=== PATIENT | male | born 1980 | race Caucasian/White ===

== ENCOUNTER 2023-01-24 20:43 | Emergency (ER) | payer MEDICAID, SELFPAY ==
--- NOTE | 2023-01-24 | ECG_ITS ---
Test Reason : etoh Blood Pressure : / mmHG Vent. Rate : 090 BPM Atrial Rate : 090 BPM P-R Int : 132 ms QRS Dur : 092 ms QT Int : 392 ms P-R-T Axes : 080 071 063 degrees QTc Int : 479 ms Normal sinus rhythm Normal ECG When compared with ECG of 07-AUG-2018 21:41, No significant change was found Referred By: Generic ED Physician Electronically Signed By:RENÉE CEDENO MD
[2023-01-24 20:54] VITALS: BP 120/87; PULSE 97; RESP 16; TEMP 36.5; O2SAT 92; BMI 22.7
--- NOTE | 2023-01-24 21:07 | MHC.RECOVSUP ---
Met with patient, Patient did not want any service but was given resources..
--- NOTE | 2023-01-24 21:16 | ED_ITS ---
HPI - General Adult General Chief complaint: ETOH/Substance Use Stated complaint: HEROIN OD + NARCAN Time Seen by Provider: 01/24/23 20:56 Source: patient and EMS Mode of arrival: EMS History of Present Illness HPI narrative: 42-year-old male who is a regular user of heroin is brought in by EMS after was found unresponsive in a car by bystanders who called 911, patient received 4 doses of nasal Narcan, CPR was initiated by bystanders and continued by [place] police department. Ross was achieved upon EMS arrival. Patient does not recall getting into the car exactly how much drugs he used. Patient denies any suicidal homicidal ideation and is declining detox at this time. Patient is adamant about leaving at this time. Related Data Allergies Allergy/AdvReac Type Severity Reaction Status Date / Time coffee (Coffea arabica) Allergy Severe ANAPHYLAXIS Verified 01/24/23 21:00 [COFFEE] Penicillins [PENICILLINS] Allergy Intermediate RASH Verified 01/24/23 21:00 penicillin V Allergy Unknown Rash Verified 01/24/23 21:00 COFFEE FLAVOR Allergy Unknown Anaphylaxis Uncoded 01/24/23 21:00 Review of Systems Review of Systems: Pertinent positives and negatives as stated in HPI PMFSH Past Medical History Source: nursing notes reviewed Physical Exam ED Vital Signs: Vital Signs - 24 hr 01/24/23 20:54 Temperature 97.7 F Pulse Rate 97 Respiratory Rate 16 Blood Pressure 120/87 Pulse Oximetry 92 Oxygen Delivery Method Room Air BMI result Body Mass Index 22.7 VITAL SIGNS: Reviewed. GENERAL: Well developed, well nourished, in no acute distress. HEAD: Normocephalic/atraumatic EYES: PERRLA, EOMI EARS: Ext canals without abnormality NOSE: Nares patent bilateral OROPHARYNX: no oral lesions noted, posterior pharynx clear NECK: Supple, no adenopathy LUNGS: Normal breath sounds. No adventitious sounds or accessory muscle use. SpO2<92> CARDIOVASCULAR: Regular rate and rhythm without noted murmurs ABDOMEN: Soft, non-tender, non-distended with bowel sounds. MUSCULOSKELETAL: No tenderness, deformities, or effusions noted on gross inspection. EXTREMITIES: No cyanosis, clubbing or edema. SKIN: Inspection of the skin reveals no rashes NEUROLOGIC: Alert and oriented x 4. Strength and sensation to light touch were grossly intact x 4. Medical Decision Making Medical Decision Making MDM Narrative: 42-year-old male with arrest associated with overdose now fully alert and oriented, articulating well, medical exam without acute findings, patient is very adamant about leaving. He understands the risks of being discharged prior to observation that include the possibility of an additional peak of heroin. He is discharged against medical advice with Narcan. Independent Interpretation I performed an independent interpretation of an: EKG Interpretation: Normal sinus rhythm, HR -90, no STEMI, CO/QRS/QTC is within normal limits. Discharge Plan Discharge Clinical Impression: Overdose Patient Disposition: Left Against Medical Advice Instructions: Adult Overdose (ED) Additional Instructions: Your discharged against medical advice, you have declined detox, you have been discharged with home Narcan, if you change of mind at any time please do not hesitate to return to the emergency room. Stand Alone Forms: Against Medical Advice
[2023-01-24] MEDS: Naloxone HCl Nasal TAKE HOME 4 MG SPRAY 8 MG NOSTRILALT (21:28)
== END 2023-01-24 21:47 | disposition left against medical advice (07) ==
LOC: HO.ED 21:32
PROVIDERS: Emergency Provider Student in an Organized Health Care Education/Training Program
DX: T40.1X1A Poisoning by heroin, accidental (unintentional), initial encounter (principal); R94.31 Abnormal electrocardiogram [ECG] [EKG]; Y92.9 Unspecified place or not applicable
CPT/HCPCS: 93005; 99283

== ENCOUNTER → 2023-01-24 21:11 | Outpatient (BNV) | payer MEDICAID, SELFPAY | PROVIDERS: Emergency Provider Student in an Organized Health Care Education/Training Program; Visit Provider Internal Medicine Cardiovascular Disease | DX: F11.20 Opioid dependence, uncomplicated (principal) | CPT/HCPCS: 93010 ==

== ENCOUNTER 2023-03-02 11:41 | Emergency (ER) | payer MEDICAID, SELFPAY ==
--- NOTE | ~2023-03-02 | US_ITS ---
EXAMINATION: US ABDOMEN COMPLETE CLINICAL INFORMATION: Epigastric pain. COMPARISON: CT abdomen pelvis 07/08/2017 TECHNIQUE: Real-time imaging of the abdominal viscera. FINDINGS: PANCREAS: Normal. ABDOMINAL AORTA: The proximal, mid, and distal segments are normal in caliber. INFERIOR VENA CAVA: Visualized portions are normal. LIVER: The liver is normal in size. The liver contour is normal. Parenchymal echogenicity is borderline increased suggesting steatosis. No focal hepatic lesion. There is no intrahepatic biliary duct dilatation seen. GALLBLADDER: The gallbladder is contracted with a slightly thickened wall and question of gallbladder wall polyps versus cholesterolosis. Otherwise unremarkable without evidence of stones, sludge or pericholecystic fluid. COMMON BILE DUCT: Normal in caliber measuring 0.5 cm in diameter. RIGHT KIDNEY: A 7 mm echogenic focus noted at the upper pole of the right kidney with twinkle artifact consistent with a nonobstructing stone. No hydronephrosis. No focal parenchymal lesions. The kidney measures 8.3 cm in maximum dimension. LEFT KIDNEY: There is a 6 mm echogenic focus present in the mid left kidney with twinkle artifact consistent with a nonobstructing stone. No hydronephrosis. No focal parenchymal lesions. The kidney measures 9.7 cm in maximum dimension. SPLEEN: Normal. The spleen measures 9.8 cm in maximum dimension. FREE FLUID: None. US/US abdomen complete IMPRESSION: 1. Bilateral nonobstructing renal calculi. No calculi seen on the 07/08/2017 CT scan. 2. Contracted gallbladder with question of polyps versus cholesterolosis. 3. Borderline increased echogenicity of the liver suggesting hepatic steatosis.
[2023-03-02 11:59] VITALS: BP 112/86; PULSE 81; RESP 18; TEMP 36.7; O2SAT 99; BMI 25.8
--- NOTE | 2023-03-02 12:01 | ED_ITS ---
HPI - Abdominal Pain General Chief Complaint: Back Pain/Injury Stated Complaint: R Side Flank Pain Time Seen by Provider: 03/02/23 13:30 Source: patient Mode of arrival: ambulatory Limitations: no limitations History of Present Illness HPI narrative: 42 yo male with no sig PMH here with c/o R sided lateral paraspinal pain on and off x 1 year started while working at a [employer]. He recently saw blood in urine x 1. He does not take thinners, no saddle anesthesia no b/b incontinence does use IVDA - last used this weekend had a brief fever but pain was before that. He has not had a fever since and he state it was just cotton wool fever. He denies dysuria or rash. MD elicited complaint: other (back pain) Pertinent past history: other (IVDA) Onset (ago): year(s) (1) Pain Consistency: intermittent Location: other (R paraspinal ) Severity: moderate Quality: aching Radiation: none Migration to: no migration Exacerbating factors: movement Relieving factors: nothing Context: history of similar episodes Associated symptoms: hematuria Related Data Previous Rx's Medication Instructions Recorded cyclobenzaprine 10 mg tablet 10 mg PO TID PRN muscle spasm #20 03/02/23 tabs lidocaine 5 % topical patch 1 patch topical DAILY #30 ea 03/02/23 Allergies Allergy/AdvReac Type Severity Reaction Status Date / Time coffee (Coffea arabica) Allergy Severe ANAPHYLAXIS Verified 01/24/23 21:00 [COFFEE] Penicillins [PENICILLINS] Allergy Intermediate RASH Verified 01/24/23 21:00 penicillin V Allergy Unknown Rash Verified 01/24/23 21:00 COFFEE FLAVOR Allergy Unknown Anaphylaxis Uncoded 01/24/23 21:00 Review of Systems Review of Systems Constitutional : No Weight loss, pos Fever, No Chills, ENT/Mouth : No Hearing loss, No Ear Pain, No Nasal Congestion, No Sinus Pain, No Hoarseness, No sore throat, No Rhinorrhea, No Swallowing Difficulty Cardiovascular : No Chest Pain, No SOB Respiratory : No Cough, No Dyspnea Gastrointestinal : No Nausea, No Vomiting, No Diarrhea, No abdominal Pain, No Hematochezia, No Melena Genitourinary : No Dysuria, No Urinary Frequency, No Hematuria, No Urinary Incontinence, Musculoskeletal : positive back pain Skin : No Skin Lesions, No rash Neuro : No Weakness, No Numbness, No Paresthesias, no loss of bowel or bladder incontinence, no saddle anesthesia All other systems reviewed and are negative [facility] Past Medical History Attestation statement: The following information was validated with the patient. Medical History Kidney stones Social History Social History (Updated 03/02/23 @ 14:23 by Aurea Jennings DO) Alcohol intake: current Alcohol intake frequency: 3 or more drinks per day Alcohol type: hard liquor Patient Tobacco Use Status: Current everyday Tobacco user Smoked in Last 30 Days: Yes Use of substances other than those prescribed or required for medical reasons: Yes Substance Use Type: Crack/Cocaine and IV Drugs Substance Use Frequency: Weekly Last Used Substance: Days (ago) Any prior treatment program specific to substance use: Yes Advance Directives: No Advance Directives Information Provided: No Physical Exam ED Vital Signs: Vital Signs - 24 hr 03/02/23 11:59 03/02/23 13:47 Temperature 98.1 F 98.1 F Pulse Rate 81 71 Respiratory Rate 18 18 Blood Pressure 112/86 95/70 Pulse Oximetry 99 97 Oxygen Delivery Method Room Air Room Air BMI result Body Mass Index 25.8 Appearance: Alert. Oriented X3. No acute distress. Eyes: Pupils equal, round and reactive to light. ENT: Pharynx normal. Neck: Normal inspection. Neck supple. CVS: Normal heart rate and rhythm. Pulses normal. Respiratory: No respiratory distress. Breath sounds normal. Abdomen: Soft and nontender. Back: no midline ttp there is pain and spasm to R thoracolumbar junction muscle and ttp no erythema or warmth Skin: Skin warm and dry. Normal skin color. Normal skin turgor. Extremities: No lower extremity edema. No calf ttp Neuro: Oriented X 3. No motor deficit. No sensory deficit. Course Course Course Narrative: RME: 42-year-old male with no significant past medical history, reports family history of renal issues, complaining of intermittent right flank pain x1 year worse with standing. Denies known injury, hematuria/dysuria, nausea/vomiting No rash appreciated, right CVA tenderness elicited, abdomen soft with epigastric/RUQ tenderness. Mild right flank swelling noted Labs, UA, abdomen ultrasound ordered Full HPI, ROS and PE to be performed by primary ED provider. Reevaluation(s) Reevaluation #1: ESR negative doubt epidural abscess Medical Decision Making Medical Decision Making [facility] Narrative: 42 yo male with hx of renal colic and also injects cocaine who comes in with 1 year of R back pain but no midline ttp and no cauda equina symptoms - he did have a fever this weekend after injecting but it was transient and he reports it as cotton wool fever - I suspect this is true given the pain x 1 year and epidural abscess less likely though I will send off ESR. Labs and urine ordered along with US given history of stones but his pain is very reproduceable. Differential Diagnosis Differential Diagnoses: The differential diagnosis associated with the presentation includes back strain, UTI, doubt pyelonephritis, doubt obstructing stone, epidural ascess less likely given 1 year of symptoms Admission/Observation Consideration of admission/observation: Escalation of care including admission/observation considered no fever here or + ESR doubt epidural abscess Lab Data [facility] Lab Attestation statement: I reviewed the patient's lab results. 03/02/23 12:09 03/02/23 12:09 Labs: Lab Results 03/02/23 03/02/23 03/02/23 Range/Units 12:09 12:09 12:09 WBC 6.9 (4.8-10.8) X10*3/uL RBC 4.83 (4.60-5.80) X10*6/uL Hgb 15.2 (14.0-18.0) g/dl Hct 45.7 (42.0-52.0) % MCV 94.6 (80.0-98.0) fL MCH 31.5 (27.0-33.0) pg MCHC 33.3 (31.0-36.0) g/dl RDW 13.6 (11.0-16.0) % Plt Count 284 (160-400) X10*3/uL MPV 10.0 (9.4-12.4) fL Immature Gran % (Auto) 0.3 (0.0-0.4) % Neut % (Auto) 52.2 (45-73) % Lymph % (Auto) 30.4 (20-40) % Bureau % (Auto) 13.8 H (2-11) % Eos % (Auto) 2.6 (0-4) % Baso % (Auto) 0.7 (0-2) % Lymph # (Auto) 2.1 (1.2-4.9) X10*3/uL Bureau # (Auto) 1.0 (0.1-1.2) X10*3/uL Eos # (Auto) 0.2 (0.0-0.4) X10*3/uL Baso # (Auto) 0.1 (0.0-0.2) X10*3/uL Abs Immat Gran (auto) 0.02 (0.00-0.03) X10*3/uL Absolute Neuts (auto) 3.6 (2.0-8.3) x10*3/uL Absolute Nucleated RBC 0.000 (0.0-0.012) X10*3/uL Nucleated RBC % (auto) 0.0 (0.0-0.2) /100WBC ESR 9 (0-15) MM/HR Sodium 138 (135-145) mmol/L Potassium 4.5 (3.3-5.1) mmol/L Chloride 99 (96-108) mmol/L Carbon Dioxide 33 H (22-29) mmol/L Anion Gap 11 L (12-20) BUN 14 (9-16) mg/dL Creatinine 1.09 (0.5-1.4) mg/dL Estim Creat Clear Calc 78.0 Estimated GFR > 60 Random Glucose 89 (60-115) mg/dL Calcium 9.7 (8.4-10.2) mg/dL Total Bilirubin 0.6 (0.0-1.0) mg/dL Direct Bilirubin 0.2 (0.0-0.5) mg/dL AST 28 (5-37) U/L ALT 31 (0-40) U/L Alkaline Phosphatase 75 (39-117) U/L Total Protein 8.4 H (6.5-8.0) g/dL Albumin 4.3 (3.5-5.0) g/dL Lipase 16 (8-78) U/L Urine Color Urine Appearance Urine pH (5.0-9.0) Ur Specific [place] (1.005-1.025) Urine Protein (Neg-Trace) mg/dL Urine Glucose (UA) (Negative) mg/dL Urine Ketones (Negative) mg/dL Urine Blood (Negative) Urine Nitrite (Negative) Ur Leukocyte Esterase (Negative) Urine RBC (0-2) /HPF Urine WBC (0-5) /HPF Ur Squamous Epith Cells (0-2) /HPF Urine Bacteria (None Seen) Hyaline Casts (0-2) /LPF 03/02/23 Range/Units 13:46 WBC (4.8-10.8) X10*3/uL RBC (4.60-5.80) X10*6/uL Hgb (14.0-18.0) g/dl Hct (42.0-52.0) % MCV (80.0-98.0) fL MCH (27.0-33.0) pg MCHC (31.0-36.0) g/dl RDW (11.0-16.0) % Plt Count (160-400) X10*3/uL MPV (9.4-12.4) fL Immature Gran % (Auto) (0.0-0.4) % Neut % (Auto) (45-73) % Lymph % (Auto) (20-40) % Bureau % (Auto) (2-11) % Eos % (Auto) (0-4) % Baso % (Auto) (0-2) % Lymph # (Auto) (1.2-4.9) X10*3/uL Bureau # (Auto) (0.1-1.2) X10*3/uL Eos # (Auto) (0.0-0.4) X10*3/uL Baso # (Auto) (0.0-0.2) X10*3/uL Abs Immat Gran (auto) (0.00-0.03) X10*3/uL Absolute Neuts (auto) (2.0-8.3) x10*3/uL Absolute Nucleated RBC (0.0-0.012) X10*3/uL Nucleated RBC % (auto) (0.0-0.2) /100WBC ESR (0-15) MM/HR Sodium (135-145) mmol/L Potassium (3.3-5.1) mmol/L Chloride (96-108) mmol/L Carbon Dioxide (22-29) mmol/L Anion Gap (12-20) BUN (9-16) mg/dL Creatinine (0.5-1.4) mg/dL Estim Creat Clear Calc Estimated GFR Random Glucose (60-115) mg/dL Calcium (8.4-10.2) mg/dL Total Bilirubin (0.0-1.0) mg/dL Direct Bilirubin (0.0-0.5) mg/dL AST (5-37) U/L ALT (0-40) U/L Alkaline Phosphatase (39-117) U/L Total Protein (6.5-8.0) g/dL Albumin (3.5-5.0) g/dL Lipase (8-78) U/L Urine Color Yellow Urine Appearance Cloudy Urine pH 8.0 (5.0-9.0) Ur Specific [place] 1.020 (1.005-1.025) Urine Protein Trace (Neg-Trace) mg/dL Urine Glucose (UA) Negative (Negative) mg/dL Urine Ketones Trace (Negative) mg/dL Urine Blood Negative (Negative) Urine Nitrite Negative (Negative) Ur Leukocyte Esterase Trace H (Negative) Urine RBC 0-2 (0-2) /HPF Urine WBC 0-5 (0-5) /HPF Ur Squamous Epith Cells 0-2 (0-2) /HPF Urine Bacteria None Seen (None Seen) Hyaline Casts 0-2 (0-2) /LPF Independent Interpretation I performed an independent interpretation of an: Ultrasound (no hydronephrosis) Radiology Impression Discussion of test interpretation with radiology: I have reviewed the radiol ogist's reading. External Record Review External record reviewed: Inpatient record Prescription Management I considered prescription management with: Other Discharge Plan Discharge Clinical Impression: Paraspinal muscle spasm Patient Disposition: Home, Self-Care Instructions: Back Pain (ED) Additional Instructions: return for worsening pain, numbness, loss of control of bowel or bladder. avoid heavy lifting or things that cause pain you have chronic kidney stones but unchanged, your kidney function was normal you have some sludge vs polyps in your gallbladder but not the cause of your pain can follow up with a surgeon to discuss Prescriptions: New cyclobenzaprine 10 mg tablet 10 mg PO TID PRN (Reason: muscle spasm) Qty: 20 0RF lidocaine 5 % adhesive patch,medicated 1 patch topical DAILY Qty: 30 0RF Rx Instructions: leave on most painful area for up to 12 hrs Referrals: Ty Villeda MD [Physician] - (surgeon to discuss gallbladder if you have issues)
[2023-03-02 12:20] LABS: MANUAL DIFF FLAG NO
[2023-03-02 12:23] LABS: Basophils Absolute Auto 0.1 X10*3/uL (0.0-0.2); Basophils Percent Auto 0.7 % (0-2); Eosinophils Absolute Auto 0.2 X10*3/uL (0.0-0.4); Eosinophils Percent Auto 2.6 % (0-4); Hematocrit 45.7 % (42.0-52.0); Hemoglobin 15.2 g/dl (14.0-18.0); Imm Gran Abs Auto 0.02 X10*3/uL (0.00-0.03); Imm Gran Pct Auto 0.3 % (0.0-0.4); Lymphocytes Absolute Auto 2.1 X10*3/uL (1.2-4.9); Lymphocytes Percent Auto 30.4 % (20-40); Mean Corpuscular HGB Conc 33.3 g/dl (31.0-36.0); Mean Corpuscular Hemoglobin 31.5 pg (27.0-33.0); Mean Corpuscular Volume 94.6 fL (80.0-98.0); Monocytes Percent Auto 13.8 % (2-11); Neutrophils Absolute Auto 3.6 x10*3/uL (2.0-8.3); Neutrophils Percent Auto 52.2 % (45-73); Platelet Count 284 X10*3/uL (160-400); Red Blood Count 4.83 X10*6/uL (4.60-5.80); Red Cell Distribution Width 13.6 % (11.0-16.0); White Blood Count 6.9 X10*3/uL (4.8-10.8)
[2023-03-02 12:36] LABS: Alanine Aminotransferase 31 U/L (0-40); Albumin Level 4.3 g/dL (3.5-5.0); Alkaline Phosphatase 75 U/L (39-117); Anion Gap 11 (12-20); Aspartate Amino Transferase 28 U/L (5-37); Bilirubin Direct 0.2 mg/dL (0.0-0.5); Bilirubin Total 0.6 mg/dL (0.0-1.0); Blood Urea Nitrogen 14 mg/dL (9-16); Calcium 9.7 mg/dL (8.4-10.2); Carbon Dioxide 33 mmol/L (22-29); Chloride 99 mmol/L (96-108); Estimated Glomerular Filt Rate > 60; Glucose Random 89 mg/dL (60-115); Lipase 16 U/L (8-78); Potassium 4.5 mmol/L (3.3-5.1); Sodium 138 mmol/L (135-145); Total Protein 8.4 g/dL (6.5-8.0)
[2023-03-02 13:47] VITALS: BP 95/70; PULSE 71; RESP 18; TEMP 36.7; O2SAT 97
--- NOTE | 2023-03-02 13:53 | PC.NURSE ---
pt a&ox3, vss, pt verbalizing 7/10 right flank pain that radiates towards RLQ on abdomen. pt has hx of kidney stones. denies n/v/d/fever/chills/hematuria/dysuria. pt verbalizes that pain is similar to psat episodes where he had a kidney stone. pt verbalizs that pain increases upon exertion. pt currently in side lying position on his right side - states that the pain decreases when he lays on the affected side. urine obtained and sent to lab. call maxwell placed within reach. will continue to monitor.
[2023-03-02 13:55] LABS: Appearance Urine Cloudy; Color Urine Yellow; Glucose Urine UA Negative (Negative); Leukocyte Esterase Urine Trace (Negative); Nitrite Urine Negative (Negative); UMIC TRIGGER UACC YES; Urine Blood Negative (Negative); Urine Ketones Trace mg/dL (Negative); Urine Protein Trace mg/dL (Neg-Trace)
[2023-03-02 13:57] LABS: Bacteria Urine None Seen (None Seen); Hyaline Casts Urine 0-2 /LPF (0-2); RBC Urine 0-2 /HPF (0-2); Squamous Epithelial Cell Urine 0-2 /HPF (0-2); WBC Urine 0-5 /HPF (0-5)
[2023-03-02 14:32] LABS: Erythrocyte Sedimentation Rate 9 MM/HR (0-15)
== END 2023-03-02 14:51 | disposition home or self-care (01) ==
PROVIDERS: Physician Assistant; Emergency Provider Emergency Medicine
DX: M62.838 Other muscle spasm (principal); M54.50 Low back pain, unspecified; R10.13 Epigastric pain; R31.9 Hematuria, unspecified; F14.10 Cocaine abuse, uncomplicated; F17.200 Nicotine dependence, unspecified, uncomplicated; Z71.6 Tobacco abuse counseling; Z79.899 Other long term (current) drug therapy
CPT/HCPCS: 36415; 76700; 80048; 80076; 81001; 83690; 85025; 85652; 99284

== ENCOUNTER 2023-05-07 14:15 | Emergency (ER) | payer MEDICAID, SELFPAY ==
[2023-05-07 14:46] VITALS: BP 115/90; PULSE 114; RESP 20; TEMP 37; O2SAT 98; BMI 24.2
--- NOTE | 2023-05-07 14:46 | ED_ITS ---
HPI - General Adult General Chief complaint: ETOH/Substance Use Stated complaint: alcohol/ drugs detox Time Seen by Provider: 05/07/23 16:57 Source: patient, RN notes reviewed and old records reviewed Mode of arrival: ambulatory Limitations: no limitations History of Present Illness HPI narrative: 42-year-old male presents for evaluation of substance abuse. Patient reports that he drinks a sleeve of nips daily he reports that he also uses heroin and cocaine but to a lesser extent he states that he is seeking detox. He used all 3 substances prior to coming in patient reports that he has been to detox once in the past about 3 or 4 years ago denies any fevers, chills, somatic complaints at this time he reports he is not currently on any medications Related Data Previous Rx's Medication Instructions Recorded cyclobenzaprine 10 mg tablet 10 mg PO TID PRN muscle spasm #20 03/02/23 tabs lidocaine 5 % topical patch 1 patch topical DAILY #30 ea 03/02/23 Allergies Allergy/AdvReac Type Severity Reaction Status Date / Time coffee (Coffea arabica) Allergy Severe ANAPHYLAXIS Verified 05/07/23 14:51 [COFFEE] Penicillins [PENICILLINS] Allergy Intermediate RASH Verified 05/07/23 14:51 penicillin V Allergy Unknown Rash Verified 05/07/23 14:51 COFFEE FLAVOR Allergy Unknown Anaphylaxis Uncoded 01/24/23 21:00 Review of Systems 2 Constitutional: Constitutional: Denies chills and Denies fever(s) Eyes: Eyes: Denies blurry vision ENT: Denies vertigo Cardiovascular: Cardiovascular: Denies chest pain and Denies dyspnea Respiratory: Respiratory: Denies cough and Denies dyspnea Gastrointestinal: Gastrointestinal: Denies abdominal pain, Denies nausea and Denies vomiting Musculoskeletal: Musculoskeletal: Denies back pain Integumentary/Breasts: Skin/Breast: Denies rash Neurologic: Denies vertigo PMFSH Past Medical History Medical History Kidney stones Social History Social History (Updated 03/02/23 @ 14:23 by Aurea Jennings DO) Alcohol intake: current Alcohol intake frequency: 3 or more drinks per day Alcohol type: hard liquor Patient Tobacco Use Status: Current everyday Tobacco user Substance Use Type: Crack/Cocaine and IV Drugs Advance Directives: No Advance Directives Information Provided: Yes Physical Exam ED Vital Signs: Vital Signs - 24 hr 05/07/23 14:46 05/07/23 16:26 Temperature 98.6 F 98.4 F Pulse Rate 114 H 107 H Respiratory Rate 20 18 Blood Pressure 115/90 H 129/93 H Pulse Oximetry 98 93 Oxygen Delivery Method Room Air BMI result Body Mass Index 24.2 Const General: healthy appearing, comfortable, no acute distress, alert and awake Nutritional Appearance: well nourished Orientation/consciousness: patient oriented x3 HENMT Head: Yes normocephalic and Yes atraumatic Eyes Eyelids: Yes eyelids normal Conjunctivae: conjunctivae normal Sclerae: sclerae normal Corneas: corneas normal Pupils: Equal, round and reactive pupils present EOM: EOMs intact bilaterally Neck Neck: Yes full ROM Resp Effort & Inspection: normal respiratory effort, able to speak in complete sentences and not labored Cardio Rate: regular rate Rhythm: regular rhythm Skin General skin exam: elasticity normal Neuro General: patient oriented x3 Cranial nerves: Yes Equal, round and reactive pupils present and Yes Bilaterally intact EOM present Cognition (Neuro): normal cognition Extrem Other: Moving all extremities well without any obvious deformities Course Course Course Narrative: This is a rapid medical exam: Additional HPI, ROS, PE not included below will be deferred to primary provider. Patient is a 42-year-old male presenting to the emergency department requesting detox from drugs and alcohol. States last used drugs today, has been using cocaine and heroin. Has been drinking a sleeve of 100 proof vodka daily. Denies history of alcohol withdrawal seizures. Unsure last alcohol intake. Has not attempted detox or years. Denies any thoughts of suicidal or homicidal ideation. Plan: labs, UA, urine drug screen Reevaluation(s) Reevaluation #1: Unfortunately, there are no detox beds available for the patient. Upon learning this the patient requested discharge which I feel is appropriate at this time. He was given outpatient resources and is on the waiting list for several detox facilities Time: 18:19 Medical Decision Making Medical Decision Making MDM Narrative: 42-year-old male presents for evaluation of polysubstance abuse. He has no somatic complaints, he is not suicidal. He does have a mild leukocytosis to 13.3 K but this is likely reactive to substance abuse. patient's sodium is just below normal at 134, his CO2 is slightly low at 16. BUN is 17 with a normal creatinine and 1.19. No other significant electrolyte abnormalities. Patient will be referred to the Addiction Medicine team Differential Diagnosis Differential Diagnoses: The differential diagnosis associated with the presentation includes alcohol abuse Polysubstance abuse Substance abuse Alcohol withdrawal Lab Data MDM Lab Attestation statement: I reviewed the patient's lab results. As above 05/07/23 15:23 05/07/23 15:23 Labs: Lab Results 05/07/23 05/07/23 05/07/23 Range/Units 15:22 15:23 15:41 WBC 13.3 H (4.8-10.8) X10*3/uL RBC 5.57 (4.60-5.80) X10*6/uL Hgb 17.0 (14.0-18.0) g/dl Hct 51.1 (42.0-52.0) % MCV 91.7 (80.0-98.0) fL MCH 30.5 (27.0-33.0) pg MCHC 33.3 (31.0-36.0) g/dl RDW 13.2 (11.0-16.0) % Plt Count 395 D (160-400) X10*3/uL MPV 9.5 (9.4-12.4) fL Immature Gran % (Auto) 0.5 H (0.0-0.4) % Neut % (Auto) 77.1 H (45-73) % Lymph % (Auto) 14.6 L (20-40) % [place] % (Auto) 7.3 (2-11) % Eos % (Auto) 0.2 (0-4) % Baso % (Auto) 0.3 (0-2) % Lymph # (Auto) 1.9 (1.2-4.9) X10*3/uL [place] # (Auto) 1.0 (0.1-1.2) X10*3/uL Eos # (Auto) 0.0 (0.0-0.4) X10*3/uL Baso # (Auto) 0.0 (0.0-0.2) X10*3/uL Abs Immat Gran (auto) 0.07 H (0.00-0.03) X10*3/uL Absolute Neuts (auto) 10.3 H (2.0-8.3) x10*3/uL Absolute Nucleated RBC 0.000 (0.0-0.012) X10*3/uL Nucleated RBC % (auto) 0.0 (0.0-0.2) /100WBC Sodium 134 L (135-145) mmol/L Potassium 4.4 (3.3-5.1) mmol/L Chloride 102 (96-108) mmol/L Carbon Dioxide 16 L (22-29) mmol/L Anion Gap 20 (12-20) BUN 17 H (9-16) mg/dL Creatinine 1.19 (0.5-1.4) mg/dL Estim Creat Clear Calc 71.4 Estimated GFR > 60 Random Glucose 132 H (60-115) mg/dL Calcium 10.9 H D (8.4-10.2) mg/dL Magnesium 2.4 (1.6-2.6) mg/dL Total Bilirubin 0.4 (0.0-1.0) mg/dL AST 21 (5-37) U/L ALT 25 (0-40) U/L Alkaline Phosphatase 71 (39-117) U/L Total Protein 9.3 H (6.5-8.0) g/dL Albumin 4.4 (3.5-5.0) g/dL Urine Color Dark Yellow Urine Appearance Cloudy Urine pH 5.5 (5.0-9.0) Ur Specific [place] >= 1.030 H (1.005-1.025) Urine Protein 100 (2+) H (Neg-Trace) mg/dL Urine Glucose (UA) Negative (Negative) mg/dL Urine Ketones 40 (Negative) mg/dL Urine Blood Negative (Negative) Urine Nitrite Negative (Negative) Ur Leukocyte Esterase Trace H (Negative) Urine RBC 3-5 H (0-2) /HPF Urine WBC 0-5 (0-5) /HPF Ur Squamous Epith Cells 0-2 (0-2) /HPF Calcium Oxalate Crystal Present Urine Bacteria None Seen (None Seen) Hyaline Casts >20 (0-2) /LPF Urine Yeast Present Urine Opiates Screen Not Detected (Not Detect) Urine Fentanyl Screen POSITIVE H (Not Detect) Ur Barbiturates Screen Not Detected (Not Detect) Ur Phencyclidine Scrn Not Detected (Not Detect) Ur Amphetamines Screen Not Detected (Not Detect) U Benzodiazepines Scrn Not Detected (Not Detect) Urine Cocaine Screen POSITIVE H (Not Detect) U Marijuana (THC) Screen POSITIVE H (Not Detect) Ethyl Alcohol < 10 mg/dL COVID-19 (JASKARAN) Negative (Negative) COVID-19 Clin Com See Note Discharge Plan Discharge Clinical Impression: Polysubstance abuse Patient Disposition: Home, Self-Care Instructions: Polysubstance Abuse (ED) Additional Instructions: unfortunately there were no detox beds available currently follow-up with the outpatient resources you were provided Prescriptions: No Action cyclobenzaprine 10 mg tablet 10 mg PO TID PRN (Reason: muscle spasm) Qty: 20 0RF lidocaine 5 % adhesive patch,medicated 1 patch topical DAILY Qty: 30 0RF Rx Instructions: leave on most painful area for up to 12 hrs
[2023-05-07 15:28] LABS: MANUAL DIFF FLAG NO
[2023-05-07 15:33] LABS: Basophils Percent Auto 0.3 % (0-2); Eosinophils Percent Auto 0.2 % (0-4); Hematocrit 51.1 % (42.0-52.0); Imm Gran Abs Auto 0.07 X10*3/uL (0.00-0.03); Imm Gran Pct Auto 0.5 % (0.0-0.4); Lymphocytes Absolute Auto 1.9 X10*3/uL (1.2-4.9); Lymphocytes Percent Auto 14.6 % (20-40); Mean Corpuscular HGB Conc 33.3 g/dl (31.0-36.0); Mean Corpuscular Hemoglobin 30.5 pg (27.0-33.0); Mean Corpuscular Volume 91.7 fL (80.0-98.0); Mean Platelet Volume 9.5 fL (9.4-12.4); Monocytes Percent Auto 7.3 % (2-11); Neutrophils Absolute Auto 10.3 x10*3/uL (2.0-8.3); Neutrophils Percent Auto 77.1 % (45-73); Platelet Count 395 X10*3/uL (160-400); Red Blood Count 5.57 X10*6/uL (4.60-5.80); Red Cell Distribution Width 13.2 % (11.0-16.0); White Blood Count 13.3 X10*3/uL (4.8-10.8)
[2023-05-07 15:44] LABS: Ethanol < 10 mg/dL
[2023-05-07 15:45] LABS: COVID-19 Test Negative (Negative); IDNOW Serial# BCCEAD1C
[2023-05-07 15:46] LABS: Alanine Aminotransferase 25 U/L (0-40); Albumin Level 4.4 g/dL (3.5-5.0); Alkaline Phosphatase 71 U/L (39-117); Anion Gap 20 (12-20); Aspartate Amino Transferase 21 U/L (5-37); Bilirubin Total 0.4 mg/dL (0.0-1.0); Blood Urea Nitrogen 17 mg/dL (9-16); Calcium 10.9 mg/dL (8.4-10.2); Carbon Dioxide 16 mmol/L (22-29); Chloride 102 mmol/L (96-108); Creatinine Clr Calc Pharmacy 71.4; Estimated Glomerular Filt Rate > 60; Glucose Random 132 mg/dL (60-115); Magnesium 2.4 mg/dL (1.6-2.6); Potassium 4.4 mmol/L (3.3-5.1); Sodium 134 mmol/L (135-145); Total Protein 9.3 g/dL (6.5-8.0)
[2023-05-07 15:51] LABS: Appearance Urine Cloudy; Color Urine Dark Yellow; Glucose Urine UA Negative (Negative); Leukocyte Esterase Urine Trace (Negative); Nitrite Urine Negative (Negative); PH 5.5 (5.0-9.0); Specific Gravity - Urine >= 1.030 (1.005-1.025); UMIC TRIGGER UACC YES; Urine Blood Negative (Negative); Urine Ketones 40 mg/dL (Negative); Urine Protein 100 (2+) mg/dL (Neg-Trace)
[2023-05-07 15:59] LABS: Bacteria Urine None Seen (None Seen); Calcium Oxalate Crystals Urine Present; Hyaline Casts Urine >20 /LPF (0-2); Squamous Epithelial Cell Urine 0-2 /HPF (0-2); WBC Urine 0-5 /HPF (0-5)
[2023-05-07 16:09] LABS: Amphetamine Screen Urine Not Detected (Not Detect); Barbiturates, Urine Not Detected (Not Detect); Benzodiazepines Screen Urine Not Detected (Not Detect); Cannabinoid Screen Urine POSITIVE (Not Detect); Cocaine Screen Urine POSITIVE (Not Detect); Fentanyl, urine POSITIVE (Not Detect); Opiate Screen Urine Not Detected (Not Detect); Phencyclidine Screen Urine Not Detected (Not Detect)
[2023-05-07 16:26] VITALS: BP 129/93; PULSE 107; RESP 18; TEMP 36.9; O2SAT 93
[2023-05-07 17:00] VITALS: RESP 18
--- NOTE | 2023-05-07 17:00 | PC.NURSE ---
pt speaking w pa/care team michael. aox4. [facility] 0/cows 0. pt asking for detox bed. pt declined to change. no distress noted- breathing well, talking w/o issues
--- NOTE | 2023-05-07 17:17 | MHC.RECOVSUP ---
Addendum entered by Tray Lawrence 05/07/23 18:25: Pt informs they would rather go home and follow up from there. Pt informed he is on a wait list for [facility] and Jamin has his medical information to follow up with them from home. Pt has no other questions and concerns at this time and has DC. Original Note: Met with pt in ED18H who is here for FERNIE. Pt reports drinking about 1 sleeve of vodka, 1 gram of cocaine nasally, and 1 bag of heroin intravenously a day. Pt has no history of MAT medications and was last in ATS a few years ago at [facility]. At this time pt is interested in ATS no farther than [facility] bed search in process. pt had no other questions or concerns at this time.
--- NOTE | 2023-05-07 18:10 | PC.NURSE ---
pt spoke w ann rodriguez and left w/o telling rn after this conversation. pt was stable on departure- pvalerie blanco. pt refused repeat vs prior to departure
== END 2023-05-07 18:00 | disposition home or self-care (01) ==
PROVIDERS: Registered Nurse Emergency; Emergency Provider Emergency Medicine
DX: F19.10 Other psychoactive substance abuse, uncomplicated (principal); F10.10 Alcohol abuse, uncomplicated; Y90.0 Blood alcohol level of less than 20 mg/100 ml; Z11.52 Encounter for screening for COVID-19; F17.200 Nicotine dependence, unspecified, uncomplicated; Z79.899 Other long term (current) drug therapy
CPT/HCPCS: 36415; 80053; 80307; 81001; 83735; 85025; 87635; 99283; 99284

== ENCOUNTER 2023-07-10 09:49 | Emergency (ER) | payer MEDICAID, SELFPAY ==
[2023-07-10 09:59] VITALS: BP 114/83; BP 138/74; PULSE 80; PULSE 86; RESP 16; TEMP 36.6; O2SAT 99; BMI 24.0
--- NOTE | 2023-07-10 10:14 | ED.OVERDOSE ---
HPI - Overdose General Chief Complaint: Overdose Stated Complaint: OD,NARCAN GIVEN W/GOOD RESULTS PER EMS Time Seen by Provider: 07/10/23 09:52 Source: patient and EMS Mode of arrival: EMS Limitations: no limitations History of Present Illness HPI Narrative: 42-year-old male with no known medical history presents the ER after being found after presumed overdose. Per EMS the patient was with his partner. The patient became unresponsive after using drugs and his partner gave him 4 mg of intranasal Narcan. The patient received an additional 4 mg of intranasal Narcan by PD on arrival. When EMS arrived patient was alert and oriented. Patient reports that he normally uses cocaine IV. He shared his needle and supplies with his partner and believes he may have been exposed to heroin. He would not share how many bags that he used. He also drinks some alcohol earlier today. He denies any SI or HI. No physical complaints. Related Data Previous Rx's Medication Instructions Recorded cyclobenzaprine 10 mg tablet 10 mg PO TID PRN muscle spasm #20 03/02/23 tabs lidocaine 5 % topical patch 1 patch topical DAILY #30 ea 03/02/23 Allergies Allergy/AdvReac Type Severity Reaction Status Date / Time coffee (Coffea arabica) Allergy Severe ANAPHYLAXIS Verified 07/10/23 09:59 [COFFEE] Penicillins [PENICILLINS] Allergy Intermediate RASH Verified 07/10/23 09:59 penicillin V Allergy Unknown Rash Verified 07/10/23 09:59 COFFEE FLAVOR Allergy Unknown Anaphylaxis Uncoded 07/10/23 09:59 Review of Systems Review of Systems: Yes all other systems are reviewed and are negative Constitutional: Constitutional: Reports no additional constitutional complaints, Denies body ache(s), Denies chills, Denies fever(s), Denies headache(s) and Denies weakness Eyes: Eyes: Reports no additional eye complaints and Denies change in vision ENT: Reports system reviewed and no additional complaints, except as documented, Denies dizziness, Denies headache(s), Denies nasal congestion, Denies nasal discharge and Denies neck pain Cardiovascular: Cardiovascular: Reports no additional cardiovascular complaints, Denies chest pain, Denies leg edema and Denies dyspnea Respiratory: Respiratory: Reports no additional respiratory complaints, Denies cough and Denies dyspnea Gastrointestinal: Gastrointestinal: Reports no additional gastrointestinal complaints, Denies abdominal pain, Denies diarrhea, Denies nausea and Denies vomiting Genitourinary: Genitourinary: Denies urinary incontinence Musculoskeletal: Musculoskeletal: Reports no additional musculoskeletal complaints, Denies back pain, Denies arthralgias, Denies joint swelling, Denies neck pain, Denies numbness and Denies tingling Integumentary/Breasts: Skin/Breast: Reports system reviewed and no additional complaints, except as docu and Denies rash Neurologic: Reports system reviewed and no additional complaints, except as documented, Denies Abnormal speech present, Denies dizziness, Denies headache(s), Denies numbness, Denies tingling and Denies weakness [facility] Past Medical History Attestation statement: The following information was validated with the patient. Source: old records reviewed and nursing notes reviewed Medical History Kidney stones Social History Social History Alcohol intake: current Alcohol intake frequency: a few times a week Alcohol type: hard liquor Patient Tobacco Use Status: Current everyday Tobacco user Smoked in Last 30 Days: Yes Use of substances other than those prescribed or required for medical reasons: Yes Substance Use Type: Heroin and IV Drugs Substance Use Frequency: Chronic Longstanding Last Used Substance: Just Prior to Admission Advance Directives: No Advance Directives Information Provided: No Physical Exam Vital Signs: Vital Signs: Last Vital Signs Temp 97.7 F 07/10/23 14:14 Pulse 79 07/10/23 14:14 Resp 18 07/10/23 14:14 BP 93/57 L 07/10/23 14:14 Pulse Ox 95 07/10/23 14:14 O2 Del Method Room Air 07/10/23 14:14 BMI result Body Mass Index 24.0 Const: General: cooperative, healthy appearing, comfortable and no acute distress Orientation/consciousness: patient oriented x3 Limitations: no limitations HEENT: Head: Yes normal to inspection Ears: hearing grossly normal bilaterally General nose exam: Normal external nose present Face and sinus: Yes normal facial exam Mouth: Normal oral and palatal mucosa present Throat: Yes posterior oropharynx normal Eyes: General: appearance normal, both eyes and all related structures Pupils: Equal, round and reactive pupils present Neck: Neck: Yes normal visual inspection Chest: Chest palpation & inspection: normal inspection of the chest Resp: Effort & Inspection: normal respiratory effort Auscultation: clear to auscultation bilaterally Cardio: Rate: regular rate Rhythm: regular rhythm Peripheral pulses: Peripheral pulses 2+ throughout GI: Inspection: Yes normal to inspection Palpation (GI): Soft to palpation and nontender Auscultation: normal bowel sounds Back/Spine/Pelvis: Thoracic/Lumbar Spine: thoracic and lumbar spine normal to inspection Skin: General skin exam: no rashes or lesions noted Neuro: General: patient oriented x3, no focal motor deficits and normal sensation to monofilament Cranial nerves: Yes Equal, round and reactive pupils present Cognition (Neuro): normal cognition Speech: No Abnormal speech present Gait exam (Neuro): Normal gait present Motor exam (neuro): 5/5 motor strength present throughout Extrem: General: Yes normal to inspection Course Course Course Narrative: Patient eating/drinking, up and ambulating with a steady gait. Plan for discharge home. Reviewed worrisome signs/symptoms with patient and when to seek additional care. Comfortable with discharge home. Medical Decision Making Medical Decision Making [facility] Narrative: 42-year-old male with no known medical history presents the ER after being found after presumed overdose.? Per EMS the patient was with his partner.? The patient became unresponsive after using drugs and his partner gave him 4 mg of intranasal Narcan.? The patient received an additional 4 mg of intranasal Narcan by PD on arrival.? When EMS arrived patient was alert and oriented.? Patient reports that he normally uses cocaine IV.? He shared his needle and supplies with his partner and believes he may have been exposed to heroin.? He would not share how many bags that he used.? He also drinks some alcohol earlier today.? He denies any SI or HI.? No physical complaints. On arrival patient is alert and oriented. Vitals are stable. He is not interested in any detox resources. He is not suicidal. He has no physical complaints. I will monitor him for a brief time and discharge him Differential Diagnosis Differential Diagnoses: The differential diagnosis associated with the presentation includes Polysubstance use Admission/Observation Consideration of admission/observation: Escalation of care including admission/observation considered no need for repeat narcan use Consult Healthcare Provider Management of the patient was discussed with: Insurance Case Manager Patient met with the field hockey and lacrosse coach. Not interested in any detox resources Independent Historian Clinical information obtained from an independent historian. History obtained from or confirmed by: EMS Prescription Management I considered prescription management with: Other (narcan) Social Determinants Patient?s care significantly limited by Social Determinants of Health including: Alcoholism and drug addiction in family Discharge Plan Discharge Clinical Impression: Drug overdose Patient Disposition: Home, Self-Care Instructions: Adult Overdose (ED) Additional Instructions: Do not use drugs as this can be dangerous Prescriptions: No Action cyclobenzaprine 10 mg tablet 10 mg PO TID PRN (Reason: muscle spasm) Qty: 20 0RF lidocaine 5 % adhesive patch,medicated 1 patch topical DAILY Qty: 30 0RF Rx Instructions: leave on most painful area for up to 12 hrs Referrals: [facility] [Primary Care Provider] - 1 week
--- NOTE | 2023-07-10 10:22 | PC.NURSE ---
a&ox4, vss and up to date. pt comes in today after ingesting heroin. unknown amount/unknown on how substance was absorbed into system. pt will not say. 4mg narcan administered by partner and 4mg administered by PD. no sob/wob noted. pt arousable to verbal stimuli. respirations even/unlabored. resting comfortably w/ the lights dimmed. call maxwell placed within reach.
[2023-07-10 10:58] VITALS: BP 93/54; PULSE 82; RESP 16; O2SAT 100
--- NOTE | 2023-07-10 11:08 | PC.NURSE ---
pt seen by recovery team. per recovery team - pt seemed slightly disinterested/did not want to engage within conversation. not interested in detox at this time.
--- NOTE | 2023-07-10 11:31 | HO.SUDE ---
Met with pt in ED11 who is here for OD. Pt is not interested in communicating and just wants to sleep. Pt had used an undisclosed amount of heroin intravenously and has a history of OD but is unable to provide how many and when the last was. Pt reports having been to ATS but is unable to provide when or where it was. Pt has no history or interest in MAT and is not looking for ATS at this time. T/W reviewed harm reduction and overdose prevention with pt. Pt has no other questions or concerns at this time, provider informed.
[2023-07-10 12:00] VITALS: BP 106/60; PULSE 76; RESP 18; TEMP 36.7; O2SAT 97
--- NOTE | 2023-07-10 12:05 | PC.NURSE ---
vss and up to date. pt continues to rest in no apparent distress. respirations remain even/unlabored. call maxwell placed within reach.
[2023-07-10 14:14] VITALS: BP 93/57; PULSE 79; RESP 18; TEMP 36.5; O2SAT 95
[2023-07-10] MEDS: Naloxone HCl Nasal TAKE HOME 4 MG SPRAY 8 MG NOSTRILALT (15:59)
--- NOTE | 2023-07-10 16:01 | PC.NURSE ---
take home narcan provided to pt.
== END 2023-07-10 16:02 | disposition home or self-care (01) ==
PROVIDERS: Emergency Provider Student in an Organized Health Care Education/Training Program
DX: T50.901A Poisoning by unspecified drugs, medicaments and biological substances, accidental (unintentional), initial encounter (principal); Y92.9 Unspecified place or not applicable; F14.90 Cocaine use, unspecified, uncomplicated
CPT/HCPCS: 99284; 99285

== ENCOUNTER 2023-10-06 10:44 | Outpatient (REF) | payer MEDICAID, SELFPAY ==
[2023-10-06 12:02] LABS: Basophils Percent Auto 0.5 % (0-2); Eosinophils Absolute Auto 0.3 X10*3/uL (0.0-0.4); Hematocrit 46.3 % (42.0-52.0); Hemoglobin 15.8 g/dl (14.0-18.0); Imm Gran Abs Auto 0.02 X10*3/uL (0.00-0.03); Imm Gran Pct Auto 0.3 % (0.0-0.4); Lymphocytes Absolute Auto 1.1 X10*3/uL (1.2-4.9); Lymphocytes Percent Auto 14.9 % (20-40); MANUAL DIFF FLAG SCAN; Mean Corpuscular HGB Conc 34.1 g/dl (31.0-36.0); Mean Corpuscular Hemoglobin 32.6 pg (27.0-33.0); Mean Corpuscular Volume 95.5 fL (80.0-98.0); Mean Platelet Volume 10.3 fL (9.4-12.4); Monocytes Absolute Auto 1.5 X10*3/uL (0.1-1.2); Monocytes Percent Auto 20.1 % (2-11); Neutrophils Absolute Auto 4.5 x10*3/uL (2.0-8.3); Neutrophils Percent Auto 60.2 % (45-73); Platelet Count 224 X10*3/uL (160-400); Red Blood Count 4.85 X10*6/uL (4.60-5.80); Red Cell Distribution Width 13.2 % (11.0-16.0); SCAN SMEAR FLAG 1; White Blood Count 7.5 X10*3/uL (4.8-10.8)
[2023-10-06 12:28] LABS: SLIDE REVIEW VERIFIED
[2023-10-06 12:40] LABS: Syphilis Screen Nonreactive (Nonreactive)
[2023-10-06 12:41] LABS: Alanine Aminotransferase 37 U/L (0-40); Albumin Level 4.1 g/dL (3.5-5.0); Alkaline Phosphatase 74 U/L (39-117); Anion Gap 14 (12-20); Aspartate Amino Transferase 37 U/L (5-37); Bilirubin Total 0.4 mg/dL (0.0-1.0); Blood Urea Nitrogen 12 mg/dL (9-16); Calcium 9.8 mg/dL (8.4-10.2); Carbon Dioxide 32 mmol/L (22-29); Chloride 98 mmol/L (96-108); Cholesterol 171 mg/dL (<200); Estimated Glomerular Filt Rate > 60; Glucose Random 94 mg/dL (60-115); HDL Cholesterol 46 mg/dL (>40); LDL Cholesterol Calculated 93 mg/dL (<100); Potassium 3.6 mmol/L (3.3-5.1); Sodium 140 mmol/L (135-145); Triglycerides 163 mg/dL (<150)
[2023-10-06 12:48] LABS: Reflex LDLD? No
[2023-10-06 13:03] LABS: TSH reflex Free T4 0.24 uIU/mL (0.32-4.0)
[2023-10-06 13:58] LABS: Free T4 (Free Thyroxine) 0.91 ng/dL (0.71-1.85)
[2023-10-07 09:03] LABS: HBS Num1 227.67 mIU/mL (0-7.99); HBsAGNum1 0.42 S/CO (0.00-0.99); HIV AB/AG Nonreactive (Nonreactive); HIV Num 1 0.04 S/CO (0.00-0.99); Hepatitis B Core Antibody Nonreactive (Nonreactive); Hepatitis B Surface Antigen Negative (Negative); ~HepC Num1 16.23 S/CO (0.00-0.79); ~Hepatitis B Surface Antibody REACTIVE (Nonreactive); ~Hepatitis C Antibody Reactive (Nonreactive)
[2023-10-08 14:02] LABS: HCV Log PCR 6.67 Log IU/mL (NOT DETECTED); HepC Viral Load 4720000 IU/mL (NOT DETECTED)
[2023-10-09 05:33] LABS: TS Negative Control Passed; TS Panel A 0; TS Panel B 0; TS Positive Control Passed; TSpotTB Negative (Negative)
== END 2023-10-06 10:45 | disposition home or self-care (01) ==
LOC: HO.HHCL 10:44
PROVIDERS: Visit Provider Family Medicine
DX: R04.2 Hemoptysis (principal); E04.2 Nontoxic multinodular goiter; Z11.3 Encounter for screening for infections with a predominantly sexual mode of transmission; Z82.49 Family history of ischemic heart disease and other diseases of the circulatory system
CPT/HCPCS: 36415; 80053; 80061; 84439; 84443; 85025; 86481; 86704; 86706; 86780; 86803; 87340; 87389; 87522

== ENCOUNTER 2023-10-18 12:47 | Outpatient (REF) | payer MEDICAID, SELFPAY ==
--- NOTE | ~2023-10-18 | US_ITS ---
EXAMINATION: US RETROPERITONEAL LIMITED (RENAL ONLY) CLINICAL INFORMATION: Bilateral kidney stone and back pain. COMPARISON: Ultrasound abdomen complete 03/02/2023. CT abdomen and pelvis 07/08/2017. TECHNIQUE: Real-time imaging of the kidneys. FINDINGS: RIGHT KIDNEY: 10.9 x 4.4 x 5.1 cm (SAG x AP x TRV). The kidney is normal in size, contour, and echogenicity. Renal cortical thickness is normal. No focal parenchymal lesions or hydronephrosis. At the upper pole, an 8 mm nonobstructing calculus is seen, with twinkle artifact. At the interpolar aspect, 5 mm and 2 mm nonobstructing calculi are seen, with twinkle artifact. LEFT KIDNEY: 11.2 x 4.6 x 5.5 cm (SAG x AP x TRV). The kidney is normal in size, contour, and echogenicity. Renal cortical thickness is normal. No focal parenchymal lesions or hydronephrosis. At the interpolar aspect, a 6 mm nonobstructing calculus is seen, with twinkle artifact. US/US renal BI IMPRESSION: There are nonobstructing bilateral renal calculi, as detailed. No hydronephrosis.
== END 2023-10-18 12:48 | disposition home or self-care (01) ==
LOC: HO.US 12:47
PROVIDERS: PCP Family Medicine; Visit Provider Family Medicine
DX: N20.0 Calculus of kidney (principal)
CPT/HCPCS: 76775

== ENCOUNTER 2024-01-12 08:21 | Outpatient (REF) | payer MEDICAID, SELFPAY ==
--- NOTE | ~2024-01-12 | US_ITS ---
EXAMINATION: US COMPLETE ABDOMEN WITH LIVER ELASTOGRAPHY CLINICAL INFORMATION: Hepatitis C and right upper quadrant pain. COMPARISON: None available. TECHNIQUE: Real-time imaging of the abdominal viscera. Noninvasive ultrasound liver fibrosis assessment is performed using Phyllis ElastPQ point quantification shear wave elastography (2D-SWE) with a C5-2 MHz transducer. Multiple elastography samples are obtained. FINDINGS: PANCREAS: Normal. The visualized pancreatic head and body are normal in appearance. The remainder of the pancreas is obscured from visualization by the overlying bowel gas. ABDOMINAL AORTA: The proximal, middle, and distal aortic segments are normal in caliber. INFERIOR VENA CAVA: Visualized portions are normal. LIVER: Normal. The liver demonstrates normal size, contour and echogenicity. No focal lesion or intrahepatic biliary duct dilatation. The right lobe measures 16 point cm in length. The left lobe measures 12.8 cm in length. Portal flow is towards the liver (hepatopetal). Shear wave liver elastography median stiffness is 1.88 m/s (reference: normal median stiffness is 1.3 m/s or less). IQR/median stiffness to assess sampling precision is 0.14 (reference: good quality data set is IQR/median stiffness of 0.15 or less). GALLBLADDER: Small punctate foci on the gallbladder wall, suggesting possible cholesterolosis. The gallbladder is physiologically distended without evidence of stones, sludge, polyps, wall thickening or pericholecystic fluid. COMMON BILE DUCT: Normal in caliber measuring 0.3 cm in diameter. RIGHT KIDNEY: At the interpolar aspect, a 4 mm nonobstructing calculus is seen. At the lower pole, a 5 mm nonobstructing calculus is seen. No hydronephrosis. No renal focal parenchymal lesions. The kidney measures 9.1 cm in maximum dimension. LEFT KIDNEY: At the interpolar aspect, a 6 mm nonobstructing calculus is seen. No hydronephrosis. No focal parenchymal lesions. The kidney measures 10.9 cm in maximum dimension. SPLEEN: Normal. The spleen measures 9.5 cm in maximum dimension. FREE FLUID: None. US/US abdomen comp w elastography IMPRESSION: 1. Liver elastography: Measurements are suggestive of compensated advanced chronic liver disease but need further test for confirmation. 2. There are nonobstructing bilateral renal calculi. REFERENCE: Society of Radiologists in Ultrasound Liver Stiffness Thresholds (2019): LIVER STIFFNESS THRESHOLDS: *Liver Stiffness equal or less than 1.3 m/s: High probability of being normal. *Liver Stiffness less than 1.7 m/s: In the absence of other known clinical signs, rules out compensated advanced chronic liver disease. *Liver Stiffness 1.7-2.1 m/s: Suggestive of compensated advanced chronic liver disease but need further test for confirmation. *Liver Stiffness over 2.1 m/s: Rules in compensated advanced chronic liver disease. *Liver Stiffness over 2.4 m/s: Suggestive of clinically significant portal hypertension. QUALITY OF DATA SET: *IQR/Median value equal or less than 0.15 implies a quality data set. *IQR/Median value over 0.15 implies a poor quality data set. SIGNIFICANT CHANGE FROM PRIOR EXAM: Significant change if liver stiffness measurement is 10% or greater from prior exam. OTHER CONSIDERATIONS: The stage of liver fibrosis may be overestimated in the setting of acute hepatitis, liver inflammation, elevated liver function tests, hepatic vascular congestion, obstructive cholestasis, non-fasting state, and infiltrative diseases such as amyloidosis and lymphoma. In some patients with NAFLD, the liver stiffness thresholds for compensated advanced chronic liver disease may be lower. In causes other than viral hepatitis and NAFLD, liver stiffness thresholds are not well established.
== END 2024-01-12 08:22 | disposition home or self-care (01) ==
LOC: HO.US 08:21
PROVIDERS: PCP Family Medicine; Visit Provider Family Medicine
DX: R10.11 Right upper quadrant pain (principal)
CPT/HCPCS: 76700; 76981

== ENCOUNTER 2024-07-30 06:56 | Emergency (ER) | payer MEDICAID, SELFPAY ==
[2024-07-30 07:03] VITALS: BP 99/53; PULSE 86; RESP 16; TEMP 36.7; O2SAT 98; BMI 25.8
[2024-07-30 07:50] LABS: Basophils Absolute Auto 0.1 X10*3/uL (0.0-0.2); Basophils Percent Auto 0.4 % (0-2); Eosinophils Absolute Auto 0.7 X10*3/uL (0.0-0.4); Eosinophils Percent Auto 4.2 % (0-4); Hematocrit 37.6 % (42.0-52.0); Hemoglobin 12.4 g/dl (14.0-18.0); Imm Gran Abs Auto 0.13 X10*3/uL (0.00-0.03); Imm Gran Pct Auto 0.8 % (0.0-0.4); Lymphocytes Absolute Auto 2.9 X10*3/uL (1.2-4.9); Lymphocytes Percent Auto 18.2 % (20-40); MANUAL DIFF FLAG SCAN; Mean Corpuscular Hemoglobin 31.6 pg (27.0-33.0); Mean Corpuscular Volume 95.7 fL (80.0-98.0); Mean Platelet Volume 9.3 fL (9.4-12.4); Monocytes Absolute Auto 1.6 X10*3/uL (0.1-1.2); Monocytes Percent Auto 10.1 % (2-11); Neutrophils Absolute Auto 10.4 x10*3/uL (2.0-8.3); Neutrophils Percent Auto 66.3 % (45-73); Platelet Count 312 X10*3/uL (160-400); Red Blood Count 3.93 X10*6/uL (4.60-5.80); SCAN SMEAR FLAG 1; White Blood Count 15.7 X10*3/uL (4.8-10.8)
[2024-07-30 08:02] LABS: Alanine Aminotransferase 40 U/L (0-40); Albumin Level 3.6 g/dL (3.5-5.0); Alkaline Phosphatase 83 U/L (39-117); Anion Gap 10 (12-20); Aspartate Amino Transferase 30 U/L (5-37); Bilirubin Total 0.2 mg/dL (0.0-1.0); Blood Urea Nitrogen 12 mg/dL (9-16); Calcium 8.8 mg/dL (8.4-10.2); Carbon Dioxide 31 mmol/L (22-29); Chloride 103 mmol/L (96-108); Creatinine Clr Calc Pharmacy 116.9; Estimated Glomerular Filt Rate > 60; Glucose Random 96 mg/dL (60-115); Potassium 4.5 mmol/L (3.3-5.1); Sodium 139 mmol/L (135-145); Total Protein 6.8 g/dL (6.5-8.0)
[2024-07-30 08:43] LABS: SLIDE REVIEW VERIFIED
--- NOTE | 2024-07-30 09:58 | ED.GENADULT ---
HPI - General Adult General Chief complaint: Skin/Abscess/Foreign Body Stated complaint: back pain Time Seen by Provider: 07/30/24 09:57 Source: patient, RN notes reviewed and old records reviewed Mode of arrival: ambulatory Limitations: no limitations History of Present Illness ED Provider: [facility] narrative: Patient is a 43-year-old male presenting to emergency department with complaint of abscess to right posterior shoulder for the past few days. He complains severe pain to the area, states it is draining purulent discharge. Denies fever, chills, body aches. States that he attempted to pop it himself and it seems to have worsened since. Reports history of MRSA. MD complaint: abscess Onset (ago): day(s) Related Data Previous Rx's ?Medication ?Instructions ?Recorded cyclobenzaprine 10 mg tablet 10 mg PO TID PRN muscle spasm #20 03/02/23 tabs lidocaine 5 % topical patch 1 patch topical DAILY #30 ea 03/02/23 cephalexin 500 mg capsule 500 mg PO QID #40 caps 07/30/24 doxycycline hyclate 100 mg tablet 100 mg PO BID #20 tabs 07/30/24 Allergies Allergy/AdvReac Type Severity Reaction Status Date / Time coffee (Coffea arabica) Allergy Severe ANAPHYLAXIS Verified 07/30/24 07:04 [COFFEE] Penicillins [PENICILLINS] Allergy Intermediate RASH Verified 07/30/24 07:04 penicillin V Allergy Unknown Rash Verified 07/30/24 07:04 COFFEE FLAVOR Allergy Unknown Anaphylaxis Uncoded 07/10/23 09:59 Review of Systems Review of Systems: As per HPI. Yes all other systems are reviewed and are negative Constitutional: Constitutional: Reports as per HPI [facility] Past Medical History Medical History Kidney stones Social History Social History Alcohol intake: current Alcohol intake frequency: a few times a week Alcohol type: hard liquor Patient Tobacco Use Status: Current everyday Tobacco user Substance Use Type: Heroin and IV Drugs Advance Directives: No Advance Directives Information Provided: Yes Do you have a plan to hurt others: No Plan Physical Exam ED Vital Signs: Vital Signs - 24 hr 07/30/24 07:03 Temperature 98.1 F Pulse Rate 86 Respiratory Rate 16 Blood Pressure 99/53 L Pulse Oximetry 98 Oxygen Delivery Method Room Air BMI result Body Mass Index 25.8 Vital signs have been reviewed and appear to be correct. Blood pressure normal. Heart rate normal. Respiratory rate normal. Temperature normal. Oxygen saturation normal. Const General: cooperative, healthy appearing and no acute distress Orientation/consciousness: oriented to person, oriented to place, oriented to time and patient oriented x3 Limitations: no limitations HENMT Head: Yes normocephalic and Yes atraumatic Ears: external ears normal General nose exam: Normal external nose present Face and sinus: Yes face symmetric Mouth: oropharynx normal and moist mucous membranes Throat: Yes uvula midline Eyes Pupils: Equal, round and reactive pupils present Neck Neck: Yes normal visual inspection and Yes supple Resp Effort & Inspection: normal respiratory effort and able to speak in complete sentences Auscultation: clear to auscultation bilaterally Cardio Rate: regular rate Rhythm: regular rhythm Heart sounds: S1 normal heart sound present and S2 normal heart sound present GI Palpation (GI): Soft to palpation and nontender Auscultation: normoactive bowel sounds General: Yes no CVA tenderness Back/Spine/Pelvis Back: no CVA tenderness Skin General skin exam: elasticity normal and turgor normal Full body images: 1. 2cm diameter abscess draining purulent fluid from 3 separate openings with surrounding erythema and warmth Neuro General: oriented to person, oriented to place, oriented to time, patient oriented x3, moves all extremities, no focal motor deficits and CN's II-XI intact bilaterally Cranial nerves: Yes Equal, round and reactive pupils present Cognition (Neuro): normal cognition Extrem General: Yes full ROM, Yes no pedal edema and Yes no calf tenderness Right upper extremity: shoulder/upper arm Details: normal ROM Psych Mental Status: mental status grossly normal Affect: normal affect Thought process: Normal thought process present Medical Decision Making Medical Decision Making MDM Narrative: Patient is a 43-year-old male presenting to emergency department with complaint of abscess to right posterior shoulder for the past few days. On exam patient is awake, A+Ox3, VS WNL, afebrile, normal neurological exam without focal deficits, physical exam findings as above. Given reported symptoms and physical exam findings, initial differential includes but is not limited to abscess, cellulitis. Do not suspect septic joint. Labs notable for leukocytosis. Wound culture sent. Given reported history of MRSA will treat with doxy and Keflex. Patient does have penicillin allergy, states he does not know the reaction and has previously tolerated amoxicillin without adverse effect. Discussed with patient that we will trial Keflex and if he develops signs of an allergic reaction to discontinue this medication and return to the ED. Advised patient to assess area daily for signs of worsening infection, return precautions discussed at bedside. Patient verbalized understanding of and agreement with plan. Differential Diagnosis Differential Diagnoses: The differential diagnosis associated with the presentation includes As per [facility] Lab Data [facility] Lab Attestation statement: I reviewed the patient's lab results. As per [facility] 07/30/24 07:41 07/30/24 07:41 Labs: Lab Results 07/30/24 Range/Units 07:41 WBC 15.7 H (4.8-10.8) X10*3/uL RBC 3.93 L (4.60-5.80) X10*6/uL Hgb 12.4 L D (14.0-18.0) g/dl Hct 37.6 L (42.0-52.0) % MCV 95.7 (80.0-98.0) fL MCH 31.6 (27.0-33.0) pg MCHC 33.0 (31.0-36.0) g/dl RDW 13.0 (11.0-16.0) % Plt Count 312 D (160-400) X10*3/uL MPV 9.3 L (9.4-12.4) fL Immature Gran % (Auto) 0.8 H (0.0-0.4) % Neut % (Auto) 66.3 (45-73) % Lymph % (Auto) 18.2 L (20-40) % [place] % (Auto) 10.1 (2-11) % Eos % (Auto) 4.2 H (0-4) % Baso % (Auto) 0.4 (0-2) % Lymph # (Auto) 2.9 (1.2-4.9) X10*3/uL [place] # (Auto) 1.6 H (0.1-1.2) X10*3/uL Eos # (Auto) 0.7 H (0.0-0.4) X10*3/uL Baso # (Auto) 0.1 (0.0-0.2) X10*3/uL Abs Immat Gran (auto) 0.13 H (0.00-0.03) X10*3/uL Absolute Neuts (auto) 10.4 H (2.0-8.3) x10*3/uL Absolute Nucleated RBC 0.000 (0.0-0.012) X10*3/uL Nucleated RBC % (auto) 0.0 (0.0-0.2) /100WBC Smear Tech's Comments VERIFIED Sodium 139 (135-145) mmol/L Potassium 4.5 D (3.3-5.1) mmol/L Chloride 103 (96-108) mmol/L Carbon Dioxide 31 H (22-29) mmol/L Anion Gap 10 L (12-20) BUN 12 (9-16) mg/dL Creatinine 0.72 (0.5-1.4) mg/dL Estim Creat Clear Calc 116.9 Estimated GFR > 60 Random Glucose 96 (60-115) mg/dL Calcium 8.8 D (8.4-10.2) mg/dL Total Bilirubin 0.2 (0.0-1.0) mg/dL AST 30 (5-37) U/L ALT 40 (0-40) U/L Alkaline Phosphatase 83 (39-117) U/L Total Protein 6.8 (6.5-8.0) g/dL Albumin 3.6 (3.5-5.0) g/dL External Record Review External record reviewed: Inpatient record, Office record and Outpatient record Prescription Management I considered prescription management with: Antibiotic Discharge Plan Discharge Clinical Impression: Abscess of skin or subcutaneous tissue Patient Disposition: Home, Self-Care Instructions: Abscess (ED), Abscess Follow-up (ED) Additional Instructions: You were evaluated in the ER for an abscess. Please keep the area surrounding the abscess clean and dry. You were given a prescription for antibiotics, please take the antibiotics as directed for the full course of the medication. You should perform a skin check of the area daily. If the abscess progresses you may have to have the abscess incised and drained. You can use Tylenol or ibuprofen per package directions as needed for pain. If necessary, you can alternate these medications so that you take one medication every 3 hours. For instance, at noon take ibuprofen, then at 3:00 p.m. take Tylenol, then at 6:00 p.m. take ibuprofen. Please schedule an appointment with your primary care physician as soon as possible for follow-up. Return to the emergency department if you experience fevers greater than 100.4? F, increased in area of redness or swelling, increasing amount of discharge from the area, increased tenderness around the area, or any other concerning symptoms. Follow up with wound care as needed. Prescriptions: New doxycycline hyclate 100 mg tablet 100 mg PO BID Qty: 20 0RF cephalexin 500 mg capsule 500 mg PO QID Qty: 40 0RF No Action cyclobenzaprine 10 mg tablet 10 mg PO TID PRN (Reason: muscle spasm) Qty: 20 0RF lidocaine 5 % adhesive patch,medicated 1 patch topical DAILY Qty: 30 0RF Rx Instructions: leave on most painful area for up to 12 hrs Ref[place] [facility] [place] [facility] [place]] Print Language: Montenegrin
[2024-07-30 10:21] VITALS: PULSE 72; RESP 20; O2SAT 97
--- NOTE | 2024-07-30 10:21 | PC.NURSE ---
patient refused other d/c VS
== END 2024-07-30 10:21 | disposition home or self-care (01) ==
PROVIDERS: Emergency Provider Emergency Medicine
DX: L02.413 Cutaneous abscess of right upper limb (principal); D72.829 Elevated white blood cell count, unspecified; Z86.14 Personal history of Methicillin resistant Staphylococcus aureus infection
CPT/HCPCS: 36415; 80053; 85025; 87070; 87077; 87186; 87205; 99282; 99283

== ENCOUNTER 2024-09-13 09:51 | Emergency (ER) | payer MEDICAID, SELFPAY ==
--- NOTE | ~2024-09-13 | CT_ITS ---
EXAMINATION: CT ABDOMEN AND PELVIS WITHOUT CONTRAST CLINICAL INFORMATION: Right flank pain. COMPARISON: July 08, 2017. TECHNIQUE: Multidetector volumetric imaging was performed from the superior aspect of the liver through the pubic symphysis. Sagittal and coronal reformatted images were obtained on the technologist's workstation. This CT examination was performed using dose optimization techniques as appropriate, variously including the following: *Automated exposure control *Adjustment of mA and/or kV according to patient size (this includes techniques or standardized protocols for targeted exams where dose is matched to indication/reason for exam; i.e. extremities or head) *Use of iterative reconstruction technique DLP: 338 mGy centimeter. FINDINGS: Limited examination of the intra-abdominal organs and vascular structures due to lack of IV contrast. LUNG BASES: Small patchy pulmonary groundglass with the questionable tree-in-bud pattern involving the left lower lung lobe. LIVER, GALLBLADDER, AND BILIARY TREE: Liver measures 15 cm. No pericholecystic fluid collection or gallbladder wall thickening. No intrahepatic or extrahepatic biliary ductal dilatation. PANCREAS: No peripancreatic fluid collections. No main pancreatic ductal dilatation. SPLEEN: 8 cm. ADRENAL GLANDS: No nodular lesions. KIDNEYS AND URETERS: Right kidney: There is a 3.3 mm calculus in the proximal right ureter. There is mild to moderate dilatation of the pelvicalyceal system. Punctate calcification in the lower pole right pelvicalyceal system. Left kidney: Multifocal punctate less than 2.5 mm calculi in the midportion and lower pole left pelvicalyceal system. No hydronephrosis. BLADDER: Fluid-filled. GASTROINTESTINAL TRACT: Appendix is normal. No intestinal obstruction pattern. No pneumatosis intestinalis. No pneumoperitoneum. No ascites. ABDOMINAL WALL: Small fat-containing umbilical hernia. LYMPH NODES: No gross lymphadenopathy in the retroperitoneum. Mild prominent lymph nodes in the inguinal region, nonspecific. VASCULAR: No aneurysm, abdominal aorta. PELVIC VISCERA: Prostate gland is not enlarged. OSSEOUS STRUCTURES: There is endplate sclerosis marginal osteophyte formation and vacuum phenomenon and decreased intervertebral disc height and subchondral cyst formation at L2-3 and L3-4 levels. There is a grade 1 retrolisthesis L3-4 and L2-3 levels and likely at L5-S1. There is spina bifida occulta S1. Facet joint hypertrophy at L4-5 and L5-S1. Dextroconvex curvature of the lumbar spine. There is osteoarthrosis of the left coxofemoral joint. CT/CT abdomen pelvis wo IV con IMPRESSION: 3.3 mm obstructing calculus mid right ureter resulting in [id number] right hydronephrosis. Bilateral nephrolithiasis. Concerning acute airspace disease, left lung. Spondylosis L2-3 L3-4 and to a lesser extent L5-S1 with scoliosis. Osteoarthrosis left hip. Small fat-containing umbilical hernia. Fleischner guidelines were followed. Electronically signed by: Lester Kulkarni MD 09/13/2024 12:51 PM EST
[2024-09-13 09:56] VITALS: BP 146/91; PULSE 50; O2SAT 100
[2024-09-13 10:01] VITALS: BP 125/80; PULSE 56; RESP 16; TEMP 36.5; O2SAT 98
[2024-09-13 10:19] VITALS: BMI 23.3
--- NOTE | 2024-09-13 10:46 | ECG_ITS ---
Test Reason : ABDOMINAL PAIN Blood Pressure : */* mmHG Vent. Rate : 67 BPM Atrial Rate : 67 BPM P-R Int : 124 ms QRS Dur : 84 ms QT Int : 424 ms P-R-T Axes : 82 79 66 degrees QTcB Int : 448 ms Normal sinus rhythm Normal ECG When compared with ECG of 24-Jan-2023 21:11, No significant change was found Referred By: Daylin Amin Electronically Signed By: Anselmo Ruiz
[2024-09-13 11:22] LABS: MANUAL DIFF FLAG NO
[2024-09-13 11:23] LABS: Basophils Absolute Auto 0.1 X10*3/uL (0.0-0.2); Basophils Percent Auto 0.5 % (0-2); Eosinophils Absolute Auto 0.1 X10*3/uL (0.0-0.4); Eosinophils Percent Auto 0.6 % (0-4); Hematocrit 37.6 % (42.0-52.0); Hemoglobin 12.9 g/dl (14.0-18.0); Imm Gran Abs Auto 0.05 X10*3/uL (0.00-0.03); Imm Gran Pct Auto 0.5 % (0.0-0.4); Lymphocytes Absolute Auto 1.6 X10*3/uL (1.2-4.9); Lymphocytes Percent Auto 15.4 % (20-40); Mean Corpuscular HGB Conc 34.3 g/dl (31.0-36.0); Mean Corpuscular Volume 90.4 fL (80.0-98.0); Mean Platelet Volume 9.5 fL (9.4-12.4); Monocytes Absolute Auto 0.6 X10*3/uL (0.1-1.2); Monocytes Percent Auto 6.1 % (2-11); Neutrophils Percent Auto 76.9 % (45-73); Platelet Count 315 X10*3/uL (160-400); Red Blood Count 4.16 X10*6/uL (4.60-5.80); Red Cell Distribution Width 13.6 % (11.0-16.0); White Blood Count 10.4 X10*3/uL (4.8-10.8)
[2024-09-13] MEDS: Morphine Sulfate 4 MG/ML CARTRIDGE IVPUSH (11:24)
[2024-09-13] MEDS: ondansetron HCL 4 MG/2 ML VIAL IVPUSH (11:24)
[2024-09-13] MEDS: 0.9 % Sodium Chloride 1,000 ML 999 ML IV (11:24)
--- NOTE | 2024-09-13 11:29 | ED.GENADULT ---
HPI - General Adult General Chief complaint: Abdominal Pain Stated complaint: FLANK PAIN Time Seen by Provider: 09/13/24 11:03 Source: patient, RN notes reviewed and old records reviewed Mode of arrival: EMS Limitations: no limitations History of Present Illness ED Provider: Bindu BROCK narrative: 44-year-old male with past medical history significant for substance abuse presents for evaluation of right flank pain Patient reports that he started with severe right flank pain last night His pain is at worst 10/10 His pain radiates around to his right lower abdomen. He has associated nausea and vomiting pain His pain does wax and wane in intensity and he occasionally gets very sweaty when the pain is strong He denies any history of abdominal surgeries Denies any black or bloody stool Related Data Previous Rx's ?Medication ?Instructions ?Recorded cyclobenzaprine 10 mg tablet 10 mg PO TID PRN muscle spasm #20 03/02/23 tabs lidocaine 5 % topical patch 1 patch topical DAILY #30 ea 03/02/23 cephalexin 500 mg capsule 500 mg PO QID #40 caps 07/30/24 doxycycline hyclate 100 mg tablet 100 mg PO BID #20 tabs 07/30/24 azithromycin 250 mg tablet 250 mg PO DAILY 4 days #4 tabs 09/13/24 cefuroxime axetil 500 mg tablet 500 mg PO Q12H #13 tabs 09/13/24 morphine 15 mg immediate release 15 mg PO Q6H PRN severe pain 09/13/24 tablet (scale score 7-10) #12 tabs ondansetron 4 mg disintegrating 4 mg PO Q8H PRN nausea and 09/13/24 tablet vomiting #20 tabs tamsulosin 0.4 mg capsule 0.4 mg PO DAILY #7 caps 09/13/24 Allergies Allergy/AdvReac Type Severity Reaction Status Date / Time coffee (Coffea arabica) Allergy Severe ANAPHYLAXIS Verified 09/13/24 10:21 [COFFEE] Penicillins [PENICILLINS] Allergy Intermediate RASH Verified 07/30/24 07:04 penicillin V Allergy Unknown Rash Verified 07/30/24 07:04 COFFEE FLAVOR Allergy Unknown Anaphylaxis Uncoded 07/10/23 09:59 Review of Systems Constitutional: Constitutional: Denies body ache(s), Reports chills, Denies fever(s) and Denies headache(s) Eyes: Eyes: Denies blurry vision ENT: Denies headache(s) and Denies sore throat Cardiovascular: Cardiovascular: Denies chest pain and Denies dyspnea Respiratory: Respiratory: Denies cough and Denies dyspnea Gastrointestinal: Gastrointestinal: Reports abdominal pain, Denies melena, Denies hematochezia, Denies diarrhea, Denies loose stools, Reports nausea and Reports vomiting Musculoskeletal: Musculoskeletal: Reports back pain Integumentary/Breasts: Skin/Breast: Denies rash Neurologic: Denies headache(s) Psychiatric: Psychiatric: Denies anxiety PMFSH Past Medical History Medical History Kidney stones Social History Social History Alcohol intake: current Alcohol intake frequency: a few times a week Alcohol type: hard liquor Patient Tobacco Use Status: Current everyday Tobacco user Substance Use Type: Heroin and IV Drugs Advance Directives: No Advance Directives Information Provided: Yes Physical Exam ED Vital Signs: Vital Signs - 24 hr 09/13/24 10:01 Temperature 97.7 F Pulse Rate 56 Respiratory Rate 16 Blood Pressure 125/80 Pulse Oximetry 98 Oxygen Delivery Method Room Air BMI result Body Mass Index 23.3 Const General: healthy appearing, comfortable, no acute distress, alert and awake Nutritional Appearance: well nourished Orientation/consciousness: patient oriented x3 HENMT Head: Yes normocephalic and Yes atraumatic Eyes Eyelids: Yes eyelids normal Conjunctivae: conjunctivae normal Sclerae: sclerae normal Corneas: corneas normal Pupils: Equal, round and reactive pupils present EOM: EOMs intact bilaterally Neck Neck: Yes full ROM Resp Effort & Inspection: normal respiratory effort, able to speak in complete sentences and not labored Cardio Rate: regular rate Rhythm: regular rhythm GI Other: Negative psoas sign Inspection: No distended Palpation (GI): Soft to palpation, not firm, Tenderness to palpation present (GI) in the RLQ and in the RUQ, Guarding due to palpation present (GI) in the RLQ and not rigid Skin General skin exam: elasticity normal Neuro General: patient oriented x3 Cranial nerves: Yes Equal, round and reactive pupils present and Yes Bilaterally intact EOM present Cognition (Neuro): normal cognition Extrem Other: Moving all extremities well without any obvious deformities Course Reevaluation(s) Reevaluation #1: Received a call from Radiology, the patient's CT scan does show a 3.3 mm obstructing stone in the right proximal ureter. However the radiologist was concerned about subtle changes in the left lower lobe of the lung and potential for pneumonia. I asked the patient if he had any respiratory symptoms he does report coughing and mucus production over last couple of days which he feels was excessive. Given these symptoms and CT findings we will treat the patient for community-acquired pneumonia with cefuroxime and azithromycin. He was not hypoxic or septic, he does not require admission for these findings. Time: 13:49 Medications Administered Discontinued Medications Generic Name Dose Route Start Last Admin Trade Name Freq PRN Reason Stop Dose Admin Azithromycin 500 mg 09/13/24 13:48 09/13/24 13:51 Azithromycin 500 Mg Tablet PO 09/13/24 13:49 500 mg ONCE ONE Administration Cefuroxime Axetil 500 mg 09/13/24 13:48 09/13/24 13:51 Cefuroxime Axetil 500 Mg Tablet PO 09/13/24 13:49 500 mg ONCE ONE Administration Sodium Chloride 1,000 mls @ 999 mls/hr 09/13/24 11:15 09/13/24 12:34 Ns IV 09/13/24 12:15 Infused .Q1H1M VASQUEZ Infusion Morphine Sulfate 4 mg 09/13/24 11:12 09/13/24 11:24 Morphine Sulfate 4 Mg/Ml Cartridge IVPUSH 09/13/24 11:13 4 mg ONCE ONE Administration Protocol Ondansetron HCl 4 mg 09/13/24 11:12 09/13/24 11:24 Ondansetron Hcl 4 Mg/2 Ml Vial IVPUSH 09/13/24 11:13 4 mg ONCE ONE Administration Medical Decision Making Medical Decision Making [facility] Narrative: 44-year-old male presents for evaluation of abdominal pain and flank pain. His pain started last night. He denies any injury. He reports nausea and vomiting no black or bloody stool or diarrhea. He has a history of kidney stones and the location of his pain is consistent with this. However he is guarding on palpation to the abdomen. There was some concern for appendicitis plan a feel obstructive uropathy is more likely. The patient's labs are reassuring his vital signs are stable. Plan for urinalysis and CT scan of the abdomen pelvis to evaluate for obstructive uropathy versus appendicitis. This was ordered without contrast as obstructive uropathy is favored to be more likely Differential Diagnosis Differential Diagnoses: The differential diagnosis associated with the presentation includes Obstructive uropathy UTI Pyelonephritis Constipation Acute appendicitis Diverticulitis Muscle strain Lab Data MDM Lab Attestation statement: I reviewed the patient's lab results. No leukocytosis. The patient has a mild anemia that is somewhat improved compared to his labs from a month ago. There was no left shift. Renal function within normal limits. There is a very slight elevation of AST and ALT which could potentially be related to substance abuse versus abdominal pathology related to his pain today. 09/13/24 11:18 09/13/24 11:18 Labs: Lab Results 09/13/24 09/13/24 09/13/24 Range/Units 11:18 12:21 13:04 WBC 10.4 (4.8-10.8) X10*3/uL RBC 4.16 L (4.60-5.80) X10*6/uL Hgb 12.9 L (14.0-18.0) g/dl Hct 37.6 L (42.0-52.0) % MCV 90.4 (80.0-98.0) fL MCH 31.0 (27.0-33.0) pg MCHC 34.3 (31.0-36.0) g/dl RDW 13.6 (11.0-16.0) % Plt Count 315 (160-400) X10*3/uL MPV 9.5 (9.4-12.4) fL Immature Gran % (Auto) 0.5 H (0.0-0.4) % Neut % (Auto) 76.9 H (45-73) % Lymph % (Auto) 15.4 L (20-40) % [place] % (Auto) 6.1 (2-11) % Eos % (Auto) 0.6 (0-4) % Baso % (Auto) 0.5 (0-2) % Lymph # (Auto) 1.6 (1.2-4.9) X10*3/uL [place] # (Auto) 0.6 (0.1-1.2) X10*3/uL Eos # (Auto) 0.1 (0.0-0.4) X10*3/uL Baso # (Auto) 0.1 (0.0-0.2) X10*3/uL Abs Immat Gran (auto) 0.05 H (0.00-0.03) X10*3/uL Absolute Neuts (auto) 8.0 (2.0-8.3) x10*3/uL Absolute Nucleated RBC 0.000 (0.0-0.012) X10*3/uL Nucleated RBC % (auto) 0.0 (0.0-0.2) /100WBC PT 12.9 H (10.9-12.4) SEC INR 1.1 (0.9-1.1) APTT 32.7 (26.0-36.8) SEC Sodium 138 (135-145) mmol/L Potassium 4.3 (3.3-5.1) mmol/L Chloride 106 (96-108) mmol/L Carbon Dioxide 23 (22-29) mmol/L Anion Gap 13 (12-20) BUN 12 (9-16) mg/dL Creatinine 0.75 (0.5-1.4) mg/dL Estim Creat Clear Calc 111.0 Estimated GFR > 60 Random Glucose 96 (60-115) mg/dL Calcium 9.2 (8.4-10.2) mg/dL Magnesium 2.2 (1.6-2.6) mg/dL Total Bilirubin 0.5 (0.0-1.0) mg/dL AST 40 H (5-37) U/L ALT 58 H (0-40) U/L Alkaline Phosphatase 88 (39-117) U/L Total Protein 7.8 (6.5-8.0) g/dL Albumin 3.9 (3.5-5.0) g/dL Lipase 13 (8-78) U/L Urine Color Yellow Urine Appearance Clear Urine pH 6.0 (5.0-9.0) Ur Specific [place] 1.015 (1.005-1.025) Urine Protein Trace (Neg-Trace) mg/dL Urine Glucose (UA) Negative (Negative) mg/dL Urine Ketones 15 (Negative) mg/dL Urine Blood Large (3+) H (Negative) Urine Nitrite Negative (Negative) Ur Leukocyte Esterase Negative (Negative) Urine RBC >20 H (0-2) /HPF Urine WBC 0-5 (0-5) /HPF Ur Squamous Epith Cells 0-2 (0-2) /HPF Urine Bacteria None Seen (None Seen) Hyaline Casts 0-2 (0-2) /LPF Independent Interpretation I performed an independent interpretation of an: CT Scan Interpretation: Agree with Radiology interpretation Radiology Impression Discussion of test interpretation with radiology: I have reviewed the radiologist's reading. Radiologist Impression: IMPRESSION: 3.3 mm obstructing calculus mid right ureter resulting in [id number] right hydronephrosis. Bilateral nephrolithiasis. Concerning acute airspace disease, left lung. Spondylosis L2-3 L3-4 and to a lesser extent L5-S1 with scoliosis. Osteoarthrosis left hip. Small fat-containing umbilical hernia. Fleischner guidelines were followed. Electronically signed by: Lester Kulkarni MD 09/13/2024 12:51 PM EST Discharge Plan Discharge Clinical Impression: Acute unilateral obstructive uropathy, Community acquired pneumonia Patient Disposition: Home, Self-Care Instructions: Community Acquired Pneumonia (ED), Ureteral Stones (ED) Additional Instructions: Your workup in the ER today did show a 3.3 mm kidney stone on the right side which is likely contributing to your pain today. Your kidney function was reassuring A 3.3 mm stone should pass on its own. However take tamsulosin daily for the next week or until your pain resolves. You may use Zofran for nausea and vomiting. You may use Tylenol or ibuprofen as needed for pain. Use morphine as needed for severe breakthrough pain. This may make you drowsy, do not drink alcohol or drive after taking it. The CT scan that we ordered also showed a possible pneumonia in the left lower lung. Given your cough and sputum production I recommend completing the course of antibiotics that was prescribed Follow-up with your primary doctor, return for new or worsening symptoms Prescriptions: New ondansetron 4 mg tablet,disintegrating 4 mg PO Q8H PRN (Reason: nausea and vomiting) Qty: 20 0RF tamsulosin 0.4 mg capsule 0.4 mg PO DAILY Qty: 7 0RF azithromycin 250 mg tablet 250 mg PO DAILY 4 Days Qty: 4 0RF Rx Instructions: start on day 2 of therapy cefuroxime axetil 500 mg tablet 500 mg PO Q12H Qty: 13 0RF morphine 15 mg tablet 15 mg PO Q6H PRN (Reason: severe pain (scale score 7-10)) Qty: 12 0RF Rx Instructions: Partial Fill upon patient request. No Action cyclobenzaprine 10 mg tablet 10 mg PO TID PRN (Reason: muscle spasm) Qty: 20 0RF lidocaine 5 % adhesive patch,medicated 1 patch topical DAILY Qty: 30 0RF Rx Instructions: leave on most painful area for up to 12 hrs doxycycline hyclate 100 mg tablet 100 mg PO BID Qty: 20 0RF cephalexin 500 mg capsule 500 mg PO QID Qty: 40 0RF Print Language: Ukrainian
[2024-09-13 11:32] LABS: INTERNATIONAL NORM RATIO 1.1 (0.9-1.1); Prothrombin Time 12.9 SEC (10.9-12.4)
[2024-09-13 11:34] LABS: Partial Thromboplastin Time 32.7 SEC (26.0-36.8)
[2024-09-13 11:38] LABS: Alanine Aminotransferase 58 U/L (0-40); Albumin Level 3.9 g/dL (3.5-5.0); Alkaline Phosphatase 88 U/L (39-117); Anion Gap 13 (12-20); Aspartate Amino Transferase 40 U/L (5-37); Bilirubin Total 0.5 mg/dL (0.0-1.0); Blood Urea Nitrogen 12 mg/dL (9-16); Calcium 9.2 mg/dL (8.4-10.2); Carbon Dioxide 23 mmol/L (22-29); Chloride 106 mmol/L (96-108); Estimated Glomerular Filt Rate > 60; Glucose Random 96 mg/dL (60-115); Magnesium 2.2 mg/dL (1.6-2.6); Potassium 4.3 mmol/L (3.3-5.1); Sodium 138 mmol/L (135-145); Total Protein 7.8 g/dL (6.5-8.0)
--- OUTSIDE RECORDS SUMMARY | 2024-09-13 12:11 | XMS_ITS | Encounter Summary ---
Author Organization [employer] Address [address] [place] [address] Care Team Providers Care Facilities Assistant Name Role Phone Rohini Brown MD Primary Care Provider [phone] Reason for Visit * Reason Onset Date Comments Call Back Request 11/02/2023 Encounter Details Date Type Department Care Team ([facility] st Contact Info) Description 11/02/2023 Telephone [facility] [address], [place] [phone] Rohini Brown MD [address] [place], [place] [phone] Call Back Request Social History Tobacco Use Types Packs/Day Years Used Date Smoking Tobacco: Every Day Cigarettes 0.8 31 Smokeless Tobacco: Never Depression Answer Date Recorded Patient Health Questionnaire-9 Score 0 10/06/2023 Patient Health Questionnaire-9 Score 0 10/06/2023 Last PHQ-9: Questionnaire Data Not on file 0 10/06/2023 Housing Stability Answer Date Recorded What is your housing situation today? I have rahel gunter 10/06/[address] you li ve. Do you have problems with any of the following? None of the above 10/06/2023 Food Insecurity Answer Date Recorded Within the past 12 months, y ou worried that your food would run out before you got money to buy more: Never True 10/06/2023 Within the past 12 months,th e food you bought just didn't last and you didn't have enough money to get more: Never True Transportation Answer Date Recorded In the past 12 months, has l ack of transportation kept you from medical appts, meetings, work or from getting things needed for daily living? No 10/06/2023 Utilities Answer Date Recorded In the past 12 months, has t he electric, gas, oil or water company threatened to shut off services in your home? No 10/06/2023 Depression Answer Date Recorded Patient Health Questionnaire-2 Score 0 10/06/2023 Sex and Gender Information Value Date Recorded Sex Assigned at Male 05/17/2022 10:16 AM EDT Legal Sex Male 10:16 AM EDT Gender Identity Choose not to disclose 10:16 AM EDT Sexual Orientation Straight 05/17/2022 10 :16 AM EDT documented as of this encounter Miscellaneous Notes * Telephone Encounter - Kelly Fowler - 11/02/2023 2:59 PM EDT Tc from pt requesting a call back, not further details provided. documented in this encounter Plan of Treatment Upcoming Encounters Date Type Department Care Team (Late st Contact Info) Description 10/09/2024 11:30 AM EDT Office Visit [facility] [address] [place] [address] Rohini Brown MD [address] [place] [phone] documented as of this encounter Visit Diagnoses Not on filedocumented in this encounter Additional Health Concerns Assessment Noted Time PHQ-9 Depression Total Score: 0 10/06/19 24 9:42 AM EDT documented as of this encounter Care Teams Facilities Assistant Relationship Specialty Start Date End Date Rohini Brown MD [address] [place] [phone] PCP - General Family Medicine 11/02/23 documented as of this encounter
--- OUTSIDE RECORDS SUMMARY | 2024-09-13 12:11 | XMS_ITS | Clinical Summary ---
Author Organization [employer] Address [address] [facility] [address] [place] [address] Care Team Providers Care [employer] Name Role Phone Rohini Brown MD Primary Care Provider [phone] Allergies Active Allergy Reactions Criticality Noted Date Comments Penicillins Unknown 06/29/2016 Medications * This document contains information received from the source organization and may not represent a complete record from that organization. ibuprofen 600 MG tablet Take 1 tablet (600 mg) by mouth every 8 (eight) hours if needed for mild pain. 30 tablet 1 10/06/2023 Active acetaminophen (Tylenol Extra Strength) 500 MG tablet Take 2 tablets (1,000 mg) by mouth every 8 (eight) hours if needed for mild pain or moderate pain. 90 tablet 1 10/06/2023 Active lidocaine (Lidoderm) 5 % patch Apply to affected area once daily for 12 hours 30 patch 11 10/06/2023 Active tamsulosin (Flomax) 0.4 MG 24 hr capsule Take 1 capsule (0.4 mg) by mouth in the morning. 15 capsule 10/06/2023 Active gabapentin (Neurontin) 300 MG capsule Take 1 capsule (300 mg) by mouth 3 times daily. 90 capsule 11 11/21/2023 11/21/19 25 Active Active Problems Problem Noted Date Diagnosed Date Dyspnea 11/21/2023 Assessment & Plan (11/26/2023 6:41 PM EDT): - Pt is smoking cigarettes for many years, cutting down recently. - Will evaluate with PFT - Lung cancer screening start at age 50 per current guideline Alcohol dependence 11/21/2023 Assessment & Plan (11/26/2023 6:52 PM EDT): - Discussed harm reduction. - Pt is not ready to be referred to AUD clinic. Tobacco dependence 10/07/2023 Assessment & Plan (11/21/2023 10:54 AM EDT): - started smoking since 12 years old - currently reduced to 1/2-1/3 pack day - start lung cancer screening per guideline - continue working on smoking cessation effort Assessment & Plan (10/07/2023 5:29 AM EDT): - started smoking since 12 years old - currently reduced to 1/2-1/3 pack day - start lung cancer screening per guideline - continue working on smoking cessation effort Chronic low back pain 10/06/2023 Assessment & Plan (11/21/2023 11:49 AM EDT): - MRI scheduled on 12/06/23. - Will refer to Neurosurgery for further management after MRI. - Continue Tylenol, Ibuprofen and Gabapentin prn for pain relief. - Pt was advised to use Gabapentin with caution due to his alcohol use. Assessment & Plan (10/06/2023 5:09 PM EDT): - MRI ordered for further evaluation. - Will refer to Neurosurgery for further management. - Start Tylenol, Ibuprofen and Gabapentin prn for pain relief. Family history of premature CAD 10/06/2023 Assessment & Plan (11/26/2023 6:51 PM EDT): - ASCVD risk factors: family hx premature ASCVD; tobacco use - 10-year ASCVD risk is 3.9% - work on lifestyle modifications Assessment & Plan (10/07/2023 5:33 AM EDT): - ASCVD risk factors: family hx premature ASCVD; tobacco use - check lipid profile and screen for other risk factors - work on lifestyle modifications Hemoptysis 10/06/2023 Assessment & Plan (10/07/2023 5:34 AM EDT): - Patient is a chronic smoker since 12 year of age. - check TB - reduce smoking Polysubstance use disorder 08/17/2018 Assessment & Plan (11/21/2023 11:52 AM EDT): - occasional cocaine use, intranasal - frequent marijuana use - history of several overdoses, revived by Narcan. According to patient, cocaine was mixed with Fentanyl - patient has Narcan - provided Fentanyl test strips - Discussed harm reduction. Assessment & Plan (10/07/2023 5:31 AM EDT): - occasional cocaine use, intranasal - frequent marijuana use - history of several overdoses, revived by Narcan. According to patient, cocaine was mixed with Fentanyl - patient has Narcan - will provide Fentanyl test strips Subclinical hyperthyroidism 08/17/2018 Assessment & Plan (11/26/2023 6:33 PM EDT): - 10/06/23 TSH 0.24, normal Free T4 - continue monitoring at this time - check TSI / thyroid antibody at next visit Chronic active hepatitis C 07/06/2018 Assessment & Plan (11/26/2023 6:47 PM EDT): - 10/06/23 Hepatitis C viral load [id number] units ml - Pt had history or IV drug use, not current. - 10/06/23 AST 37, ALT 37, Platelets 224. - FIB-4 index 1.17 - Will refer him to Hepatitis C treatment team. Will order ultrasound with elastography. Kidney stone 06/29/2016 Assessment & Plan (11/21/2023 11:48 AM EDT): - incidental finding on CT in July 2023 which was done in [place] - [place] on 10/21/23 bilateral kidney stone. Referred to urology. - Drink adequate amount of fluid. Assessment & Plan (10/07/2023 5:34 AM EDT): - incidental finding on CT in July 2023 which was done in [place] - recheck [place] Onychomycosis 06/29/2016 Shoulder pain 06/29/2016 Sprain of rotator cuff capsule 06/29/2016 Family History Medical History Relation Name Comments Kidney cancer Brother Stroke Brother Heart attack Maternal Grandfather Breast cancer Maternal Grandmother Relation Name Status Comments Brother Maternal Grandfather Maternal Grandmother Social History Tobacco Use Types Packs/Day Years Used Date Smoking Tobacco: Every Day Cigarettes 0.8 31 Smokeless Tobacco: Never Depression Answer Date Recorded Patient Health Questionnaire-9 Score 0 10/06/2023 Patient Health Questionnaire-9 Score 0 10/06/2023 Last PHQ-9: Questionnaire Data Not on file 0 10/06/2023 Housing Stability Answer Date Recorded What is your housing situation today? I do not have housing (Staying with others, in a hotel, in a senior care, living outside on the street, on a beach, in a car, or in a park 11/07/[address] you li ve. Do you have problems with any of the following? None of the above 11/07/2023 Food Insecurity Answer Date Recorded Within the [...] from getting things needed for daily living? Yes, it has kept me from medical appointments or getting medications. 11/07/2023 Utilities Answer Date Recorded In the past [...] Orientation Straight 05/17/2022 10 :16 AM EDT Last Filed Vital Signs Vital Sign Reading Time Taken Comments Blood Pressure 116/80 11/21/2023 10:27 AM EDT Pulse 73 11/21/2023 10:27 AM EDT Temperature 36.4 ??C (97.5 ??F) 11/21/2023 1 0:27 AM EDT Respiratory Rate 14 11/21/2023 10:2 7 AM EDT Oxygen Saturation 96% 11/21/2023 10: 27 AM EDT Inhaled Oxygen Concentration - - Weight 66.1 kg (145 lb 12.8 oz) 024 10:27 AM EDT Height 171.5 cm (5' 7.52 ) 10/06/2023 9:41 AM ED T Body Mass Index 22.49 10/06/2023 9:41 AM EDT Plan of Treatment Upcoming Encounters Date Type Department Care Team (Late st Contact Info) Description 10/09/2024 11:30 AM EDT Office Visit [facility] [address] [place] [address] Rohini Brown MD [address] [place], [place] [phone] Health Maintenance Due Date Last Done Comments CT Colonography 1978 Colonoscopy 1978 Colorectal Cancer Screening 1978 FIT DNA/Cologuard 1978 FIT 1978 FOBT 1978 Sigmoidoscopy 1978 Alcohol/Substance Use Screening 1990 Family Planning (PISQ) 1993 DTaP/Tdap/Td Vaccines (1 - Tdap) 1997 Hepatitis A Vaccines (1 of 2 - Risk 2-dose series) 1997 Pneumococcal Vaccine: Pediatrics (0 to 5 Years) and At-Risk Patients (6 to 49) Years) (1 of 2 - PCV) 1997 COVID-19 Vaccine ( - 2023-2 5 season) 2024 Influenza Vaccine (#1) 2024 Depression Screening 10/05/2024 10/06/2023, 10/06/2023 SDOH Screening 11/06/2024 11/07/2023 Tobacco Screening 11/20/2024 11/21/2023 Zoster Vaccines (1 of 2) 2028 Lipid Panel 10/05/2028 10/06/2023 RSV Patients and Patients Aged 60 years or older (1 - 1-dose 75+ series) 2053 HIV Screening Completed 10/06/2023 HIB Vaccines Aged Out No longer eligi ble based on patient's age to complete this topic HPV Vaccines Aged Out No longer eligi ble based on patient's age to complete this topic Hepatitis B Vaccines Discontinued IPV Vaccines Aged Out No longer eligi ble based on patient's age to complete this topic Meningococcal Vaccine Aged Out No nathalie robin eligible based on patient's age to complete this topic RSV under 20 months Aged Out No longe r eligible based on patient's age to complete this topic Rotavirus Vaccines Aged Out No longer eligible based on patient's age to complete this topic Procedures Procedure Name Priority Date/Time Associated Diagnosis Comments HIV 1/2 ANTIGEN/ANTIBODY, FOURTH GENERATION W/RFL Routine 10/06/2023 10:48 AM EDT Routine screening for STI (sexually transmitted infection) LIPID PANEL WITH REFLEX TO DIRECT LDL Routine 10/06/2023 10:48 AM EDT Family history of premature CAD from Last 3 Months or Most Recently Relevant to Health Maintenance Results * (ABNORMAL) Lipid Panel with Reflex to Direct LDL (10/06/2023 10:48 AM EDT) Triglycerides 163(H) <150 mg/dL [facility] Comment:Desirable Triglyceri de: less than 150 mg/dLBorderline High Triglyceride 150-199 mg/dLHigh Triglyceride: 200-499 mg/dLVery High Triglyceride: greater than or equal to 5OO mg/dL Cholesterol 171 <200 mg/dL [facility] Comment:Desirable Cholestero l: less than 200 mg/dLBorderline High Cholesterol: 200-239 mg/dLHigh Cholesterol: greater than 239 mg/dL LDL Cholesterol Calculated 93 <100 mg/dL [facility] Comment:Desirable LDL: less than 100 mg/dLNear Optimal/Above Optimal LDL: 110- 129 mg/dLBorderline High LDL: 130-159 mg/dLHigh LDL: 160-189 mg/dLVery High LDL: greater than or equal to 190 mg/dL HDL Cholesterol 46 >40 mg/dL [facility] Comment:Desirable HDL: great er than 40 mg/dL Note: This HDL assay may give artificially low results in patients with liver disease. Blood 10/06/2023 10:4 8 AM EDT 10/06/2023 11:46 AM EDT us Rohini Brown MD LAB BLOOD ORDERABLES Final Resul t Performing Organization Address [facility] Co de Phone Number [facility] [address] [place] [address] [phone] * HIV-1/2 Antigen and Antibodies, Fourth Generation, with Reflexes (10/06/2023 10:48 AM EDT) [facility] HIV AB/AG Nonreactive Nonreactive [facility] Comment:HIV-1 p24 Ag and/or HIV-1/HIV-2 Ab not detected.A test result that is nonreactive does not exclude thepossibility of exposure to or infection with HIV-1 and/orHIV-2. Nonreactive results in this assay for individualswith prior exposure to HIV-1 and/or HIV-2 may be due toantigen and antibody levels that are below the limit ofdetection of this assay.The jellyfish HIV Ag/Ab Combo assay result andsupplemental assay results should be interpreted inconjunction with the patient's clinical presentation,history and other laboratory results. If the results areinconsistent with clinical evidence, additional testing issuggested to confirm the result. Blood Venous blood specimen / Unknown 10/06/2023 10:48 AM EDT 10/06/2023 11:46 AM EDT us Rohini Brown MD LAB BLOOD ORDERABLES Final Resul t Performing Organization Address City/[facility]/ZIP Co de Phone Number [facility] [address] [place] [address] [phone] from Last 3 Months or Most Recently Relevant to Health Maintenance [place] [address] [address] C[employer] Care Teams [employer] Relationship Specialty Start Date End Date Rohini Brown MD [address] [place] [id number] PCP - General Family Medicine 11/02/23
[2024-09-13 12:37] LABS: Lipase 13 U/L (8-78)
[2024-09-13 13:10] LABS: Appearance Urine Clear; Color Urine Yellow; Glucose Urine UA Negative (Negative); Leukocyte Esterase Urine Negative (Negative); Nitrite Urine Negative (Negative); Specific Gravity - Urine 1.015 (1.005-1.025); UMIC TRIGGER UACC YES; Urine Blood Large (3+) (Negative); Urine Ketones 15 mg/dL (Negative); Urine Protein Trace mg/dL (Neg-Trace)
[2024-09-13 13:12] LABS: Bacteria Urine None Seen (None Seen); Hyaline Casts Urine 0-2 /LPF (0-2); RBC Urine >20 /HPF (0-2); Squamous Epithelial Cell Urine 0-2 /HPF (0-2); WBC Urine 0-5 /HPF (0-5)
[2024-09-13] MEDS: cefuroxime axetiL 500 MG TABLET PO (13:51)
[2024-09-13] MEDS: Azithromycin 500 MG TABLET PO (13:51)
[2024-09-13 14:16] VITALS: BP 125/80; PULSE 56; RESP 16; TEMP 36.5; O2SAT 98
== END 2024-09-13 14:16 | disposition home or self-care (01) ==
PROVIDERS: Physician Assistant; Physician Assistant Medical; Emergency Provider Emergency Medicine
DX: N20.2 Calculus of kidney with calculus of ureter (principal); J18.9 Pneumonia, unspecified organism; R11.2 Nausea with vomiting, unspecified; F17.200 Nicotine dependence, unspecified, uncomplicated; Z87.442 Personal history of urinary calculi; Z79.899 Other long term (current) drug therapy
CPT/HCPCS: 36415; 74176; 80053; 81001; 83690; 83735; 85025; 85610; 85730; 93005; 96361; 96374; 96375; 99284; J2270; J2405

== ENCOUNTER → 2024-09-13 10:46 | Outpatient (BNV) | payer MEDICAID, SELFPAY | PROVIDERS: Emergency Provider Emergency Medicine; Visit Provider Internal Medicine Cardiovascular Disease | DX: R10.9 Unspecified abdominal pain (principal) | CPT/HCPCS: 93010 ==

== ENCOUNTER → 2024-09-13 11:12 | Outpatient (BNV) | payer MEDICAID, SELFPAY | PROVIDERS: Emergency Provider Emergency Medicine; Visit Provider Radiology Diagnostic Radiology | DX: R10.31 Right lower quadrant pain (principal); N13.2 Hydronephrosis with renal and ureteral calculous obstruction; M47.896 Other spondylosis, lumbar region; M16.12 Unilateral primary osteoarthritis, left hip | CPT/HCPCS: 74176 ==

== ENCOUNTER 2024-10-04 10:56 | Inpatient (IN) | payer MEDICAID, SELFPAY ==
[2024-10-04] VITALS (12 sets, daily range): BP systolic 99–151; BP diastolic 63–88; PULSE 58–110; RESP 16–20; TEMP 36.6–38; O2SAT 94–100; BMI 24.8; BMI 21.8
--- NOTE | ~2024-10-04 | FL_ITS ---
EXAMINATION: FL GUIDANCE ONLY HISTORY: CYSTO STENT RIGHT COMPARISON: Correlation is made with a CT of the abdomen without contrast dated 10/04/2024. TECHNIQUE: Fluoroscopy time: 12.9 seconds. Cumulative Dose: 2.73 mGy. Images: 2. FINDINGS: Images demonstrate placement of a right nephroureteral stent. FL/FL guidance in OR IMPRESSION: Fluoroscopy during procedure. Please see procedure report for additional information. Electronically signed by: Jluis Driscoll MD 10/05/2024 07:57 AM EDT
--- NOTE | ~2024-10-04 | CT_ITS ---
EXAMINATION: CT ABDOMEN PELVIS WITHOUT IV CONTRAST HISTORY: worsening flank pain in the presence of a stone COMPARISON: Comparison is made with the prior examination dated 09/13/2024. TECHNIQUE: CT scan of the abdomen and pelvis was performed without contrast using standard departmental protocol. Coronal and sagittal reformatted images were generated and reviewed. Oral contrast material was not administered per department protocol. This CT exam was performed with one or more of the following dose reduction techniques: automated exposure control, adjustment of the mA and/or kV according to patient size, use of iterative reconstruction technique. DLP: 360 mGy-cm FINDINGS: LOWER CHEST: The visualized lung bases are clear. There is no pleural effusion. CARDIOVASCULATURE: The heart is normal in size. There is no pericardial effusion. LIVER: The liver is normal in size and contour. The liver has an unremarkable unenhanced appearance. GALLBLADDER / BILE DUCTS: The gallbladder is unremarkable. There is no intra or extrahepatic biliary ductal dilatation. SPLEEN: The spleen is normal in size and has an unremarkable unenhanced appearance. PANCREAS: The pancreas has an unremarkable unenhanced appearance. ADRENAL GLANDS: Unremarkable. KIDNEYS/RETROPERITONEUM: There is persistent moderate right hydronephrosis secondary to a 4 mm proximal ureteral calculus. The calculus has migrated approximately 1.5 cm distally within the ureter since the prior study. There are multiple 1-2 mm nonobstructing calculi in the mid to lower pole regions of the left kidney. There is no left hydroureter. LYMPH NODES: No retroperitoneal lymphadenopathy is identified in the abdomen or pelvis. VASCULATURE: The abdominal aorta is normal in caliber. MESENTERY/PERITONEUM: No free fluid. No masses. There is no free intraperitoneal gas. STOMACH: The stomach is collapsed, limiting evaluation. SMALL BOWEL: The small bowel is normal in caliber. COLON: The hepatic flexure of the colon appears thickened but this is likely due to collapse, as this region did not demonstrate wall thickening on the examination performed 09/13/2024. APPENDIX: Normal. URINARY BLADDER/PELVIC ORGANS: The urinary bladder is unremarkable. The prostate is normal in size. BONES / SOFT TISSUES: There is degenerative disc disease of the spine. CT/CT abdomen pelvis wo IV con IMPRESSION: Persistent moderate right hydronephrosis secondary to a 4 mm proximal ureteral calculus. The calculus is migrated approximately 1.5 cm distally within the ureter since the prior study. Left nephrolithiasis as described. Electronically signed by: Jluis Driscoll MD 10/04/2024 01:12 PM EDT RP
[2024-10-04 11:16] LABS: MANUAL DIFF FLAG NO
[2024-10-04 11:20] LABS: Basophils Absolute Auto 0.1 X10*3/uL (0.0-0.2); Basophils Percent Auto 0.6 % (0-2); Eosinophils Absolute Auto 0.2 X10*3/uL (0.0-0.4); Eosinophils Percent Auto 1.8 % (0-4); Hematocrit 41.4 % (42.0-52.0); Hemoglobin 13.9 g/dl (14.0-18.0); Imm Gran Abs Auto 0.06 X10*3/uL (0.00-0.03); Imm Gran Pct Auto 0.5 % (0.0-0.4); Lymphocytes Absolute Auto 2.9 X10*3/uL (1.2-4.9); Lymphocytes Percent Auto 23.1 % (20-40); Mean Corpuscular HGB Conc 33.6 g/dl (31.0-36.0); Mean Corpuscular Hemoglobin 30.3 pg (27.0-33.0); Mean Corpuscular Volume 90.2 fL (80.0-98.0); Mean Platelet Volume 9.5 fL (9.4-12.4); Monocytes Absolute Auto 1.1 X10*3/uL (0.1-1.2); Monocytes Percent Auto 8.7 % (2-11); Neutrophils Absolute Auto 8.1 x10*3/uL (2.0-8.3); Neutrophils Percent Auto 65.3 % (45-73); Platelet Count 339 X10*3/uL (160-400); Red Blood Count 4.59 X10*6/uL (4.60-5.80); Red Cell Distribution Width 13.9 % (11.0-16.0); White Blood Count 12.4 X10*3/uL (4.8-10.8)
--- NOTE | 2024-10-04 11:23 | ED.GENADULT ---
HPI - General Adult General Chief complaint: Abdominal Pain Stated complaint: ABD PAIN,N/V Time Seen by Provider: 10/04/24 11:22 Source: patient Mode of arrival: ambulatory Limitations: no limitations History of Present Illness ED Provider: Daylin Amin PA-C HPI narrative: Patient is a 44 year old assigned male at with a history of substance abuse and kidney stones presenting to the emergency department today with worsening right flank pain, nausea, vomiting, and diarrhea. Patient states that he does not believe he passed the stone that he was diagnosed with on 09/13 and his pain is significantly worse today. Patient states that it feels harder for him to urinate today. Patient denies any dizziness, lightheadedness, fever, chills, blurry vision, double vision, loss of vision, chest pain, difficulty breathing, shortness of breath, back pain, night sweats, pain with urination, blood in his urine or stool, syncope or a near syncopal episode, recent trauma or falls, bowel incontinence, bladder incontinence, or any other complaints at this time. Relieving factors: none Exacerbating factors: none Associated symptoms: nausea/vomiting Treatments prior to arrival: none Related Data Previous Rx's ?Medication ?Instructions ?Recorded cyclobenzaprine 10 mg tablet 10 mg PO TID PRN muscle spasm #20 03/02/23 tabs lidocaine 5 % topical patch 1 patch topical DAILY #30 ea 03/02/23 cephalexin 500 mg capsule 500 mg PO QID #40 caps 07/30/24 doxycycline hyclate 100 mg tablet 100 mg PO BID #20 tabs 07/30/24 azithromycin 250 mg tablet 250 mg PO DAILY 4 days #4 tabs 09/13/24 cefuroxime axetil 500 mg tablet 500 mg PO Q12H #13 tabs 09/13/24 morphine 15 mg immediate release 15 mg PO Q6H PRN severe pain 09/13/24 tablet (scale score 7-10) #12 tabs ondansetron 4 mg disintegrating 4 mg PO Q8H PRN nausea and 09/13/24 tablet vomiting #20 tabs tamsulosin 0.4 mg capsule 0.4 mg PO DAILY #7 caps 09/13/24 Allergies Allergy/AdvReac Type Severity Reaction Status Date / Time coffee (Coffea arabica) Allergy Severe ANAPHYLAXIS Verified 10/04/24 11:05 [COFFEE] Penicillins [PENICILLINS] Allergy Intermediate RASH Verified 10/04/24 11:05 penicillin V Allergy Unknown Rash Verified 10/04/24 11:05 COFFEE FLAVOR Allergy Unknown Anaphylaxis Uncoded 07/10/23 09:59 Review of Systems Constitutional: Constitutional: Reports no additional constitutional complaints, Denies chills, Denies fever(s) and Denies night sweats Eyes: Eyes: Reports no additional eye complaints, Denies blurry vision, Denies change in vision, Denies diplopia, Denies eye discharge, Denies loss of vision and Denies eye pain ENT: Denies dizziness Cardiovascular: Cardiovascular: Reports no additional cardiovascular complaints, Denies chest pain, Denies lightheadedness, Denies Loss of Consciousness and Denies dyspnea Respiratory: Respiratory: Reports no additional respiratory complaints and Denies dyspnea Gastrointestinal: Gastrointestinal: Reports no additional gastrointestinal complaints, Reports abdominal pain, Denies melena, Denies hematochezia, Denies change in bowel habits, Reports change in stool character, Reports diarrhea, Reports nausea and Reports vomiting Genitourinary: Genitourinary: Reports no additional male genitourinary complaints, Denies hematuria, Denies oliguria, Reports difficulty urinating, Denies dysuria, Reports flank pain and Denies urinary incontinence Musculoskeletal: Musculoskeletal: Reports no additional musculoskeletal complaints, Denies numbness and Denies tingling Neurologic: Denies dizziness, Denies loss of vision, Denies numbness and Denies tingling Psychiatric: Psychiatric: Reports no additional psychiatric complaints Endocrine: Endocrine: Reports no additional endocrine complaints Hematologic/Lymphatic: Hematologic/Lymphatic: Reports no additional hematologic/lymphatic complaints Allergic/Immunologic: Allergic/Immunologic: Reports no additional allergic/immunologic complaints [facility] Past Medical History Attestation statement: The following information was validated with the patient. Source: old records reviewed and nursing notes reviewed Medical History Kidney stones Social History Social History Alcohol intake: current Alcohol intake frequency: a few times a week Alcohol type: hard liquor Patient Tobacco Use Status: Current everyday Tobacco user Smoked in Last 30 Days: Yes Substance Use Type: Heroin and IV Drugs Advance Directives: No Advance Directives Information Provided: Yes Physical Exam ED Vital Signs: Vital Signs - 24 hr 10/04/24 11:03 10/04/24 13:15 10/04/24 13:51 Temperature 98 F 98.5 F Pulse Rate 58 105 H 90 Respiratory Rate 20 18 18 Blood Pressure 151/85 H 112/63 Pulse Oximetry 100 98 Oxygen Delivery Method Room Air Room Air BMI result Body Mass Index 24.8 Const General: cooperative, no acute distress, alert and awake Nutritional Appearance: well nourished Orientation/consciousness: patient oriented x3 Limitations: no limitations HENMT Head: Yes normal to inspection and Yes atraumatic Ears: hearing grossly normal bilaterally and external ears normal General nose exam: Normal external nose present, no nasal discharge noted and no epistaxis Face and sinus: Yes normal facial exam, No abrasion and No laceration Mouth: Normal oral and palatal mucosa present, no drooling and no muffled voice Eyes General: appearance normal, both eyes and all related structures Periorbital: periorbital findings normal Eyelids: Yes eyelids normal Conjunctivae: conjunctivae normal Pupils: Equal, round and reactive pupils present EOM: EOMs intact bilaterally Neck Neck: Yes normal visual inspection, Yes full ROM and Yes no lymphadenopathy Chest Chest palpation & inspection: normal inspection of the chest Resp Effort & Inspection: normal respiratory effort and able to speak in complete sentences GI Inspection: Yes normal to inspection Neuro General: patient oriented x3, moves all extremities and CN's II-XI intact bilaterally Cranial nerves: Yes Equal, round and reactive pupils present Cognition (Neuro): normal cognition Extrem General: Yes normal to inspection, Yes full ROM and Yes capillary refill normal Psych Appearance: grossly normal Mental Status: mental status grossly normal Affect: normal affect Attitude: cooperative Thought process: Normal thought process present Thought content: Normal thought content present Insight: Good insight present (Psych) Medications Administered Generic Name Dose Route Start Last Admin Trade Name Freq PRN Reason Stop Dose Admin Dextrose/Sodium Chloride 1,000 mls @ 50 mls/hr 10/04/24 14:00 10/04/24 14:03 D51/2ns IVCONT 50 mls/hr .Q20H VASQUEZ Administration Discontinued Medications Generic Name Dose Route Start Last Admin Trade Name Freq PRN Reason Stop Dose Admin Sodium Chloride 1,000 mls @ 999 mls/hr 10/04/24 11:30 10/04/24 13:28 Ns IV 10/04/24 12:30 Infused .Q1H1M VASQUEZ Infusion Ketorolac Tromethamine 15 mg 10/04/24 11:29 10/04/24 11:40 Ketorolac Tromethamine 15 Mg/Ml Vial IVPUSH 10/04/24 11:30 15 mg ONCE ONE Administration Methylprednisolone Sodium Succinate 60 mg 10/04/24 11:29 10/04/24 11:40 Methylprednisolone Sod Succ 125 Mg/2 Ml Vial IVPUSH 10/04/24 11:30 60 mg ONCE ONE Administration Tamsulosin HCl 0.4 mg 10/04/24 11:30 10/04/24 11:38 Tamsulosin Hcl 0.4 Mg Capsule PO 10/04/24 11:31 0.4 mg ONCE ONE Administration Medical Decision Making Medical Decision Making [facility] Narrative: Patient is a 44 year old assigned male at with a history of substance abuse and kidney stones presenting to the emergency department today with worsening right flank pain, nausea, vomiting, and diarrhea. Patient's physical exam was as noted in the physical exam portion of this note. Patient's blood work showed a WBC count of 12.4, CR today 1.06 (was 0.75), BUN 15 (was 12). Patient's urine showed large blood, trace leuks, 11-[address]. [address] abd/pelvis showed persistent moderate right hydro secondary to a 4mm proximal stone that has only migrated 1.5cm distally since last visit. I spoke to Dr. Vu, the Urologist manager corporate communications, who recommended keep the patient NPO and he would place a stent at 1700. I explained my physical exam findings as well as all test results to the patient. I answered all questions asked by the patient. Patient received IV fluids, solu-medrol, toradol, and PO flomax which, upon re-evaluation, he stated it helped his symptoms somewhat. The patient expressed significant concern about his blood sugar dropping too low by being held NPO pending the procedure. I discussed this with my attending physician, Dr. Jennings, and together - we decided on D5 / 0.45% NS at a rate of 50ml/hr to ensure and reassure the patient that his sugar will not drop. I explained this to the patient who verbalized understanding and agreement. Patient verbalized agreement and understanding with this treatment plan and stent placement by Dr. Vu. Differential Diagnosis Differential Diagnoses: The differential diagnosis associated with the presentation includes Right kidney stone Right sided hydronephrosis Admission/Observation Consideration of admission/observation: Escalation of care including admission/observation considered Patient will have procedure done by Dr. Vu this evening. Consult Healthcare Provider Management of the patient was discussed with: Process Manufacturing Engineer (spoke to Dr. Vu as noted in the MDM Rationale portion of this note.) Lab Data [facility] Lab Attestation statement: I reviewed the patient's lab results. My interpretation of these results are in the MDM Rationale portion of this note. 10/04/24 11:10 10/04/24 11:10 Labs: Lab Results 10/04/24 10/04/24 Range/Units 11:10 13:29 WBC 12.4 H (4.8-10.8) X10*3/uL RBC 4.59 L (4.60-5.80) X10*6/uL Hgb 13.9 L (14.0-18.0) g/dl Hct 41.4 L (42.0-52.0) % MCV 90.2 (80.0-98.0) fL MCH 30.3 (27.0-33.0) pg MCHC 33.6 (31.0-36.0) g/dl RDW 13.9 (11.0-16.0) % Plt Count 339 (160-400) X10*3/uL MPV 9.5 (9.4-12.4) fL Immature Gran % (Auto) 0.5 H (0.0-0.4) % Neut % (Auto) 65.3 (45-73) % Lymph % (Auto) 23.1 (20-40) % [place] % (Auto) 8.7 (2-11) % Eos % (Auto) 1.8 (0-4) % Baso % (Auto) 0.6 (0-2) % Lymph # (Auto) 2.9 (1.2-4.9) X10*3/uL [place] # (Auto) 1.1 (0.1-1.2) X10*3/uL Eos # (Auto) 0.2 (0.0-0.4) X10*3/uL Baso # (Auto) 0.1 (0.0-0.2) X10*3/uL Abs Immat Gran (auto) 0.06 H (0.00-0.03) X10*3/uL Absolute Neuts (auto) 8.1 (2.0-8.3) x10*3/uL Absolute Nucleated RBC 0.000 (0.0-0.012) X10*3/uL Nucleated RBC % (auto) 0.0 (0.0-0.2) /100WBC Sodium 141 (135-145) mmol/L Potassium 4.5 (3.3-5.1) mmol/L Chloride 104 (96-108) mmol/L Carbon Dioxide 26 (22-29) mmol/L Anion Gap 16 (12-20) BUN 15 (9-16) mg/dL Creatinine 1.06 (0.5-1.4) mg/dL Estim Creat Clear Calc 78.5 Estimated GFR > 60 Random Glucose 83 (60-115) mg/dL Calcium 10.2 D (8.4-10.2) mg/dL Total Bilirubin 0.7 (0.0-1.0) mg/dL AST 53 H (5-37) U/L ALT 113 H (0-40) U/L Alkaline Phosphatase 98 (39-117) U/L Total Protein 8.8 H (6.5-8.0) g/dL Albumin 4.5 (3.5-5.0) g/dL Lipase 31 (8-78) U/L Urine Color Dark Yellow Urine Appearance Cloudy Urine pH 6.5 (5.0-9.0) Ur Specific [place] 1.020 (1.005-1.025) Urine Protein 30 (1+) H (Neg-Trace) mg/dL Urine Glucose (UA) Negative (Negative) mg/dL Urine Ketones 15 (Negative) mg/dL Urine Blood Large (3+) H (Negative) Urine Nitrite Negative (Negative) Ur Leukocyte Esterase Trace H (Negative) Urine RBC 11-20 H (0-2) /HPF Urine WBC 6-10 H (0-5) /HPF Ur Squamous Epith Cells 3-5 (0-2) /HPF Urine Bacteria None Seen (None Seen) Hyaline Casts 11-20 (0-2) /LPF Independent Interpretation I performed an independent interpretation of an: CT Scan Interpretation: My interpretation is in agreement with the radiologist's impression of this imaging study. Report Number: [id number]: Total DLP = 360.00 mGy-cm EXAMINATION: CT ABDOMEN PELVIS WITHOUT IV CONTRAST HISTORY: worsening flank pain in the presence of a stone COMPARISON: Comparison is made with the prior examination dated 09/13/2024. TECHNIQUE: CT scan of the abdomen and pelvis was performed without contrast using standard departmental protocol. Coronal and sagittal reformatted images were generated and reviewed. Oral contrast material was not administered per department protocol. This CT exam was performed with one or more of the following dose reduction techniques: automated exposure control, adjustment of the mA and/or kV according to patient size, use of iterative reconstruction technique. DLP: 360 mGy-cm FINDINGS: LOWER CHEST: The visualized lung bases are clear. There is no pleural effusion. CARDIOVASCULATURE: The heart is normal in size. There is no pericardial effusion. LIVER: The liver is normal in size and contour. The liver has an unremarkable unenhanced appearance. GALLBLADDER / BILE DUCTS: The gallbladder is unremarkable. There is no intra or extrahepatic biliary ductal dilatation. SPLEEN: The spleen is normal in size and has an unremarkable unenhanced appearance. PANCREAS: The pancreas has an unremarkable unenhanced appearance. ADRENAL GLANDS: Unremarkable. KIDNEYS/RETROPERITONEUM: There is persistent moderate right hydronephrosis secondary to a 4 mm proximal ureteral calculus. The calculus has migrated approximately 1.5 cm distally within the ureter since the prior study. There are multiple 1-2 mm nonobstructing calculi in the mid to lower pole regions of the left kidney. There is no left hydroureter. LYMPH NODES: No retroperitoneal lymphadenopathy is identified in the abdomen or pelvis. VASCULATURE: The abdominal aorta is normal in caliber. MESENTERY/PERITONEUM: No free fluid. No masses. There is no free intraperitoneal gas. STOMACH: The stomach is collapsed, limiting evaluation. SMALL BOWEL: The small bowel is normal in caliber. COLON: The hepatic flexure of the colon appears thickened but this is likely due to collapse, as this region did not demonstrate wall thickening on the examination performed 09/13/2024. APPENDIX: Normal. URINARY BLADDER/PELVIC ORGANS: The urinary bladder is unremarkable. The prostate is normal in size. BONES / SOFT TISSUES: There is degenerative disc disease of the spine. CT/CT abdomen pelvis wo IV con IMPRESSION: Persistent moderate right hydronephrosis secondary to a 4 mm proximal ureteral calculus. The calculus is migrated approximately 1.5 cm distally within the ureter since the prior study. Left nephrolithiasis as described. Electronically signed by: Jluis Driscoll MD 10/04/2024 01:12 PM EDT RP Dictated By: Jluis Driscoll MD Signed By: Electronically signed by Jluis Driscoll MD 10/04/24 1312 Radiology Impression Discussion of test interpretation with radiology: I have reviewed the radiologist's reading. Critical Care Time Critical Care Time Critical Care Time: Yes Total Critical Care Time: 51 Attestation: I spent 51 minutes of Critical Care Time with this patient. This does not include time spent on separately reported billable procedures. Discharge Plan Discharge Clinical Impression: Hydronephrosis of right kidney, Kidney stone Patient Disposition: Xfer Other Transfer Details: Surgery with Dr. Vu
[2024-10-04 11:34] LABS: Alanine Aminotransferase 113 U/L (0-40); Albumin Level 4.5 g/dL (3.5-5.0); Alkaline Phosphatase 98 U/L (39-117); Anion Gap 16 (12-20); Aspartate Amino Transferase 53 U/L (5-37); Bilirubin Total 0.7 mg/dL (0.0-1.0); Blood Urea Nitrogen 15 mg/dL (9-16); Calcium 10.2 mg/dL (8.4-10.2); Carbon Dioxide 26 mmol/L (22-29); Chloride 104 mmol/L (96-108); Creatinine Clr Calc Pharmacy 78.5; Estimated Glomerular Filt Rate > 60; Glucose Random 83 mg/dL (60-115); Lipase 31 U/L (8-78); Potassium 4.5 mmol/L (3.3-5.1); Sodium 141 mmol/L (135-145); Total Protein 8.8 g/dL (6.5-8.0)
[2024-10-04] MEDS: Tamsulosin HCL 0.4 MG CAPSULE PO ×2 (11:38→20:34)
[2024-10-04] MEDS: 0.9 % Sodium Chloride 1,000 ML 999 ML IV (11:39)
[2024-10-04] MEDS: methylPREDNISolone Sod Succ 125 MG/2 ML VIAL 60 MG IVPUSH (11:40)
[2024-10-04] MEDS: Ketorolac Tromethamine 15 MG/ML VIAL IVPUSH ×4 (11:40→23:35)
[2024-10-04 13:51] LABS: Appearance Urine Cloudy; Color Urine Dark Yellow; Glucose Urine UA Negative (Negative); Leukocyte Esterase Urine Trace (Negative); Nitrite Urine Negative (Negative); PH 6.5 (5.0-9.0); UMIC TRIGGER UACC YES; Urine Blood Large (3+) (Negative); Urine Ketones 15 mg/dL (Negative); Urine Protein 30 (1+) mg/dL (Neg-Trace)
[2024-10-04] MEDS: Dextrose 5 % and 0.45 % NaCl 1,000 ML 50 ML IVCONT (14:03)
--- NOTE | 2024-10-04 14:04 | PC.NURSE ---
D5 half normal saline not scanning. 2 RNs verified it is correct med and correct order
[2024-10-04 14:05] LABS: Bacteria Urine None Seen (None Seen); UACC Culture Trigger YES
--- NOTE | 2024-10-04 14:05 | PC.NURSE ---
Pt reporting severe right flank/ RLQ ABD pain, was diagnosed with kidney stone last week here. Reporting pain got very bad this morning along with N/V. Pain 10/10, sharp and stabbing. Alert and oriented, breathing even and unlabored. Last oral intake around 10AM this morning, food and drink, that pt reported he threw up.
--- NOTE | 2024-10-04 14:16 | PC.NURSE ---
Pt was able to urinate on his own, approx 250 mL.
--- NOTE | 2024-10-04 14:31 | PC.NURSE ---
REPORT CALLED TO STUART MONTES
--- NOTE | 2024-10-04 16:30 | P.CNUR_ITS ---
History of Present Illness Consult details Consult date: 10/04/24 Narrative: CC: Right-sided flank pain 44-year-old male Presents with worsening right flank pain, nausea, associated vomiting Prior visit late August Diagnosed with renal stone CT There is persistent moderate right hydronephrosis secondary to a 4 mm proximal ureteral calculus. The calculus has migrated approximately 1.5 cm distally within the ureter since the prior study. Creatinine 1.1 Plan for cystoscopy, right retrograde, right stent placement Review of Systems 2 Constitutional: Constitutional: Reports as per HPI and Reports no additional constitutional complaints Cardiovascular: Cardiovascular: Reports as per HPI and Reports no additional cardiovascular complaints Respiratory: Respiratory: Reports as per HPI and Reports no additional respiratory complaints Gastrointestinal: Gastrointestinal: Reports as per HPI and Reports no additional gastrointestinal complaints Genitourinary: Genitourinary: Reports as per HPI Musculoskeletal: Musculoskeletal: Reports no additional musculoskeletal complaints and Reports as per HPI Neurologic: Reports system reviewed and no additional complaints, except as documented and Reports as per HPI PMFSH Past Medical History Medical History Kidney stones Social History Social History Alcohol intake: current Alcohol intake frequency: a few times a week Alcohol type: hard liquor Patient Tobacco Use Status: Current everyday Tobacco user Smoked in Last 30 Days: Yes Substance Use Type: Heroin and IV Drugs Advance Directives: No Advance Directives Information Provided: Yes Meds Allergies Allergy/AdvReac Type Severity Reaction Status Date / Time coffee (Coffea arabica) Allergy Severe ANAPHYLAXIS Verified 10/04/24 11:05 [COFFEE] Penicillins [PENICILLINS] Allergy Intermediate RASH Verified 10/04/24 11:05 penicillin V Allergy Unknown Rash Verified 10/04/24 11:05 COFFEE FLAVOR Allergy Unknown Anaphylaxis Uncoded 07/10/23 09:59 Active Medications: Current Medications Dextrose/Sodium Chloride (D51/2ns) 1,000 mls @ 50 mls/hr IVCONT .Q20H VASQUEZ Last Admin: 10/04/24 14:03 Dose: 50 mls/hr Physical Exam 2 Vital Signs: Vital Signs: Last Vital Signs Temp 98.1 F 10/04/24 16:26 Pulse 75 10/04/24 16:26 Resp 18 10/04/24 16:26 BP 110/70 10/04/24 16:26 Pulse Ox 95 10/04/24 16:26 O2 Del Method Room Air 10/04/24 16:26 BMI result Body Mass Index 24.8 Const: General: cooperative, healthy appearing, comfortable and no acute distress Orientation/consciousness: patient oriented x3 HEENT: Face and sinus: Yes normal facial exam Mouth: moist mucous membranes Neck: Neck: Yes normal visual inspection, Yes full ROM and Yes trachea midline Chest: Chest palpation & inspection: normal inspection of the chest Resp: Effort & Inspection: normal respiratory effort, able to speak in complete sentences and no respiratory distress GI: Inspection: Yes normal to inspection Back/Spine/Pelvis: Cervical Spine: normal cervical lordosis Thoracic/Lumbar Spine: thoracic and lumbar spine normal to inspection Skin: General skin exam: no rashes or lesions noted Neuro: General: patient oriented x3, tone normal and moves all extremities Extrem: General: Yes normal to inspection and Yes capillary refill normal Results Labs 10/04/24 11:10 10/04/24 11:10 Labs: Abnormal lab results 10/04/24 10/04/24 Range/Units 11:10 13:29 WBC 12.4 H (4.8-10.8) X10*3/uL RBC 4.59 L (4.60-5.80) X10*6/uL Hgb 13.9 L (14.0-18.0) g/dl Hct 41.4 L (42.0-52.0) % Immature Gran % (Auto) 0.5 H (0.0-0.4) % Abs Immat Gran (auto) 0.06 H (0.00-0.03) X10*3/uL AST 53 H (5-37) U/L ALT 113 H (0-40) U/L Total Protein 8.8 H (6.5-8.0) g/dL Urine Protein 30 (1+) H (Neg-Trace) mg/dL Urine Blood Large (3+) H (Negative) Ur Leukocyte Esterase Trace H (Negative) Urine RBC 11-20 H (0-2) /HPF Urine WBC 6-10 H (0-5) /HPF Short CBC 10/04/24 Range/Units 11:10 WBC 12.4 H (4.8-10.8) X10*3/uL Hgb 13.9 L (14.0-18.0) g/dl Hct 41.4 L (42.0-52.0) % Plt Count 339 (160-400) X10*3/uL BMP 10/04/24 11:10 Sodium 141 Potassium 4.5 Chloride 104 Carbon Dioxide 26 BUN 15 Creatinine 1.06 Calcium 10.2 D Liver Function 10/04/24 Range/Units 11:10 Total Bilirubin 0.7 (0.0-1.0) mg/dL AST 53 H (5-37) U/L ALT 113 H (0-40) U/L Alkaline Phosphatase 98 (39-117) U/L Albumin 4.5 (3.5-5.0) g/dL Urine 10/04/24 Range/Units 13:29 Urine Color Dark Yellow Urine Appearance Cloudy Urine pH 6.5 (5.0-9.0) Ur Specific [place] 1.020 (1.005-1.025) Urine Protein 30 (1+) H (Neg-Trace) mg/dL Urine Glucose (UA) Negative (Negative) mg/dL All other labs normal. Assessment and Plan (1) Kidney stone: Status: Acute Plan Risks, benefits and alternatives to therapy were discussed. These include but are not limited to infection, bleeding, damage to local organs and tissues, need for further interventions. Anesthetic risks regarding cardiac arrhythmia, blood clots, and potential mortality were discussed. The patient understands the typical recovery time and the outpatient nature of the procedure. After consideration of these risks the patient gives full informed consent and they wish to move ahead with the procedure. Cystoscopy, right retrograde, right stent placement Procedures Date of Service Date of Service: 10/04/24
--- NOTE | 2024-10-04 17:23 | HO.ANESPROP2 ---
HPI - Anesthesia Eval Consult details Narrative: 44 yo male patient for Cysto, Right ureteroscopy, retro, stent Right ureter Patient with cocaine use yesteday, marijuana today. Dr Vu informed. Surgery deemed emergent. Dr Vu also aware that patient has no one to pick him up after surgery. Patient will be admitted overnight after surgery PMFSH Active Problems Active Problems: All Active Problems Kidney stone (Acute) Hydronephrosis of right kidney (Acute) Cocaine-yesterday Marijuana today Smoker- Last cigarette today Past Medical History Medical History (Updated 10/04/24 @ 14:08 by MARBIN Son) Kidney stones Family History Family history of problems with anesthesia: No Surgical History Surgical History (Updated 10/04/24 @ 17:21 by Suzanne Lopez RN) H/O hand surgery History of Problems with Anesthesia: No Social History Social History Alcohol intake: current Alcohol intake frequency: a few times a week Alcohol type: hard liquor Patient Tobacco Use Status: Current everyday Tobacco user Smoked in Last 30 Days: Yes Substance Use Type: Heroin and IV Drugs Advance Directives: No Advance Directives Information Provided: Yes Meds Allergies Allergy/AdvReac Type Severity Reaction Status Date / Time coffee (Coffea arabica) Allergy Severe ANAPHYLAXIS Verified 10/04/24 17:22 [COFFEE] Penicillins [PENICILLINS] Allergy Intermediate RASH Verified 10/04/24 17:22 penicillin V Allergy Unknown Rash Verified 10/04/24 17:22 COFFEE FLAVOR Allergy Unknown Anaphylaxis Uncoded 10/04/24 17:22 Active Medications: Current Medications Dextrose/Sodium Chloride (D51/2ns) 1,000 mls @ 50 mls/hr IVCONT .Q20H VASQUEZ Last Admin: 10/04/24 14:03 Dose: 50 mls/hr Exam Height,Weight and Vital Signs: Height 5 ft 6 in Weight 69.8 kg Last Vital Signs Temp 98.1 F 10/04/24 16:26 Pulse 75 10/04/24 16:26 Resp 18 10/04/24 16:26 BP 110/70 10/04/24 16:26 Pulse Ox 95 10/04/24 16:26 O2 Del Method Room Air 10/04/24 16:26 Pertinent Lab Results Pertinent Lab Results: Laboratory Tests 10/04/24 10/04/24 11:10 13:29 WBC 12.4 H RBC 4.59 L Hgb 13.9 L Hct 41.4 L MCV 90.2 MCH 30.3 MCHC 33.6 RDW 13.9 Plt Count 339 MPV 9.5 Immature Gran % (Auto) 0.5 H Neut % (Auto) 65.3 Lymph % (Auto) 23.1 [place] % (Auto) 8.7 Eos % (Auto) 1.8 Baso % (Auto) 0.6 Lymph # (Auto) 2.9 [place] # (Auto) 1.1 Eos # (Auto) 0.2 Baso # (Auto) 0.1 Abs Immat Gran (auto) 0.06 H Absolute Neuts (auto) 8.1 Absolute Nucleated RBC 0.000 Nucleated RBC % (auto) 0.0 Sodium 141 Potassium 4.5 Chloride 104 Carbon Dioxide 26 Anion Gap 16 BUN 15 Creatinine 1.06 Estim Creat Clear Calc 78.5 Estimated GFR > 60 Random Glucose 83 Calcium 10.2 D Total Bilirubin 0.7 AST 53 H ALT 113 H Alkaline Phosphatase 98 Total Protein 8.8 H Albumin 4.5 Lipase 31 Urine Color Dark Yellow Urine Appearance Cloudy Urine pH 6.5 Ur Specific [place] 1.020 Urine Protein 30 (1+) H Urine Glucose (UA) Negative Urine Ketones 15 Urine Blood Large (3+) H Urine Nitrite Negative Ur Leukocyte Esterase Trace H Urine RBC 11-20 H Urine WBC 6-10 H Ur Squamous Epith Cells 3-5 Urine Bacteria None Seen Hyaline Casts 11-20 Airway Mallampati Class: II TM Dist: >3cm Neck ROM: Full Loose/Missing/Broken Teeth: Yes (Poor. Missing some teeth. Loose tooth bottom right back. Look ground down but denies broken teeth) Heart: RRR Lungs: Bilateral wheezes Other: For respiratory treatment Assessment and Plan Assessment Anesthesia Assessment: Anesthesia Plan Discussed and Chart Reviewed Final Anesthetic Review Family History of Problems with Anesthesia: No History of Problems with Anesthesia: No NPO: Yes (Full breakfast about 8 hours ago0 but vomited) ASA Class: III and Emergency Final Preanesthetic Review: No Changes in Pt Med Stat, Meds/Allgs Chart Reviewed, Consent Obtained/Reviewed and Anes Risks/Benef Reviewed Patient Risk: Intermediate Procedure Risk: Low Assessment/Block/Sedation in SS: Assess/Block/Sedation- Anesthetic Plan Anesthetic Plan: GA and TIVA Disposition: Standard PACU and Inp. Admit - Standard Bed
--- NOTE | 2024-10-04 17:23 | PC.NURSE ---
PT TAKEN TO [facility] BY TRANSPORT
--- NOTE | 2024-10-04 17:31 | MHC.SHP ---
Pre-Procedural Eval Section A - 24 Hr Update-Section A only Date of Service: 10/04/24 The patient is an INPATIENT: Yes Changes since office visit: No Cold of Flu in the past 2 weeks, No New Medical Problems, No Changes in Medication and No Patient answered all questions The patient has been examined within 24 hours of the surgical procedure. The History & Physical has been completed within 30 days and I have reviewed it.: Yes Section B - Complete if H&P > 30 days Chief Complaint: ABD PAIN,N/V Details of Present Illness: Cystoscopy, right retrograde, right stent placement Allergies: Allergies Allergy/AdvReac Type Severity Reaction Status Date / Time coffee (Coffea arabica) Allergy Severe ANAPHYLAXIS Verified 10/04/24 17:22 [COFFEE] Penicillins [PENICILLINS] Allergy Intermediate RASH Verified 10/04/24 17:22 penicillin V Allergy Unknown Rash Verified 10/04/24 17:22 COFFEE FLAVOR Allergy Unknown Anaphylaxis Uncoded 10/04/24 17:22 Review of Systems Sugical H&P ROS: Negative: Constitution, Cardiovascular, Respiratory, Neurological, Psychiatric, Hem-Onc, Allergic/Immunologic, Gastrointestinal, Genitourinary, Musculoskeletal, Integumentary, Endocrine and Eyes/Ears/Nose/Throat Exam Surgical H&P Exam: Normal: HEENT, Normal: Heart, Normal: Lungs, Normal: Extremities, Normal: Abdomen, Normal: Skin and Normal: Neurological Plan Diagnosis/Plan: Unchanged (See above) I have reviewed the history and physical and performed a pertinent physical examination on my patient. No changes have occurred unless specified. Time Spent With Patient Time: Total time managing care of this patient today ____ minutes.
[2024-10-04] MEDS: Albuterol Sulfate (0.083%) 2.5 MG/3 ML VIAL.NEB INHALE (17:35)
--- NOTE | 2024-10-04 17:55 | PC.NURSE ---
Addendum entered by Suzanne Lopez RN 10/04/24 18:03: Per anesthesia Dr. Cazares, no UTOX needed at this time as patient is not denying drug use. Original Note: Patient in preop. States he used a small amount of cocaine yesterday. Per him, he uses cocaine and marijuana occasionally . Per anesthesia, no utox needed at this time. Dr. Vu aware and discussed case with Dr. Brewer. Case deemed an emergency and to proceed. No new orders at this time.
[2024-10-04] MEDS: Lactated Ringers 1,000 ML 100 ML IVCONT ×2 (18:02→20:37)
--- NOTE | 2024-10-04 18:54 | P.OP_ITS ---
Operative Note Operative Note Date of Service: 10/04/24 Narrative: PreOperative Diagnosis: Right proximal obstructing stone Post Operative Diagnosis: Right proximal obstructing Procedure: Cystoscopy, right retrograde, right stent placement Surgeon: Dr Norris Vu Anesthesia: Sedation Indications for procedure: Proximal obstructing stone Procedure: After informed consent was verified the patient was brought to the operating room and placed in a supine position. Anesthesia was administered per protocol. The patient was placed in modified dorsal lithotomy position and prepped and draped in a sterile fashion. A safety pause time-out was performed. Laterality of procedure and antibiotics were confirmed, appropriate imaging was available A 22 Sammarinese cystoscope was introduced per urethra. No abnormality was noted of urethra or bladder. Both ureteric orifices were seen in a normal position. The right ureter was cannulated with an open ended catheter and a retrograde examination was performed. Obstructing stone seen at right proximal ureter . A Sensor guidewire was placed under fluoroscopy and a good coil was seen within the renal pelvis. A 6 [place] by 26 cm double J stent was advanced over the wire and up to the level of the renal pelvis under fluoroscopic and direct visualization. The stent was seen with appropriate coil within the renal pelvis and in the bladder after deployment. The patient tolerated the procedure well and was transferred in a stable condition to the recovery area. Pathology: Drains: As above
[2024-10-04] MEDS: Phenazopyridine HCL 100 MG TABLET PO (18:55)
[2024-10-04] MEDS: HYDROmorphone HCl 0.5 MG/0.5 ML SYRINGE IVPUSH (19:00)
[2024-10-04] MEDS: oxyBUTYnin chloride ER 5 MG TAB.ER.24 PO (20:34)
[2024-10-04] MEDS: Acetaminophen 325 MG TABLET 975 MG PO (20:35)
[2024-10-04] MEDS: oxyCODONE HCl Immed Release 5 MG TABLET PO (20:35)
[2024-10-05] MEDS: oxyCODONE HCl Immed Release 5 MG TABLET PO ×3 (00:34→10:59)
[2024-10-05 03:47] VITALS: BP 116/68; PULSE 76; RESP 18; TEMP 37.1; O2SAT 95
--- NOTE | 2024-10-05 03:58 | PC.NURSE ---
Pt arrived to 347 from PACU at 1940, alert and oriented, c/o lower abd pain and penile pain, voiding in the BR with bright red urine, due pain meds given including PRN Oxycodone, pt claimed minimal effect, instructed to increased po fluid intake, recommended some ice packs but refused, supper was served and tolerated. At 2229, pt still endorsed unrelieved from abd discomfort and penile pain, now hesitant to void bec of the pain, bladder scan =52, vitals WNL, pt noted outburst of emotions and increasing anxiety, Dr. Vu was made aware, Dr. Vu ordered [place] and Opiate supp, unable to put the order, Pharmacy was called, Pharmacy claimed hospital doesn't carry the med, Dr. Vu was informed, Toradol 15 mg IV every 6h prn ordered, pt was educated and instructed on the pain management, claimed both meds doesn't work, when asked if refusing to take them, pt said he will then take them. pt was able to rest few hours later.
[2024-10-05] MEDS: Acetaminophen 325 MG TABLET 975 MG PO (07:00)
[2024-10-05 07:42] VITALS: BP 111/65; PULSE 75; RESP 14; TEMP 36.6; O2SAT 98
--- NOTE | 2024-10-05 08:33 | PHA.MEDREC ---
Addendum entered by Hazel Quiñones RPh 10/05/24 08:45: Reviewed by [facility] Original Note: Pharmacy Consult ? Medication Reconciliation Pharmacy has completed the medication reconciliation. Spoke with patient and he confirmed he is only taking the Gabapentin 300mg tab and he takes it as needed when he gets onset pain and states he will take more as prescribed for the pain. He stated he is no longer taking the Suboxone films. He is not taking anything else for pain or anything OTC. He states he has not taken the Gabapentin in about 1 week.
--- NOTE | 2024-10-05 12:22 | P.PNUR_ITS ---
Subjective Subjective Date of Service: 10/05/24 Interval history: Improved flank pain Discharge today follow-up for ESWL Physical Exam 2 Vital Signs: Vital Signs: Last Vital Signs Temp 98 F 10/05/24 07:42 Pulse 75 10/05/24 07:42 Resp 14 10/05/24 07:42 BP 111/65 10/05/24 07:42 Pulse Ox 98 10/05/24 07:42 O2 Del Method Room Air 10/05/24 07:42 BMI result Body Mass Index 21.8 Const: General: cooperative, healthy appearing, comfortable and no acute distress Orientation/consciousness: patient oriented x3 HEENT: Face and sinus: Yes normal facial exam Mouth: moist mucous membranes Neck: Neck: Yes normal visual inspection, Yes full ROM and Yes trachea midline Chest: Chest palpation & inspection: normal inspection of the chest Resp: Effort & Inspection: normal respiratory effort, able to speak in complete sentences and no respiratory distress GI: Inspection: Yes normal to inspection Back/Spine/Pelvis: Cervical Spine: normal cervical lordosis Thoracic/Lumbar Spine: thoracic and lumbar spine normal to inspection Skin: General skin exam: no rashes or lesions noted Neuro: General: patient oriented x3, tone normal and moves all extremities Extrem: General: Yes normal to inspection and Yes capillary refill normal Urology Results Labs 10/04/24 11:10 10/04/24 11:10 Labs: Laboratory Results - last 24 hr 10/04/24 13:29 Urine Color Dark Yellow Urine Appearance Cloudy Urine pH 6.5 Ur Specific [place] 1.020 Urine Protein 30 (1+) H Urine Glucose (UA) Negative Urine Ketones 15 Urine Blood Large (3+) H Urine Nitrite Negative Ur Leukocyte Esterase Trace H Urine RBC 11-20 H Urine WBC 6-10 H Ur Squamous Epith Cells 3-5 Urine Bacteria None Seen Hyaline Casts 11-20 Progress Note: A&P Assessment and plan (1) Hydronephrosis of right kidney: Status: Acute (2) Kidney stone: Status: Acute Plan Plan for ESWL Time Spent With Patient Time: Total time managing care of this patient today ____ minutes.
--- NOTE | 2024-10-05 12:26 | PM.DS ---
DS: Providers Provider Date of Service: 10/05/24 Date of admission: 10/04/24 18:56 Date of discharge: 10/05/24 Primary care physician: [facility] DS: Diagnosis Discharge Diagnosis (1) Hydronephrosis of right kidney: Status: Acute (2) Kidney stone: Status: Acute DS: Summary Hospital Course Hospital Course: Admitted through emergency department with right ureteric stone Underwent cystoscopy, retrograde, stent placement Time spent discussing smoking cessation with patient: 3 to 10 minutes Status at Discharge Functional status at discharge: independent ambulation Overall status at discharge: patient is back to baseline Time Attestation Total time managing care of this patient today: 10 mintues. Discharge Coordination Time (in mins): 5 Quality: Safe Use of Opioids Does Pt have an Active Cancer Diagnosis on the Problem List?: No Quality: Stroke Does the patient have a stroke diagnosis?: No Physical Exam Vital Signs: Vital Signs: Last Vital Signs Temp 98 F 10/05/24 07:42 Pulse 75 10/05/24 07:42 Resp 14 10/05/24 07:42 BP 111/65 10/05/24 07:42 Pulse Ox 98 10/05/24 07:42 O2 Del Method Room Air 10/05/24 07:42 BMI result Body Mass Index 21.8 DS: Data Data Completed and Pending Labs on day of discharge: Laboratory Results - last 24 hr 10/04/24 13:29 Urine Color Dark Yellow Urine Appearance Cloudy Urine pH 6.5 Ur Specific [place] 1.020 Urine Protein 30 (1+) H Urine Glucose (UA) Negative Urine Ketones 15 Urine Blood Large (3+) H Urine Nitrite Negative Ur Leukocyte Esterase Trace H Urine RBC 11-20 H Urine WBC 6-10 H Ur Squamous Epith Cells 3-5 Urine Bacteria None Seen Hyaline Casts 11-[address] scan - abdomen: Radiologist's impression: ITS Impressions Abdomen/Pelvis CT 10/04/24 11:53 IMPRESSION: Persistent moderate right hydronephrosis secondary to a 4 mm proximal ureteral calculus. The calculus is migrated approximately 1.5 cm distally within the ureter since the prior study. Left nephrolithiasis as described. Electronically signed by: Jluis Driscoll MD 10/04/2024 01:12 PM EDT Guidance Fluoroscopy 10/04/24 18:10 IMPRESSION: Fluoroscopy during procedure. Please see procedure report for additional information. Electronically signed by: Jluis Driscoll MD 10/05/2024 07:57 AM EDT RP Discharge Plan Discharge Anticipated Discharge Date/Time: 10/05/24 11:01 Patient Disposition: Home, Self-Care Discharge Diagnosis: ureteric stone Referrals: [place] [Primary Care Provider] - 1 Week Discharge Medications: New tamsulosin 0.4 mg capsule 0.4 mg PO BEDTIME 30 Days Qty: 30 1RF phenazopyridine [Pyridium] 100 mg tablet 100 mg PO TID PRN (Reason: Spasm) 4 Days Qty: 12 0RF Continued gabapentin 300 mg capsule 300 mg PO TID Discharge Orders: Discharge Order (Routine); Ordered 10/05/24 Ordered By: Norris Vu Diet: Advance to usual diet Activity on Discharge: As tolerated Stand Alone Forms: Patient Portal Discharge page Print Language: Divehi Care Plan Goals: Stones Health Concerns: Stones Plan of Treatment: Stones Assessment: Stones
[2024-10-05 12:48] VITALS: BP 130/90; PULSE 85; RESP 14; TEMP 36.8; O2SAT 98
== END 2024-10-05 12:48 | disposition home or self-care (01) | DRG 465 ==
LOC: HO.ED 14:08 → HO.SSS 14:09 → HO.EDOVER 20:02 → HO.S3 20:24
PROVIDERS: Admitting Provider Urology; Emergency Provider Emergency Medicine; PCP Family Medicine; Visit Provider Urology
PROC: 0T768DZ Dilation of Right Ureter with Intraluminal Device, Via Natural or Artificial Opening Endoscopic (ICD-10-PCS; principal; 2024-10-04 17:30)
DX: N13.2 Hydronephrosis with renal and ureteral calculous obstruction (principal); F17.210 Nicotine dependence, cigarettes, uncomplicated; Z71.6 Tobacco abuse counseling; Z87.442 Personal history of urinary calculi; Z79.899 Other long term (current) drug therapy
CPT/HCPCS: 36415; 74176; 80053; 81001; 83690; 85025; 87086; 99285; C1758; C1769; C2617; J0131; J0690; J1171; J1790; J1885; J2003; J2704; J2919; J3010; J7120; Q9967

== ENCOUNTER → 2024-10-04 11:29 | Outpatient (BNV) | payer MEDICAID, SELFPAY | PROVIDERS: Emergency Provider Emergency Medicine; Visit Provider Radiology Diagnostic Radiology | DX: N13.2 Hydronephrosis with renal and ureteral calculous obstruction (principal) | CPT/HCPCS: 74176 ==

== ENCOUNTER → 2024-10-04 14:09 | Outpatient (BNV) | payer MEDICAID, SELFPAY | PROVIDERS: Emergency Provider Emergency Medicine; Visit Provider Urology | DX: N13.30 Unspecified hydronephrosis (principal); N20.0 Calculus of kidney | CPT/HCPCS: 52332; 74420; 99222; 99238; 99499 ==

== ENCOUNTER 2024-10-23 18:28 | Outpatient (REF) | payer MEDICAID, SELFPAY ==
--- NOTE | ~2024-10-23 | MR_ITS ---
CLINICAL HISTORY: Severe LBP radiating to B L legs, Lt side worse, gait instability MR lumbar spine without intravenous contrast Comparison: None available Findings: Normal heights of 5 lumbar vertebrae. Mild anterolisthesis at L2-L3 and L3-L4. Abnormal marrow signal of the L2, L3, and L4 are nonspecific. Modic type 1 endplate changes are favored by imaging. Trending ESR and CRP will be informative for any potential infectious and/or inflammatory process. No bony destructive changes of the osteomyelitis at this time. No intramuscular abscess or drainable paraspinal fluid collection to help confirm infection and/or discitis-osteomyelitis. Conus terminates at L1. Mild splenomegaly and bibasilar atelectasis in the [id number]. L1-L2: Disc bulge, endplate hypertrophy, and bilateral facet arthropathy. Mild right lateral recess narrowing. L2-L3: Disc bulge, small extrusion, endplate hypertrophy, and bilateral facet arthropathy. Bilateral facet effusions are present. Mild spinal canal stenosis. Moderate right and severe left lateral recess narrowing. Mild right and moderate left foraminal narrowing. L3-L4: Disc bulge, endplate hypertrophy, and bilateral facet arthropathy. Moderate spinal canal stenosis with bilateral lateral recess narrowing. Mild right and moderate left foraminal narrowing. L4-L5: Disc bulge, annular fissure, endplate hypertrophy, and bilateral facet arthropathy. No central spinal canal stenosis. Moderate right and mild left lateral recess narrowing. Moderate right-sided foraminal narrowing. L5-S1: Disc bulge, annular fissure, small extrusion, endplate hypertrophy, and bilateral facet arthropathy. No spinal canal stenosis. Mild to Moderate right foraminal narrowing. IMPRESSION: 1. Multifocal degenerative disc changes with findings of spinal stenosis, including lateral recess narrowing. 2. Multifocal foraminal narrowing, including moderate left at L2-L3 and moderate left at L3-L4. 3. Multifocal facet arthropathy. 4. Abnormal marrow signal is nonspecific. Modic type 1 endplate changes are favored by imaging. ESR and CRP will be informative This document has been electronically signed by: Keanu Cadena MD on 10/23/2024 19:36:28
--- OUTSIDE RECORDS SUMMARY | 2024-10-23 19:24 | XMS_ITS | Encounter Summary ---
Author Organization [employer] Address [address] [facility] 7t [place] [address] Care Team Providers Care Tube Rebuilder Name Role Phone Rohini Brown MD Primary Care Provider [phone] Encounter Details Date Type Department Care Team (Late st Contact Info) Description 10/09/2024 Orders Only [facility] [address] [place], [place] [phone] Rohini Brown MD 230 [place], [place] [phone] Social History Tobacco Use Types Packs/Day Years [...] with others, in a hotel, in a long term, living outside on the street, on a [...] documented as of this encounter Care Teams Tube Rebuilder Relationship Specialty Start Date End Date Rohini Brown MD [address] [place] [phone] PCP - General Family Medicine 11/02/23 documented as of this encounter
--- OUTSIDE RECORDS SUMMARY | 2024-10-23 19:24 | XMS_ITS ---
Author Organization [employer] Address 75 [facility] 7t [place] [address] Care Team Providers Care Town Justice Name Role Phone Rohini Brown MD Primary Care Provider [phone] CM Complex Status:Outreach In Progress (Enrolling) Start date:10/10/2024 Enrollment reason:Referred by provider Overview PCP Referral- Please assist him keeping appt for MRI, invoicing specialist, Hep C treatment, and resources for housing. Thank you Case Team Name Relationship Phone Laith Mcintyre RN Registered Nurse(Responsible St aff) Continued Care and Services Coordination
--- OUTSIDE RECORDS SUMMARY | 2024-10-23 19:24 | XMS_ITS | Encounter Summary ---
Author Organization [employer] Address 75 [facility] 7t [place] [address] Care Team Providers Care Oncologist Name Role Phone Rohini Brown MD Primary Care Provider Encounter Details Date Type Department Care Team (Late st Contact Info) Description 10/23/2024 Patient Outreach [facility] 230 [place], [place] [phone] Rohini Brown MD 230 [place], [place] [phone] Social History Tobacco Use Types Packs/Day Years [...] documented as of this encounter Care Teams Oncologist Relationship Specialty Start Date End Date Rohini Brown MD [address] [place] [address] PCP - General Family Medicine 11/02/23 documented as of this encounter
--- OUTSIDE RECORDS SUMMARY | 2024-10-23 19:24 | XMS_ITS | Encounter Summary ---
Author Organization [employer] Address 75 [facility] 7t [place] [address] Care Team Providers Care Systems Admin Name Role Phone Rohini Brown MD Primary Care Provider [phone] Reason for Visit * Reason Onset Date Comments Medication Question 10/09/2024 Encounter Details Date Type Department Care Team (Late st Contact Info) Description 10/09/2024 Telephone [facility] 230 [place], [place] [phone] Rohini Brown MD 230 [place], [place] [phone] Medication Question Social History Tobacco Use Types [...] with others, in a hotel, in [place] [facility], living outside on the street, on a [...] 2:26 PM EDT Tc from Mariana at [facility] requesting a call back regarding script for oxyCODONE (Roxicodone) 5 MG immediate release tablet Contact Mariana at [phone] documented in this encounter Plan of Treatment Not on file documented as of this encounter Visit Diagnoses Not on filedocumented in this encounter Additional Health Concerns Assessment Noted Time PHQ-9 Depression Total Score: 8 10/10/19 25 11:48 AM EDT documented as of this encounter Care Teams Systems Admin Relationship Specialty Start Date End Date Rohini Brown MD [address] [place] [address] PCP - General Family Medicine 11/02/23 documented as of this encounter
--- OUTSIDE RECORDS SUMMARY | 2024-10-23 19:24 | XMS_ITS ---
Author Organization [employer] Address [address] [place] [address] 7 [place] [address] Care Team Providers Care Inspector And Clipper Name Role Phone Rohini Brown MD Primary Care Provider [phone] CHW Complex Status:Enrolled (Active) Start date:10/11/2024 Enrollment date:10/11/2024 Enrollment reason:Referred by provider Overview PCP referral Case Team Name Relationship Phone Lorraine Pinon (Responsible Staff) Continued Care and Services Coordination
--- OUTSIDE RECORDS SUMMARY | 2024-10-23 19:24 | XMS_ITS | Encounter Summary ---
Author Organization [employer] Address 75 [facility] 7t [place] [address] Care Team Providers Care Ticket Machine Operator Name Role Phone Rohini Brown MD Primary Care Provider [phone] Encounter Details Date Type Department Care Team (Late st Contact Info) Description 10/22/2024 Patient Outreach [facility] 230 [place], [place] [phone] Rohini Brown MD 230 [place], [place] [phone] Social History Tobacco Use Types Packs/Day Years [...] outbound call to patient introducing herself from [facility] CM Department, in regards to offering CM-CHW program services. Patient's name and was confirmed. Patient agrees to participate in CHW- program for SDOH needs. SDOH screening completed 10/11/24 CHW reinforced direct contact information for any additional questions or concerns and extended clinic hours on Mondays and Wednesdays, and Walk-In Urgent Care Located in [facility] of [facility].Patient provided with after-hours line for [facility], , which offer night time triage serviceand option to transfer to innovation manager provider if needed. Patient verbalizes understanding, and able torepeat back to filing writer. documented in this encounter Plan of Treatment Not on file documented as of this encounter Visit Diagnoses Not on filedocumented in this encounter Additional Health Concerns Assessment Noted Time PHQ-9 Depression Total Score: 8 10/10/19 25 11:48 AM EDT documented as of this encounter Care Teams Ticket Machine Operator Relationship Specialty Start Date End Date Rohini Brown MD [address] [place] [address] PCP - General Family Medicine 11/02/23 documented as of this encounter
--- OUTSIDE RECORDS SUMMARY | 2024-10-23 19:24 | XMS_ITS | Encounter Summary ---
Author Organization [employer] Address 75 [facility] 7t [place] [address] Care Team Providers Care Customer Manager Name Role Phone Rohini Brown MD Primary Care Provider Encounter Details Date Type Department Care Team (Late st Contact Info) Description 10/22/2024 Patient Outreach [facility] 230 [place], [place] [phone] Rohini Brown MD 230 [place], [place] [phone] Social History Tobacco Use Types Packs/Day Years [...] with others, in a hotel, in a prison, living outside on the street, on a [...] documented as of this encounter Care Teams Customer Manager Relationship Specialty Start Date End Date Rohini Brown MD [address] [place] [address] PCP - General Family Medicine 11/02/23 documented as of this encounter
--- OUTSIDE RECORDS SUMMARY | 2024-10-23 19:24 | XMS_ITS | Clinical Summary ---
Author Organization [employer] Address [address] [facility] 7t [place] [address] Care Team Providers Care Claim Specialist Name Role Phone Rohini Brown MD Primary Care Provider [phone] Allergies Active Allergy Reactions Criticality Noted Date [...] appropriate care is provided. - Refer to BUSINESS ANALYST INTERN Assessment & Plan (11/21/2023 11:49 AM EDT): [...] EDT): - 10/06/23 Hepatitis C viral load 7644238 units ml - Pt had history or [...] EDT): - 10/06/23 Hepatitis C viral load 3725363 units ml - Pt had history or IV drug use, not current. - 10/06/23 AST 37, ALT 37, Platelets 224. - FIB-4 index 1.17 - Will refer him to Hepatitis C treatment team. Will order ultrasound with elastography. Kidney stone 06/29/2016 Assessment & Plan (10/09/2024 10:31 PM EDT): - incidental finding on CT in July 2023 which was done in [place] - [place] on 10/21/23 bilateral kidney stone. Referred to urology - Seen in [facility] in Aug and September 2024 for kidney stone. Rx tamuslosin in Aug 2023. S/p nephroureteral stent placement on 10/04/24. Called [facility] office for an outpatient follow up. - Drink adequate amount of fluid. Assessment & Plan (11/21/2023 11:48 AM EDT): - incidental finding on CT in July 2023 which was done in [place] - [place] on 10/21/23 bilateral kidney stone. Referred to urology. - Drink adequate amount of fluid. Assessment & Plan (10/07/2023 5:34 AM EDT): - incidental finding on CT in July 2023 which was done in [place] - recheck [place] Onychomycosis 06/29/2016 Shoulder pain 06/29/2016 Sprain of rotator cuff capsule 06/29/2016 Encounters Date Type Department Care Team Description 10/23/2024 Patient Outreach [facility] [address] [place] [address] Rohini Brown MD 10/23/2024 Patient Outreach [address] [address] Rohini Brown MD 10/23/2024 Patient Outreach [address] [address] Rohini Brown MD 10/22/2024 Patient Outreach [address] [address] Rohini Brown MD 10/22/2024 Patient Outreach [address] [address] Rohini Brown MD 10/11/2024 Patient Outreach [address] [address] Rohini Brown MD Care Coordination (C3 outreach and enrollment-agrees to participate) 10/11/2024 Patient Outreach [facility] [address] [place] [phone] Rohini Brown MD Care Coordination (C3 Vero Pinon reviewed chart review completed by ADAMA Mcintyre RN) 10/11/2024 Patient Outreach [address] [address] Rohini Brown MD Care Coordination (C3- chart review) 10/11/2024 Patient Outreach [address] [address] Rohini Brown MD Transition Of Care (Tcm) (HDF unscheduled) 10/11/2024 Patient Outreach [address] [address] Rohini Brown MD 10/10/2024 Patient Outreach [address] [address] Rohini Brown MD 10/09/2024 11:30 AM EDT Office Visit [address] [address] Rohini Brown MD Kidney stone (Primary Dx); Chronic active hepatitis C (CMS/HCC); Tobacco dependence; Uncomplicated alcohol dependence (CMS/HCC); Left hip pain; Low back pain with radiation; Screening for diabetes mellitus; Screening for lipid disorders; Elevated blood pressure reading; Routine screening for STI (sexually transmitted infection); Chronic midline low back pain, unspecified whether sciatica present 10/09/2024 Orders Only [address] [address] Rohini Brown MD 10/09/2024 Telephone [facility] [address] [place] [address] Carolina Alvarado RN 10/09/[address] [address] Rohini Brown MD Medication Question 10/09/2024 Travel 10/09/2024 Patient Outreach [address] [address] Rohini Brown MD Transition Of Care (Tcm) (HDF unscheduled) 10/04/[address] [address] Rohini Brown MD chart prep 10/04/2024 Orders Only GENERIC EXTERNAL DATA DEPARTMENT Provider, Generic External Data 10/01/2024 Patient Outreach [address] [address] Rohini Brown MD Pre-visit Planning (Pre-visit planning - LVM ) 09/28/2024 Population Health Risk Score [facility] (C[facility]) Department [address] [place] [address], [place] [phone] Provider, Population Health Generic from Last [...] with others, in a hotel, in a care home, living outside on the street, on [...] EDT Narrative 10/05/2024 8:02 AM EDT ? [place] [facility] ?[address] ?[place] [address] ? Fluoroscopy Report ? Signed ? Patient: Shewchuk,Jarett ?MR#: [id number] ?? [id number] ? : 1980 ?Acct:[id number] ? Age/Sex: 44 / M ?ADM Date: 10/04/24 ? Loc: HO.S3 ?347-1 ? Attending Dr: Norris Vu MD ? Ordering Physician: Norris Vu MD ?? Date of Service: 10/04/24 ?? Procedure(s): FL guidance in OR ?? Accession Number(s): [id number] ? cc: Norris Vu MD; [facility] ? EXAMINATION: ??FL GUIDANCE ONLY ? [...] ??Jluis Driscoll MD ??10/05/2024 07:57 AM EDT ? Dictated By: ?Jluis Driscoll MD ? Signed By: ?<Electronically signed by Jluis Driscoll MD in OV> ?10/05/24 0757 ? DD/ 1810 ? TD/TT: 10/04/24 1824 ? Jacquard Loom Carpet Weaver: ? Procedure Note Roderick, Image - 10/05/2024 [place] [address] Fluoroscopy Report Signed Patient: Luis Garcia JMR#: [id number] : 1980Acct:[id number] Age/Sex: 44 / MADM Date: 10/04/24 Loc: HO.S3 347-[address]: Norris Vu MD Ordering Physician: Norris Vu MD Date of Service: 10/04/24 Procedure(s): FL guidance in OR Accession Number(s): [id number] cc: Norris Vu MD; [facility] EXAMINATION: FL GUIDANCE ONLY HISTORY: CYSTO [...] Jluis Driscoll MD 10/05/2024 07:57 AM EDT RP Dictated By: Jluis Driscoll MD Signed By: <Electronically signed by Jluis Driscoll MD in OV> 10/05/24 0757 DD/ 1810 TD/TT: 10/04/24 1824 Jacquard Loom Carpet Weaver: [facility] External Provider IMG IR PROCEDURES Final Result * (ABNORMAL) Urinalysis, Complete, with Reflex to Culture (10/04/2024 1:29 PM EDT) Color Urine Dark Yellow [facility] Appearance Urine Cloudy [facility] PH 6.5 5.0 - 9.0 [facility] Glucose Urine UA Negative Negative mg/dL [facility] Urine Blood Large (3+)(A) Negative [facility] Specific [place] - Urine 1.020 1.005 - 1.025 [facility] Urine Protein 30 (1+)(A) Neg-Trace mg/dL [facility] Urine Ketones 15 Negative mg/dL [facility] Nitrite Urine Negative Negative [facility] Leukocyte Esterase Urine Trace(A) Negative [facility] RBC Urine 11-20(A) 0 - 2 /HPF [facility] Urine WBC 6-10(A) 0 - 5 /HPF [facility] Urine Squamous Epithelial Cell 3-5 0 - 2 /HPF [facility] Urine Bacteria None Seen None Seen [facility] Hyaline Casts, Urine 11-20 0 - 2 /LPF [facility] 10/04/2024 1:29 PM EDT 10/04/2024 1:47 PM EDT Narrative [facility] - 10/04/2024 2:05 PM EDT [id number], Clean Catch us Generic External Data Provider LAB URINE ORDERAB LES Final Result [facility] [address] [facility] [place] [address] [phone] * CT Abdomen Pelvis w/o Contrast (10/04/2024 11:53 AM EDT) Anatomical Region Laterality Modality Body, Pelvis, Abdomen Computed T omography 10/04/2024 11:5 3 AM EDT Narrative 10/04/2024 1:15 PM EDT ? [facility] ?[address] ?[place] [address] ? CT Scan Report ? Signed ? Patient: Luis Garcia ?MR#: [id number] ?? [id number] ? : 1980 ?Acct:[id number] ? Age/Sex: 44 / M ?ADM Date: 10/04/24 ? Loc: HO.ED ? Attending Dr: ? Ordering Physician: Daylin Amin ?? Date of Service: 10/04/24 ?? Procedure(s): CT abdomen pelvis wo IV con ?? Accession Number(s): [id number] ? cc: Daylin Amin; [facility] ? Report Number: ?? [id number]: Total DLP = ??360.00 mGy-cm ?? EXAMINATION: [...] signed by Jluis Driscoll MD in OV> ?10/04/242 ? DD/ 1153 ? TD/TT: 10/04/24 1205 ? Jacquard Loom Carpet Weaver: ? Procedure Note Donotuseinterpreter, Image - 10/04/[address] [place] [address] [address] Scan Report Signed Patient: Luis Garcia JMR#: [id number] : 1980Acct:[id number] Age/Sex: 44 / MADM Date: 10/04/24 Loc: HO.ED Attending Dr: Ordering Physician: Daylin Amin Date of Service: 10/04/24 Procedure(s): CT abdomen pelvis wo IV con Accession Number(s): [id number] cc: Daylin Amin; [facility] Report Number: [id number]: Total DLP = 360.00 mGy-cm EXAMINATION: CT [...] 10/04/24 1312 DD/ 1153 TD/TT: 10/04/24 1205 Jacquard Loom Carpet Weaver: [facility] External Provider IMG CT PROCEDURES Final Result * Lipase (10/04/2024 11:10 AM EDT) Lipase 31 8 - 78 U/L [facility] 10/04/2024 11:1 0 AM EDT 10/04/2024 11:15 AM EDT us Generic External Data Provider LAB BLOOD ORDERAB LES Final Result [facility] [address] [place] [address] [phone] * (ABNORMAL) Comprehensive Metabolic Panel (10/04/2024 11:10 AM EDT) Sodium 141 135 - 145 mmol/L [facility] Potassium 4.5 3.3 - 5.1 mmol/L [facility] Chloride 104 96 - 108 mmol/L [facility] Carbon Dioxide 26 22 - 29 mmol/L [facility] Anion Gap 16 12 - 20 [facility] Urea Nitrogen (BUN) 15 9 - 16 mg/dL [facility] Creatinine, Serum 1.06 0.5 - 1.4 mg/dL [facility] Creatinine Clr Calc Pharmacy 78.5 [facility] Comment:eGFR (calculated fro m the MDRD study equation) and eCrCl(calculated from the Cockcroft-Gault equation) are based ondifferent parameters and may not yield comparable results.If eCrCl result is absurd, please check patient'sheight/weight. Estimated Glomerular Filt Rate >60 [facility] Comment:Chronic Kidney Disea se: Estimated GFR < 60 mL/min/1.98i5Gwhaxa Kidney Disease: Estimated GFR < 15 mL/min/1.73m2 Glucose 83 60 - 115 mg/dL [facility] Calcium 10.2 8.4 - 10.2 mg/dL [facility] Bilirubin, Total 0.7 0.0 - 1.0 mg/dL [facility] Aspartate Amino Transferase 53(H) 5 - 37 U/L [facility] Alanine Aminotransferase 113(H) 0 - 40 U/L [facility] Total Protein 8.8(H) 6.5 - 8.0 g/dL [facility] Albumin Level 4.5 3.5 - 5.0 g/dL [facility] Alkaline Phosphatase 98 39 - 117 U/L [facility] 10/04/2024 11:1 0 AM EDT 10/04/2024 11:15 AM EDT us Generic External Data Provider LAB BLOOD ORDERAB LES Final Result Performing Organization Address [facility] Co de Phone Number [facility] [address] [place] [phone] * (ABNORMAL) Lipid Panel with Reflex to Direct LDL (10/06/2023 10:48 AM EDT) Triglycerides 163(H) <150 mg/dL [facility] Comment:Desirable Triglyceri de: less than 150 mg/dLBorderline High Triglyceride 150-199 mg/dLHigh Triglyceride: 200-499 mg/dLVery High Triglyceride: greater than or equal to 5OO mg/dL Cholesterol 171 <200 mg/dL [facility] Comment:Desirable Cholestero l: less than 200 mg/dLBorderline High Cholesterol: 200-239 mg/dLHigh Cholesterol: greater than 239 mg/dL LDL Cholesterol Calculated 93 <100 mg/dL [facility] Comment:Desirable LDL: less than 100 mg/dLNear Optimal/Above Optimal LDL: 110- 129 mg/dLBorderline High LDL: 130-159 mg/dLHigh LDL: 160-189 mg/dLVery High LDL: greater than or equal to 190 mg/dL HDL Cholesterol 46 >40 mg/dL [facility] Comment:Desirable HDL: great er than 40 mg/dL Note: This HDL assay may give artificially low results in patients with liver disease. Blood 10/06/2023 10:4 8 AM EDT 10/06/2023 11:46 AM EDT us Rohini Brown MD LAB BLOOD ORDERABLES Final Resul t Performing Organization Address City/[facility]/ZIP Co de Phone Number [facility] [address] [place] [phone] * HIV-1/2 Antigen and Antibodies, Fourth Generation, with Reflexes (10/06/2023 10:48 AM EDT) HIV AB/AG Nonreactive Nonreactive [facility] Comment:HIV-1 p24 Ag and/or HIV-1/HIV-2 Ab not detected.A test result that is nonreactive does not exclude thepossibility of exposure to or infection with HIV-1 and/orHIV-2. Nonreactive results in this assay for individualswith prior exposure to HIV-1 and/or HIV-2 may be due toantigen and antibody levels that are below the limit ofdetection of this assay.The Laser View HIV Ag/Ab Combo assay result andsupplemental assay results should be interpreted inconjunction with the patient's clinical presentation,history and other laboratory results. If the results areinconsistent with clinical evidence, additional testing issuggested to confirm the result. Blood Venous blood specimen / Unknown 10/06/2023 10:48 AM EDT 10/06/2023 11:46 AM EDT us Rohini Brown MD LAB BLOOD ORDERABLES Final Resul t [facility] [address] [place] [address] [phone] from Last 3 Months or Most Recently Relevant to Health Maintenance Insurance [facility] C3 HSN FULL Care Teams Claim Specialist Relationship Specialty Start Date End Date Rohini Brown MD [address] [place] [phone] PCP - General Family Medicine 11/02/23
--- OUTSIDE RECORDS SUMMARY | 2024-10-23 19:24 | XMS_ITS | Encounter Summary ---
Author Organization [employer] Address [address] [facility] 7t [place] [address] Care Team Providers Care Contract Writer Name Role Phone Rohini Brown MD Primary Care Provider Reason for Visit * Reason Onset Date Comments Call Back Request 11/02/2023 Encounter Details Date Type Department Care Team (Late st Contact Info) Description 11/02/2023 Telephone [facility] [address] [place], [place] [phone] Rohini Brown MD [address] [place], [place] [phone] Call Back Request Social History Tobacco Use [...] documented as of this encounter Care Teams Contract Writer Relationship Specialty Start Date End Date Rohini Brown MD [address] [place] [phone] PCP - General Family Medicine 11/02/23 documented as of this encounter
--- OUTSIDE RECORDS SUMMARY | 2024-10-23 19:24 | XMS_ITS | Encounter Summary ---
Author Organization [employer] Address [address] [facility] 7t [place] [address] Care Team Providers Care Locker Room Attendant Name Role Phone Rohini Brown MD Primary Care Provider [phone] Encounter Details Date Type Department Care Team (Late st Contact Info) Description 10/23/2024 Patient Outreach [facility] [address] [place], [place] [phone] Rohini Brown MD [address] [place], [place] [phone] Social History Tobacco Use Types Packs/Day Years [...] with others, in a hotel, in a snf, living outside on the street, on a [...] documented as of this encounter Care Teams Locker Room Attendant Relationship Specialty Start Date End Date Rohini Brown MD [address] [place] [id number] PCP - General Family Medicine 11/02/23 documented as of this encounter
--- OUTSIDE RECORDS SUMMARY | 2024-10-23 19:24 | XMS_ITS | Encounter Summary ---
Author Organization [employer] Address [address] [facility] 7[address] [place] [address] Care Team Providers Care Record Librarian Name Role Phone Rohini Brown MD Primary Care Provider [phone] Encounter Details Date Type Department Care Team (Late st Contact Info) Description 10/23/2024 Patient Outreach [facility] [address] [place], [place] [phone] Rohini Brown MD [address] [place], [place] [phone] Social History Tobacco Use Types Packs/Day Years [...] with others, in a hotel, in a assisted, living outside on the street, on a [...] documented as of this encounter Care Teams Record Librarian Relationship Specialty Start Date End Date Rohini Brown MD [address] [place] [id number] PCP - General Family Medicine 11/02/23 documented as of this encounter
== END 2024-10-23 18:29 | disposition home or self-care (01) ==
LOC: HO.MRI 18:28
PROVIDERS: PCP Family Medicine; Visit Provider Family Medicine
DX: M54.50 Low back pain, unspecified (principal)
CPT/HCPCS: 72148

== ENCOUNTER → 2024-10-23 18:28 | Outpatient (BNV) | payer MEDICAID, SELFPAY | PROVIDERS: PCP Family Medicine; Visit Provider Radiology Neuroradiology | DX: M51.369 Other intervertebral disc degeneration, lumbar region without mention of lumbar back pain or lower extremity pain (principal); M99.63 Osseous and subluxation stenosis of intervertebral foramina of lumbar region; M46.96 Unspecified inflammatory spondylopathy, lumbar region | CPT/HCPCS: 72148 ==

== ENCOUNTER 2024-10-31 08:00 | Day surgery (SDC) | payer MEDICAID, SELFPAY ==
--- OUTSIDE RECORDS SUMMARY | 2024-10-22 17:03 | XMS_ITS | Encounter Summary ---
Author Organization [employer] Address [address] [facility] [address] [place] [address] Care Team Providers Care Police Judge Name Role Phone Rohini Brown MD Primary Care Provider [phone] Reason for Visit * Reason Onset Date Comments Medication Question 10/09/2024 Encounter Details Date Type Department Care Team (Late st Contact Info) Description 10/09/2024 Telephone [facility] [address] [place], [place] [id number] Rohini Brown MD [address] [place], [place] [phone] Medication Question Social History Tobacco Use Types Packs/Day Years Used Date Smoking Tobacco: Every Day Cigarettes 0.8 31 Smokeless Tobacco: Never Depression Answer Date Recorded Patient Health Questionnaire-9 Score 8 10/09/2024 Patient Health Questionnaire-9 Score 8 10/09/2024 Last PHQ-9: Questionnaire Data Not on file 0 10/09/2024 Housing Stability Answer Date Recorded What is your housing situation today? I do not have housing (Staying with others, in a hotel, in a penitentiary, living outside on the street, on a beach, in a car, or in a park 11/07/[address] you li ve. Do you have problems with any of the following? None of the above 11/07/2023 Food Insecurity Answer Date Recorded Within the past 12 months, y ou worried that your food would run out before you got money to buy more: Sometimes True 2024 Within the past 12 months,th e food you bought just didn't last and you didn't have enough money to get more: Sometimes True 10/11/2024 Transportation Answer Date Recorded In the past 12 months, has l ack of transportation kept you from medical appts, meetings, work or from getting things needed for daily living? No 10/11/2024 Utilities Answer Date Recorded In the past 12 months, has t he electric, gas, oil or water company threatened to shut off services in your home? No 10/06/2023 Depression Answer Date Recorded Patient Health Questionnaire-2 Score 4 10/09/2024 Internet Access Answer Date Recorded Internet Access Q1 No 10/11/2024 Internet Access Q2 I cannot afford it 10/11/2024 Sex and Gender Information Value Date Recorded Sex Assigned at Male 05/17/2022 10:16 AM EDT Legal Sex Male 10:16 AM EDT Gender Identity Male 10/09/2024 11:48 AM EDT Sexual Orientation Straight 05/17/2022 10 :16 AM EDT documented as of this encounter Miscellaneous Notes * Telephone Encounter - Susie Salinas - 10/09/2024 2:26 PM EDT Tc from Mariana at [facility] requesting a call back regarding script for oxyCODONE (Roxicodone) 5 MG immediate release tablet Contact Mariana at [phone] documented in this encounter Plan of Treatment Not on file documented as of this encounter Visit Diagnoses Not on filedocumented in this encounter Additional Health Concerns Assessment Noted Time PHQ-9 Depression Total Score: 8 10/10/19 25 11:48 AM EDT documented as of this encounter Care Teams Police Judge Relationship Specialty Start Date End Date Rohini Brown MD [address] [place] [id number] PCP - General Family Medicine 11/02/23 documented as of this encounter
--- OUTSIDE RECORDS SUMMARY | 2024-10-22 17:03 | XMS_ITS ---
Author Organization [employer] Address [address] [facility] [address] [place] [address] Care Team Providers Care It Desktop Support Technician Name Role Phone Rohini Brown MD Primary Care Provider [phone] CM Complex Status:Enrolled (Active) Start date:10/10/2024 Enrollment date:10/11/2024 Enrollment reason:Referred by provider Overview PCP Referral- Please assist him keeping appt for MRI, retention specialist, Hep C treatment, and resources for housing. Thank you Case Team Name Relationship Phone Laith Mcintyre RN Registered Nurse(Responsible St aff) Continued Care and Services Coordination
--- OUTSIDE RECORDS SUMMARY | 2024-10-22 17:03 | XMS_ITS | Encounter Summary ---
Author Organization [employer] Address [address] [facility] [address] [place] [address] Care Team Providers Care Director Clinical Applications Name Role Phone Rohini Brown MD Primary Care Provider [phone] Encounter Details Date Type Department Care Team (Late st Contact Info) Description 10/22/2024 Patient Outreach [facility] MEDICINE [address] [place], [place] [phone] Rohini Brown MD [address] [place], [place] [phone] Social History Tobacco Use Types Packs/Day Years [...] with others, in a hotel, in a skilled nursing, living outside on the street, on a [...] AM EDT documented as of this encounter Progress Notes * Lorraine Pinon - 10/22/2024 1:40 PM EDT CHW Lorraine Pinon placed outbound call to patient introducing herself from [facility] CM Department, in regards to offering CM-CHW program services. Patient's name and was confirmed. Patient agrees to participate in CHW- program for SDOH needs. SDOH screening completed 10/11/24 CHW reinforced direct contact information for any additional questions or concerns and extended clinic hours on Mondays and Wednesdays, and Walk-In Urgent Care Located in [facility] of [facility].Patient provided with after-hours line for [facility], , which offer night time triage serviceand option to transfer to human resources compensation analyst provider if needed. Patient verbalizes understanding, and able torepeat back to technical writer. documented in this encounter Plan of Treatment Not on file documented as of this encounter Visit Diagnoses Not on filedocumented in this encounter Additional Health Concerns Assessment Noted Time PHQ-9 Depression Total Score: 8 10/10/19 25 11:48 AM EDT documented as of this encounter Care Teams Director Clinical Applications Relationship Specialty Start Date End Date Rohini Brown MD [address] [place] [id number] PCP - General Family Medicine 11/02/23 documented as of this encounter
--- OUTSIDE RECORDS SUMMARY | 2024-10-22 17:03 | XMS_ITS | Encounter Summary ---
Author Organization [employer] Address [address] [facility] [address] [place] [address] Care Team Providers Care Palm And Back Forger Name Role Phone Rohini Brown MD Primary Care Provider [phone] Encounter Details Date Type Department Care Team (Late st Contact Info) Description 10/09/2024 Orders Only [facility] MED[facility]INE [address] [place], [place] [phone] Rohini Brown MD [address] [place], [place] [phone] Social History Tobacco Use Types Packs/Day Years [...] with others, in a hotel, in a chcf, living outside on the street, on a [...] AM EDT documented as of this encounter Plan of Treatment Not on file documented as of this encounter Visit Diagnoses Not on filedocumented in this encounter Additional Health Concerns Assessment Noted Time PHQ-9 Depression Total Score: 8 10/10/19 25 11:48 AM EDT documented as of this encounter Care Teams Palm And Back Forger Relationship Specialty Start Date End Date Rohini Brown MD [address] [place] [phone] PCP - General Family Medicine 11/02/23 documented as of this encounter
--- OUTSIDE RECORDS SUMMARY | 2024-10-22 17:03 | XMS_ITS ---
Author Organization [employer] Address [address] [place] [address] [address] [place] [address] Care Team Providers Care Film Processor Name Role Phone Rohini Brown MD Primary Care Provider [phone] [facility] Status:Enrolled (Active) Start date:10/11/2024 Enrollment date:10/11/2024 Enrollment reason:Referred by provider Overview PCP referral Case Team Name Relationship Phone Lorraine Pinon (Responsible Staff) Continued Care and Services Coordination
--- OUTSIDE RECORDS SUMMARY | 2024-10-22 17:03 | XMS_ITS | Encounter Summary ---
Author Organization [employer] Address [address] [facility] [address] [place] [address] Care Team Providers Care Arcade Attendant Name Role Phone Rohini Brown MD Primary Care Provider [phone] Reason for Visit * Reason Onset Date Comments Call Back Request 11/02/2023 Encounter Details Date Type Department Care Team (Late st Contact Info) Description 11/02/2023 Telephone [facility] [address] [place], [place] [phone] Rohini Bronw MD [address] [place], [place] [phone] Call Back Request Social History Tobacco Use [...] Time PHQ-9 Depression Total Score: 0 10/06/19 9:42 AM EDT documented as of this encounter Care Teams Arcade Attendant Relationship Specialty Start Date End Date Rohini Brown MD [address] [place] [phone] PCP - General Family Medicine 11/02/23 documented as of this encounter
--- OUTSIDE RECORDS SUMMARY | 2024-10-22 17:03 | XMS_ITS | Clinical Summary ---
Author Organization [employer] Address [address] [facility] [address] [place] [address] Care Team Providers Care Film Tests Checker Name Role Phone Rohini Brown MD Primary Care Provider [phone] Allergies Active Allergy Reactions Criticality Noted Date Comments Penicillins Unknown 06/29/2016 Medications * This document contains information received from the source organization and may not represent a complete record from that organization. ibuprofen 600 MG tablet Take 1 tablet (600 mg) by mouth every 8 (eight) hours if needed for mild pain. 30 tablet 1 10/06/19 24 Active acetaminophen (Tylenol Extra Strength) 500 MG tablet Take 2 tablets (1,000 mg) by mouth every 8 (eight) hours if needed for mild pain or moderate pain. 90 tablet 10/06/19 24 Active lidocaine (Lidoderm) 5 % patch Apply to affected area once daily for 12 hours 30 patch 10/06/19 24 Active tamsulosin (Flomax) 0.4 MG 24 hr capsule Take 1 capsule (0.4 mg) by mouth in the morning. 15 capsule 10/06/19 24 Active gabapentin (Neurontin) 600 MG tabletIndicati ons:Low back pain with radiation Take 1 tablet (600 mg) by mouth 3 times daily. 90 tablet 11 10/10/19 25 026 Active oxyCODONE (Roxicodone) 5 MG immediate release tabletIndicati ons:Low back pain with radiation Take 1 tablet (5 mg) by mouth at bedtime for 14 days. 14 tablet 10/10/19 25 025 Active gabapentin (Neurontin) 300 MG capsule Take 1 capsule (300 mg) by mouth 3 times daily. 90 capsule 11 11/21/19 24 025 Discontinued oxyCODONE (Roxicodone) 5 MG immediate release tabletIndicati ons:Low back pain with radiation Take 1 tablet (5 mg) by mouth at bedtime for 28 days. 28 tablet 10/10/19 025 Discontinued(Re order (will not trigger notification to Pharmacy)) Active Problems Problem Noted Date Diagnosed Date Dyspnea 11/21/2023 Assessment & Plan (11/26/2023 6:41 PM EDT): - Pt is smoking cigarettes for many years, cutting down recently. - Will evaluate with PFT - Lung cancer screening start at age 50 per current guideline Alcohol dependence 11/21/2023 Assessment & Plan (10/09/2024 9:06 AM EDT): - Discussed harm reduction. - Pt is not ready to be referred to AUD clinic. Assessment & Plan (11/26/2023 6:52 PM EDT): - Discussed harm reduction. - Pt is not ready to be referred to AUD clinic. Tobacco dependence 10/07/2023 Assessment & Plan (10/09/2024 9:05 AM EDT): - started smoking since 12 years old - currently reduced to 1/2-1/3 pack day - start lung cancer screening per guideline - continue working on smoking cessation effort Assessment & Plan (11/21/2023 10:54 AM EDT): [...] low back pain 10/06/2023 Assessment & Plan (10/09/2024 10:35 PM EDT): - MRI scheduled on 12/06/23, but patient did not attend. Will re-order. - Will refer to Neurosurgery for further management after MRI. - Increased gabapentin to 600 mg tid - Prescribed oxycodone 5 mg once at bedtime so that she can at least rest and sleep. Patient has naloxone nasal. - Reviewed judicious and responsible use of gabapentin and oxycodone. Patient agrees to taper down and off when patient sees a specialist and appropriate care is provided. 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 - 10/06/23 AST 37, ALT 37, Platelets 224. - FIB-4 index 1.17 - US/elastography in December 2023 suggestive of compensated advanced chronic liver disease. - Will refer him to Hepatitis C treatment team again. - Referred to Care Management 10/09/24 - Ordered labs on 10/09/24 Assessment & Plan (11/26/2023 6:47 PM EDT): - 10/06/23 Hepatitis C viral load 6055253 units ml - Pt had history or IV drug use, not current. - 10/06/23 AST 37, ALT 37, Platelets 224. - FIB-4 index 1.17 - Will refer him to Hepatitis C treatment team. Will order ultrasound with elastography. Kidney stone 06/29/2016 Assessment & Plan (10/09/2024 10:31 PM EDT): - incidental finding on CT in July 2023 which was done in [place] - [place] on 10/21/23 bilateral kidney stone. Referred to urology - Seen in [facility] in Aug and September 2024 for kidney stone. Rx tamuslosin in Aug 2023. S/p nephroureteral stent placement on 10/04/24. Called [facility] office for an outpatient follow up. - Drink adequate amount of fluid. Assessment & Plan (11/21/2023 11:48 AM EDT): - incidental finding on CT in July 2023 which was done in [place] - [place] on 10/21/23 bilateral kidney stone. Referred to urology. - Drink adequate amount of fluid. Assessment & Plan (10/07/2023 5:34 AM EDT): - incidental finding on CT in July 2023 which was done in [place] - recheck [place] Onychomycosis 06/29/2016 Shoulder pain 06/29/2016 Sprain of rotator cuff capsule 06/29/2016 Encounters Date Type Department Care Team Description 10/22/2024 Patient Outreach [address] [address] Rohini Brown MD 10/22/2024 Patient Outreach [address] [address] Rohini Brown MD 10/11/2024 Patient Outreach [address] [address] Rohini Brown MD Care Coordination (C3 outreach and enrollment-agrees to participate) 10/11/2024 Patient Outreach [address] [address] Rohini Brown MD Care Coordination (C3 [facility] Lorraine Pinon reviewed chart review completed by Laith Mcintyre RN) 10/11/2024 Patient Outreach [address] [address] Rohini Brown MD Care Coordination (C3- chart review) 10/11/2024 Patient Outreach [address] [address] Rohini Brown MD Transition Of Care (Tcm) (HDF unscheduled) 10/11/2024 Patient Outreach [address] [address] Rohini Brown MD 10/10/2024 Patient Outreach [address] [address] Rohini Brown MD 10/09/2024 11:30 AM EDT Office Visit [address] [address] Rohini Brown MD Kidney stone (Primary Dx); Chronic active hepatitis C (CMS/HCC); Tobacco dependence; Uncomplicated alcohol dependence (CMS/HCC); Left hip pain; Low back pain with radiation; Screening for diabetes mellitus; Screening for lipid disorders; Elevated blood pressure reading; Routine screening for STI (sexually transmitted infection); Chronic midline low back pain, unspecified whether sciatica present 10/09/2024 Orders Only [address] [address] Rohini Brown MD 10/09/2024 Telephone [facility] [address] [place] [address] Carolina Alvarado RN 10/09/[address] [address] Rohini Brown MD Medication Question 10/09/2024 Travel 10/09/2024 Patient Outreach [address] [address] Rohini Brown MD Transition Of Care (Tcm) (HDF unscheduled) 10/04/[address] [address] Rohini Brown MD chart prep 10/04/2024 Orders Only GENERIC EXTERNAL DATA DEPARTMENT Provider, Generic External Data 10/01/2024 Patient Outreach [address] [address] Rohini Brown MD Pre-visit Planning (Pre-visit planning - LVM ) 09/28/2024 Population Health Risk Score [facility] () Department [address] [place] [phone] Provider, Population Health Generic from Last 3 Months Family History Medical History Relation Name Comments Kidney cancer Brother Stroke Brother Heart attack Maternal Grandfather Breast cancer Maternal Grandmother Relation Name Status Comments Brother Maternal Grandfather Maternal Grandmother Social History Tobacco Use Types Packs/Day Years Used Date Smoking Tobacco: Every Day Cigarettes 0.8 31 Smokeless Tobacco: Never Tobacco Cessation:Ready to Q uit: Not Asked; Counseling Given: Not Answered Depression Answer Date Recorded Patient Health Questionnaire-9 Score 8 10/09/2024 Patient Health Questionnaire-9 Score 8 10/09/2024 Last PHQ-9: Questionnaire Data Not on file 0 10/09/2024 Housing Stability Answer Date Recorded What is your housing situation today? I do not have housing (Staying with others, in a hotel, in a halfway, living outside on the street, on a [...] Sign Reading Time Taken Comments Blood Pressure 135/89 10/09/2024 11:47 AM EDT Pulse 68 10/09/2024 11:47 AM EDT Temperature 36.1 ??C (96.9 ??F) 10/09/2024 11:47 AM E DT Respiratory Rate 20 10/09/2024 11:47 AM EDT Oxygen Saturation 98% 10/09/2024 11:47 AM EDT Inhaled Oxygen Concentration - - Weight 65.9 kg (145 lb 3.2 oz) 10/09/2024 11:47 AM EDT Height 171.5 cm (5' 7.52 ) 10/09/2024 11:47 AM E DT Body Mass Index 22.39 10/09/2024 11:47 AM EDT Plan of Treatment Health Maintenance Due Date Last Done Comments CT Colonography 1978 Colonoscopy 1978 Colorectal Cancer Screening 1978 FIT DNA/Cologuard 1978 FIT 1978 FOBT 1978 Sigmoidoscopy 1978 Family Planning (PISQ) 1993 DTaP/Tdap/Td Vaccines (1 - Tdap) 1997 Hepatitis A Vaccines (1 of 2 - Risk 2-dose series) 1997 Pneumococcal Vaccine: Pediatrics (0 to 5 Years) and At-Risk Patients (6 to 49) Years) (1 of 2 - PCV) 1997 COVID-19 Vaccine ( - 2023-2 5 season) 2024 Influenza Vaccine (#1) 2024 Alcohol/Substance Use Screening 10/09/2025 10/09/2024 Depression Screening 10/09/2025 10/09/2024, 10/09/2024 Tobacco Screening 10/09/2025 10/09/2024 SDOH Screening 10/11/2025 10/11/2024 Zoster Vaccines (1 of 2) 2028 Lipid [...] Procedure Name Priority Date/Time Associated Diagnosis Comments FL GUIDANCE IN OR Routine 10/04/2024 6:1 0 PM EDT URINALYSIS, COMPLETE, WITH REFLEX TO CULTURE Routine 10/04/2024 1:[address] ABDOMEN PELVIS WO CONTRAST Routine 10/04/2024 11:53 AM EDT LIPASE Routine 10/04/2024 11:10 AM EDT COMPREHENSIVE METABOLIC PANEL Routine 10/04/2024 11:10 AM EDT HIV 1/2 ANTIGEN/ANTIBODY, FOURTH GENERATION W/RFL Routine 10/06/2023 10:48 AM EDT Routine screening for STI (sexually transmitted infection) LIPID PANEL WITH REFLEX TO DIRECT LDL Routine 10/06/2023 10:48 AM EDT Family history of premature CAD from Last 3 Months or Most Recently Relevant to Health Maintenance Results * FL Guidance in OR (10/04/2024 6:10 PM EDT) Anatomical Region Laterality Modality X-Ray Angiograph y 10/04/2024 6:10 PM EDT Narrative 10/05/2024 8:02 AM EDT ? [facility] ?[address] ?[place] [address] ? Fluoroscopy Report ? Signed ? Patient: Radha,Luis Negrete ?MR#: [id number] ?? [id number] ? : 1980 ?Acct:[id number] ? Age/Sex: 44 / M ?ADM Date: 03/20/25 ? Loc: HO.S3 ?347-1 ? Attending : Norris Vu MD ? Ordering Physician: Norris Vu MD ?? Date of Service: 10/04/24 ?? Procedure(s): FL guidance in OR ?? Accession Number(s): [id number] ? cc: Norris Vu MD; [facility] ? EXAMINATION: ??FL GUIDANCE ONLY ? HISTORY: CYSTO STENT RIGHT ? COMPARISON: ?? Correlation is made with a CT of the abdomen without contrast dated ?? 10/04/2024. ? TECHNIQUE: ?? Fluoroscopy time: 12.9 seconds. ?? Cumulative Dose: 2.73 mGy. ?? Images: 2. ? FINDINGS: ?? Images demonstrate placement of a right nephroureteral stent. ? FL/FL guidance in OR ?? IMPRESSION: ?? Fluoroscopy during procedure. Please see procedure report for ?? additional information. ? Electronically signed by: ??Jluis Driscoll MD ??10/05/2024 07:57 AM EDT ?? RP ? Dictated By: ?Jluis Driscoll MD ? Signed By: ?<Electronically signed by Jluis Driscoll MD in OV> ?10/05/24 0757 ? DD/ 1810 ? TD/TT: 10/04/24 1824 ? Cotton Converter: ? Procedure Note Donmonater, Image - 10/05/2024 [place] [address] Fluoroscopy Report Signed Patient: Luis Garcia JMR#: [id number] : 1980Acct:[id number] Age/Sex: 44 / MADM Date: 10/04/24 Loc: HO.S3 347-[address]: Norris Vu MD Ordering Physician: Norris Vu MD Date of Service: 10/04/24 Procedure(s): FL guidance in OR Accession Number(s): [id number] cc: Norris Vu MD; [facility] EXAMINATION: FL GUIDANCE ONLY HISTORY: CYSTO STENT RIGHT COMPARISON: Correlation is made with a CT of the abdomen without contrast dated 10/04/2024. TECHNIQUE: Fluoroscopy time: 12.9 seconds. Cumulative Dose: 2.73 mGy. Images: 2. FINDINGS: Images demonstrate placement of a right nephroureteral stent. FL/FL guidance in OR IMPRESSION: Fluoroscopy during procedure. Please see procedure report for additional information. Electronically signed by: Jluis Driscoll MD 10/05/2024 07:57 AM EDT Dictated By: Jluis Driscoll MD Signed By: <Electronically signed by Jluis Driscoll MD in OV> 10/05/24 0757 DD/ 09 TD/TT: 10/04/24 1824 Cotton Converter: us [facility] External Provider IMG IR PROCEDURES Final Result * (ABNORMAL) Urinalysis, Complete, with Reflex to Culture (10/04/2024 1:29 PM EDT) Color Urine Dark Yellow [facility] Appearance Urine Cloudy [facility] PH 6.5 5.0 - 9.0 [facility] Glucose Urine UA Negative Negative mg/dL [facility] Urine Blood Large (3+)(A) Negative [facility] Specific Rico - Urine 1.020 1.005 - 1.025 [facility] Urine Protein 30 (1+)(A) Neg-Trace mg/dL [facility] Urine Ketones 15 Negative mg/dL [facility] Nitrite Urine Negative Negative [facility] Leukocyte Esterase Urine Trace(A) Negative [facility] RBC Urine 11-20(A) 0 - 2 /HPF [facility] Urine WBC 6-10(A) 0 - 5 /HPF [facility] Urine Squamous Epithelial Cell 3-5 0 - 2 /HPF [facility] Urine Bacteria None Seen None Seen [facility] Hyaline Casts, Urine 11-20 0 - 2 /LPF [facility] 10/04/2024 1:29 PM EDT 10/04/2024 1:47 PM EDT Narrative [facility] - 10/04/2024 2:05 PM EDT [id number], [employer] Generic External Data Provider LAB URINE ORDERAB LES Final Result [facility] [address] [place] [address] [phone] * CT Abdomen Pelvis w/o Contrast (10/04/2024 11:53 AM EDT) Anatomical Region Laterality Modality Body, Pelvis, Abdomen Computed T omography 10/04/2024 11:5 3 AM EDT Narrative 10/04/2024 1:15 PM EDT ? [facility] ?[address] ?[place], [place] [address] ? CT Scan Report ? Signed ? Patient: Radha,Luis Negrete ?MR#: [id number] ?? [id number] ? : 1980 ?Acct:[id number] ? Age/Sex: 44 / M ?ADM Date: 10/04/24 ? Loc: HO.ED ? Attending Dr: ? Ordering Physician: Daylin Amin ?? Date of Service: 10/04/24 ?? Procedure(s): CT abdomen pelvis wo IV con ?? Accession Number(s): [id number] ? cc: Daylin Amin; [facility] ? Report Number: ?? [id number]: Total DLP = ??360.00 mGy-cm ?? EXAMINATION: ??CT ABDOMEN PELVIS WITHOUT IV CONTRAST ? HISTORY: worsening flank pain in the presence of a stone ? COMPARISON: Comparison is made with the prior examination dated ?? 09/13/2024. ? TECHNIQUE: CT scan of the abdomen and pelvis was performed without ?? contrast using standard departmental protocol. ?? Coronal and sagittal ?? reformatted images were generated and reviewed. ??Oral contrast material ?? was not administered per department protocol. ? This CT exam was performed with one or more of the following dose ?? reduction techniques: automated exposure control, adjustment of the mA ?? and/or kV according to patient size, use of iterative reconstruction ?? technique. ? DLP: 360 mGy-cm ? FINDINGS: ? LOWER CHEST: The visualized lung bases are clear. There is no pleural ?? effusion. ? CARDIOVASCULATURE: The heart is normal in size. ??There is no ?? pericardial effusion. ? LIVER: ??The liver is normal in size and contour. ??The liver has an ?? unremarkable unenhanced appearance. ? GALLBLADDER / BILE DUCTS: ??The gallbladder is unremarkable. There is no ?? intra or extrahepatic biliary ductal dilatation. ? SPLEEN: The spleen is normal in size and has an unremarkable unenhanced ?? appearance. ? PANCREAS: The pancreas has an unremarkable unenhanced appearance. ? ADRENAL GLANDS: Unremarkable. ? KIDNEYS/RETROPERITONEUM: There is persistent moderate right ?? hydronephrosis secondary to a 4 mm proximal ureteral calculus. The ?? calculus has migrated approximately 1.5 cm distally within the ureter ?? since the prior study. There are multiple 1-2 mm nonobstructing calculi ?? in the mid to lower pole regions of the left kidney. There is no left ?? hydroureter. ? LYMPH NODES: ??No retroperitoneal lymphadenopathy is identified in the ?? abdomen or pelvis. ? VASCULATURE: ??The abdominal aorta is normal in caliber. ? MESENTERY/PERITONEUM: No free fluid. No masses. ??There is no free ?? intraperitoneal gas. ? STOMACH: ??The stomach is collapsed, limiting evaluation. ? SMALL BOWEL: ?? The small bowel is normal in caliber. ? COLON: ??The hepatic flexure of the colon appears thickened but this is ?? likely due to collapse, as this region did not demonstrate wall ?? thickening on the examination performed 09/13/2024. ? APPENDIX: ??Normal. ? URINARY BLADDER/PELVIC ORGANS: The urinary bladder is unremarkable. ? The prostate is normal in size. ? BONES / SOFT TISSUES: ??There is degenerative disc disease of the spine. ? CT/CT abdomen pelvis wo IV con ?? IMPRESSION: ?? Persistent moderate right hydronephrosis secondary to a 4 mm proximal ?? ureteral calculus. The calculus is migrated approximately 1.5 cm ?? distally within the ureter since the prior study. Left nephrolithiasis ?? as described. ? Electronically signed by: ??Jluis Driscoll MD ??10/04/2024 01:12 PM EDT ?? RP ? Dictated By: ?Jluis Driscoll MD ? Signed By: ?<Electronically signed by Jluis Driscoll MD in OV> ?10/04/24 1312 ? DD/ 1153 ? TD/TT: 10/04/24 1205 ? Cotton Converter: ? Procedure Note Donotuseinterpreter, Image - 10/04/[address] [address] CT Scan Report Signed Patient: Luis Garcia JMR#: [id number] : 1980Acct:[id number] Age/Sex: 44 / MADM Date: 10/04/24 Loc: HO.ED Attending Dr: Ordering Physician: Daylin Amin Date of Service: 10/04/24 Procedure(s): CT abdomen pelvis wo IV con Accession Number(s): [id number] cc: Daylin Amin; [facility] Report Number: [id number]: Total DLP = 360.00 mGy-cm EXAMINATION: CT ABDOMEN PELVIS WITHOUT IV CONTRAST HISTORY: worsening flank pain in the presence of a stone COMPARISON: Comparison is made with the prior examination dated 09/13/2024. TECHNIQUE: CT scan of the abdomen and pelvis was performed without contrast using standard departmental protocol. Coronal and sagittal reformatted images were generated and reviewed. Oral contrast material was not administered per department protocol. This CT exam was performed with one or more of the following dose reduction techniques: automated exposure control, adjustment of the mA and/or kV according to patient size, use of iterative reconstruction technique. DLP: 360 mGy-cm FINDINGS: LOWER CHEST: The visualized lung bases are clear. There is no pleural effusion. CARDIOVASCULATURE: The heart is normal in size. There is no pericardial effusion. LIVER: The liver is normal in size and contour. The liver has an unremarkable unenhanced appearance. GALLBLADDER / BILE DUCTS: The gallbladder is unremarkable. There is no intra or extrahepatic biliary ductal dilatation. SPLEEN: The spleen is normal in size and has an unremarkable unenhanced appearance. PANCREAS: The pancreas has an unremarkable unenhanced appearance. ADRENAL GLANDS: Unremarkable. KIDNEYS/RETROPERITONEUM: There is persistent moderate right hydronephrosis secondary to a 4 mm proximal ureteral calculus. The calculus has migrated approximately 1.5 cm distally within the ureter since the prior study. There are multiple 1-2 mm nonobstructing calculi in the mid to lower pole regions of the left kidney. There is no left hydroureter. LYMPH NODES: No retroperitoneal lymphadenopathy is identified in the abdomen or pelvis. VASCULATURE: The abdominal aorta is normal in caliber. MESENTERY/PERITONEUM: No free fluid. No masses. There is no free intraperitoneal gas. STOMACH: The stomach is collapsed, limiting evaluation. SMALL BOWEL: The small bowel is normal in caliber. COLON: The hepatic flexure of the colon appears thickened but this is likely due to collapse, as this region did not demonstrate wall thickening on the examination performed 09/13/2024. APPENDIX: Normal. URINARY BLADDER/PELVIC ORGANS: The urinary bladder is unremarkable. The prostate is normal in size. BONES / SOFT TISSUES: There is degenerative disc disease of the spine. CT/CT abdomen pelvis wo IV con IMPRESSION: Persistent moderate right hydronephrosis secondary to a 4 mm proximal ureteral calculus. The calculus is migrated approximately 1.5 cm distally within the ureter since the prior study. Left nephrolithiasis as described. Electronically signed by: Jluis Driscoll MD 10/04/2024 01:12 PM EDT Dictated By: Jluis Driscoll MD Signed By: <Electronically signed by Jluis Driscoll MD in OV> 10/04/24 1312 DD/ 1153 TD/TT: 10/04/24 1205 Cotton Converter: [facility] External Provider IMG CT PROCEDURES Final Result * Lipase (10/04/2024 11:10 AM EDT) Lipase 31 8 - 78 U/L [facility] 10/04/2024 11:1 0 AM EDT 10/04/2024 11:15 AM EDT Generic External Data Provider LAB BLOOD ORDERAB LES Final Result [facility] [address] [place] [phone] * (ABNORMAL) Comprehensive Metabolic Panel (10/04/2024 11:10 AM EDT) Sodium 141 135 - 145 mmol/L [facility] Potassium 4.5 3.3 - 5.1 mmol/L [facility] Chloride 104 96 - 108 mmol/L [facility] Carbon Dioxide 26 22 - 29 mmol/L [facility] Anion Gap 16 12 - 20 [facility] Urea Nitrogen (BUN) 15 9 - 16 mg/dL [facility] Creatinine, Serum 1.06 0.5 - 1.4 mg/dL [facility] Creatinine Clr Calc Pharmacy 78.5 [facility] Comment:eGFR (calculated fro m the MDRD study equation) and eCrCl(calculated from the Cockcroft-Gault equation) are based ondifferent parameters and may not yield comparable results.If eCrCl result is absurd, please check patient'sheight/weight. Estimated Glomerular Filt Rate >60 [facility] Comment:Chronic Kidney Disea se: Estimated GFR < 60 mL/min/1.54z9Dayvtq Kidney Disease: Estimated GFR < 15 mL/min/1.73m2 Glucose 83 60 - 115 mg/dL [facility] Calcium 10.2 8.4 - 10.2 mg/dL [facility] Bilirubin, Total 0.7 0.0 - 1.0 mg/dL [facility] Aspartate Amino Transferase 53(H) 5 - 37 U/L [facility] Alanine Aminotransferase 113(H) 0 - 40 U/L [facility] Total Protein 8.8(H) 6.5 - 8.0 g/dL [facility] Albumin Level 4.5 3.5 - 5.0 g/dL [facility] Alkaline Phosphatase 98 39 - 117 U/L [facility] 10/04/2024 11:1 0 AM EDT 10/04/2024 11:15 AM EDT us Generic External Data Provider LAB BLOOD ORDERAB LES Final Result Performing Organization Address City/State/[facility] Co de Phone Number [facility] [address] [place] [phone] * (ABNORMAL) Lipid Panel with Reflex to Direct LDL (10/06/2023 10:48 AM EDT) Triglycerides 163(H) <150 mg/dL [facility] Comment:Desirable Triglyceri de: less than 150 mg/dLBorderline High Triglyceride 150-199 mg/dLHigh Triglyceride: 200-499 mg/dLVery High Triglyceride: greater than or equal to 5OO mg/dL Cholesterol 171 <200 mg/dL [facility] Comment:Desirable Cholestero l: less than 200 mg/dLBorderline High Cholesterol: 200-239 mg/dLHigh Cholesterol: greater than 239 mg/dL LDL Cholesterol Calculated 93 <100 mg/dL [facility] Comment:Desirable LDL: less than 100 mg/dLNear Optimal/Above Optimal LDL: 110- 129 mg/dLBorderline High LDL: 130-159 mg/dLHigh LDL: 160-189 mg/dLVery High LDL: greater than or equal to 190 mg/dL HDL Cholesterol 46 >40 mg/dL [facility] Comment:Desirable HDL: great er than 40 mg/dL Note: This HDL assay may give artificially low results in patients with liver disease. Blood 10/06/2023 10:4 8 AM EDT 10/06/2023 11:46 AM EDT Rohini Brown MD LAB BLOOD ORDERABLES Final Resul t Performing Organization Address [facility] Co de Phone Number [facility] [address] [place] [address] [phone] * HIV-1/2 Antigen and Antibodies, Fourth Generation, with Reflexes (10/06/2023 10:48 AM EDT) HIV AB/AG Nonreactive Nonreactive [facility] Comment:HIV-1 p24 Ag and/or HIV-1/HIV-2 Ab not detected.A test result that is nonreactive does not exclude thepossibility of exposure to or infection with HIV-1 and/orHIV-2. Nonreactive results in this assay for individualswith prior exposure to HIV-1 and/or HIV-2 may be due toantigen and antibody levels that are below the limit ofdetection of this assay.The Augment Alinity HIV Ag/Ab Combo assay result andsupplemental assay results should be interpreted inconjunction with the patient's clinical presentation,history and other laboratory results. If the results areinconsistent with clinical evidence, additional testing issuggested to confirm the result. Blood Venous blood specimen / Unknown 10/06/2023 10:48 AM EDT 10/06/2023 11:46 AM EDT us Rohini Brown MD LAB BLOOD ORDERABLES Final Resul t [facility] [address] [place] [address] [phone] from Last 3 Months or Most Recently Relevant to Health Maintenance [place] [address] [place] [address] C3 HSN FULL Care Teams Film Tests Checker Relationship Specialty Start Date End Date Rohini Brown MD [address] [place] [address] PCP - General Family Medicine 11/02/23
--- OUTSIDE RECORDS SUMMARY | 2024-10-22 17:03 | XMS_ITS | Encounter Summary ---
Author Organization [employer] Address [address] [facility] 7t [place] [address] Care Team Providers Care Brim Edge Trimmer Name Role Phone Rohini Brown MD Primary Care Provider [phone] Encounter Details Date Type Department Care Team (Late st Contact Info) Description 10/22/2024 Patient Outreach [facility] [address] [place], [place] [phone] Rohini Brown MD [address] [place], [place] [phone] Social History Tobacco Use Types Packs/Day Years [...] with others, in a hotel, in a group home, living outside on the street, on a [...] documented as of this encounter Care Teams Brim Edge Trimmer Relationship Specialty Start Date End Date Rohini Brown MD [address] [place] [address] PCP - General Family Medicine 11/02/23 documented as of this encounter
[2024-10-29 12:02] VITALS: BMI 25.0
--- NOTE | ~2024-10-31 | XR_ITS ---
CLINICAL HISTORY: nephrolithiass 1 view abdomen Comparison: None Findings: Lumbar spine dextroscoliosis and degenerative changes. Severe left hip osteoarthritis. No acute fracture. Right sided double-J stent. No evidence of calcified urinary tract stone. Nonobstructive bowel gas pattern. IMPRESSION: Right sided double-J stent. No evidence of calcified urinary tract stone. This document has been electronically signed by: Sunshine Garnica MD on 11/01/2024 12:08:58
[2024-10-31 09:11] VITALS: BP 100/64; PULSE 74; RESP 14; TEMP 36.8; O2SAT 96; BMI 22.0
[2024-10-31] MEDS: Lactated Ringers 1,000 ML 999 ML IV (09:16)
[2024-10-31] MEDS: levoFLOXacin 500 MG TABLET PO (09:18)
[2024-10-31 09:57] LABS: Amphetamine Screen Urine Not Detected (Not Detect); Barbiturates, Urine Not Detected (Not Detect); Benzodiazepines Screen Urine Not Detected (Not Detect); Buprenorphine Scr Not Detected (Not Detect); Cannabinoid Screen Urine POSITIVE (Not Detect); Cocaine Screen Urine POSITIVE (Not Detect); Fentanyl, urine POSITIVE (Not Detect); Methadone Screen, Urine Not Detected (Not Detect); Opiate Screen Urine POSITIVE (Not Detect); Oxycodone Screen Urine Not Detected (Not Detect); Phencyclidine Screen Urine Not Detected (Not Detect)
--- NOTE | 2024-10-31 10:56 | MHC.SHP ---
Pre-Procedural Eval Section A - 24 Hr Update-Section A only Date of Service: 10/31/24 The patient is an INPATIENT: No Changes since office visit: No Cold of Flu in the past 2 weeks, No New Medical Problems, No Changes in Medication and No Patient answered all questions Section B - Complete if H&P > 30 days Chief Complaint: Calculus of ureter Details of Present Illness: cysto stent removal right side Allergies: Allergies Allergy/AdvReac Type Severity Reaction Status Date / Time coffee (Coffea arabica) Allergy Severe ANAPHYLAXIS Verified 10/31/24 09:10 [COFFEE] Penicillins [PENICILLINS] Allergy Intermediate RASH Verified 10/31/24 09:10 penicillin V Allergy Unknown Rash Verified 10/31/24 09:10 COFFEE FLAVOR Allergy Unknown Anaphylaxis Uncoded 10/31/24 09:10 Plan I have reviewed the history and physical and performed a pertinent physical examination on my patient. No changes have occurred unless specified. Time Spent With Patient Time: Total time managing care of this patient today ____ minutes.
--- NOTE | 2024-10-31 11:10 | W.PM.OPN ---
Operative Note Operative Note Date of Service: 10/31/24 Narrative: Preop - stent with stone post op - above procedure - cysto stent removal right Indications - right stone with stent patient presented to hospital with positive tox screen ESWL not performed Plan to remove stent A well lubricated 16 Albanian cystoscope was placed No abnormality noted of urethra during placement Indwelling stent seen within bladder emerging from right ureteric orifices The stent was grasped with a 3 prong grasper and removed without difficulty The patient tolerated the procedure well
[2024-10-31 11:15] VITALS: BP 108/86; PULSE 81; RESP 18; TEMP 37.3; O2SAT 98
== END 2024-10-31 11:36 | disposition home or self-care (01) ==
PROVIDERS: Anesthesiology; PCP Family Medicine; Visit Provider Urology
PROC: (CPT 50590; principal; 2024-10-31 08:20)
DX: N20.1 Calculus of ureter (principal); Z46.6 Encounter for fitting and adjustment of urinary device; R82.5 Elevated urine levels of drugs, medicaments and biological substances; Z87.442 Personal history of urinary calculi; Z88.0 Allergy status to penicillin; Z98.890 Other specified postprocedural states
CPT/HCPCS: 52310; 74018; 80307; J0131

== ENCOUNTER → 2024-10-31 08:00 | Outpatient (BNV) | payer MEDICAID, SELFPAY | PROVIDERS: PCP Family Medicine; Visit Provider Urology | DX: N20.0 Calculus of kidney (principal); Z96.0 Presence of urogenital implants | CPT/HCPCS: 52310 ==

== ENCOUNTER → 2024-10-31 08:05 | Outpatient (BNV) | payer MEDICAID, SELFPAY | PROVIDERS: PCP Family Medicine; Visit Provider Radiology Diagnostic Radiology | DX: N20.0 Calculus of kidney (principal) | CPT/HCPCS: 74018 ==

== ENCOUNTER 2024-11-03 22:37 | Emergency (ER) | payer MEDICAID, SELFPAY ==
--- NOTE | ~2024-11-03 | XR_ITS ---
CLINICAL HISTORY: pain --- Additional Notes or Special Instructions: pt [id number] 1 view chest x-ray Comparison: None available Findings: No consolidation, pneumothorax, or pleural effusion. Mild emphysematous changes suggested. Cardiac silhouette and mediastinal contours within normal limits for AP technique. Degenerative changes include imaged right AC joint in the [id number]. Superficial leads present. IMPRESSION: No consolidation. This document has been electronically signed by: Keanu Cadena MD on 11/04/2024 00:33:04
[2024-11-03 22:47] VITALS: BP 112/00; PULSE 98
--- NOTE | 2024-11-03 22:52 | ECG_ITS ---
Test Reason : OD Blood Pressure : */* mmHG Vent. Rate : 105 BPM Atrial Rate : 105 BPM P-R Int : 126 ms QRS Dur : 86 ms QT Int : 338 ms P-R-T Axes : 83 82 69 degrees QTcB Int : 446 ms Sinus tachycardia Otherwise normal ECG When compared with ECG of 13-Sep-2024 10:57, Vent. rate has increased by 38 bpm Referred By: Femi Ruano Electronically Signed By: RENÉE CEDENO MD
[2024-11-03 22:54] VITALS: BP 112/72; PULSE 114; RESP 20; TEMP 37.3; O2SAT 99
[2024-11-03 22:57] VITALS: BP 112/72; PULSE 114; RESP 18; TEMP 36.8; O2SAT 99; BMI 21.7
--- NOTE | 2024-11-03 23:04 | PC.NURSE ---
PT BIBA was found unresponsive by bystanders and PD, EMS reports that pt had to be manually ventilated for 3-4 minutes w/o compressions. 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 PT arrived vomiting repeatedly, sales and service change leader completed in ED18 with security, Janusz and sterile tech Shankar. PT denies SI/HI. VSS, on alarm security or surveillance monitor sinus tachy, ekg completed, awaiting lab draw PT chest reddened and painful to the touch notified provider of finding. awaiting imaging Plan of care on going
--- NOTE | 2024-11-03 23:12 | ED_ITS ---
HPI - General Adult General Chief complaint: Overdose Stated complaint: over dose heroine narcanned Time Seen by Provider: 11/03/24 22:47 Source: patient, RN notes reviewed and old records reviewed Mode of arrival: EMS Limitations: no limitations History of Present Illness ED Provider: Bindu BROCK narrative: 44-year-old male presents for evaluation of a reported overdose. Apparently the patient admitted to EMS that he was using substances including heroin He was found unresponsive by bystanders then received Narcan 24 mg intranasally prior to arrival. He was hypoventilating and was manually ventilated for approximately 3-4 minutes per EMS. It was reported that no CPR compressions were administered The patient reports that he feels unwell, he was unsure why he was here and does not remember if he use drugs are not Related Data Home Medications ?Medication ?Instructions ?Recorded ?Confirmed gabapentin 300 mg capsule 300 mg PO TID 10/04/24 10/31/24 Previous Rx's ?Medication ?Instructions ?Recorded phenazopyridine 100 mg tablet 100 mg PO TID PRN Spasm 4 days #12 10/05/24 (Pyridium) tabs tamsulosin 0.4 mg capsule 0.4 mg PO BEDTIME 30 days #30 caps 10/05/24 Allergies Allergy/AdvReac Type Severity Reaction Status Date / Time coffee (Coffea arabica) Allergy Severe ANAPHYLAXIS Verified 11/03/24 22:58 [COFFEE] Penicillins [PENICILLINS] Allergy Intermediate RASH Verified 11/03/24 22:58 penicillin V Allergy Unknown Rash Verified 11/03/24 22:58 COFFEE FLAVOR Allergy Unknown Anaphylaxis Uncoded 11/03/24 22:58 Review of Systems 2 Constitutional: Constitutional: Denies body ache(s), Denies chills, Denies fever(s) and Denies headache(s) ENT: Denies vertigo, Denies dizziness and Denies headache(s) Cardiovascular: Cardiovascular: Reports chest pain and Denies dyspnea Respiratory: Respiratory: Denies cough and Denies dyspnea Gastrointestinal: Gastrointestinal: Denies abdominal pain, Denies nausea and Denies vomiting Musculoskeletal: Musculoskeletal: Denies back pain Integumentary/Breasts: Skin/Breast: Denies rash Neurologic: Denies vertigo, Denies dizziness and Denies headache(s) [facility] Past Medical History Medical History (Updated 11/04/24 @ 00:00 by Background Daemon) Kidney stones Surgical History H/O hand surgery Social History Social History Household Members: Family Housing: House Are you a primary pharmacy customer care specialist to a significant other at home: No Do you presently have visiting nurse or other home services: No Alcohol intake: current Alcohol intake frequency: a few times a week Alcohol type: hard liquor Patient Tobacco Use Status: Current everyday Tobacco user Tobacco use type: Cigarette Cigarettes Per Day: 10 Years Smoked: 30 Use of substances other than those prescribed or required for medical reasons: Yes Substance Use Type: Crack/Cocaine and Heroin Advance Directives: No Advance Directives Information Provided: Yes Do you have a plan to hurt others: No Plan Physical Exam ED Vital Signs: Vital Signs - 24 hr 11/03/24 22:54 11/03/24 22:57 11/04/24 00:00 Temperature 99.1 F 98.2 F 98.6 F Pulse Rate 114 H 114 H 77 Respiratory Rate 20 18 18 Blood Pressure 112/72 112/72 100/66 Pulse Oximetry 99 99 97 Oxygen Delivery Method Room Air Room Air Room Air 11/04/24 04:30 Temperature 99.7 F Pulse Rate 86 Respiratory Rate 14 Blood Pressure 101/56 L Pulse Oximetry 95 Oxygen Delivery Method Room Air BMI result Body Mass Index 21.7 Const General: healthy appearing, comfortable, no acute distress, alert and awake Nutritional Appearance: well nourished Orientation/consciousness: patient oriented x3 HENMT Head: Yes normocephalic and Yes atraumatic Throat: Yes posterior oropharynx normal Eyes Eyelids: Yes eyelids normal Conjunctivae: conjunctivae normal Sclerae: sclerae normal Corneas: corneas normal Pupils: Equal, round and reactive pupils present EOM: EOMs intact bilaterally Neck Neck: Yes full ROM Resp Effort & Inspection: normal respiratory effort, able to speak in complete sentences, no audible wheezes and not labored Auscultation: clear to auscultation bilaterally Cardio Rate: tachycardic Rhythm: regular rhythm GI Inspection: No distended Palpation (GI): Soft to palpation, not firm, nontender, no guarding and not rigid Skin General skin exam: no rashes or lesions noted and elasticity normal Neuro General: patient oriented x3 Cranial nerves: Yes CN's II-XII intact bilaterally, Yes Equal, round and reactive pupils present and Yes Bilaterally intact EOM present Cognition (Neuro): normal cognition Extrem Other: Moving all extremities well without any obvious deformities Course Reevaluation(s) Reevaluation #1: The patient is at high a leukocytosis of 24.8 1000. This is less likely to be infectious a more likely related to substance abuse and overdose. Finding of shortness of breath. The patient initially declined his chest x-ray, we will try get in to consented to having the chest x-ray ordered Time: 00:16 Reevaluation #2: Patient re-evaluated, he reports feeling better after being in the ER for about 4 hours. Chest x-ray does not show any acute findings. Patient's vital signs remained stable. His heart rate has improved without any intervention. The patient's BUN and creatinine were slightly elevated, this is likely due to the setting of substance abuse, recent ureteral stent. He can hydrate orally, he has no difficulty urinating, his urinalysis did not show any signs of UTI. The patient is interested in speaking to the care team/addiction medicine team. He will be placed on physician ops for a care team consult in the morning Time: 02:49 Medical Decision Making Medical Decision Making MDM Narrative: 44-year-old male presents for evaluation of a reported overdose. Apparently he reported to EMS that he was using drugs but he denies this to me and reports that he does not remember if he was or not. He does have a history of substance abuse. He was currently awake, alert and oriented. However it was reported that he received 24 mg of Narcan and therefore will require close observation. Plan for basic labs, EKG, tox screen and observation. Patient is awake, alert and oriented. Patient's white blood cell count 24, no clear source of infection. Lactic 0.7. Urine toxicology positive for methadone, fentanyl, cocaine and marijuana At this time, 06:33, patient is completely awake, alert and oriented x3. Patient denies SI or HI. Patient states that he does not want rehab. Patient will be discharged with a dose of home Narcan Differential Diagnosis Differential Diagnoses: The differential diagnosis associated with the presentation includes Opiate abuse Polysubstance abuse Syncope Overdose Admission/Observation Consideration of admission/observation: Escalation of care including admission/observation considered (Anxiety, depression, alcohol abuse, polysubstance abuse) Lab Data MDM Lab Attestation statement: I reviewed the patient's lab results. 11/03/24 23:33 11/03/24 23:33 Labs: Lab Results 11/03/24 11/04/24 11/04/24 Range/Units 23:33 01:12 01:43 WBC 24.8 H (4.8-10.8) X10*3/uL RBC 4.17 L (4.60-5.80) X10*6/uL Hgb 12.9 L (14.0-18.0) g/dl Hct 38.8 L (42.0-52.0) % MCV 93.0 (80.0-98.0) fL MCH 30.9 (27.0-33.0) pg MCHC 33.2 (31.0-36.0) g/dl RDW 14.3 (11.0-16.0) % Plt Count 367 (160-400) X10*3/uL MPV 8.7 L (9.4-12.4) fL Immature Gran % (Auto) 0.7 H (0.0-0.4) % Neut % (Auto) 85.3 H (45-73) % Lymph % (Auto) 6.0 L (20-40) % Dillon % (Auto) 7.6 (2-11) % Eos % (Auto) 0.1 (0-4) % Baso % (Auto) 0.3 (0-2) % Lymph # (Auto) 1.5 (1.2-4.9) X10*3/uL Dillon # (Auto) 1.9 H (0.1-1.2) X10*3/uL Eos # (Auto) 0.0 (0.0-0.4) X10*3/uL Baso # (Auto) 0.1 (0.0-0.2) X10*3/uL Abs Immat Gran (auto) 0.18 H (0.00-0.03) X10*3/uL Absolute Neuts (auto) 21.1 H (2.0-8.3) x10*3/uL Absolute Nucleated RBC 0.000 (0.0-0.012) X10*3/uL Nucleated RBC % (auto) 0.0 (0.0-0.2) /100WBC Smear Tech's Comments VERIFIED Sodium 141 (135-145) mmol/L Potassium 4.1 (3.3-5.1) mmol/L Chloride 103 (96-108) mmol/L Carbon Dioxide 24 (22-29) mmol/L Anion Gap 18 (12-20) BUN 21 H (9-16) mg/dL Creatinine 1.69 H (0.5-1.4) mg/dL Estim Creat Clear Calc 47.1 Estimated GFR 44 Random Glucose 65 (60-115) mg/dL Lactic Acid 0.7 (0.5-2.0) mmol/L Calcium 9.3 D (8.4-10.2) mg/dL Total Bilirubin 0.5 (0.0-1.0) mg/dL AST 43 H (5-37) U/L ALT 64 H (0-40) U/L Alkaline Phosphatase 111 (39-117) U/L Total Protein 7.8 (6.5-8.0) g/dL Albumin 4.3 (3.5-5.0) g/dL Lipase 85 H (8-78) U/L Urine Color Yellow Urine Appearance Clear Urine pH 5.5 (5.0-9.0) Ur Specific [place] 1.015 (1.005-1.025) Urine Protein 30 (1+) H (Neg-Trace) mg/dL Urine Glucose (UA) Negative (Negative) mg/dL Urine Ketones Trace (Negative) mg/dL Urine Blood Negative (Negative) Urine Nitrite Negative (Negative) Ur Leukocyte Esterase Negative (Negative) Urine RBC 3-5 H (0-2) /HPF Urine WBC 0-5 (0-5) /HPF Ur Squamous Epith Cells 3-5 (0-2) /HPF Urine Bacteria None Seen (None Seen) Hyaline Casts >20 (0-2) /LPF Urine Opiates Screen Not Detected (Not Detect) Ur Buprenorphine Scrn Not Detected (Not Detect) ng/mL Ur Oxycodone Screen Not Detected (Not Detect) ng/mL Urine Methadone Screen Positive H (Not Detect) ng/mL Urine Fentanyl Screen POSITIVE H (Not Detect) Ur Barbiturates Screen Not Detected (Not Detect) Ur Phencyclidine Scrn Not Detected (Not Detect) Ur Amphetamines Screen Not Detected (Not Detect) U Benzodiazepines Scrn Not Detected (Not Detect) Urine Cocaine Screen POSITIVE H (Not Detect) U Marijuana (THC) Screen POSITIVE H (Not Detect) Ethyl Alcohol < 10 mg/dL Influenza Type A (PCR) NEGATIVE (Negative) Influenza Type B (PCR) NEGATIVE (Negative) RSV RNA Qual (PCR) NEGATIVE (Negative) SARS-CoV-2 RNA (RT-PCR) NEGATIVE (Negative) Independent Interpretation I performed an independent interpretation of an: EKG Interpretation: Sinus tachycardia rate of 105 beats minute. QTC within normal limits. No ST segment elevation SC Critical Care Time Critical Care Time Critical Care Time: Yes Total Critical Care Time: 45 Attestation: I have personally provided critical care time. Time includes review of lab data, radiology results, discussion with consultants, and monitoring for potential decompensation. Intervention performed as documented. Discharge Plan Discharge Clinical Impression: Drug overdose Patient Disposition: Home, Self-Care Instructions: Adult Overdose (ED) Additional Instructions: Overdose You were seen in our Emergency Department for an overdose today. You received narcan in order to reverse the effects of overdose. Narcan only lasts about 45 min to 1 hour in the system. You may have been given narcan to take home with you today, please keep it near you if you are going to use again, so others can use it if needed.? The number one risk for fatal overdose is using alone? [employer] is a 07/02 hotline where you can be on the phone with someone while you use, and they can call for help if they suspect an overdose: [phone] Things to look out for when you leave include severe vomiting or diarrhea, headaches, muscle cramps, fever, coughing, chest pain, or if you feel so short of breath you cannot walk to the bathroom. Please seek care and return any time for worsening symptoms.? You may have been provided with safer injection?items, please take time to take care of YOU and your health. Use new supplies whenever possible to lessen the chances of infections and other illnesses.? If you need more supplies, please go [facility],? [address] [place] [place], [place] you can call or text to coordinate delivery of safer supplies. If you decide you want to stop or cut down on how much you?re using, please call the numbers on the list provided to you or you can come to our outpatient Addiction Treatment office [facility] (M-F 9am-5p) [address] [place] [address], [address] [place], [place]. [phone] Prescriptions: No Action gabapentin 300 mg capsule 300 mg PO TID tamsulosin 0.4 mg capsule 0.4 mg PO BEDTIME 30 Days Qty: 30 1RF phenazopyridine [Pyridium] 100 mg tablet 100 mg PO TID PRN (Reason: Spasm) 4 Days Qty: 12 0RF Print Language: Thai
[2024-11-03 23:40] LABS: Basophils Absolute Auto 0.1 X10*3/uL (0.0-0.2); Basophils Percent Auto 0.3 % (0-2); Eosinophils Percent Auto 0.1 % (0-4); Hematocrit 38.8 % (42.0-52.0); Hemoglobin 12.9 g/dl (14.0-18.0); Imm Gran Abs Auto 0.18 X10*3/uL (0.00-0.03); Imm Gran Pct Auto 0.7 % (0.0-0.4); Lymphocytes Absolute Auto 1.5 X10*3/uL (1.2-4.9); MANUAL DIFF FLAG SCAN; Mean Corpuscular HGB Conc 33.2 g/dl (31.0-36.0); Mean Corpuscular Hemoglobin 30.9 pg (27.0-33.0); Mean Platelet Volume 8.7 fL (9.4-12.4); Monocytes Absolute Auto 1.9 X10*3/uL (0.1-1.2); Monocytes Percent Auto 7.6 % (2-11); Neutrophils Absolute Auto 21.1 x10*3/uL (2.0-8.3); Neutrophils Percent Auto 85.3 % (45-73); Platelet Count 367 X10*3/uL (160-400); Red Blood Count 4.17 X10*6/uL (4.60-5.80); Red Cell Distribution Width 14.3 % (11.0-16.0); SCAN SMEAR FLAG 1; White Blood Count 24.8 X10*3/uL (4.8-10.8)
[2024-11-03 23:55] LABS: Alanine Aminotransferase 64 U/L (0-40); Albumin Level 4.3 g/dL (3.5-5.0); Alkaline Phosphatase 111 U/L (39-117); Anion Gap 18 (12-20); Aspartate Amino Transferase 43 U/L (5-37); Bilirubin Total 0.5 mg/dL (0.0-1.0); Blood Urea Nitrogen 21 mg/dL (9-16); Calcium 9.3 mg/dL (8.4-10.2); Carbon Dioxide 24 mmol/L (22-29); Chloride 103 mmol/L (96-108); Creatinine Clr Calc Pharmacy 47.1; Estimated Glomerular Filt Rate 44; Ethanol < 10 mg/dL; Glucose Random 65 mg/dL (60-115); Lipase 85 U/L (8-78); Potassium 4.1 mmol/L (3.3-5.1); Sodium 141 mmol/L (135-145); Total Protein 7.8 g/dL (6.5-8.0)
[2024-11-04] VITALS: BP 100/66; PULSE 77; RESP 18; TEMP 37; O2SAT 97
[2024-11-04] LABS: SLIDE REVIEW VERIFIED
--- NOTE | 2024-11-04 00:50 | PC.NURSE ---
PT wbc noted to be elevated at 24.5, temp 99.5 orally. Pt denies abdominal pain, pain with urination. Skin in tact, pt states IV drug use is very seldom- he did not use IV drugs today states he smoked crack. pt refused rectal temp notified provider, blood cultures and lactic acid ordered. awaiting draw and results
--- OUTSIDE RECORDS SUMMARY | 2024-11-04 01:17 | XMS_ITS ---
Author Organization [employer] Address [address] [place] [address] [address] [place] [address] Care Team Providers Care Tractor Trailer Technician Name Role Phone Rohini Brown MD Primary Care Provider [phone] [facility] Status:Enrolled (Active) Start date:10/11/2024 Enrollment date:10/11/2024 Enrollment reason:Referred by provider Overview PCP referral Case Team Name Relationship Phone Lorraine Pinon (Responsible Staff) Continued Care and Services Coordination
--- OUTSIDE RECORDS SUMMARY | 2024-11-04 01:17 | XMS_ITS | Encounter Summary ---
Author Organization [employer] Address [address] [facility] 7[address] [place] [address] Care Team Providers Care Lung Splitter Name Role Phone Rohini Brown MD Primary Care Provider Encounter Details Date Type Department Care Team (Late st Contact Info) Description 10/31/2024 Orders Only GENERIC EXTERNAL DATA DEPARTMENT Provider, Generic External Data Social History Tobacco Use Types Packs/Day Years Used Date Smoking Tobacco: Every Day Cigarettes 0.8 31 Smokeless Tobacco: Never Depression Answer Date Recorded Patient Health Questionnaire-9 Score 7 10/24/2024 Patient Health Questionnaire-9 Score 7 10/24/2024 Last PHQ-9: Questionnaire Data Not on file 0 10/24/2024 Housing Stability Answer Date Recorded What is your housing situation today? I do not have housing (Staying with others, in a hotel, in a usp, living outside on the street, on a [...] Answer Date Recorded Patient Health Questionnaire-2 Score 3 10/24/2024 Internet Access Answer Date Recorded Internet Access Q1 No 10/11/2024 Internet Access Q2 I cannot afford it 10/11/2024 Sex and Gender Information Value Date Recorded Sex Assigned at Male 05/17/2022 10:16 AM EDT Legal Sex Male 10:16 AM EDT Gender Identity Male 10/09/2024 11:48 AM EDT Sexual Orientation Straight 05/17/2022 10 :16 AM EDT documented as of this encounter Plan of Treatment Upcoming Encounters Date Type Department Care Team (Late st Contact Info) Description 12/12/2024 11:00 AM EDT Office Visit [facility] [address] [place] [address] Rohini Brown MD [address] [place] [address] documented as of this encounter Procedures Procedure Name Priority Date/Time Associated Diagnosis Comments XR KUB AND UPRIGHT 2 VIEWS Routine 11/01/2024 12:08 PM EDT DRUG MONITOR, PANEL 1, SCREEN, URINE Routine 10/31/2024 8:45 AM EDT documented in this encounter Results * XR KUB and Upright 2 Views (11/01/2024 12:08 PM EDT) Anatomical Region Laterality Modality Radiographic Layne ging 11/01/2024 12:0 8 PM EDT Narrative 11/01/2024 12:10 PM EDT ? [facility] ?[address] ?[place] [address] ?XRay Report ? Signed ? Patient: Radha,Luis Negrete ?MR#: [id number] ?? [id number] ? : 1980 ?Acct:[id number] ? Age/Sex: 44 / M ?ADM Date: 04/16/25 ? Loc: HO.SSS ? Attending Dr: Norris Vu MD ? Ordering Physician: Norris Vu MD ?? Date of Service: 10/31/24 ?? Procedure(s): XR KUB ?? Accession Number(s): [id number] ? cc: Norris Vu MD; Rohini Brown MD ? CLINICAL HISTORY: nephrolithiass ? 1 view abdomen ? Comparison: None ? Findings: ?? Lumbar spine dextroscoliosis and degenerative changes. Severe left hip ?? osteoarthritis. No acute fracture. ? Right sided double-J stent. No evidence of calcified urinary tract stone. ? Nonobstructive bowel gas pattern. ? IMPRESSION: ? Right sided double-J stent. No evidence of calcified urinary tract stone. ? This document has been electronically signed by: Sunshine Garnica MD on ?? 11/01/2024 12:08:58 ? Dictated By: ?Sunshine Garnica MD ? Signed By: ?<Electronically signed by Sunshine Garnica MD in OV> ? 11/01/24 1210 ? DD/ 1208 ? TD/TT: 11/01/24 1208 ? Cloth Shrinking Supervisor: ? Procedure Note [place], Image - 11/01/2024 [place] [address] XRay Report Signed Patient: Luis Garcia JMR#: [id number] : 1980Acct:[id number] Age/Sex: 44 / MADM Date: 10/31/24 Loc: [facility] Attending Dr: Norris Vu MD Ordering Physician: Norris Vu MD Date of Service: 10/31/24 Procedure(s): XR KUB Accession Number(s): [id number] cc: Norris Vu MD; Rohini Brown MD CLINICAL HISTORY: nephrolithiass 1 view abdomen Comparison: None Findings: Lumbar spine dextroscoliosis and degenerative changes. Severe left hip osteoarthritis. No acute fracture. Right sided double-J stent. No evidence of calcified urinary tract stone. Nonobstructive bowel gas pattern. IMPRESSION: Right sided double-J stent. No evidence of calcified urinary tract stone. This document has been electronically signed by: Sunshine Garnica MD on 11/01/2024 12:08:58 Dictated By: Sunshine Garnica MD Signed By: <Electronically signed by Sunshine Garnica MD in OV> 11/01/24 1210 DD/ 1208 TD/TT: 11/01/24 1208 Cloth Shrinking Supervisor: [facility] External Provider IMG XR PROCEDURES Final Result * (ABNORMAL) Drug Monitoring, Panel 1, Screen, Urine (10/31/2024 8:45 AM EDT) Opiate Screen Urine POSITIVE(A) Not Detect [facility] Comment:Opiate cut-off is 30 0 ng/mL.Positive results are unconfirmed and should not be used fornon-medical purposes. Barbiturates, Urine Not Detected Not Detect [facility] Comment:Barbiturate cut-off is 200 ng/mL.Positive results are unconfirmed and should not be used fornon-medical purposes. Phencyclidine Screen Urine Not Detected Not Detect [facility] Comment:Phencyclidine cut-of f is 25 ng/mL.Positive results are unconfirmed and should not be used fornon-medical purposes. Amphetamine Screen Urine Not Detected Not Detect [facility] Comment:Amphetamine cut-off is 1000 ng/mL.Positive results are unconfirmed and should not be used fornon-medical purposes. Benzodiazepines Screen Urine Not Detected Not Detect [facility] Comment:Benzodiazepine cut-o ff is 200 ng/mL.Positive results are unconfirmed and should not be used fornon-medical purposes. Cocaine Screen Urine POSITIVE(A) Not Detect [facility] Comment:Cocaine cut-off is 3 00 ng/mL.Positive results are unconfirmed and should not be used fornon-medical purposes. Cannabinoid Screen Urine POSITIVE(A) Not Detect [facility] Comment:Cannabinoid cut-off is 50 ng/mL.Positive results are unconfirmed and should not be used fornon-medical purposes. Methadone Screen, Urine Not Detected Not Detect ng/mL [facility] Comment:Methadone cut-off is 300 ng/mL.Positive results are unconfirmed and should not be used fornon-medical purposes. FENTANYL URINE POSITIVE(A) Not Detect [facility] Comment:Fentanyl cut-off is 1 ng/mL.Positive results are unconfirmed and should not be used fornon-medical purposes. Oxycodone Urine Screen Not Detected Not Detect ng/mL [facility] Comment:Oxycodone cut-off is 100 ng/mL.Positive results are unconfirmed and should not be used fornon-medical purposes. Buprenorphine Screen Not Detected Not Detect ng/mL [facility] Comment:Buprenorphine cut-of f is 5 ng/mL.Positive results are unconfirmed and should not be used fornon-medical purposes. 10/31/2024 8:45 AM EDT 10/31/2024 9:09 AM EDT us Generic External Data Provider LAB URINE ORDERAB LES Final Result [facility] [address] [place] [address] [phone] documented in this encounter Visit Diagnoses Not on filedocumented in this encounter Additional Health Concerns Assessment Noted Time PHQ-9 Depression Total Score: 7 10/25/19 25 11:36 AM EDT documented as of this encounter Care Teams Lung Splitter Relationship Specialty Start Date End Date Rohini Brown MD [address] [place] [phone] PCP - General Family Medicine 11/02/23 documented as of this encounter
--- OUTSIDE RECORDS SUMMARY | 2024-11-04 01:17 | XMS_ITS ---
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 Thank you Case Team Name Relationship Phone Laith Mcintyre RN Registered Nurse(Responsible St aff) Continued Care and Services Coordination
--- OUTSIDE RECORDS SUMMARY | 2024-11-04 01:17 | XMS_ITS | Encounter Summary ---
Author Organization [employer] Address [address] [facility] [address] [place] [address] Care Team Providers Care Animal Maintenance Supervisor Name Role Phone Rohini Brown MD Primary Care Provider Reason for Visit * Reason Onset Date Comments Medication Question 10/09/2024 Encounter Details Date Type Department Care Team (Late st Contact Info) Description 10/09/2024 Telephone [facility] [address] [place], [place] [phone] Rohini Brown MD [address] [place], [place] [phone] Medication Question Social History Tobacco Use Types [...] others, in a hotel, in a senior living, living outside on the street, on a [...] 2:26 PM EDT Tc from Mariana at [facility] pharmacy requesting a call back regarding script for oxyCODONE (Roxicodone) 5 MG immediate release tablet Contact Mariana at [phone] documented in this encounter Plan of Treatment Upcoming Encounters Date Type Department Care Team (Late st Contact Info) Description 12/12/2024 11:00 AM EDT Office Visit [facility] [address] [place] [phone] Rohini Brown MD [address] [place] [address] documented as of this encounter Visit Diagnoses Not on filedocumented in this encounter Additional Health Concerns Assessment Noted Time PHQ-9 Depression Total Score: 8 10/10/19 25 11:48 AM EDT documented as of this encounter Care Teams Animal Maintenance Supervisor Relationship Specialty Start Date End Date Rohini Brown MD [address] [place] [phone] PCP - General Family Medicine 11/02/23 documented as of this encounter
--- OUTSIDE RECORDS SUMMARY | 2024-11-04 01:17 | XMS_ITS | Encounter Summary ---
Author Organization [employer] Address [address] [facility] 7[address] [place] [address] Care Team Providers Care Back Gray Cloth Washer Name Role Phone Rohini Brown MD Primary Care Provider [phone] Encounter Details Date Type Department Care Team (Late st Contact Info) Description 11/02/2024 Patient Outreach [facility] [address] [place], [place] [phone] Rohini Brown MD [address] [place], [place] [phone] Social History Tobacco Use Types Packs/Day Years [...] with others, in a hotel, in a longterm, living outside on the street, on a [...] Description 12/12/2024 11:00 AM EDT Office Visit [facility] MED[facility]INE [address] [place] [phone] Rohini Brown MD [address] [place] [phone] documented as of this encounter Visit Diagnoses Not on filedocumented in this encounter Additional Health Concerns Assessment Noted Time PHQ-9 Depression Total Score: 7 10/25/19 25 11:36 AM EDT documented as of this encounter Care Teams Back Gray Cloth Washer Relationship Specialty Start Date End Date Rohini Brown MD [address] [place] [phone] PCP - General Family Medicine 11/02/23 documented as of this encounter
--- OUTSIDE RECORDS SUMMARY | 2024-11-04 01:17 | XMS_ITS | Clinical Summary ---
Author Organization [employer] Address [address] [facility] [address] [place] [address] Care Team Providers Care Database Security Expert Name Role Phone Rohini Brown MD Primary Care Provider Allergies Active Allergy Reactions Criticality Noted Date Comments Penicillins Unknown 06/29/2016 Medications * This document contains information received from the source organization and may not represent a complete record from that organization. ibuprofen 600 MG tablet Take 1 tablet (600 mg) by mouth every 8 (eight) hours if needed for mild pain. 30 tablet 1 10/06/19 24 Active Additional Information Patient not taking.Reported on 10/24/2024 acetaminophen (Tylenol Extra Strength) 500 MG tablet Take 2 tablets (1,000 mg) by mouth every 8 (eight) hours if needed for mild pain or moderate pain. 90 tablet 1 10/06/19 24 Active Additional Information Patient not taking.Reported on 10/24/2024 lidocaine (Lidoderm) 5 % patch Apply to affected area once daily for 12 hours 30 patch 11 10/06/19 24 Active Additional Information Patient not taking.Reported on 10/24/2024 tamsulosin (Flomax) 0.4 MG 24 hr capsule Take 1 capsule (0.4 mg) by mouth in the morning. 15 capsule 10/06/19 24 Active Additional Information Patient not taking.Reported on 10/24/2024 gabapentin (Neurontin) 600 MG tabletIndicat ions:Low back pain with radiation Take 1 tablet (600 mg) by mouth 3 times daily. 90 tablet 11 10/10/19 25 026 Active gabapentin (Neurontin) 300 MG capsule Take 1 capsule (300 mg) by mouth 3 times daily. 90 capsule 11 11/21/19 24 025 Discontinued oxyCODONE (Roxicodone) 5 MG immediate release tabletIndicat ions:Low back pain with radiation Take 1 tablet (5 mg) by mouth at bedtime for 28 days. 28 tablet 10/10/19 25 025 Discontinued(Re order (will not trigger notification to Pharmacy)) oxyCODONE (Roxicodone) 5 MG immediate release tabletIndicat ions:Low back pain with radiation Take 1 tablet (5 mg) by mouth at bedtime for 14 days. 14 tablet 10/10/19 25 025 Active Problems Problem Noted Date Diagnosed Date [...] appropriate care is provided. - Refer to [facility] Assessment & Plan (11/21/2023 11:49 AM EDT): [...] EDT): - 10/06/23 Hepatitis C viral load 4484103 units ml - Pt had history or [...] EDT): - 10/06/23 Hepatitis C viral load 1217951 units ml - Pt had history or IV drug use, not current. - 10/06/23 AST 37, ALT 37, Platelets 224. - FIB-4 index 1.17 - Will refer him to Hepatitis C treatment team. Will order ultrasound with elastography. Kidney stone 06/29/2016 Assessment & Plan (10/09/2024 10:31 PM EDT): - incidental finding on CT in July 2023 which was done in [place] - [place] 10[place]21/23 bilateral kidney stone. Referred to urology - Seen in [facility] in Aug and September 2024 for kidney stone. Rx tamuslosin in Aug 2023. S/p nephroureteral stent placement on 10/04/24. Called [facility] office for an outpatient follow up. - Drink adequate amount of fluid. Assessment & Plan (11/21/2023 11:48 AM EDT): - incidental finding on CT in July 2023 which was done in [place] - [place] on 10/21/23 bilateral kidney stone. Referred to urology. - Drink adequate amount of fluid. Assessment & Plan (10/07/2023 5:34 AM EDT): - incidental finding on CT in July 2023 which was done in [place] - recheck [place] Onychomycosis 06/29/2016 Shoulder pain 06/29/2016 Sprain of rotator cuff capsule 06/29/2016 Encounters Date Type Department Care Team Description 11/02/2024 Patient Outreach [address] [address] Rhoini Brown MD 10/31/2024 Orders Only GENERIC EXTERNAL DATA DEPARTMENT Provider, Generic External Data 10/24/2024 Plan of Care Documentation [address] [address] 10/24/2024 Patient Outreach [address] [address] Rohini Brown MD Care Management (C3CM- Initial assessment) 10/23/2024 Patient Outreach [address] [address] Rohini Brown MD 10/23/2024 Patient Outreach [address] [address] Rohini Brown MD 10/23/2024 Patient Outreach [address] [address] Rohini Brown MD 10/22/2024 Patient Outreach [address] [address] Rohini Brown MD 10/22/2024 Patient Outreach [address] [address] Rohini Brown MD 10/11/2024 Patient Outreach [address] [address] Rohini Brown MD Care Coordination (C3 CM outreach and enrollment-agrees to participate) 10/11/2024 Patient Outreach [address] [address] Rohini Bronw MD Care Coordination (C3 CHW Lorraine Pinon reviewed chart review completed by Laith Mcintyre RN) 10/11/2024 Patient Outreach [address] [address] Rohini Brown MD Care Coordination (C3- chart review) 10/11/2024 Patient Outreach [address] [phone] Rohini Brown MD Transition Of Care (Tcm) (HDF unscheduled) 10/11/2024 Patient Outreach [address] [address] Rohini Brown MD 10/10/2024 Patient Outreach [address] [address] Rohini Brown MD 10/09/2024 11:30 AM EDT Office Visit [address] [address] Rohini Brown MD Kidney stone (Primary Dx); Chronic active hepatitis C (CMS/HCC); Tobacco dependence; Uncomplicated alcohol dependence (CMS/HCC); Left hip pain; Low back pain with radiation; Screening for diabetes mellitus; Screening for lipid disorders; Elevated blood pressure reading; Routine screening for STI (sexually transmitted infection); Chronic midline low back pain, unspecified whether sciatica present 10/09/2024 Orders Only [address] [address] Rohini Brown MD 10/09/2024 Telephone [facility] [address] [place], [place] [phone] Carolina Alvarado RN 10/09/[address] [address] Rohini Brown MD Medication Question 10/09/2024 Travel 10/09/2024 Patient Outreach [facility] [place] [address] Rohini Brown MD Transition Of Care (Tcm) (HDF unscheduled) 10/04/2024 Telephone [facility] [place] [address] Rohini Brown MD chart prep 10/04/2024 Orders Only GENERIC EXTERNAL DATA DEPARTMENT Provider, Generic External Data 10/01/2024 Patient Outreach [facility] [place] [address] Rohini Brown MD Pre-visit Planning (Pre-visit planning - LVM ) 09/28/2024 Population Health Risk Score [facility] () Department [address] [place] [phone] Provider, Population Health Generic from Last 3 [...] with others, in a hotel, in a residential, living outside on the street, on a [...] 10/09/2024 11:47 AM EDT Plan of Treatment Upcoming Encounters Date Type Department Care Team (Late st Contact Info) Description 12/12/2024 11:00 AM EDT Office Visit [facility] [address] [place] [address] Rohini Brown MD [address] [place] [address] Health Maintenance Due Date Last Done Comments [...] (#1) 2024 Alcohol/Substance Use Screening 10/09/2025 10/09/2024 Tobacco Screening 10/09/2025 10/09/2024 SDOH Screening 10/11/2025 10/11/2024 Depression Screening 10/24/2025 10/24/2024, 10/24/2024 Zoster Vaccines (1 of 2) 2028 Lipid [...] SCREEN, URINE Routine 10/31/2024 8:45 AM EDT MR LUMBAR SPINE WO CONTRAST Urgent 10/23/2024 7:36 PM EDT Low back pain with radiation FL GUIDANCE IN OR Routine 10/04/2024 6:1 [...] Recently Relevant to Health Maintenance Results * XR KUB and Upright 2 Views (11/01/2024 12:08 PM EDT) Anatomical Region Laterality Modality Radiographic Layne ging 11/01/2024 12:0 8 PM EDT Narrative 11/01/2024 12:10 PM EDT ? [facility] ?[address] ?[place] [address] ?XRay Report ? Signed ? Patient: Radha,Jarett ?MR#: [id number] ?? [id number] ? : 1980 ?Acct:[id number] ? Age/Sex: 44 / M ?ADM Date: 04/16/25 ? Loc: HO.SSS ? Attending : Norris Vu MD ? Ordering Physician: Norris Vu MD ?? Date of Service: 10/31/24 ?? Procedure(s): XR KUB ?? Accession Number(s): [id number] ? cc: Norris Vu MD; Rohini Brown [...] DD/ 1208 ? TD/TT: 11/01/24 1208 ? Satellite Installer: ? Procedure Note Kushshikhater, Image - 11/01/2024 [place] [address] XRay Report Signed Patient: Luis Garcia JMR#: [id number] : 1980Acct:[id number] Age/Sex: 44 / MADM Date: 10/31/24 Loc: .[facility] Attending Dr: Norris Vu MD Ordering Physician: Norris Vu MD Date of Service: 10/31/24 Procedure(s): XR KUB Accession Number(s): [id number] cc: Norris Vu MD; Rohini rBown MD CLINICAL HISTORY: nephrolithiass 1 view abdomen [...] 11/01/24 1210 DD/ 1208 TD/TT: 11/01/24 1208 Satellite Installer: [facility] External Provider IMG XR PROCEDURES Final Result * (ABNORMAL) Drug Monitoring, Panel 1, Screen, Urine (10/31/2024 8:45 AM EDT) Opiate Screen Urine POSITIVE(A) Not Detect [facility] Comment:Opiate cut-off is 30 0 ng/mL.Positive results are unconfirmed and should not be used fornon-medical purposes. Barbiturates, Urine Not Detected Not Detect [facility] Comment:Barbiturate cut-off is 200 ng/mL.Positive results are unconfirmed and should not be used fornon-medical purposes. Phencyclidine Screen Urine Not Detected Not Detect [facility] Comment:Phencyclidine cut-of f is 25 ng/mL.Positive results are unconfirmed and should not be used fornon-medical purposes. Amphetamine Screen Urine Not Detected Not Detect [facility] Comment:Amphetamine cut-off is 1000 ng/mL.Positive results are unconfirmed and should not be used fornon-medical purposes. Benzodiazepines Screen Urine Not Detected Not Detect [facility] Comment:Benzodiazepine cut-o ff is 200 ng/mL.Positive results are unconfirmed and should not be used fornon-medical purposes. Cocaine Screen Urine POSITIVE(A) Not Detect [facility] Comment:Cocaine cut-off is 3 00 ng/mL.Positive results are unconfirmed and should not be used fornon-medical purposes. Cannabinoid Screen Urine POSITIVE(A) Not Detect [facility] Comment:Cannabinoid cut-off is 50 ng/mL.Positive results are unconfirmed and should not be used fornon-medical purposes. Methadone Screen, Urine Not Detected Not Detect ng/mL [facility] Comment:Methadone cut-off is 300 ng/mL.Positive results are unconfirmed and should not be used fornon-medical purposes. FENTANYL URINE POSITIVE(A) Not Detect [facility] Comment:Fentanyl cut-off is 1 ng/mL.Positive results are unconfirmed and should not be used fornon-medical purposes. Oxycodone Urine Screen Not Detected Not Detect ng/mL [facility] Comment:Oxycodone cut-off is 100 ng/mL.Positive results are unconfirmed and should not be used fornon-medical purposes. Buprenorphine Screen Not Detected Not Detect ng/mL [facility] Comment:Buprenorphine cut-of f is 5 ng/mL.Positive results are unconfirmed and should not be used fornon-medical purposes. 10/31/2024 8:45 AM EDT 10/31/2024 9:09 AM EDT us Generic External Data Provider LAB URINE ORDERAB LES Final Result [facility] [address] [place] [address] [phone] * MR Lumbar Spine w/o Contrast (10/23/2024 7:36 PM EDT) Anatomical Region Laterality Modality Spine, L-spine Magnetic Resonan ce 10/23/2024 7:36 PM EDT Narrative 10/23/2024 7:38 PM EDT ? [facility] ?[address] ?[place] [address] ? Magnetic Resonance Report ? Signed with Addenda ? Patient: Shewchuk,Jarett ?MR#: [id number] ?? [id number] ? : 1980 ?Acct:[id number] ? Age/Sex: 44 / M ?ADM Date: 10/23/24 ? Loc: HO.MRI ? Attending Dr: Rohini Brown MD ? Ordering Physician: Rohini Brown MD ?? Date of Service: 10/23/24 ?? Procedure(s): MR lumbar spine wo con ?? Accession Number(s): [id number] ? cc: Rohini Brown MD ?ADDENDUM ?? This document has been electronically signed by: Keanu Cadena MD on ?? 10/23/2024 19:36:28 ? ADDENDUM: ?? Receipt of this report by the clinical staff was confirmed with Elsie Borrego, ?? tech on Oct 23, 2024 19:56:00 EDT. ? This document has been electronically signed by: Roselia Suarez on ?? 10/23/2024 19:56:19 ? Addendum Dictated By: ?Keanu Cadena MD ? Addendum Signed By: ? <Electronically signed by Keanu Cadena MD in OV> ? 10/23/241956 ?? Addendum Cosigned By: ? DD/ /11/1936 ? TD/TT: 10/23/2403/11/1956 ? CLINICAL HISTORY: Severe LBP radiating to B L legs, Lt side worse, gait instability ? MR lumbar spine without intravenous contrast ? Comparison: None available ? Findings: ?? Normal heights of 5 lumbar vertebrae. Mild anterolisthesis at L2-L3 and ?? L3-L4. Abnormal marrow signal of the L2, L3, and L4 are nonspecific. Modic ?? type 1 endplate changes are favored by imaging. Trending ESR and CRP will ?? be informative for any potential infectious and/or inflammatory process. ?? No bony destructive changes of the osteomyelitis at this time. No ?? intramuscular abscess or drainable paraspinal fluid collection to help ?? confirm infection and/or discitis-osteomyelitis. ?? Conus terminates at L1. Mild splenomegaly and bibasilar atelectasis in the ?? [id number]-kluy. ?? L1-L2: Disc bulge, endplate hypertrophy, and bilateral facet arthropathy. ?? Mild right lateral recess narrowing. ?? L2-L3: Disc bulge, small extrusion, endplate hypertrophy, and bilateral ?? facet arthropathy. Bilateral facet effusions are present. Mild spinal ?? canal stenosis. Moderate right and severe left lateral recess narrowing. ?? Mild right and moderate left foraminal narrowing. ?? L3-L4: Disc bulge, endplate hypertrophy, and bilateral facet arthropathy. ?? Moderate spinal canal stenosis with bilateral lateral recess narrowing. ?? Mild right and moderate left foraminal narrowing. ?? L4-L5: Disc bulge, annular fissure, endplate hypertrophy, and bilateral ?? facet arthropathy. No central spinal canal stenosis. Moderate right and ?? mild left lateral recess narrowing. Moderate right-sided foraminal ?? narrowing. ?? L5-S1: Disc bulge, annular fissure, small extrusion, endplate hypertrophy, ?? and bilateral facet arthropathy. No spinal canal stenosis. Mild to ?? Moderate right foraminal narrowing. ? IMPRESSION: ?? 1. Multifocal degenerative disc changes with findings of spinal stenosis, ?? including lateral recess narrowing. ?? 2. Multifocal foraminal narrowing, including moderate left at L2-L3 and ?? moderate left at L3-L4. ?? 3. Multifocal facet arthropathy. ?? 4. Abnormal marrow signal is nonspecific. Modic type 1 endplate changes ?? are favored by imaging. ESR and CRP will be informative ? This document has been electronically signed by: Keanu Cadena MD on ?? 10/23/2024 19:36:28 ? Dictated By: ?Keanu Cadena MD ? Signed By: ?<Electronically signed by Keanu Cadena MD in OV> ? 10/23/241936 ? DD/ 35 ? TD/TT: 10/23/241935 ? Satellite Installer: ? Procedure Note Donotuseinterpreter, Image - 10/23/[address] [address] Magnetic Resonance Report Signed with Meme Patient: Luis Garcia JMR#: [id number] : 1980Acct:[id number] Age/Sex: 44 / MADM Date: 10/23/24 Loc: HO.MRI Attending Dr: Rohini Brown MD Ordering Physician: Rohini Brown MD Date of Service: 10/23/24 Procedure(s): MR lumbar spine wo con Accession Number(s): [id number] cc: Rohini Brown MD ADDENDUM This document has been electronically signed by: Keanu Cadena MD on 10/23/2024 19:36:28 ADDENDUM: Receipt of this report by the clinical staff was confirmed with pina Luu on Oct 23, 2024 19:56:00 EDT. This document has been electronically signed by: Roselia Suarez on 10/23/2024 19:56:19 Addendum Dictated By: Keanu Cadena MD Addendum Signed By: <Electronically signed by Keanu Cadena MDin OV> 10/23/241956 Addendum Cosigned By: DD/ /11/1936 TD/TT: 10/23/2403/11/1956 CLINICAL HISTORY: Severe LBP radiating to B L legs, Lt side worse, gaitinstability MR lumbar spine without intravenous contrast Comparison: None available Findings: Normal heights of 5 lumbar vertebrae. Mild anterolisthesis at L2-L3 and L3-L4. Abnormal marrow signal of the L2, L3, and L4 are nonspecific. Modic type 1 endplate changes are favored by imaging. Trending ESR and CRP will be informative for any potential infectious and/or inflammatory process. No bony destructive changes of the osteomyelitis at this time. No intramuscular abscess or drainable paraspinal fluid collection to help confirm infection and/or discitis-osteomyelitis. Conus terminates at L1. Mild splenomegaly and bibasilar atelectasis in the nenjy-kq-cipm. L1-L2: Disc bulge, endplate hypertrophy, and bilateral facet arthropathy. Mild right lateral recess narrowing. L2-L3: Disc bulge, small extrusion, endplate hypertrophy, and bilateral facet arthropathy. Bilateral facet effusions are present. Mild spinal canal stenosis. Moderate right and severe left lateral recess narrowing. Mild right and moderate left foraminal narrowing. L3-L4: Disc bulge, endplate hypertrophy, and bilateral facet arthropathy. Moderate spinal canal stenosis with bilateral lateral recess narrowing. Mild right and moderate left foraminal narrowing. L4-L5: Disc bulge, annular fissure, endplate hypertrophy, and bilateral facet arthropathy. No central spinal canal stenosis. Moderate right and mild left lateral recess narrowing. Moderate right-sided foraminal narrowing. L5-S1: Disc bulge, annular fissure, small extrusion, endplate hypertrophy, and bilateral facet arthropathy. No spinal canal stenosis. Mild to Moderate right foraminal narrowing. IMPRESSION: 1. Multifocal degenerative disc changes with findings of spinal stenosis, including lateral recess narrowing. 2. Multifocal foraminal narrowing, including moderate left at L2-L3 and moderate left at L3-L4. 3. Multifocal facet arthropathy. 4. Abnormal marrow signal is nonspecific. Modic type 1 endplate changes are favored by imaging. ESR and CRP will be informative This document has been electronically signed by: Keanu Cadena MD on 10/23/2024 19:36:28 Dictated By: Keanu Cadena MD Signed By: <Electronically signed by Keanu Cadena MD in OV> 10/23/241936 DD/ 35 TD/TT: 10/23/241935 Satellite Installer: us Rohini Brown MD IMG MRI PROCEDURES Edited Result - Final * FL Guidance in OR (10/04/2024 6:10 PM EDT) Anatomical Region Laterality Modality X-Ray Angiograph y 10/04/2024 6:10 PM EDT Narrative 10/05/2024 8:02 AM EDT ? [facility] ?[address] ?[place] [address] ? Fluoroscopy Report ? Signed ? Patient: Shewchuk,Jarett ?MR#: [id number] ?? [id number] ? : 1980 ?Acct:[id number] ? Age/Sex: 44 / M ?ADM Date: 10/04/24 ? Loc: HO.S3 ?347-1 ? Attending Dr: Norris Vu MD ? Ordering Physician: Norris Vu MD ?? Date of Service: 10/04/24 ?? Procedure(s): FL guidance in OR ?? Accession Number(s): [id number] ? cc: Norris Vu MD; [facility] ? EXAMINATION: ??FL GUIDANCE ONLY ? [...] DD/ 1810 ? TD/TT: 10/04/24 1824 ? Satellite Installer: ? Procedure Note Roderick, Image - 10/05/2024 [place] [address] Fluoroscopy Report Signed Patient: Luis Garcia JMR#: [id number] : 1980Acct:[id number] Age/Sex: 44 / MADM Date: 10/04/24 Loc: HO.S3 347-[address]: Norris Vu MD Ordering Physician: Norris Vu MD Date of Service: 10/04/24 Procedure(s): FL guidance in OR Accession Number(s): [id number] cc: Norris Vu MD; [facility] EXAMINATION: FL GUIDANCE ONLY HISTORY: CYSTO [...] in OV> 10/05/24 0757 DD/ 09 TD/TT: 10/04/241823 Satellite Installer: [facility] External Provider IMG IR PROCEDURES Final Result * (ABNORMAL) Urinalysis, Complete, with Reflex to Culture (10/04/2024 1:29 PM EDT) Color Urine Dark Yellow [facility] Appearance Urine Cloudy [facility] PH 6.5 5.0 - 9.0 [facility] Glucose Urine UA Negative Negative mg/dL [facility] Urine Blood Large (3+)(A) Negative [facility] Specific [place] - Urine 1.020 1.005 - 1.025 [facility] Urine Protein 30 (1+)(A) Neg-Trace mg/dL [facility] Urine Ketones 15 Negative mg/dL [facility] Nitrite Urine Negative Negative [facility] Leukocyte Esterase Urine Trace(A) Negative [facility] RBC Urine 11-20(A) 0 - 2 /HPF [facility] Urine WBC 6-10(A) 0 - 5 /HPF [facility] Urine Squamous Epithelial Cell 3-5 0 - 2 /HPF [facility] Urine Bacteria None Seen None Seen [facility] Hyaline Casts, Urine 11-20 0 - 2 /LPF [facility] 10/04/2024 1:29 PM EDT 10/04/2024 1:47 PM EDT Narrative [facility] - 10/04/2024 2:05 PM EDT [id number], Clean [employer] us Generic External Data Provider LAB URINE ORDERAB LES Final Result Performing Organization Address [facility]/State/ZIP Co de Phone Number [facility] [address] [place] [address] [phone] * CT Abdomen Pelvis w/o Contrast (10/04/2024 11:53 AM EDT) Anatomical Region Laterality Modality Body, Pelvis, Abdomen Computed T omography 10/04/2024 11:5 3 AM EDT Narrative 10/04/2024 1:15 PM EDT ? [facility] ?[address] ?[place] [address] ? CT Scan Report ? Signed ? Patient: Luis Garcia ?MR#: [id number] ?? [id number] ? : 1980 ?Acct:[id number] ? Age/Sex: 44 / M ?ADM Date: 10/04/24 ? Loc: HO.ED ? Attending Dr: ? Ordering Physician: Daylin Amin ?? Date of Service: 10/04/24 ?? Procedure(s): CT abdomen pelvis wo IV con ?? Accession Number(s): [id number] ? cc: Daylin Amin; [facility] ? Report Number: ?? [id number]: Total DLP = ??360.00 mGy-cm ?? EXAMINATION: [...] DD/ 1153 ? TD/TT: 10/04/24 1205 ? Satellite Installer: ? Procedure Note Donjennifer, Image - 10/04/[address] [place] [address] [address] Scan Report Signed Patient: Luis Garcia JMR#: [id number] : 1980Acct:[id number] Age/Sex: 44 / MADM Date: 10/04/24 Loc: HO.ED Attending Dr: Ordering Physician: Daylin Amin Date of Service: 10/04/24 Procedure(s): CT abdomen pelvis wo IV con Accession Number(s): [id number] cc: Daylin Amin; [facility] Report Number: [id number]: Total DLP = 360.00 mGy-cm EXAMINATION: CT [...] 10/04/24 1312 DD/ 1153 TD/TT: 10/04/24 1205 Satellite Installer: [facility] External Provider IM CT PROCEDURES Final Result * Lipase (10/04/2024 11:10 AM EDT) Lipase 31 8 - 78 U/L [facility] 10/04/2024 11:1 0 AM EDT 10/04/2024 11:15 AM EDT us Generic External Data Provider LAB BLOOD ORDERAB LES Final Result [facility] [address] [place] [address] [phone] * (ABNORMAL) Comprehensive Metabolic Panel (10/04/2024 11:10 AM EDT) Sodium 141 135 - 145 mmol/L [facility] Potassium 4.5 3.3 - 5.1 mmol/L [facility] Chloride 104 96 - 108 mmol/L [facility] Carbon Dioxide 26 22 - 29 mmol/L [facility] Anion Gap 16 12 - 20 [facility] Urea Nitrogen (BUN) 15 9 - 16 mg/dL [facility] Creatinine, Serum 1.06 0.5 - 1.4 mg/dL [facility] Creatinine Clr Calc Pharmacy 78.5 [facility] Comment:eGFR (calculated fro m the MDRD study equation) and eCrCl(calculated from the Cockcroft-Gault equation) are based ondifferent parameters and may not yield comparable results.If eCrCl result is absurd, please check patient'sheight/weight. Estimated Glomerular Filt Rate >60 [facility] Comment:Chronic Kidney Disea se: Estimated GFR < 60 mL/min/1.45s2Jtrbnq Kidney Disease: Estimated GFR < 15 mL/min/1.73m2 Glucose 83 60 - 115 mg/dL [facility] Calcium 10.2 8.4 - 10.2 mg/dL [facility] Bilirubin, Total 0.7 0.0 - 1.0 mg/dL [facility] Aspartate Amino Transferase 53(H) 5 - 37 U/L [facility] Alanine Aminotransferase 113(H) 0 - 40 U/L [facility] Total Protein 8.8(H) 6.5 - 8.0 g/dL [facility] Albumin Level 4.5 3.5 - 5.0 g/dL [facility] Alkaline Phosphatase 98 39 - 117 U/L [facility] 10/04/2024 11:1 0 AM EDT 10/04/2024 11:15 AM EDT us Generic External Data Provider LAB BLOOD ORDERAB LES Final Result Performing Organization Address [facility] Co de Phone Number [facility] [address] [place] [phone] * (ABNORMAL) Lipid Panel with Reflex to Direct LDL (10/06/2023 10:48 AM EDT) Triglycerides 163(H) <150 mg/dL [facility] Comment:Desirable Triglyceri de: less than 150 mg/dLBorderline High Triglyceride 150-199 mg/dLHigh Triglyceride: 200-499 mg/dLVery High Triglyceride: greater than or equal to 5OO mg/dL Cholesterol 171 <200 mg/dL [facility] Comment:Desirable Cholestero l: less than 200 mg/dLBorderline High Cholesterol: 200-239 mg/dLHigh Cholesterol: greater than 239 mg/dL LDL Cholesterol Calculated 93 <100 mg/dL [facility] Comment:Desirable LDL: less than 100 mg/dLNear Optimal/Above Optimal LDL: 110- 129 mg/dLBorderline High LDL: 130-159 mg/dLHigh LDL: 160-189 mg/dLVery High LDL: greater than or equal to 190 mg/dL HDL Cholesterol 46 >40 mg/dL [facility] Comment:Desirable HDL: great er than 40 mg/dL Note: This HDL assay may give artificially low results in patients with liver disease. Blood 10/06/2023 10:4 8 AM EDT 10/06/2023 11:46 AM EDT us Rohini Brown MD LAB BLOOD ORDERABLES Final Resul t Performing Organization Address City/[facility]/ZIP Co de Phone Number [facility] [address] [place] [phone] [phone] * HIV-1/2 Antigen and Antibodies, Fourth Generation, with Reflexes (10/06/2023 10:48 AM EDT) HIV AB/AG Nonreactive Nonreactive [facility] Comment:HIV-1 p24 Ag and/or HIV-1/HIV-2 Ab not detected.A test result that is nonreactive does not exclude thepossibility of exposure to or infection with HIV-1 and/orHIV-2. Nonreactive results in this assay for individualswith prior exposure to HIV-1 and/or HIV-2 may be due toantigen and antibody levels that are below the limit ofdetection of this assay.[employer] [facility] HIV Ag/Ab Combo assay result andsupplemental assay results should be interpreted inconjunction with the patient's clinical presentation,history and other laboratory results. If the results areinconsistent with clinical evidence, additional testing issuggested to confirm the result. Blood Venous blood specimen / Unknown 10/06/2023 10:48 AM EDT 10/06/2023 11:46 AM EDT us Rohini Brown MD LAB BLOOD ORDERABLES Final Resul t [facility] [address] [place] [phone] from Last 3 Months or Most Recently Relevant to Health Maintenance Insurance [facility] C3 [facility] FULL Care Teams Database Security Expert Relationship Specialty Start Date End Date Rohini Brown MD [address] [place] [phone] PCP - General Family Medicine 11/02/23
--- OUTSIDE RECORDS SUMMARY | 2024-11-04 01:17 | XMS_ITS | Encounter Summary ---
Author Organization [employer] Address [address] [facility] [address] [place] [address] Care Team Providers Care Butcher Meat Name Role Phone Rohini Brown MD Primary Care Provider [phone] Reason for Visit * Reason Onset Date Comments Call Back Request 11/02/2023 Encounter Details Date Type Department Care Team (Late st Contact Info) Description 11/02/2023 Telephone [facility] [address] [place], [place] [phone] Rohini Brown MD [address] [place], [place] [phone] Call Back Request Social History Tobacco Use [...] Description 12/12/2024 11:00 AM EDT Office Visit [facility] [address] [place] [address] Rohini Brown MD [address] [place] [phone] documented as of this encounter Visit Diagnoses Not on filedocumented in this encounter Additional Health Concerns Assessment Noted Time PHQ-9 Depression Total Score: 0 10/06/19 24 9:42 AM EDT documented as of this encounter Care Teams Butcher Meat Relationship Specialty Start Date End Date Rohini Brown MD [address] [place] [phone] PCP - General Family Medicine 11/02/23 documented as of this encounter
[2024-11-04 01:25] LABS: Appearance Urine Clear; Color Urine Yellow; Glucose Urine UA Negative (Negative); Leukocyte Esterase Urine Negative (Negative); Nitrite Urine Negative (Negative); PH 5.5 (5.0-9.0); Specific Gravity - Urine 1.015 (1.005-1.025); UMIC TRIGGER UACC YES; Urine Blood Negative (Negative); Urine Ketones Trace mg/dL (Negative); Urine Protein 30 (1+) mg/dL (Neg-Trace)
[2024-11-04 01:36] LABS: Bacteria Urine None Seen (None Seen); Hyaline Casts Urine >20 /LPF (0-2); WBC Urine 0-5 /HPF (0-5)
[2024-11-04 01:41] LABS: Amphetamine Screen Urine Not Detected (Not Detect); Barbiturates, Urine Not Detected (Not Detect); Benzodiazepines Screen Urine Not Detected (Not Detect); Buprenorphine Scr Not Detected (Not Detect); Cannabinoid Screen Urine POSITIVE (Not Detect); Cocaine Screen Urine POSITIVE (Not Detect); Fentanyl, urine POSITIVE (Not Detect); Methadone Screen, Urine Positive (Not Detect); Opiate Screen Urine Not Detected (Not Detect); Oxycodone Screen Urine Not Detected (Not Detect); Phencyclidine Screen Urine Not Detected (Not Detect)
[2024-11-04 02:00] LABS: Influenza A PCR NEGATIVE (Negative); Influenza B PCR NEGATIVE (Negative); Resp Syncy Virus RNA Qual PCR NEGATIVE (Negative); SARS COV2 PCR INHOUSE NEGATIVE (Negative)
[2024-11-04 02:01] LABS: Lactic Acid 0.7 mmol/L (0.5-2.0)
[2024-11-04 04:30] VITALS: BP 101/56; PULSE 86; RESP 14; TEMP 37.6; O2SAT 95
[2024-11-04] MEDS: Naloxone HCl Nasal TAKE HOME 4 MG SPRAY 8 MG NOSTRILALT (06:40)
[2024-11-04 06:52] VITALS: BP 100/66; PULSE 88; RESP 16; TEMP 36.6; O2SAT 95
[2024-11-04 06:53] VITALS: BP 100/66; PULSE 77; RESP 18; TEMP 36.6; O2SAT 95
--- NOTE | 2024-11-04 06:58 | PC.NURSE ---
PT no longer wanting to speak with addiction medicine. VSS, gait steady.
== END 2024-11-04 06:58 | disposition home or self-care (01) ==
PROVIDERS: Physician Assistant; Emergency Provider Internal Medicine
DX: T65.91XA Toxic effect of unspecified substance, accidental (unintentional), initial encounter (principal); R06.89 Other abnormalities of breathing; Y92.9 Unspecified place or not applicable; R07.9 Chest pain, unspecified; Z03.818 Encounter for observation for suspected exposure to other biological agents ruled out
CPT/HCPCS: 0241U; 36415; 71045; 80053; 80307; 81001; 83605; 83690; 85025; 87040; 93005; 99284; 99285

== ENCOUNTER → 2024-11-03 22:52 | Outpatient (BNV) | payer MEDICAID, SELFPAY | PROVIDERS: Emergency Provider Internal Medicine; Visit Provider Internal Medicine Cardiovascular Disease | DX: R00.0 Tachycardia, unspecified (principal) | CPT/HCPCS: 93010 ==

== ENCOUNTER → 2024-11-03 23:11 | Outpatient (BNV) | payer MEDICAID, SELFPAY | PROVIDERS: Emergency Provider Internal Medicine; Visit Provider Radiology Neuroradiology | DX: R07.9 Chest pain, unspecified (principal) | CPT/HCPCS: 71045 ==

== ENCOUNTER 2024-12-15 05:21 | Inpatient (IN) | payer MEDICAID, SELFPAY ==
[2024-12-15] VITALS (12 sets, daily range): BP systolic 100–124; BP diastolic 53–76; PULSE 54–92; RESP 17–24; TEMP 36.4–38.7; O2SAT 90–100; BMI 22.1; BMI 22.5
--- NOTE | 2024-12-15 | ECG_ITS ---
Test Reason : CHEST PAIN Blood Pressure : */* mmHG Vent. Rate : 92 BPM Atrial Rate : 92 BPM P-R Int : 122 ms QRS Dur : 86 ms QT Int : 360 ms P-R-T Axes : 90 85 79 degrees QTcB Int : 445 ms Sinus rhythm with Premature supraventricular complexes Otherwise normal ECG When compared with ECG of 03-Nov-2024 23:09, Premature supraventricular complexes are now Present Referred By: Micha Hernandez Electronically Signed By: RENÉE CEDENO MD
--- NOTE | ~2024-12-15 | CT_ITS ---
CLINICAL HISTORY: hemoptysis CTA chest with 3-D postprocessing Comparison: CR - XR CHEST 1V - 12/15/24 06:17 EDT CR - XR CHEST 1V - 11/04/24 00:07 EDT Findings: Study quality is adequate for the diagnosis of pulmonary embolism. No pulmonary embolism. Heart size within normal limits. RV/LV ratio is normal. No calcified coronary artery disease. No aortic dissection or aneurysm. No calcified atherosclerotic disease. Left hilar lymphadenopathy measuring 1.0 cm in short axis. Thick-walled cavity in the left upper lobe measuring 3.8 x 3.5 x 3.8 cm. Consolidation and ground-glass opacity in the left upper lobe with mild bulging of the fissure. Paraseptal emphysema measures up to 2.0 cm. Mild centrilobular emphysema. Mild bronchial wall thickening. There are secretions in the airways, most prominent in the left upper lobe. There is focal ground-glass/patchy consolidation in the right middle lobe. Nodule in the right upper lobe measuring 4 mm. No pneumothorax or pleural effusion. No acute osseous or soft tissue abnormality. No acute pathology in the imaged portion of the upper abdomen. Impression: No pulmonary embolism. Thick-walled cavity in the left upper lobe measuring 3.8 cm could be a cavitating pneumonia. A cavitating malignancy may also be considered. Short interval follow up is recommended. Left upper lobe ground-glass opacity and consolidation likely indicates pneumonia. Developing pneumonia in the right middle lobe. This document has been electronically signed by: Irene Arteaga MD on 12/16/2024 17:00:42
--- NOTE | ~2024-12-15 | XR_ITS ---
CLINICAL HISTORY: vomting 1 view chest x-ray Comparison: 11/04/2024 Findings: Portions of the exam are obscured by overlying material. There is consolidation within the left lung, possible pneumonia, atelectasis, or pulmonary edema Heart size is normal. No acute fracture. IMPRESSION: 1. Left pulmonary consolidation, differential considerations noted. This document has been electronically signed by: Wolfgang Malik MD on 12/15/2024 08:13:50
--- NOTE | 2024-12-15 05:34 | ED.GENADULT ---
HPI - General Adult General Chief complaint: General Medical Stated complaint: vomiting blood, SOB on 4 lpm Time Seen by Provider: 12/15/24 05:34 History of Present Illness ED Provider: Mary BROCK narrative: the patient is a 44-year-old male with a history of substance use disorder. Apparently an ambulance was called when a bystander saw him vomiting in an alley. It was unclear but he might has been vomiting blood. Apparently the patient reported feeling short of breath and coughing for the last 3 days. Paramedics found the patient awake but very tired and brought him to the hospital. Here the patient admits to using crack and heroin recently. He says that he used to be an alcoholic but does not drink alcohol anymore. He reports no history of respiratory disease. He has some pain in the region of his right hip. He denies abdominal pain. He does not know if he fell. Related Data Home Medications ?Medication ?Instructions ?Recorded ?Confirmed gabapentin 300 mg capsule 300 mg PO TID 10/04/24 10/31/24 gabapentin 600 mg tablet 600 mg PO TID 12/15/24 Previous Rx's ?Medication ?Instructions ?Recorded phenazopyridine 100 mg tablet 100 mg PO TID PRN Spasm 4 days #12 10/05/24 (Pyridium) tabs tamsulosin 0.4 mg capsule 0.4 mg PO BEDTIME 30 days #30 caps 10/05/24 Allergies Allergy/AdvReac Type Severity Reaction Status Date / Time coffee (Coffea arabica) Allergy Severe ANAPHYLAXIS Verified 12/15/24 05:39 [COFFEE] Penicillins [PENICILLINS] Allergy Intermediate RASH Verified 12/15/24 05:39 penicillin V Allergy Unknown Rash Verified 12/15/24 05:39 COFFEE FLAVOR Allergy Unknown Anaphylaxis Uncoded 11/03/24 22:58 Review of Systems Review of Systems: Yes all other systems are reviewed and are negative [facility] Past Medical History Medical History (Updated 12/15/24 @ 07:55 by Micha Hernandez MD) Kidney stones Surgical History H/O hand surgery Social History Social History Household Members: Family Housing: House Are you a primary animal care specialist to a significant other at home: No Do you presently have visiting nurse or other home services: No Alcohol intake: current Alcohol intake frequency: does not drink Alcohol type: hard liquor Patient Tobacco Use Status: Current everyday Tobacco user Tobacco use type: Cigarette Cigarettes Per Day: 10 Years Smoked: 30 Smoked in Last 30 Days: Yes Use of substances other than those prescribed or required for medical reasons: Yes Substance Use Type: Crack/Cocaine, Heroin and Marijuana Advance Directives: No Advance Directives Information Provided: Yes Do you have a plan to hurt others: No Plan Physical Exam ED Vital Signs: Vital Signs - 24 hr 12/15/24 05:30 12/15/24 05:50 12/15/24 07:14 Temperature 98.2 F 101.7 F H Pulse Rate 92 88 Respiratory Rate 24 H 17 Blood Pressure 109/68 107/64 Pulse Oximetry 94 Oxygen Delivery Method Nasal Cannula Oxygen Flow Rate 12/15/24 07:29 12/15/24 07:56 Temperature Pulse Rate 84 80 Respiratory Rate 18 18 Blood Pressure 101/59 L 105/59 L Pulse Oximetry 96 Oxygen Delivery Method Nasal Cannula Oxygen Flow Rate 3 BMI result Body Mass Index 22.1 Const Other: The patient is a thin 44-year-old who looks somewhat older than his age. He seemed very tired and looked mildly short of breath. HENMT Other: Face is symmetrical. Mucous membranes moist. Neck Other: Neck is supple. I thought there might be some question of possible JVD. Chest Other: Chest wall is nontender Resp Other: mild increased work of breathing. Coarse air entry on the left side. Cardio Rate: regular rate Rhythm: regular rhythm Heart sounds: S1 normal heart sound present, S2 normal heart sound present and Murmur heart sound present ( No definite murmur) GI Other: abdomen is soft and nontender on digital rectal exam the patient had normal rectal tone. No melena. Skin Other: skin is dry and unremarkable Neuro Other: the patient was drowsy but arousable. He seemed able to follow up commands. He did not seem confused. He spoke very little but what speech he spoke seemed clear and appropriate. No obvious cranial nerve deficits. He moves his extremities symmetrically. No obvious focal neurological deficit. Extrem Other: No peripheral edema Medications Administered Discontinued Medications Generic Name Dose Route Start Last Admin Trade Name Freq PRN Reason Stop Dose Admin Ceftriaxone Sodium 1 gm 12/15/24 05:52 12/15/24 06:08 Ceftriaxone Sodium 1 Gm Vial IVPUSH 12/15/24 05:53 1 gm ONCE ONE Administration Metronidazole 500 mg in 100 mls @ 100 mls/hr 12/15/24 05:52 12/15/24 07:23 Flagyl IV 12/15/24 06:51 Infused ONCE ONE Infusion Vancomycin HCl 1,500 mg/ 500 mls @ 333.333 mls/hr 12/15/24 05:52 12/15/24 07:28 Sodium Chloride IV 12/15/24 07:21 333.33 mls/hr ONCE ONE Administration Sodium Chloride 1,000 mls @ 999 mls/hr 12/15/24 06:00 12/15/24 07:50 Ns IV 12/15/24 07:00 Infused .Q1H1M VASQUEZ Infusion Sodium Chloride 1,000 mls @ 999 mls/hr 12/15/24 07:30 12/15/24 07:56 Ns IV 12/15/24 08:30 999 mls/hr .Q1H1M VASQUEZ Administration Pantoprazole Sodium 80 mg 12/15/24 05:43 12/15/24 06:23 Pantoprazole Sodium 40 Mg/10 Ml Vial IVPUSH 12/15/24 05:44 80 mg ONCE ONE Administration Medical Decision Making Medical Decision Making MDM Narrative: the patient is a 44-year-old male with a history of substance use disorder who was brought to the hospital by ambulance after a bystander saw him vomiting in an alley and thought he looks quite ill. There was a question of possible hematemesis. Here in the emergency room the patient had a rectal temperature of 101.7 degrees. he had an oxygen requirement. A chest x-ray shows an extensive left upper lobe pneumonia. Blood cultures were obtained. He has a normal lactate[place] [address]. He was given ceftriaxone, metronidazole, and vancomycin for coverage of what may be an aspiration pneumonia. He was given IV fluids. His lactate was normal and his blood pressures were stable. He continued to require oxygen. He will be admitted to the hospitalist service. Lab Data 12/15/24 05:56 12/15/24 05:56 Labs: Lab Results 12/15/24 12/15/24 12/15/24 Range/Units 05:56 06:03 06:42 WBC 18.6 H (4.8-10.8) X10*3/uL RBC 3.52 L (4.60-5.80) X10*6/uL Hgb 10.6 L (14.0-18.0) g/dl Hct 31.5 L (42.0-52.0) % MCV 89.5 (80.0-98.0) fL MCH 30.1 (27.0-33.0) pg MCHC 33.7 (31.0-36.0) g/dl RDW 13.2 (11.0-16.0) % Plt Count 363 (160-400) X10*3/uL MPV 9.0 L (9.4-12.4) fL Immature Gran % (Auto) 0.9 H (0.0-0.4) % Neut % (Auto) 83.9 H (45-73) % Lymph % (Auto) 5.5 L (20-40) % [place] % (Auto) 9.1 (2-11) % Eos % (Auto) 0.3 (0-4) % Baso % (Auto) 0.3 (0-2) % Lymph # (Auto) 1.0 L (1.2-4.9) X10*3/uL [place] # (Auto) 1.7 H (0.1-1.2) X10*3/uL Eos # (Auto) 0.1 (0.0-0.4) X10*3/uL Baso # (Auto) 0.1 (0.0-0.2) X10*3/uL Abs Immat Gran (auto) 0.17 H (0.00-0.03) X10*3/uL Absolute Neuts (auto) 15.6 H (2.0-8.3) x10*3/uL Absolute Nucleated RBC 0.000 (0.0-0.012) X10*3/uL Nucleated RBC % (auto) 0.0 (0.0-0.2) /100WBC Smear Tech's Comments VERIFIED PT 12.1 (10.9-12.4) SEC INR 1.1 (0.9-1.1) VBG pH 7.46 H (7.32-7.43) VBG pCO2 45 mmHg VBG pO2 78 mmHg VBG HCO3 32 H (22-26) mmol/L VBG O2 Saturation 95.0 % VBG Base Excess 7.4 mmol/L Sodium 137 (135-145) mmol/L Potassium 3.3 (3.3-5.1) mmol/L Chloride 101 (96-108) mmol/L Carbon Dioxide 27 (22-29) mmol/L Anion Gap 12 (12-20) BUN 11 (9-16) mg/dL Creatinine 0.68 (0.5-1.4) mg/dL Estim Creat Clear Calc 119.2 Estimated GFR > 60 Random Glucose 140 H (60-115) mg/dL Lactic Acid 0.8 (0.5-2.0) mmol/L Calcium 8.5 D (8.4-10.2) mg/dL Magnesium 1.8 (1.6-2.6) mg/dL Total Bilirubin 0.3 (0.0-1.0) mg/dL Direct Bilirubin 0.2 (0.0-0.5) mg/dL AST 34 (5-37) U/L ALT 24 (0-40) U/L Alkaline Phosphatase 74 (39-117) U/L Total Creatine Kinase 341 H (38-174) U/L Troponin I High Sens 6.2 (<3.5-35.0) ng/L C-Reactive Protein 10.27 H (< or = 0.50) mg/dL B-Natriuretic Peptide 97 (<100) pg/mL Total Protein 6.7 (6.5-8.0) g/dL Albumin 3.4 L (3.5-5.0) g/dL Lipase 29 (8-78) U/L Stool Occult Blood NEGATIVE (NEGATIVE) Ethyl Alcohol < 10 mg/dL Critical Care Time Critical Care Time Critical Care Time: Yes Total Critical Care Time: 35 Attestation: The patient was critically ill with a high probability of imminent or life-threatening deterioration. I spent greater than 30 minutes of discontinuous time evaluating the patient, delivering critical care at the bedside, discussing evaluating data with consultants. Critical care time does not include time spent performing separately billable procedures or teaching. Time spent performing critical care with 35 minutes. Discharge Plan Discharge Clinical Impression: Left upper lobe pneumonia Patient Disposition: Admitted As Inpatient
[2024-12-15 06:05] LABS: Venous Blood Gas Refer to POC result
[2024-12-15] MEDS: cefTRIAXone sodium 1 GM VIAL IVPUSH (06:08)
[2024-12-15 06:09] LABS: Basophils Absolute Auto 0.1 X10*3/uL (0.0-0.2); Basophils Percent Auto 0.3 % (0-2); Eosinophils Absolute Auto 0.1 X10*3/uL (0.0-0.4); Eosinophils Percent Auto 0.3 % (0-4); Hematocrit 31.5 % (42.0-52.0); Hemoglobin 10.6 g/dl (14.0-18.0); Imm Gran Abs Auto 0.17 X10*3/uL (0.00-0.03); Imm Gran Pct Auto 0.9 % (0.0-0.4); Lymphocytes Percent Auto 5.5 % (20-40); MANUAL DIFF FLAG SCAN; Mean Corpuscular HGB Conc 33.7 g/dl (31.0-36.0); Mean Corpuscular Hemoglobin 30.1 pg (27.0-33.0); Mean Corpuscular Volume 89.5 fL (80.0-98.0); Monocytes Absolute Auto 1.7 X10*3/uL (0.1-1.2); Monocytes Percent Auto 9.1 % (2-11); Neutrophils Absolute Auto 15.6 x10*3/uL (2.0-8.3); Neutrophils Percent Auto 83.9 % (45-73); Platelet Count 363 X10*3/uL (160-400); Red Blood Count 3.52 X10*6/uL (4.60-5.80); Red Cell Distribution Width 13.2 % (11.0-16.0); SCAN SMEAR FLAG 1; White Blood Count 18.6 X10*3/uL (4.8-10.8)
[2024-12-15 06:09] LABS: VBG Base Excess 7.4 mmol/L; VBG HCO3 32 mmol/L (22-26); VBG pCO2 45 mmHg; VBG pH 7.46 (7.32-7.43); VBG pO2 78 mmHg
[2024-12-15] MEDS: 0.9 % Sodium Chloride 1,000 ML 999 ML IV ×2 (06:10→07:56)
[2024-12-15 06:23] LABS: Lactic Acid 0.8 mmol/L (0.5-2.0)
[2024-12-15] MEDS: Pantoprazole Sodium 40 MG/10 ML VIAL 80 MG IVPUSH (06:23)
[2024-12-15] MEDS: metroNIDAZOLE/NS 500 MG/100 ML PIGGYBACK 100 MG IV ×3 (06:23→21:31)
[2024-12-15 06:27] LABS: SLIDE REVIEW VERIFIED
[2024-12-15 06:28] LABS: Alanine Aminotransferase 24 U/L (0-40); Albumin Level 3.4 g/dL (3.5-5.0); Alkaline Phosphatase 74 U/L (39-117); Anion Gap 12 (12-20); Aspartate Amino Transferase 34 U/L (5-37); Bilirubin Direct 0.2 mg/dL (0.0-0.5); Bilirubin Total 0.3 mg/dL (0.0-1.0); Blood Urea Nitrogen 11 mg/dL (9-16); C Reactive Protein 10.27 mg/dL (< or = 0.50); Calcium 8.5 mg/dL (8.4-10.2); Carbon Dioxide 27 mmol/L (22-29); Chloride 101 mmol/L (96-108); Creatinine Clr Calc Pharmacy 119.2; Estimated Glomerular Filt Rate > 60; Ethanol < 10 mg/dL; Glucose Random 140 mg/dL (60-115); Lipase 29 U/L (8-78); Magnesium 1.8 mg/dL (1.6-2.6); Potassium 3.3 mmol/L (3.3-5.1); Sodium 137 mmol/L (135-145); Total Protein 6.7 g/dL (6.5-8.0)
[2024-12-15 06:29] LABS: INTERNATIONAL NORM RATIO 1.1 (0.9-1.1); Prothrombin Time 12.1 SEC (10.9-12.4); Troponin-I High Sensitivity 6.2 ng/L (<3.5-35.0)
[2024-12-15 06:45] LABS: OBS Int Ctl Valid YES; OBS1 NEGATIVE (NEGATIVE)
--- NOTE | 2024-12-15 06:49 | PC.NURSE ---
this rn assumed care of pt from ems. 20g iv placed in R ac. blood work obtained pt medicated according to [facility] security performed bedside safety check as pt admitted drug use prior to arrival
[2024-12-15] MEDS: vancomycin HCL 1,500 MG in 0.9 % Sodium Chloride 500 ML 333.33 MG IV (07:28)
--- OUTSIDE RECORDS SUMMARY | 2024-12-15 07:40 | XMS_ITS | Encounter Summary ---
Author Organization [employer] Address [address] [facility] [address] [place] [address] Care Team Providers Care Health Plan Advisor Name Role Phone Rohini Brown MD Primary Care Provider [phone] Reason for Visit * Reason Onset Date Comments chart prep 12/11/2024 Encounter Details Date Type Department Care Team ([facility] st Contact Info) Description 12/11/2024 Telephone [facility] [address] [place], [place] [phone] Rohini Brown MD [address] [place], [place] [phone] chart prep Social History Tobacco Use Types Packs/Day Years [...] encounter Miscellaneous Notes * Telephone Encounter - Karla Fulton [place] - 12/11/2024 3:41 PM EDT Chart Prep Labs: not done Images: done Referrals: complete Vaccines due: Covid, Flu, PCV20, Tdap, and Hep A Screenings: colonoscopy Overdue care gaps: Disability screen documented in this encounter Plan of Treatment Not on file documented as of this encounter Visit Diagnoses Not on filedocumented in this encounter Additional Health Concerns Assessment Noted Time PHQ-9 Depression Total Score: 7 10/25/19 25 11:36 AM EDT documented as of this encounter Care Teams Health Plan Advisor Relationship Specialty Start Date End Date Rohini Brown MD [address] [place] [address] PCP - General Family Medicine 11/02/23 documented as of this encounter
[2024-12-15 07:47] LABS: B Type Natriuretic Peptide 97 pg/mL (<100)
--- NOTE | 2024-12-15 08:26 | PM.IMHP ---
History of Present Illness Date of Service: 12/15/24 Attending physician on admission: Za Marcelo Chief Complaint: SOB Pt is a 44-year-old male with a PMH significant for nephrolithiasis,?polysubstance use disorder, currently homeless who presents to the ED after bystanders found pt in an alleyway vomiting. EMS was called and report there was a question of whether there was blood in either vomit or sputum. Was as noted to be desatting into the 80s on RA and placed on 2L NC. During interview and exam pt is somnolent but arousable, though minimally interactive. Overall is a poor historian and not particularly cooperative. Pt apparently had complained of SOB and difficulty breathing to EMS, but curently only complains of needing to urinate. Pt has been using cocaine and heroin recently, though is unsure when last use was. Injects ?any where, everywhere . Pt was noted to have hemoptysis without clots while in the room. Pt does not remember vomiting or coughing up blood before. ED physician report pt stated that he no longer drinks alcohol. In the ED pt was febrile up to 101.7 and tachypneic up to 24, stable BP. Pt requiring 3 L NC to sat at 94%. Labs were significant for leukocytosis 18.6, H&H 10.6/31.5, CPK 341, and CRP 10.27. No significant electrolyte abnormalities. Renal function baseline. Hepatic function WNL. Troponin and BNP WNL. Lactic acid WNL at 0.8. Stool negative for occult blood. VBG with pH 7.46, pCO2 45, and bicarb 32. CXR showed left pulmonary consolidation suspicious for pneumonia. EKG demonstrated sinus rhythm with premature supraventricular complexes without ischemia. Pt was treated in the ED with pantoprazole, IVF, ceftriaxone, vancomycin, and metronidazole. Pt is admitted to the hospital for treatment and further evaluation of acute hypoxic respiratory failure in the setting of pneumonia with sepsis. Review of Systems Review of Systems: Negative except for that which is stated in the HPI, though HPI limited due to patient's mentation and current likely intoxication. [facility] Medical History (Updated 12/15/24 @ 09:26 by MARBIN Harp) IVDU (intravenous drug user) Polysubstance use disorder Kidney stones Surgical History H/O hand surgery Social History Household Members: Family Housing: House Are you a primary medical care administrator to a significant other at home: No Do you presently have visiting nurse or other home services: No Alcohol intake: current Alcohol intake frequency: does not drink Alcohol type: hard liquor Patient Tobacco Use Status: Current everyday Tobacco user Tobacco use type: Cigarette Cigarettes Per Day: 10 Years Smoked: 30 Smoked in Last 30 Days: Yes Use of substances other than those prescribed or required for medical reasons: Yes Substance Use Type: Crack/Cocaine, Heroin and Marijuana Advance Directives: No Advance Directives Information Provided: Yes Do you have a plan to hurt others: No Plan Meds Allergies Allergy/AdvReac Type Severity Reaction Status Date / Time coffee (Coffea arabica) Allergy Severe ANAPHYLAXIS Verified 12/15/24 05:39 [COFFEE] Penicillins [PENICILLINS] Allergy Intermediate RASH Verified 12/15/24 05:39 penicillin V Allergy Unknown Rash Verified 12/15/24 05:39 COFFEE FLAVOR Allergy Unknown Anaphylaxis Uncoded 11/03/24 22:58 Active Medications: Current Medications Sodium Chloride (Ns) 1,000 mls @ 999 mls/hr IV .Q1H1M VASQUEZ Stop: 12/15/24 08:30 Last Admin: 12/15/24 07:56 Dose: 999 mls/hr Home Medications ?Medication ?Instructions ?Recorded ?Confirmed ?Last Taken ?Type gabapentin 600 mg tablet 600 mg PO TID 12/15/24 12/15/24 Unknown History Physical Exam Vital Signs and Narrative: Vital Signs: Last Vital Signs Temp 101.7 F H 12/15/24 05:50 Pulse 80 12/15/24 07:56 Resp 18 12/15/24 07:56 BP 105/59 L 12/15/24 07:56 Pulse Ox 96 12/15/24 07:56 O2 Del Method Nasal Cannula 12/15/24 07:56 O2 Flow Rate 3 12/15/24 07:56 Oxygen Flow Rate 3 12/15/24 05:30 BMI result Body Mass Index 22.1 General: Somnolent but arousable, minimally interactive. Appears acutely intoxicated. Unkempt. In no acute distress Resp: Coarse breath sounds. Cough with hemoptysis. CVS: S1, S2, RRR GI: +BS, NT, no distention Skin: Warm, dry. No obvious signs of cellulitis. Neuro: Cranial nerves II-XII grossly intact bilaterally. Motor grossly intact bilaterally Extremities: No edema Psych: Restless, somnolent, minimally cooperative. Results Labs 12/15/24 05:56 12/15/24 05:56 Labs: Laboratory Results - last 24 hr 12/15/24 12/15/24 12/15/24 05:56 06:03 06:42 MCV 89.5 MCH 30.1 MCHC 33.7 RDW 13.2 Plt Count 363 MPV 9.0 L Immature Gran % (Auto) 0.9 H Neut % (Auto) 83.9 H Lymph % (Auto) 5.5 L [place] % (Auto) 9.1 Eos % (Auto) 0.3 Baso % (Auto) 0.3 Lymph # (Auto) 1.0 L [place] # (Auto) 1.7 H Eos # (Auto) 0.1 Baso # (Auto) 0.1 Abs Immat Gran (auto) 0.17 H Absolute Neuts (auto) 15.6 H Absolute Nucleated RBC 0.000 Nucleated RBC % (auto) 0.0 Smear Tech's Comments VERIFIED PT 12.1 INR 1.1 VBG pH 7.46 H VBG pCO2 45 VBG pO2 78 VBG HCO3 32 H VBG O2 Saturation 95.0 VBG Base Excess 7.4 Anion Gap 12 Estim Creat Clear Calc 119.2 Estimated GFR > 60 Random Glucose 140 H Lactic Acid 0.8 Calcium 8.5 D Magnesium 1.8 Total Bilirubin 0.3 Direct Bilirubin 0.2 AST 34 ALT 24 Alkaline Phosphatase 74 Total Creatine Kinase 341 H Troponin I High Sens 6.2 C-Reactive Protein 10.27 H B-Natriuretic Peptide 97 Total Protein 6.7 Albumin 3.4 L Lipase 29 Stool Occult Blood NEGATIVE Ethyl Alcohol < 10 Assessment and Plan (1) Left upper lobe pneumonia: Status: Acute (2) Acute hypoxic respiratory failure: Status: Acute Plan Pt is a 44-year-old male with a PMH significant for nephrolithiasis,?polysubstance use disorder, currently homeless who presents to the ED after bystanders found pt in an alleyway vomiting. Pt is admitted to the hospital for treatment and further evaluation of acute hypoxic respiratory failure in the setting of pneumonia with sepsis. Acute hypoxic respiratory failure in the setting of community-acquired pneumonia with sepsis Pt desatting into the 80s on RA, CXR showing left lobe pneumonia Pt noted to have multiple episodes of vomiting in an alleyway by a bystander, ?aspiration Meets sepsis criteria without severe features with fever, tachycardia, tachypnea, and leukocytosis; BP stable, lactic acid WNL Pt given IVF and started on broad-spectrum antibiotics in the ED Will treat with vanc, ceftriaxone, and metronidazole due to concern for aspiration and hx of IVDU, started 12/15/2024 Titrate supplemental O2 >92, wean as tolerated Follow blood cultures Hemoptysis Pt noted to have hemoptysis during interview and exam Unclear for how long, unclear if any hematemesis Will treat with Protonix IV b.i.d. H&H currently 10.6/31.5, decreased from 12.9/38.8 on 11/03 Trend H&H Polysubstance use disorder Pt with recent crack and IV heroin use Currently not on methadone or Suboxone Addiction medicine consult Full Code Attending:?Dr. Marcelo DVT Prophylaxis: Pneumatic compression due to hemoptysis Pt will require a hospitalization of at least two nights for treatment of?acute hypoxic respiratory failure in the setting of community-acquired pneumonia with sepsis. Pt require hospital level care for administration of IV antibiotics, supplemental oxygen, and close monitoring respiratory status. Quality Stroke Does the patient have a stroke diagnosis?: No VTE Prior VTE?: No VTE Risk Level:: Medical - moderate - high VTE Device Contraindication: N/A - Device Ordered VTE Drug Contraindication: Treatment Not Indicated
[2024-12-15 09:19] LABS: Appearance Urine Clear; Color Urine Yellow; Glucose Urine UA Negative (Negative); Leukocyte Esterase Urine Negative (Negative); Nitrite Urine Negative (Negative); Urine Blood Negative (Negative); Urine Ketones Negative (Negative); Urine Protein Negative (Neg-Trace)
[2024-12-15 09:45] LABS: Amphetamine Screen Urine Not Detected (Not Detect); Barbiturates, Urine Not Detected (Not Detect); Benzodiazepines Screen Urine Not Detected (Not Detect); Buprenorphine Scr Not Detected (Not Detect); Cannabinoid Screen Urine POSITIVE (Not Detect); Cocaine Screen Urine POSITIVE (Not Detect); Fentanyl, urine POSITIVE (Not Detect); Methadone Screen, Urine Not Detected (Not Detect); Opiate Screen Urine Not Detected (Not Detect); Oxycodone Screen Urine Not Detected (Not Detect); Phencyclidine Screen Urine Not Detected (Not Detect)
--- NOTE | 2024-12-15 11:53 | PHA.PROG ---
Admission Date/Time: December 15, 2024 08:37 Indication: Respiratory Weight in k.1 kg Adjusted body weight in Kg: [place] body weight in Kg: Obesity Dosing Indication % IBW: Serum Creatinine - Last 168 Hours 12/15/24 05:56 Creatinine 0.68 Estimated CrCl and GFR - Last 168 Hours 12/15/24 05:56 Estim Creat Clear Calc 119.2 Estimated GFR > 60 Vancomycin Loading Dose: 1500mg x 1 Current Vancomycin Dosing Regimen: 1000 Q12H Vancomycin Monitoring using AUC goal of 400 - 600 range with trough as surrogate marker: 446 mg/L Date and Time for next Vancomycin Level to be drawn: 12/16 @1800 Pharmacist Comments on Vancomycin Plan: predicted trough of 12.6 mg/L Vancomycin dosing will take advantage of [employer] as a clinical decision support tool that uses Bayesian modeling to calculate individual patient's pharmacokinetic parameters and forecast the patient's drug concentration time course with the target goal AUC 24 range of 400 - 600 mg/L/hr.
[2024-12-15 13:00] LABS: MRSA Nasal PCR POSITIVE (Negative); SA Nasal PCR POSITIVE (Negative)
--- NOTE | 2024-12-15 13:01 | PC.NURSE ---
Pt girlfriend, Emma, on phone asking for an update on the pt. I woke up the pt to see if it was okay to speak with her and got verbal confirmation to speak with her on his condition.
--- NOTE | 2024-12-15 13:23 | PHA.MEDREC ---
Addendum entered by Cresencio Albert RPh 12/15/24 14:11: MED REC WAS REVIEWED BY [facility] Original Note: Pharmacy Consult ? Medication Reconciliation Pharmacy has completed the medication reconciliation. made multiple attempts to speak with patient, however he only arouses to his name then falls back to sleep. Called patients contact Ezio (brother) and states he doesn't know anything about his brothers medications. Utilized claims to confirm med list.
[2024-12-15] MEDS: Pantoprazole Sodium 40 MG/10 ML VIAL IVPUSH (16:49)
[2024-12-15] MEDS: 0.9 % Sodium Chloride Flush 3 ML SYRINGE IVFLUSH ×2 (16:49→21:32)
[2024-12-15] MEDS: Nicotine 21 MG PATCH.TD24 TRANSDERMA (17:19)
[2024-12-15 18:02] LABS: Hematocrit 34.9 % (42.0-52.0)
[2024-12-15] MEDS: vancomycin HCL 1,000 MG in 0.9 % Sodium Chloride 250 ML 270 MG IV (20:06)
--- NOTE | 2024-12-15 22:12 | PC.NURSE ---
hx of MRSA in shoulder abscess July 30 2024. Contact precautions instituted.
[2024-12-16 02:35] VITALS: BP 138/77; PULSE 77; RESP 20; TEMP 36.4; O2SAT 99
[2024-12-16 04:00] VITALS: RESP 20
[2024-12-16] MEDS: cefTRIAXone sodium 1 GM VIAL IVPUSH (05:45)
[2024-12-16] MEDS: Pantoprazole Sodium 40 MG/10 ML VIAL IVPUSH ×2 (05:45→15:30)
[2024-12-16] MEDS: metroNIDAZOLE/NS 500 MG/100 ML PIGGYBACK 100 MG IV ×2 (05:45→14:47)
[2024-12-16 06:38] LABS: Anion Gap 10 (12-20); Blood Urea Nitrogen 10 mg/dL (9-16); Calcium 8.5 mg/dL (8.4-10.2); Carbon Dioxide 30 mmol/L (22-29); Chloride 103 mmol/L (96-108); Creatinine Clr Calc Pharmacy 130.7; Estimated Glomerular Filt Rate > 60; Glucose Random 139 mg/dL (60-115); Potassium 3.8 mmol/L (3.3-5.1); Sodium 139 mmol/L (135-145)
[2024-12-16 06:44] LABS: Hematocrit 34.9 % (42.0-52.0); Hemoglobin 11.4 g/dl (14.0-18.0); Mean Corpuscular HGB Conc 32.7 g/dl (31.0-36.0); Mean Corpuscular Hemoglobin 29.9 pg (27.0-33.0); Mean Corpuscular Volume 91.6 fL (80.0-98.0); Mean Platelet Volume 9.5 fL (9.4-12.4); Platelet Count 393 X10*3/uL (160-400); Red Blood Count 3.81 X10*6/uL (4.60-5.80); Red Cell Distribution Width 13.2 % (11.0-16.0); White Blood Count 17.3 X10*3/uL (4.8-10.8)
--- NOTE | 2024-12-16 07:40 | HO.PM.IMPN ---
Subjective Subjective Date of Service: 12/16/24 Interval History: Pneumonia, hemoptysis Review of Systems Patient says cough somewhat improving, still has some blood-tinged sputum No fever Also feels anxious Review of Systems: Yes all other systems are reviewed and are negative Physical Exam Vital Signs: Vital Signs: Last Vital Signs Temp 97.5 F 12/16/24 02:35 Pulse 77 12/16/24 02:35 Resp 20 12/16/24 04:00 BP 138/77 12/16/24 02:35 Pulse Ox 99 12/16/24 02:35 O2 Del Method Room Air 12/16/24 02:35 O2 Flow Rate 2 12/15/24 20:40 Oxygen Flow Rate 3 12/15/24 05:30 BMI result Body Mass Index 22.5 Appearance: Alert.? Oriented X3.? cvs: rrr, [id number] , no murmur res: air netry some improving ,dec entry Left>right. abd: no rebound or guarding ,nt, bs present. ext pulses present , no cyanosis. neuro: axo3 , nonfocal. Objective Data Active Medications Acetaminophen (Acetaminophen 325 Mg Tablet) 650 mg PO Q6H PRN PRN Reason: Pain, Mild 1-3,fever,headache Calcium Carbonate (Calcium Carbonate 750 Mg Tab.Chew) 750 mg PO Q4H PRN PRN Reason: Heartburn Ceftriaxone Sodium (Ceftriaxone Sodium 1 Gm Vial) 1 gm IVPUSH Q24H [facility] Last Admin: 12/16/24 05:45 Dose: 1 gm Documented By: LISA Clonidine HCl (Clonidine Hcl 0.1 Mg Tablet) 0.1 mg PO BID PRN; Protocol PRN Reason: anxiety/restlessness Vancomycin HCl 1,000 mg/ (Sodium Chloride) 270 mls @ 270 mls/hr IV Q12H [facility] Last Infusion: 12/15/24 21:10 Dose: Infused Documented By: LISA Metronidazole (Flagyl) 500 mg in 100 mls @ 100 mls/hr IV Q8H [facility] Last Infusion: 12/16/24 06:48 Dose: Infused Documented By: LISA Loperamide HCl (Loperamide Hcl 2 Mg Capsule) 2 mg PO Q6H PRN PRN Reason: Diarrhea Lorazepam (Lorazepam 0.5 Mg Tablet) 0.5 mg PO Q4H PRN PRN Reason: anxiety/restlessness Magnesium Hydroxide (Milk Of Magnesia 30 Ml Oral.Susp) 30 ml PO DAILY PRN PRN Reason: Constipation Melatonin (Melatonin 3 Mg Tablet) 6 mg PO BEDTIME PRN PRN Reason: Insomnia Nicotine (Nicotine 21 Mg Patch.Td24) 21 mg TRANSDERMA DAILY [facility] Last Admin: 12/15/24 17:19 Dose: 21 mg Documented By: MANNIE Ondansetron HCl (Ondansetron Hcl 4 Mg/2 Ml Vial) 4 mg IVPUSH Q8H PRN PRN Reason: Nausea and Vomiting Pantoprazole Sodium (Pantoprazole Sodium 40 Mg/10 Ml Vial) 40 mg IVPUSH BID@0630,1630 [facility] Last Admin: 12/16/24 05:45 Dose: 40 mg Documented By: LISA Pharmacy Consult (Consult Rx Vancomycin Dosing) 1 each MISCELLANE DAILY PRN PRN Reason: Consult order Sodium Chloride (0.9 % Sodium Chloride Flush 3 Ml Syringe) 3 ml IVFLUSH QSHIFT [facility] Last Admin: 12/16/24 07:04 Dose: Not Given Documented By: LUCHO Non-Admin Reason: Previously Administered Trazodone HCl (Trazodone Hcl 25 Mg Halftab) 12.5 mg PO BEDTIME PRN PRN Reason: Insomnia Labs 12/16/24 06:05 12/16/24 06:05 Labs: Laboratory Results - last 24 hr 12/15/24 12/15/24 12/15/24 05:56 09:10 10:43 MCV MCH MCHC RDW Plt Count MPV Absolute Nucleated RBC Nucleated RBC % (auto) Anion Gap Estim Creat Clear Calc Estimated GFR Random Glucose Calcium B-Natriuretic Peptide 97 Hold Yellow Top Urine Color Yellow Urine Appearance Clear Urine pH 6.0 Ur Specific [place] 1.010 Urine Protein Negative Urine Glucose (UA) Negative Urine Ketones Negative Urine Blood Negative Urine Nitrite Negative Ur Leukocyte Esterase Negative Nasal Screen MRSA (PCR) POSITIVE A Nasal S. aureus Screen POSITIVE A Nasal MRSA/S.aureus Interp SEE NOTE Urine Opiates Screen Not Detected Ur Buprenorphine Scrn Not Detected Ur Oxycodone Screen Not Detected Urine Methadone Screen Not Detected Urine Fentanyl Screen POSITIVE H Ur Barbiturates Screen Not Detected Ur Phencyclidine Scrn Not Detected Ur Amphetamines Screen Not Detected U Benzodiazepines Scrn Not Detected Urine Cocaine Screen POSITIVE H U Marijuana (THC) Screen POSITIVE H 12/15/24 12/16/24 17:56 06:05 MCV 91.6 MCH 29.9 MCHC 32.7 RDW 13.2 Plt Count 393 MPV 9.5 Absolute Nucleated RBC 0.000 Nucleated RBC % (auto) 0.0 Anion Gap 10 L Estim Creat Clear Calc 130.7 Estimated GFR > 60 Random Glucose 139 H Calcium 8.5 B-Natriuretic Peptide Hold Yellow Top See Note Urine Color Urine Appearance Urine pH Ur Specific [place] Urine Protein Urine Glucose (UA) Urine Ketones Urine Blood Urine Nitrite Ur Leukocyte Esterase Nasal Screen MRSA (PCR) Nasal S. aureus Screen Nasal MRSA/S.aureus Interp Urine Opiates Screen Ur Buprenorphine Scrn Ur Oxycodone Screen Urine Methadone Screen Urine Fentanyl Screen Ur Barbiturates Screen Ur Phencyclidine Scrn Ur Amphetamines Screen U Benzodiazepines Scrn Urine Cocaine Screen U Marijuana (THC) Screen Assessment and Plan (1) Acute hypoxic respiratory failure: Status: Acute (2) Left upper lobe pneumonia: Status: Acute Plan 44-year-old male with a PMH significant for nephrolithiasis,?polysubstance use disorder, currently homeless who presents to the ED after bystanders found pt in an alleyway vomiting. Pt is admitted to the hospital for treatment and further evaluation of acute hypoxic respiratory failure in the setting of pneumonia with sepsis. Acute hypoxic respiratory failure in the setting of community-acquired pneumonia with sepsis CXR showing left lobe pneumonia,? ?aspiration also has on/off some hemoptysis sepsis improving,nasal mrsa-postive , blood cultures pending continue vanc, ceftriaxone, and metronidazole due to concern for aspiration and hx of IVDU, started 12/15/2024 Titrate supplemental O2 >92, wean as tolerated Follow blood cultures Hemoptysis Pt noted to have hemoptysis during interview and exam Unclear for how long, unclear if any hematemesis Will treat with Protonix IV b.i.d. H&H currently 10.6/31.5, decreased from 12.9/38.8 on 11/03 Trend H&H Polysubstance use disorder Pt with recent crack and IV heroin use on benzo ,added extra lorazepam Currently not on methadone or Suboxone Addiction medicine consult Ongoing need of stay:Acute hypoxic respiratory failure in the setting of community-acquired pneumonia with sepsis,, hemoptysis: H&H monitoring, IV antibiotic, oxygen, pulmonary evaluation. Also need Addiction consult for polysubstance use Quality Stroke Does the patient have a stroke diagnosis?: No VTE Prior VTE?: No VTE Risk Level:: Medical - moderate - high VTE Device Contraindication: N/A - Device Ordered VTE Drug Contraindication: Treatment Not Indicated
[2024-12-16 08:00] VITALS: BP 130/81; PULSE 79; RESP 18; TEMP 37.3; O2SAT 99
[2024-12-16] MEDS: vancomycin HCL 1,000 MG in 0.9 % Sodium Chloride 250 ML 270 MG IV (08:07)
[2024-12-16] MEDS: LORazepam 1 MG TABLET PO (08:16)
[2024-12-16] MEDS: methADONE HCl 20 MG/2 ML ORAL.CONC 10 MG PO (12:12)
--- NOTE | 2024-12-16 12:48 | MHC.CM.PN ---
PT IS HOMELESS WILL BE SEEN BY CARE TEAM
--- NOTE | 2024-12-16 13:49 | HO.ADDICT_ITS ---
History of Present Illness Date of Service: 12/16/2024 Chief Complaint: Hypoxipneumonia Reason for Consult: FERNIE Sources of Information: patient interviewed and chart reviewed HPI Narrative: Patient is a 44 year old male medically admitted with acute hypoxic resp failure secondary to community acquired pnemonia Consult requested to evaluate and treat substance use Patient seen in room 379. He is laying in bed, eyes closed, wakes to voice. He appears comfortable, no restlessness or diaphoresis noted during evaluation. Patient minimally engaged in interview. Reporting cocaine and heroin/fentanyl use IV Approx 10 bags fentanyl daily Denies any other substance use, including alcohol --does have a history of AUD States that he is currently not engaged in treatment Has been prescribed methadone and suboxone in the past methadone over a year ago--unclear what highest dose was suboxone, per [place] [facility] most recent rx filled September 2024 In terms of withdrawal he is reporting sx are starting but unable to elaborate beyond that as he fell back to sleep Did agree to methadone initiation Medical Evaluation Reviewed: Yes Review of Systems Constitutional: Reports as per HPI and Reports no additional constitutional complaints Diagnostics Vital Signs (24Hr): Vital Signs - 24 hr 12/15/24 14:00 12/15/24 17:49 12/15/24 19:10 Temperature 98.5 F 100.3 F 97.6 F Pulse Rate 88 91 54 Respiratory Rate 17 20 18 Blood Pressure 107/63 102/76 114/53 L Pulse Oximetry 96 96 93 Oxygen Delivery Method Nasal Cannula Room Air Room Air Oxygen Flow Rate 3 12/15/24 19:58 12/15/24 20:40 12/16/24 02:35 Temperature 99.0 F 98.9 F 97.5 F Pulse Rate 78 85 77 Respiratory Rate 24 H 18 20 Blood Pressure 114/63 124/76 138/77 Pulse Oximetry 100 98 99 Oxygen Delivery Method Nasal Cannula Nasal Cannula Room Air Oxygen Flow Rate 2 2 12/16/24 04:00 12/16/24 08:00 Temperature 99.2 F Pulse Rate 79 Respiratory Rate 20 18 Blood Pressure 130/81 Pulse Oximetry 99 Oxygen Delivery Method Room Air Oxygen Flow Rate BMI result Body Mass Index 22.5 Labs 12/16/24 06:05 12/16/24 06:05 Labs: Laboratory Results - last 48 hr 12/15/24 12/15/24 12/15/24 05:56 06:03 06:42 WBC 18.6 H RBC 3.52 L Hgb 10.6 L Hct 31.5 L MCV 89.5 MCH 30.1 MCHC 33.7 RDW 13.2 Plt Count 363 MPV 9.0 L Immature Gran % (Auto) 0.9 H Neut % (Auto) 83.9 H Lymph % (Auto) 5.5 L [place] % (Auto) 9.1 Eos % (Auto) 0.3 Baso % (Auto) 0.3 Lymph # (Auto) 1.0 L [place] # (Auto) 1.7 H Eos # (Auto) 0.1 Baso # (Auto) 0.1 Abs Immat Gran (auto) 0.17 H Absolute Neuts (auto) 15.6 H Absolute Nucleated RBC 0.000 Nucleated RBC % (auto) 0.0 Smear Tech's Comments VERIFIED PT 12.1 INR 1.1 VBG pH 7.46 H VBG pCO2 45 VBG pO2 78 VBG HCO3 32 H VBG O2 Saturation 95.0 VBG Base Excess 7.4 Sodium 137 Potassium 3.3 Chloride 101 Carbon Dioxide 27 Anion Gap 12 BUN 11 Creatinine 0.68 Estim Creat Clear Calc 119.2 Estimated GFR > 60 Random Glucose 140 H Lactic Acid 0.8 Calcium 8.5 D Magnesium 1.8 Total Bilirubin 0.3 Direct Bilirubin 0.2 AST 34 ALT 24 Alkaline Phosphatase 74 Total Creatine Kinase 341 H Troponin I High Sens 6.2 C-Reactive Protein 10.27 H B-Natriuretic Peptide 97 Total Protein 6.7 Albumin 3.4 L Lipase 29 Hold Yellow Top Urine Color Urine Appearance Urine pH Ur Specific [place] Urine Protein Urine Glucose (UA) Urine Ketones Urine Blood Urine Nitrite Ur Leukocyte Esterase Nasal Screen MRSA (PCR) Nasal S. aureus Screen Nasal MRSA/S.aureus Interp Stool Occult Blood NEGATIVE Urine Opiates Screen Ur Buprenorphine Scrn Ur Oxycodone Screen Urine Methadone Screen Urine Fentanyl Screen Ur Barbiturates Screen Ur Phencyclidine Scrn Ur Amphetamines Screen U Benzodiazepines Scrn Urine Cocaine Screen U Marijuana (THC) Screen Ethyl Alcohol < 10 12/15/24 12/15/24 12/15/24 09:10 10:43 17:56 WBC RBC Hgb 12.0 L Hct 34.9 L MCV MCH MCHC RDW Plt Count MPV Immature Gran % (Auto) Neut % (Auto) Lymph % (Auto) [place] % (Auto) Eos % (Auto) Baso % (Auto) Lymph # (Auto) [place] # (Auto) Eos # (Auto) Baso # (Auto) Abs Immat Gran (auto) Absolute Neuts (auto) Absolute Nucleated RBC Nucleated RBC % (auto) Smear Tech's Comments PT INR VBG pH VBG pCO2 VBG pO2 VBG HCO3 VBG O2 Saturation VBG Base Excess Sodium Potassium Chloride Carbon Dioxide Anion Gap BUN Creatinine Estim Creat Clear Calc Estimated GFR Random Glucose Lactic Acid Calcium Magnesium Total Bilirubin Direct Bilirubin AST ALT Alkaline Phosphatase Total Creatine Kinase Troponin I High Sens C-Reactive Protein B-Natriuretic Peptide Total Protein Albumin Lipase Hold Yellow Top See Note Urine Color Yellow Urine Appearance Clear Urine pH 6.0 Ur Specific [place] 1.010 Urine Protein Negative Urine Glucose (UA) Negative Urine Ketones Negative Urine Blood Negative Urine Nitrite Negative Ur Leukocyte Esterase Negative Nasal Screen MRSA (PCR) POSITIVE A Nasal S. aureus Screen POSITIVE A Nasal MRSA/S.aureus Interp SEE NOTE Stool Occult Blood Urine Opiates Screen Not Detected Ur Buprenorphine Scrn Not Detected Ur Oxycodone Screen Not Detected Urine Methadone Screen Not Detected Urine Fentanyl Screen POSITIVE H Ur Barbiturates Screen Not Detected Ur Phencyclidine Scrn Not Detected Ur Amphetamines Screen Not Detected U Benzodiazepines Scrn Not Detected Urine Cocaine Screen POSITIVE H U Marijuana (THC) Screen POSITIVE H Ethyl Alcohol 12/16/24 06:05 WBC 17.3 H RBC 3.81 L Hgb 11.4 L Hct 34.9 L MCV 91.6 MCH 29.9 MCHC 32.7 RDW 13.2 Plt Count 393 MPV 9.5 Immature Gran % (Auto) Neut % (Auto) Lymph % (Auto) [place] % (Auto) Eos % (Auto) Baso % (Auto) Lymph # (Auto) [place] # (Auto) Eos # (Auto) Baso # (Auto) Abs Immat Gran (auto) Absolute Neuts (auto) Absolute Nucleated RBC 0.000 Nucleated RBC % (auto) 0.0 Smear Tech's Comments PT INR VBG pH VBG pCO2 VBG pO2 VBG HCO3 VBG O2 Saturation VBG Base Excess Sodium 139 Potassium 3.8 Chloride 103 Carbon Dioxide 30 H Anion Gap 10 L BUN 10 Creatinine 0.63 Estim Creat Clear Calc 130.7 Estimated GFR > 60 Random Glucose 139 H Lactic Acid Calcium 8.5 Magnesium Total Bilirubin Direct Bilirubin AST ALT Alkaline Phosphatase Total Creatine Kinase Troponin I High Sens C-Reactive Protein B-Natriuretic Peptide Total Protein Albumin Lipase Hold Yellow Top Urine Color Urine Appearance Urine pH Ur Specific [place] Urine Protein Urine Glucose (UA) Urine Ketones Urine Blood Urine Nitrite Ur Leukocyte Esterase Nasal Screen MRSA (PCR) Nasal S. aureus Screen Nasal MRSA/S.aureus Interp Stool Occult Blood Urine Opiates Screen Ur Buprenorphine Scrn Ur Oxycodone Screen Urine Methadone Screen Urine Fentanyl Screen Ur Barbiturates Screen Ur Phencyclidine Scrn Ur Amphetamines Screen U Benzodiazepines Scrn Urine Cocaine Screen U Marijuana (THC) Screen Ethyl Alcohol Mental Status Exam Mental Status Exam Level of Consciousness: Drowsy Affect Description: Blunted Speech Pattern: Clear Hallucinations: None Judgement: Fair Medications Medications Current Medications Acetaminophen (Acetaminophen 325 Mg Tablet) 650 mg PO Q6H PRN PRN Reason: Pain, Mild 1-3,fever,headache Calcium Carbonate (Calcium Carbonate 750 Mg Tab.Chew) 750 mg PO Q4H PRN PRN Reason: Heartburn Ceftriaxone Sodium (Ceftriaxone Sodium 1 Gm Vial) 1 gm IVPUSH Q24H [facility] Last Admin: 12/16/24 05:45 Dose: 1 gm Vancomycin HCl 1,000 mg/ (Sodium Chloride) 270 mls @ 270 mls/hr IV Q12H [facility] Last Infusion: 12/16/24 09:21 Dose: Infused Metronidazole (Flagyl) 500 mg in 100 mls @ 100 mls/hr IV Q8H [facility] Last Infusion: 12/16/24 06:48 Dose: Infused Loperamide HCl (Loperamide Hcl 2 Mg Capsule) 2 mg PO Q6H PRN PRN Reason: Diarrhea Lorazepam (Lorazepam 0.5 Mg Tablet) 0.5 mg PO Q4H PRN PRN Reason: anxiety/restlessness Magnesium Hydroxide (Milk Of Magnesia 30 Ml Oral.Susp) 30 ml PO DAILY PRN PRN Reason: Constipation Melatonin (Melatonin 3 Mg Tablet) 6 mg PO BEDTIME PRN PRN Reason: Insomnia Methadone HCl (Methadone Hcl 20 Mg/2 Ml Oral.Conc) 10 mg PO Q4H PRN PRN Reason: Opiate Withdrawal Last Admin: 12/16/24 12:12 Dose: 10 mg Nicotine (Nicotine 21 Mg Patch.Td24) 21 mg TRANSDERMA DAILY [facility] Last Admin: 12/16/24 08:02 Dose: Not Given Ondansetron HCl (Ondansetron Hcl 4 Mg/2 Ml Vial) 4 mg IVPUSH Q8H PRN PRN Reason: Nausea and Vomiting Pantoprazole Sodium (Pantoprazole Sodium 40 Mg/10 Ml Vial) 40 mg IVPUSH BID@0630,1630 [facility] Last Admin: 12/16/24 05:45 Dose: 40 mg Pharmacy Consult (Consult Rx Vancomycin Dosing) 1 each MISCELLANE DAILY PRN PRN Reason: Consult order Sodium Chloride (0.9 % Sodium Chloride Flush 3 Ml Syringe) 3 ml IVFLUSH QSHIFT [facility] Last Admin: 12/16/24 07:04 Dose: Not Given Trazodone HCl (Trazodone Hcl 25 Mg Halftab) 12.5 mg PO BEDTIME PRN PRN Reason: Insomnia Allergies Allergies Allergy/AdvReac Type Severity Reaction Status Date / Time coffee (Coffea arabica) Allergy Severe ANAPHYLAXIS Verified 12/15/24 05:39 [COFFEE] Penicillins [PENICILLINS] Allergy Intermediate RASH Verified 12/15/24 05:39 penicillin V Allergy Unknown Rash Verified 12/15/24 05:39 COFFEE FLAVOR Allergy Unknown Anaphylaxis Uncoded 11/03/24 22:58 Assessment & Plan Assessment & Plan (1) Opioid use disorder: Status: Acute Code(s): F11.90 - Opioid use, unspecified, uncomplicated Assessment and Plan: * methadone 10mg Q4PRN max 4 doses---once more awake, will adjust methadone dosing * sail finisher hand to follow up and obtain more information related to FERNIE and treatment history --will also inquire about where OTP referral should be sent for continuation of treatment Total time managing care of this patient today __30__ minutes. [facility] Past Medical History Medical History (Updated 12/16/24 @ 13:49 by Shellie Melton CNP) IVDU (intravenous drug user) Polysubstance use disorder Kidney stones Surgical History Surgical History H/O hand surgery Social History Social History Household Members: None Housing: Homeless Are you a primary child care education coordinator to a significant other at home: No Do you presently have visiting nurse or other home services: No Alcohol intake: current Alcohol intake frequency: does not drink Alcohol type: hard liquor Patient Tobacco Use Status: Current everyday Tobacco user Tobacco use type: Cigarette Cigarette Packs Per Day: 1 Cigarettes Per Day: 20.0 Years Smoked: 30 Substance Use Type: Crack/Cocaine, Heroin and Marijuana service: No
[2024-12-16 14:00] VITALS: PULSE 79
[2024-12-16 15:24] VITALS: BP 119/72; PULSE 86; RESP 18; TEMP 37.2; O2SAT 98
[2024-12-16] MEDS: 0.9 % Sodium Chloride Flush 3 ML SYRINGE IVFLUSH (15:30)
[2024-12-16] MEDS: methADONE HCl 20 MG/2 ML ORAL.CONC PO (15:31)
[2024-12-16] MEDS: iohexoL 350 MG/ML 100 ML INFUS..BTL IV (16:25)
[2024-12-16 20:00] VITALS: BP 132/63; PULSE 86; RESP 18; TEMP 37.2; O2SAT 97
--- NOTE | 2024-12-16 20:29 | PC.NURSE ---
Upon assuming care of pt at 19:00, Pt AxOX4, appeared restless, agitated. Pt was putting on his clothes, pacing in the room, stating he wants to leave AMA. This RN educated the pt the importance of staying and getting the right care he needs during his visit. Pt didn't want to listen to this RN, in a hurry to leave. This RN notified the Nursing Rectifying Operator and Hospitalist MD Blaise Calvillo. This RN told the pt to wait to see the Hospitalist but refused to sign AMA form or stay to talk to . Pt's IV removed and walked off unit at 19:47.
--- NOTE | 2024-12-16 21:08 | PM.CNPUL ---
History of Present Illness History of Present Illness Consult date: 12/16/24 Chief complaint: Hypoxipneumonia Narrative: This is an inpt pulmonary consultation. Pt is a 44-year-old male with a PMH significant for nephrolithiasis,?polysubstance use disorder, currently homeless who presents to the ED after bystanders found pt in an alleyway vomiting. EMS was called and report there was a question of whether there was blood in either vomit or sputum. Was as noted to be desatting into the 80s on RA and placed on 2L NC. During interview and exam pt is somnolent but arousable, though minimally interactive. Overall is a poor historian and not particularly cooperative. Pt apparently had complained of SOB and difficulty breathing to EMS, but curently only complains of needing to urinate. Pt has been using cocaine and heroin recently, though is unsure when last use was. Injects ?any where, everywhere . Pt was noted to have hemoptysis without clots while in the room. Pt does not remember vomiting or coughing up blood before. ED physician report pt stated that he no longer drinks alcohol. In the ED pt was febrile up to 101.7 and tachypneic up to 24, stable BP. Pt requiring 3 L NC to sat at 94%. Labs were significant for leukocytosis 18.6, H&H 10.6/31.5, CPK 341, and CRP 10.27. No significant electrolyte abnormalities. Renal function baseline. Hepatic function WNL. Troponin and BNP WNL. Lactic acid WNL at 0.8. Stool negative for occult blood. VBG with pH 7.46, pCO2 45, and bicarb 32. CXR showed left pulmonary consolidation suspicious for pneumonia. EKG demonstrated sinus rhythm with premature supraventricular complexes without ischemia. Pt was treated in the ED with pantoprazole, IVF, ceftriaxone, vancomycin, and metronidazole. Pt is admitted to the hospital for treatment and further evaluation of acute hypoxic respiratory failure in the setting of pneumonia with sepsis. He did have a CTA r/o PE but does have a thick walled cavitary pneumonia in the [place]. Recent Tspot negative for MTB. Currently, hemoptysis is better. Review of Systems Constitutional: Constitutional: Denies body ache(s), Denies chills, Denies fever(s) and Denies headache(s) ENT: Denies vertigo, Denies dizziness and Denies headache(s) Cardiovascular: Cardiovascular: Reports chest pain and Denies dyspnea Respiratory: Respiratory: Reports cough, Reports hemoptysis and Denies dyspnea Gastrointestinal: Gastrointestinal: Denies abdominal pain, Denies nausea and Denies vomiting Musculoskeletal: Musculoskeletal: Denies back pain Integumentary/Breasts: Skin/Breast: Denies rash Neurologic: Denies vertigo, Denies dizziness and Denies headache(s) [facility] Past Medical History Medical History (Updated 12/16/24 @ 21:12 by Andrea Hendrix MD) Hemoptysis Cavitary pneumonia IVDU (intravenous drug user) Polysubstance use disorder Kidney stones Surgical History Surgical History H/O hand surgery Social History Social History Household Members: None Housing: Homeless Are you a primary transitional care nurse to a significant other at home: No Do you presently have visiting nurse or other home services: No Alcohol intake: current Alcohol intake frequency: does not drink Alcohol type: hard liquor Patient Tobacco Use Status: Current everyday Tobacco user Tobacco use type: Cigarette Cigarette Packs Per Day: 1 Cigarettes Per Day: 20.0 Years Smoked: 30 Substance Use Type: Crack/Cocaine, Heroin and Marijuana service: No Meds Allergies Allergy/AdvReac Type Severity Reaction Status Date / Time coffee (Coffea arabica) Allergy Severe ANAPHYLAXIS Verified 12/15/24 05:39 [COFFEE] Penicillins [PENICILLINS] Allergy Intermediate RASH Verified 12/15/24 05:39 penicillin V Allergy Unknown Rash Verified 12/15/24 05:39 COFFEE FLAVOR Allergy Unknown Anaphylaxis Uncoded 11/03/24 22:58 Home Medications ?Medication ?Instructions ?Recorded ?Confirmed ?Last Taken ?Type gabapentin 600 mg tablet 600 mg PO TID 12/15/24 12/15/24 Unknown History Physical Exam Vital Signs: Vital Signs: Last Vital Signs Temp 98.9 F 12/16/24 20:00 Pulse 86 12/16/24 20:00 Resp 18 12/16/24 20:00 BP 132/63 12/16/24 20:00 Pulse Ox 97 12/16/24 20:00 O2 Del Method Room Air 12/16/24 20:00 O2 Flow Rate 2 12/15/24 20:40 Oxygen Flow Rate 3 12/15/24 05:30 BMI result Body Mass Index 22.5 Results Laboratory Findings 12/16/24 06:05 12/16/24 06:05 ABG, PT/INR, D-dimer: PT/INR, D-dimer PT 12.1 SEC (10.9-12.4) 12/15/24 05:56 INR 1.1 (0.9-1.1) 12/15/24 05:56 Abnormal lab findings: Abnormal Labs 12/15/24 12/15/24 12/15/24 05:56 06:03 09:10 WBC 18.6 H RBC 3.52 L Hgb 10.6 L Hct 31.5 L MPV 9.0 L Immature Gran % (Auto) 0.9 H Neut % (Auto) 83.9 H Lymph % (Auto) 5.5 L Lymph # (Auto) 1.0 L Christian # (Auto) 1.7 H Abs Immat Gran (auto) 0.17 H Absolute Neuts (auto) 15.6 H VBG pH 7.46 H VBG HCO3 32 H Carbon Dioxide Anion Gap Random Glucose 140 H Total Creatine Kinase 341 H C-Reactive Protein 10.27 H Albumin 3.4 L Nasal Screen MRSA (PCR) Nasal S. aureus Screen Vancomycin Trough Urine Fentanyl Screen POSITIVE H Urine Cocaine Screen POSITIVE H U Marijuana (THC) Screen POSITIVE H 12/15/24 12/15/24 12/16/24 10:43 17:56 06:05 WBC 17.3 H RBC 3.81 L Hgb 12.0 L 11.4 L Hct 34.9 L 34.9 L MPV Immature Gran % (Auto) Neut % (Auto) Lymph % (Auto) Lymph # (Auto) Christian # (Auto) Abs Immat Gran (auto) Absolute Neuts (auto) VBG pH VBG HCO3 Carbon Dioxide 30 H Anion Gap 10 L Random Glucose 139 H Total Creatine Kinase C-Reactive Protein Albumin Nasal Screen MRSA (PCR) POSITIVE A Nasal S. aureus Screen POSITIVE A Vancomycin Trough Urine Fentanyl Screen Urine Cocaine Screen U Marijuana (THC) Screen 12/16/24 18:26 WBC RBC Hgb Hct MPV Immature Gran % (Auto) Neut % (Auto) Lymph % (Auto) Lymph # (Auto) Christian # (Auto) Abs Immat Gran (auto) Absolute Neuts (auto) VBG pH VBG HCO3 Carbon Dioxide Anion Gap Random Glucose Total Creatine Kinase C-Reactive Protein Albumin Nasal Screen MRSA (PCR) Nasal S. aureus Screen Vancomycin Trough 5.0 L Urine Fentanyl Screen Urine Cocaine Screen U Marijuana (THC) Screen Microbiology: Microbiology 12/15/24 06:06 Blood - Venous Blood Culture - Preliminary No growth after 24 hours. 12/15/24 05:56 Blood - Venous Blood Culture - Preliminary No growth after 24 hours. Assessment and Plan (1) Left upper lobe pneumonia: Qualifiers: Pneumonia type: due to unspecified organism Qualified Code(s): J18.9 - Pneumonia, unspecified organism Status: Acute (2) Cavitary pneumonia: Status: Acute (3) Polysubstance use disorder: Status: Acute (4) Hemoptysis: Status: Acute Plan Continue Abx therapy Respiratory therapy Sputum cx/blood cx consider bronchoscopy if no better HIV testing Procedures Date of Service Date of Service: 12/16/24
--- NOTE | 2024-12-17 01:25 | PM.EVENT ---
Event Note Date of Service: 12/17/24 Event Note: 7:45 pm - Requested by nursing to come to bedside as the patient was trying to leave AMA. At this moment I was with another patient (performing an urgent procedure). Told RN I would speak to the patient when I get the change. 7:49 pm - Received another text from RN to let me know patient left AMA but do not sign paperwork. According to RN patient was alert, oriented X4 and received methadone from previous shift. Time Spent With Patient Time: Total time managing care of this patient today ____ minutes.
== END 2024-12-16 19:47 | disposition left against medical advice (07) | DRG 720 ==
LOC: HO.ED 07:55 → HO.EDOVER 08:39 → HO.S3 19:41
PROVIDERS: Student in an Organized Health Care Education/Training Program; Admitting Provider Family Medicine; Emergency Provider Emergency Medicine; Visit Provider Internal Medicine
DX: A41.9 Sepsis, unspecified organism (principal); J96.01 Acute respiratory failure with hypoxia; J18.9 Pneumonia, unspecified organism; F17.210 Nicotine dependence, cigarettes, uncomplicated; R04.2 Hemoptysis; F11.90 Opioid use, unspecified, uncomplicated; Z59.02 Unsheltered homelessness; Z79.899 Other long term (current) drug therapy
CPT/HCPCS: 36415; 71045; 71275; 80048; 80076; 80202; 80307; 81003; 82272; 82550; 82803; 83605; 83690; 83735; 83880; 84484; 85014; 85018; 85025; 85027; 85610; 86140; 87040; 87640; 87641; 93005; 99285; J0696; J1836; J2470; J3370; J3371; Q9967; S9485

== ENCOUNTER → 2024-12-15 05:36 | Outpatient (BNV) | payer MEDICAID, SELFPAY | PROVIDERS: Admitting Provider Family Medicine; Emergency Provider Emergency Medicine; Visit Provider Internal Medicine Cardiovascular Disease | DX: I49.1 Atrial premature depolarization (principal) | CPT/HCPCS: 93010 ==

== ENCOUNTER → 2024-12-15 05:42 | Outpatient (BNV) | payer MEDICAID, SELFPAY | PROVIDERS: Admitting Provider Family Medicine; Emergency Provider Emergency Medicine; Visit Provider Specialist | DX: R91.8 Other nonspecific abnormal finding of lung field (principal) | CPT/HCPCS: 71045 ==

== ENCOUNTER 2024-12-15 08:37 | Outpatient (BNV) | payer MEDICAID, SELFPAY | END 2024-12-16 16:17 | PROVIDERS: Admitting Provider Family Medicine; Emergency Provider Emergency Medicine; Visit Provider Radiology Diagnostic Radiology | DX: J94.8 Other specified pleural conditions (principal) | CPT/HCPCS: 71275 ==

== ENCOUNTER → 2024-12-15 08:37 | Outpatient (BNV) | payer MEDICAID, SELFPAY | PROVIDERS: Admitting Provider Family Medicine; Emergency Provider Emergency Medicine; Visit Provider Hospitalist | DX: J18.9 Pneumonia, unspecified organism (principal); J98.4 Other disorders of lung; F19.90 Other psychoactive substance use, unspecified, uncomplicated; R04.2 Hemoptysis | CPT/HCPCS: 99223 ==

== ENCOUNTER → 2024-12-15 08:37 | Outpatient (BNV) | payer OTHER, SELFPAY | PROVIDERS: Admitting Provider Family Medicine; Emergency Provider Emergency Medicine; Visit Provider Nurse Practitioner Psychiatric/Mental Health | DX: F11.90 Opioid use, unspecified, uncomplicated (principal) | CPT/HCPCS: 99232 ==

== ENCOUNTER → 2024-12-15 08:37 | Outpatient (BNV) | payer MEDICAID, SELFPAY | PROVIDERS: Admitting Provider Family Medicine; Emergency Provider Emergency Medicine; Visit Provider Student in an Organized Health Care Education/Training Program | DX: J18.9 Pneumonia, unspecified organism (principal); J98.4 Other disorders of lung; F19.90 Other psychoactive substance use, unspecified, uncomplicated; R04.2 Hemoptysis | CPT/HCPCS: 99223; 99232; 99239; 99499 ==

== ENCOUNTER 2024-12-25 00:35 | Inpatient (IN) | payer MEDICAID, SELFPAY ==
[2024-12-25] VITALS (15 sets, daily range): BP systolic 97–117; BP diastolic 50–86; PULSE 69–102; RESP 16–20; TEMP 36.4–37; O2SAT 96–100; BMI 22.6; BMI 22.5
--- NOTE | ~2024-12-25 | XR_ITS ---
CLINICAL HISTORY: known PNA, bilat, cavitary lesions 2 view chest x-ray Comparison: CT/SR - CT ANGIO CHEST PE PROTOCOL - 12/16/24 16:17 EDT CR - XR CHEST 1V - 12/15/24 06:17 EDT Findings: Left suprahilar cavitary consolidation. Similar to recent CT. No new areas of consolidation. Hyperinflation. No pleural effusions. Heart size is normal. No acute fracture. IMPRESSION: Left suprahilar cavitary consolidation again noted. Follow-up as needed. This document has been electronically signed by: Aimee Arora MD on 12/25/2024 03:28:26
--- NOTE | 2024-12-25 01:22 | ED_ITS ---
HPI - General Adult General Chief complaint: Overdose Stated complaint: OD, given Narcan cooperative Time Seen by Provider: 12/25/24 00:48 History of Present Illness HPI narrative: 44-year-old male with a history of recent hospital admission for sepsis secondary to suspect aspiration pneumonia, with a cavitary lesions on CT scan, who left against medical advice on December 17, nephrolithiasis,?polysubstance use disorder, IV drug abuse, currently homeless , who returns after witnessed overdose. He did receive a dose of intranasal Narcan pre arrival. Related Data Home Medications ?Medication ?Instructions ?Recorded ?Confirmed gabapentin 600 mg tablet 600 mg PO TID 12/15/24 12/15/24 Allergies Allergy/AdvReac Type Severity Reaction Status Date / Time coffee (Coffea arabica) Allergy Severe ANAPHYLAXIS Verified 12/25/24 00:51 [COFFEE] Penicillins [PENICILLINS] Allergy Intermediate RASH Verified 12/25/24 00:51 penicillin V Allergy Unknown Rash Verified 12/25/24 00:51 COFFEE FLAVOR Allergy Unknown Anaphylaxis Uncoded 12/25/24 00:51 Review of Systems 2 Review of Systems: Unable to obtain as the patient is not willing to engage in conversation so as to obtain detailed history Yes all other systems are reviewed and are negative PMFSH Past Medical History Attestation statement: The following information was validated with the patient. Medical History (Updated 12/25/24 @ 03:32 by MARBIN Robledo) Hemoptysis Cavitary pneumonia IVDU (intravenous drug user) Polysubstance use disorder Kidney stones Surgical History H/O hand surgery Social History Social History Household Members: None Housing: Homeless Are you a primary healthcare financial analyst to a significant other at home: No Do you presently have visiting nurse or other home services: No Alcohol intake: current Alcohol intake frequency: does not drink Alcohol type: hard liquor Patient Tobacco Use Status: Current everyday Tobacco user Tobacco use type: Cigarette Cigarette Packs Per Day: 1 Cigarettes Per Day: 20.0 Years Smoked: 30 Smoked in Last 30 Days: Yes Use of substances other than those prescribed or required for medical reasons: Yes Substance Use Type: Heroin Substance Use Frequency: Daily Advance Directives: No Advance Directives Information Provided: No service: No Physical Exam ED Vital Signs: Vital Signs - 24 hr 12/25/24 00:49 12/25/24 01:27 12/25/24 02:28 Temperature 98.4 F 98.4 F 98.2 F Pulse Rate 96 96 92 Respiratory Rate 16 16 17 Blood Pressure 117/86 117/86 106/66 Pulse Oximetry 97 97 97 Oxygen Delivery Method Room Air Room Air Room Air BMI result Body Mass Index 22.6 Const Other: Alert Orientation/consciousness: patient oriented x3 Eyes Other: Pinpoint pupils Resp Other: Nonlabored respirations, no wheezing on exam no crackles, Cardio Other: Normal peripheral perfusion Skin Other: Warm dry no rash Neuro General: patient oriented x3, gait normal, no focal motor deficits and CN's II- XI intact bilaterally Psych Other: Cooperative Course Reevaluation(s) Reevaluation #1: At 1:29 a.m. on December 25, a sepsis focused exam was performed, ordering blood cultures and lactic starting weight based fluid and empiric antibiotics for his known cavitary pneumonia. To note the patient is not febrile he is not tachycardic he is not hypotensive, he has a known infection, with significant leukocytosis as expected. Time: 01:29 Medications Administered Discontinued Medications Generic Name Dose Route Start Last Admin Trade Name Freq PRN Reason Stop Dose Admin Ceftriaxone Sodium 2 gm 12/25/24 01:29 12/25/24 02:23 Ceftriaxone Sodium 2 Gm Vial IVPUSH 12/25/24 01:30 2 gm ONCE ONE Administration Diazepam 2.5 mg 12/25/24 01:53 12/25/24 02:09 Diazepam 10 Mg/2 Ml Cartridge IVPUSH 12/25/24 01:54 2.5 mg STAT STA Administration Sodium Chloride 1,905.09 mls @ 1,905.09 mls/hr 12/25/24 01:29 12/25/24 02:10 Ns 30 ml/kg infuse over 1 hr (1905.09 ml) 12/25/24 02:28 1,905.09 mls/hr IV Administration .Q1H STA Vancomycin HCl 1,500 mg/ 500 mls @ 333.333 mls/hr 12/25/24 01:29 12/25/24 02:23 Sodium Chloride IV 12/25/24 02:58 333.33 mls/hr ONCE ONE Administration Medical Decision Making Medical Decision Making [facility] Narrative: 44-year-old male with a history of recent hospital admission for sepsis secondary to suspect aspiration pneumonia, with a cavitary lesions on CT scan, who left against medical advice on December 17, nephrolithiasis,?polysubstance use disorder, IV drug abuse, currently homeless , who returns after witnessed overdose. He did receive a dose of intranasal Narcan pre arrival. Problem: Polysubstance abuse, known cavitary lesions on chest x-ray/pneumonia History: Per patient I have considered the following differential diagnoses: No pneumonia, sepsis, overdose, Plan: The patient is stable is afebrile, he is willing to stay for admission, in addition to screening labs we will be adding on blood cultures, lactic starting vanco and ceftriaxone as was recommended during his hospital admission. Giving weight based IV fluid therapy. To note, he is not febrile he is not hypotensive he is not tachycardic, I have independently reviewed the following tests: Labs: Significant leukocytosis of 22.8 with left shift, not anemic, no electrolyte abnormality, lactic acid 1.7 Chest x-ray:Findings: Left suprahilar cavitary consolidation. Similar to recent CT. No new areas of consolidation. Hyperinflation. No pleural effusions. Heart size is normal. No acute fracture. IMPRESSION: Left suprahilar cavitary consolidation again noted. Follow-up as needed. Lab Data 12/25/24 02:07 12/25/24 02:07 Labs: Lab Results 12/25/24 Range/Units 02:07 WBC 22.8 H (4.8-10.8) X10*3/uL RBC 3.76 L (4.60-5.80) X10*6/uL Hgb 11.2 L (14.0-18.0) g/dl Hct 33.8 L (42.0-52.0) % MCV 89.9 (80.0-98.0) fL MCH 29.8 (27.0-33.0) pg MCHC 33.1 (31.0-36.0) g/dl RDW 13.9 (11.0-16.0) % Plt Count 556 H D (160-400) X10*3/uL MPV 8.4 L (9.4-12.4) fL Immature Gran % (Auto) 0.9 H (0.0-0.4) % Neut % (Auto) 81.5 H (45-73) % Lymph % (Auto) 9.3 L (20-40) % Ferry % (Auto) 7.7 (2-11) % Eos % (Auto) 0.3 (0-4) % Baso % (Auto) 0.3 (0-2) % Lymph # (Auto) 2.1 (1.2-4.9) X10*3/uL Ferry # (Auto) 1.8 H (0.1-1.2) X10*3/uL Eos # (Auto) 0.1 (0.0-0.4) X10*3/uL Baso # (Auto) 0.1 (0.0-0.2) X10*3/uL Abs Immat Gran (auto) 0.21 H (0.00-0.03) X10*3/uL Absolute Neuts (auto) 18.6 H (2.0-8.3) x10*3/uL Absolute Nucleated RBC 0.000 (0.0-0.012) X10*3/uL Nucleated RBC % (auto) 0.0 (0.0-0.2) /100WBC Smear Tech's Comments VERIFIED Sodium 142 (135-145) mmol/L Potassium 3.9 (3.3-5.1) mmol/L Chloride 104 (96-108) mmol/L Carbon Dioxide 27 (22-29) mmol/L Anion Gap 15 (12-20) BUN 19 H (9-16) mg/dL Creatinine 1.04 (0.5-1.4) mg/dL Estim Creat Clear Calc 79.7 Estimated GFR > 60 Random Glucose 74 (60-115) mg/dL Lactic Acid 1.7 (0.5-2.0) mmol/L Calcium 9.0 (8.4-10.2) mg/dL Magnesium 2.1 (1.6-2.6) mg/dL Total Bilirubin 0.2 (0.0-1.0) mg/dL AST 33 (5-37) U/L ALT 31 (0-40) U/L Alkaline Phosphatase 76 (39-117) U/L Total Protein 7.4 (6.5-8.0) g/dL Albumin 3.8 (3.5-5.0) g/dL Lipase 68 (8-78) U/L Discharge Plan Discharge Clinical Impression: Cavitary pneumonia, Drug abuse, IV Patient Disposition: Admitted As Inpatient
--- NOTE | 2024-12-25 01:59 | PC.NURSE ---
unable to draw blood off iv access. pt difficult sick in obtaining blood work causing delay in iv antibiotics
[2024-12-25] MEDS: diazePAM 10 MG/2 ML CARTRIDGE 2.5 MG IVPUSH (02:09)
[2024-12-25] MEDS: 0.9 % Sodium Chloride 1,905.09 ML 1905.09 ML IV (02:10)
[2024-12-25 02:17] LABS: Basophils Absolute Auto 0.1 X10*3/uL (0.0-0.2); Basophils Percent Auto 0.3 % (0-2); Eosinophils Absolute Auto 0.1 X10*3/uL (0.0-0.4); Eosinophils Percent Auto 0.3 % (0-4); Hematocrit 33.8 % (42.0-52.0); Hemoglobin 11.2 g/dl (14.0-18.0); Imm Gran Abs Auto 0.21 X10*3/uL (0.00-0.03); Imm Gran Pct Auto 0.9 % (0.0-0.4); Lymphocytes Absolute Auto 2.1 X10*3/uL (1.2-4.9); Lymphocytes Percent Auto 9.3 % (20-40); MANUAL DIFF FLAG SCAN; Mean Corpuscular HGB Conc 33.1 g/dl (31.0-36.0); Mean Corpuscular Hemoglobin 29.8 pg (27.0-33.0); Mean Corpuscular Volume 89.9 fL (80.0-98.0); Mean Platelet Volume 8.4 fL (9.4-12.4); Monocytes Absolute Auto 1.8 X10*3/uL (0.1-1.2); Monocytes Percent Auto 7.7 % (2-11); Neutrophils Absolute Auto 18.6 x10*3/uL (2.0-8.3); Neutrophils Percent Auto 81.5 % (45-73); Platelet Count 556 X10*3/uL (160-400); Red Blood Count 3.76 X10*6/uL (4.60-5.80); Red Cell Distribution Width 13.9 % (11.0-16.0); SCAN SMEAR FLAG 1; White Blood Count 22.8 X10*3/uL (4.8-10.8)
[2024-12-25] MEDS: cefTRIAXone sodium 2 GM VIAL IVPUSH (02:23)
[2024-12-25] MEDS: vancomycin HCL 1,500 MG in 0.9 % Sodium Chloride 500 ML 333.33 MG IV (02:23)
[2024-12-25 02:35] LABS: Alanine Aminotransferase 31 U/L (0-40); Albumin Level 3.8 g/dL (3.5-5.0); Alkaline Phosphatase 76 U/L (39-117); Anion Gap 15 (12-20); Aspartate Amino Transferase 33 U/L (5-37); Bilirubin Total 0.2 mg/dL (0.0-1.0); Blood Urea Nitrogen 19 mg/dL (9-16); Carbon Dioxide 27 mmol/L (22-29); Chloride 104 mmol/L (96-108); Creatinine Clr Calc Pharmacy 79.7; Estimated Glomerular Filt Rate > 60; Glucose Random 74 mg/dL (60-115); Lactic Acid 1.7 mmol/L (0.5-2.0); Lipase 68 U/L (8-78); Magnesium 2.1 mg/dL (1.6-2.6); Potassium 3.9 mmol/L (3.3-5.1); Sodium 142 mmol/L (135-145); Total Protein 7.4 g/dL (6.5-8.0)
[2024-12-25 02:51] LABS: SLIDE REVIEW VERIFIED
--- NOTE | 2024-12-25 03:41 | P.HPHOSP_ITS ---
History of Present Illness Date of Service: 12/25/24 Attending physician on admission: Tash Whitman Chief Complaint: overdose Patient is a 44-year-old male with past medical history IV drug abuse and overdose, cardiac arrest secondary to overdose, hydronephrosis right kidney, nephrolithiasis, right rotator cuff tear, and recent hospitalization with cavitary pneumonia. Patient left the hospital AMA 2 days prior. Patient stated he was dope sick at the time. It was indicated that patient was receiving methadone during that admission and was seen by addictions. Patient returned to the emergency department today after a witnessed overdose requiring 1 dose of Narcan. Patient did not require CPR. Patient continues to have hemoptysis. Patient currently sleepy but responds to verbal stimulation and will answer some questions with yes or no or I don't know . Patient states he is currently not suicidal. Patient currently has a leukocytosis of 22, is afebrile, and lactic acid is 1.7. Patient has a noted thrombocytosis of 556. Patient is started on Lovenox for DVT prophylaxis. Electrolytes stable. Hemodynamics also stable, and patient currently in sinus rhythm. Neurological status currently reassuring. Patient is not presenting encephalopathic at this time. Currently, patient has no plans to leave AMA. Patient is started on cefepime, Flagyl and vancomycin noting cavitary lesion with suspected aspiration pneumonia that persists. Patient was seen by Pulmonary last admission and bronchoscopy was recommended if patient does not improve. Patient was last tested for TB back in September of 2023. Will retest this admission as patient reports being homeless for some time. Patient has history of hepatitis-C with a high viral load. Patient could not recall if he received treatment. Will repeat HIV testing as well. Urine tox screen and UA are also pending. Patient's previous urine tox was positive for fentanyl, cocaine and marijuana. Patient denies history of endocarditis noting he is an IV drug user. No murmur noted on exam. Back in September of 2024 patient diagnosed with hydronephrosis of the right kidney and nephrolithiasis. Patient had a stent placed and is supposed to follow up with Urology. Patient has not made any follow-up appointments so far. Will consult Urology while patient is here. Renal function currently stable. Patient denies any flank pain. Review of Systems 2 Review of Systems: Patient resting comfortably. With prompting patient will answer questions when asked. Often patient responds with ?I do not know ?. Patient is denying any chest pain, shortness of breath and abdominal pain. Yes all other systems are reviewed and are negative [facility] Medical History (Updated 12/25/24 @ 03:52 by JUDITH Raymond) Right rotator cuff tear Hepatitis C Cardiac arrest Overdose Opioid use disorder Hydronephrosis Hemoptysis Cavitary pneumonia IVDU (intravenous drug user) Polysubstance use disorder Kidney stones Pertinent family history: No information offered Surgical History H/O hand surgery Social History (Updated 12/25/24 @ 03:53 by JUDITH Raymond) Household Members: None Housing: Homeless Are you a primary clinical care leader to a significant other at home: No Do you presently have visiting nurse or other home services: No Alcohol intake: current Alcohol intake frequency: does not drink Alcohol type: hard liquor Patient Tobacco Use Status: Current everyday Tobacco user Tobacco use type: Cigarette Cigarette Packs Per Day: 1 Cigarettes Per Day: 20.0 Years Smoked: 30 Smoked in Last 30 Days: Yes Use of substances other than those prescribed or required for medical reasons: Yes Substance Use Type: Crack/Cocaine, Heroin and Marijuana Substance Use Frequency: Daily Last Used Substance: Just Prior to Admission Advance Directives: No Advance Directives Information Provided: No service: No Ebola Risk: Travel/Contact With Anyone From Affected Area/s: No Has Patient Experienced Ebola Symptoms: No Meds Allergies Allergy/AdvReac Type Severity Reaction Status Date / Time coffee (Coffea arabica) Allergy Severe ANAPHYLAXIS Verified 12/25/24 00:51 [COFFEE] Penicillins [PENICILLINS] Allergy Intermediate RASH Verified 12/25/24 00:51 penicillin V Allergy Unknown Rash Verified 12/25/24 00:51 COFFEE FLAVOR Allergy Unknown Anaphylaxis Uncoded 12/25/24 00:51 Active Medications: Current Medications Acetaminophen (Acetaminophen 325 Mg Tablet) 650 mg PO Q6H PRN PRN Reason: Pain, Mild 1-3,fever,headache Albuterol/Ipratropium (Albuterol/Iprat 2.5/0.5mg 3 Ml Ampul.Neb) 3 ml INHALE Q4H PRN PRN Reason: Shortness of Breath/Wheezing Calcium Carbonate (Calcium Carbonate 750 Mg Tab.Chew) 750 mg PO Q4H PRN PRN Reason: Heartburn Enoxaparin Sodium (Enoxaparin Sodium 40 Mg/0.4 Ml Syringe) 40 mg SUBCUT Q24H [facility] Cefepime HCl (Maxipime) 2 gm in 50 mls @ 100 mls/hr IV Q24H [facility] Metronidazole (Flagyl) 500 mg in 100 mls @ 100 mls/hr IV Q8H [facility] Magnesium Hydroxide (Milk Of Magnesia 30 Ml Oral.Susp) 30 ml PO DAILY PRN PRN Reason: Constipation Melatonin (Melatonin 3 Mg Tablet) 6 mg PO BEDTIME PRN PRN Reason: Insomnia Ondansetron HCl (Ondansetron Hcl 4 Mg/2 Ml Vial) 4 mg IVPUSH Q8H PRN PRN Reason: Nausea and Vomiting Pharmacy Consult (Consult Rx Vancomycin Dosing) 1 each MISCELLANE DAILY PRN PRN Reason: Consult order Polyethylene Glycol (Polyethylene Glycol 3350 17 Gm Powd.Pack) 17 gm PO DAILY PRN PRN Reason: Constipation Senna (Sennosides 8.6 Mg Tablet) 17.2 mg PO BEDTIME [facility] Sodium Chloride (0.9 % Sodium Chloride Flush 3 Ml Syringe) 3 ml IVFLUSH QSHIFT [facility] Home Medications ?Medication ?Instructions ?Recorded ?Confirmed ?Last Taken ?Type gabapentin 600 mg tablet 600 mg PO TID 12/15/24 12/15/24 Unknown History Physical Exam 2 Vital Signs and Narrative: Vital Signs: Last Vital Signs Temp 98.2 F 12/25/24 02:28 Pulse 92 12/25/24 02:28 Resp 17 12/25/24 02:28 BP 106/66 12/25/24 02:28 Pulse Ox 97 12/25/24 02:28 O2 Del Method Room Air 12/25/24 02:28 BMI result Body Mass Index 22.6 Sleepy, intermittently responsive but able to provide elaborate history Neuro: CN II-X11 intact, visual acuity intact EYES: PERRLA, EOM intact, sclerae nonicteric ENT: hearing intact, no issues with swallowing, uvula midline, lips moist, nares patent no epistaxis Cardiac: S1 S2 RRR, no murmur, no JVD, no edema in Lower ext Pulmonary: lungs diminished bilaterally Abdominal: BS active in all 4 quadrants, no guarding, tenderness, rebounding MSK: Unable to assess : no CVA tenderness no bladder distension Extremities: no edema in lower extremities, PT and DP pulses palpable +2 Psych: mood labile, judgement and insight poor Skin: intact Results Labs 12/25/24 02:07 12/25/24 02:07 Labs: Laboratory Results - last 24 hr 12/25/24 02:07 MCV 89.9 MCH 29.8 MCHC 33.1 RDW 13.9 Plt Count 556 H D MPV 8.4 L Immature Gran % (Auto) 0.9 H Neut % (Auto) 81.5 H Lymph % (Auto) 9.3 L [place] % (Auto) 7.7 Eos % (Auto) 0.3 Baso % (Auto) 0.3 Lymph # (Auto) 2.1 [place] # (Auto) 1.8 H Eos # (Auto) 0.1 Baso # (Auto) 0.1 Abs Immat Gran (auto) 0.21 H Absolute Neuts (auto) 18.6 H Absolute Nucleated RBC 0.000 Nucleated RBC % (auto) 0.0 Smear Tech's Comments VERIFIED Anion Gap 15 Estim Creat Clear Calc 79.7 Estimated GFR > 60 Random Glucose 74 Lactic Acid 1.7 Calcium 9.0 Magnesium 2.1 Total Bilirubin 0.2 AST 33 ALT 31 Alkaline Phosphatase 76 Total Protein 7.4 Albumin 3.8 Lipase 68 ECG Prior ECG tracings: not available for review Imaging Radiologist's Impressions: CXR Findings: Left suprahilar cavitary consolidation. Similar to recent CT. No new areas of consolidation. Hyperinflation. No pleural effusions. Heart size is normal. No acute fracture. IMPRESSION: Left suprahilar cavitary consolidation again noted. Follow-up as needed. Assessment and Plan (1) Cavitary pneumonia: Status: Acute Plan Patient is a 44-year-old male with past medical history IV drug abuse and overdose, cardiac arrest secondary to overdose, hydronephrosis right kidney, nephrolithiasis, right rotator cuff tear, and recent hospitalization with cavitary pneumonia. Patient presents to the emergency department status post overdose requiring 1 dose of Narcan. Patient being admitted for cavitary pneumonia as patient left AMA 2 days prior and did not complete treatment. Currently patient denies suicidal ideations and is agreeable to admission. Cavitary PNA, Aspiration PNA -Pulmonary consulted, may require bronchoscopy based on last note from most recent admission -Pt starting Cefepime, Flagyl, Vanco (MRSA positive recent admission) -Oxygen prn and supportive care -No evidence of hemoptysis on admisison, started lovenox due to thrombocytosis -ID consulted -Last [facility]spot 09/2023, repeating as pt has been homeless for some time -Sputum ordered -BC X2 pending -No sepsis presentation at this time Overdose/ Current IVDA fentanyl, cocaine -Witnessed 12/25/24 no cardiac arrest, one dose of narcan required (HX of cardiac arrest with past overdose per pt) -Urine drug screen pending -patient denies being suicidal -Pt is groggy, sleepy but answers questions when asked. Mild encephalopathy suspected. -Addictions consulted -COWS ordered -Pt was on methadone last admission 2 days prior (is not enrolled in community program) -Low suspicion for endocarditis based on clinical presentation -Pt advised against leaving AMA due to level of illness. Pt states he left AMA due to being dope sick. Nephrolithiasis, R kidney hydronephrosis with stent placed 10/09 -Urology consulted while inpt noting pt likely will be noncompliant with follow up as an outpatient -renal function stable -UA pending Hepatitis C positive -Previous RNA testing positive 10/06/23 -Repeating testing this admission, pt does not know if he received treatment, low likelihood -LFTs stable Thrombocytosis -Likely secondary to infection -Trend -Lovenox started (no hemoptysis noted clinically on admission) DVT prophylaxis: Lovenox PPI prophylaxis: Protonix Med rec pending Full Code status Quality Stroke Does the patient have a stroke diagnosis?: No Reason for No Anti-thrombotic by Day Two: N/A - Med Ordered VTE Prior VTE?: No VTE Risk Level:: Medical - moderate - high VTE Device Contraindication: N/A - Device Ordered VTE Drug Contraindication: N/A - Med Ordered
[2024-12-25] MEDS: Enoxaparin Sodium 40 MG/0.4 ML SYRINGE SUBCUT (04:11)
[2024-12-25] MEDS: metroNIDAZOLE/NS 500 MG/100 ML PIGGYBACK 100 MG IV ×2 (04:11→11:35)
[2024-12-25 05:33] LABS: Amphetamine Screen Urine Not Detected (Not Detect); Barbiturates, Urine Not Detected (Not Detect); Benzodiazepines Screen Urine Not Detected (Not Detect); Buprenorphine Scr Not Detected (Not Detect); Cannabinoid Screen Urine POSITIVE (Not Detect); Cocaine Screen Urine POSITIVE (Not Detect); Fentanyl, urine POSITIVE (Not Detect); Methadone Screen, Urine Not Detected (Not Detect); Opiate Screen Urine POSITIVE (Not Detect); Oxycodone Screen Urine Not Detected (Not Detect); Phencyclidine Screen Urine Not Detected (Not Detect)
[2024-12-25 05:37] LABS: MANUAL DIFF FLAG NO
[2024-12-25 05:47] LABS: Basophils Absolute Auto 0.1 X10*3/uL (0.0-0.2); Basophils Percent Auto 0.3 % (0-2); Eosinophils Percent Auto 0.2 % (0-4); Hematocrit 29.7 % (42.0-52.0); Hemoglobin 9.8 g/dl (14.0-18.0); Imm Gran Abs Auto 0.15 X10*3/uL (0.00-0.03); Imm Gran Pct Auto 0.8 % (0.0-0.4); Lymphocytes Absolute Auto 2.1 X10*3/uL (1.2-4.9); Lymphocytes Percent Auto 11.6 % (20-40); Mean Corpuscular Hemoglobin 29.5 pg (27.0-33.0); Mean Corpuscular Volume 89.5 fL (80.0-98.0); Mean Platelet Volume 8.9 fL (9.4-12.4); Monocytes Absolute Auto 1.3 X10*3/uL (0.1-1.2); Monocytes Percent Auto 7.2 % (2-11); Neutrophils Absolute Auto 14.5 x10*3/uL (2.0-8.3); Neutrophils Percent Auto 79.9 % (45-73); Platelet Count 497 X10*3/uL (160-400); Red Blood Count 3.32 X10*6/uL (4.60-5.80); Red Cell Distribution Width 14.1 % (11.0-16.0); White Blood Count 18.2 X10*3/uL (4.8-10.8)
[2024-12-25 06:04] LABS: Alanine Aminotransferase 22 U/L (0-40); Albumin Level 3.1 g/dL (3.5-5.0); Alkaline Phosphatase 69 U/L (39-117); Anion Gap 14 (12-20); Aspartate Amino Transferase 29 U/L (5-37); Bilirubin Total 0.1 mg/dL (0.0-1.0); Blood Urea Nitrogen 16 mg/dL (9-16); Carbon Dioxide 23 mmol/L (22-29); Chloride 109 mmol/L (96-108); Creatinine Clr Calc Pharmacy 107.6; Estimated Glomerular Filt Rate > 60; Glucose Random 80 mg/dL (60-115); Potassium 3.6 mmol/L (3.3-5.1); Sodium 142 mmol/L (135-145); Total Protein 6.1 g/dL (6.5-8.0)
[2024-12-25] MEDS: Pantoprazole Sodium 40 MG/10 ML VIAL IVPUSH (06:04)
[2024-12-25] MEDS: cefEPime HCl/D5W 2 GM/50 ML PIGGYBACK IV ×2 (06:04→12:49)
--- NOTE | 2024-12-25 06:35 | PC.NURSE ---
respirations even and unlabored. pt medicated per MAR, tolerated well.
--- NOTE | 2024-12-25 07:08 | PHA.PROG ---
Admission Date/Time: December 25, 2024 02:59 Indication: Respiratory Weight in k.503 kg Adjusted body weight in Kg: [place] body weight in Kg: Obesity Dosing Indication % IBW: BMI 22.6 Serum Creatinine - Last 168 Hours 12/25/24 12/25/24 02:07 04:28 Creatinine 1.04 0.77 Estimated CrCl and GFR - Last 168 Hours 12/25/24 12/25/24 02:07 04:28 Estim Creat Clear Calc 79.7 107.6 Estimated GFR > 60 > 60 Vancomycin Loading Dose: 1500mg X1 Current Vancomycin Dosing Regimen: 750mg Q8H Vancomycin Monitoring using AUC goal of 400 - 600 range with trough as surrogate marker: 541 Date and Time for next Vancomycin Level to be drawn: 12/26 @0900 Pharmacist Comments on Vancomycin Plan: Pt's renal function more stable, starting off more aggressive per indication. Targeting trough of 17.7. Vancomycin dosing will take advantage of EGTRX as a clinical decision support tool that uses Bayesian modeling to calculate individual patient's pharmacokinetic parameters and forecast the patient's drug concentration time course with the target goal AUC 24 range of 400 - 600 mg/L/hr.
[2024-12-25] MEDS: 0.9 % Sodium Chloride Flush 3 ML SYRINGE IVFLUSH ×3 (07:50→21:30)
--- NOTE | 2024-12-25 08:08 | PC.NURSE ---
Pt is alert and oriented. Eating breakfast and request more food and tea, and provided. Denies SOB but states pain to left chest wall with deep breathing. Breathing is even/unlabored. No diff breathing or cough noted. Skin pink warm and dry. NSR on tele.
[2024-12-25 08:13] LABS: HIV AB/AG Nonreactive (Nonreactive); HIV Num 1 0.07 S/CO (0.00-0.99)
--- NOTE | 2024-12-25 08:39 | PHA.MEDREC ---
Addendum entered by Latrice Wagner RPh 12/25/24 08:54: reviewed by [facility] Original Note: Pharmacy Consult ? Medication Reconciliation Pharmacy has completed the medication reconciliation. Spoke with pt and he confirmed he is only taking Gabapentin 600mg caps and openly admitted to abusing it and stated he took 11 last night before coming here.
--- NOTE | 2024-12-25 09:30 | HO.ADDICT_ITS ---
History of Present Illness Date of Service: 12/25/24 Chief Complaint: Pulmonary abscess, hemoptysis Reason for Consult: opioid overdose Sources of Information: patient interviewed and chart reviewed HPI Narrative: Patient is a 44 year old male with history of OUD, presented to [facility] ED following overdose requiring naloxone. Medically admitted with cavitary pneumonia. Patient seen in room 11 of main ED. He is awake, alert, engaged in interview. He presents as anxious and restless. States he has been using btwn 1-4 bundles of fentanyl daily IV. Also using cocaine IV Denies any other substance use, including alcohol He states he has been using substance for a few years . Denies any history of ATS admissions. History of MOUD tx--Buprenorphine, last filled September 2024. He reports not liking the way it made him feel Denies any history of methadone (outside pf previous admission here) Labs reviewed HIV and Hepatitis screens pending Review of Systems Constitutional: Reports as per HPI, Reports chills and Reports malaise Gastrointestinal: Denies loose stools and Denies nausea Psychiatric: Reports anxiety Diagnostics Vital Signs (24Hr): Vital Signs - 24 hr 12/25/24 00:49 12/25/24 01:27 12/25/24 02:28 Temperature 98.4 F 98.4 F 98.2 F Pulse Rate 96 96 92 Respiratory Rate 16 16 17 Blood Pressure 117/86 117/86 106/66 Pulse Oximetry 97 97 97 Oxygen Delivery Method Room Air Room Air Room Air 12/25/24 05:27 12/25/24 05:57 12/25/24 06:12 Temperature 98.6 F Pulse Rate 93 83 81 Respiratory Rate 20 Blood Pressure 98/51 L 103/50 L 103/61 Pulse Oximetry Oxygen Delivery Method 12/25/24 06:12 12/25/24 07:46 Temperature Pulse Rate 82 71 Respiratory Rate 17 Blood Pressure 103/61 97/66 Pulse Oximetry 97 Oxygen Delivery Method Room Air BMI result Body Mass Index 22.6 Labs 12/25/24 04:28 12/25/24 04:28 Labs: Laboratory Results - last 48 hr 12/25/24 12/25/24 12/25/24 02:07 04:28 05:12 WBC 22.8 H 18.2 H RBC 3.76 L 3.32 L Hgb 11.2 L 9.8 L Hct 33.8 L 29.7 L MCV 89.9 89.5 MCH 29.8 29.5 MCHC 33.1 33.0 RDW 13.9 14.1 Plt Count 556 H D 497 H MPV 8.4 L 8.9 L Immature Gran % (Auto) 0.9 H 0.8 H Neut % (Auto) 81.5 H 79.9 H Lymph % (Auto) 9.3 L 11.6 L [place] % (Auto) 7.7 7.2 Eos % (Auto) 0.3 0.2 Baso % (Auto) 0.3 0.3 Lymph # (Auto) 2.1 2.1 [place] # (Auto) 1.8 H 1.3 H Eos # (Auto) 0.1 0.0 Baso # (Auto) 0.1 0.1 Abs Immat Gran (auto) 0.21 H 0.15 H Absolute Neuts (auto) 18.6 H 14.5 H Absolute Nucleated RBC 0.000 0.000 Nucleated RBC % (auto) 0.0 0.0 Smear Tech's Comments VERIFIED Sodium 142 142 Potassium 3.9 3.6 Chloride 104 109 H Carbon Dioxide 27 23 Anion Gap 15 14 BUN 19 H 16 Creatinine 1.04 0.77 Estim Creat Clear Calc 79.7 107.6 Estimated GFR > 60 > 60 Random Glucose 74 80 Lactic Acid 1.7 Calcium 9.0 8.0 L D Magnesium 2.1 Total Bilirubin 0.2 0.1 AST 33 29 ALT 31 22 Alkaline Phosphatase 76 69 Total Protein 7.4 6.1 L Albumin 3.8 3.1 L Lipase 68 Urine Opiates Screen POSITIVE H Ur Buprenorphine Scrn Not Detected Ur Oxycodone Screen Not Detected Urine Methadone Screen Not Detected Urine Fentanyl Screen POSITIVE H Ur Barbiturates Screen Not Detected Ur Phencyclidine Scrn Not Detected Ur Amphetamines Screen Not Detected U Benzodiazepines Scrn Not Detected Urine Cocaine Screen POSITIVE H U Marijuana (THC) Screen POSITIVE H HIV 1&2 Ab/P24 Ag 4thGn Nonreactive Mental Status Exam Mental Status Exam Level of Consciousness: Awake, Appropriate and Alert Patient Behavior: Appropriate, Talkative and Restless Mood Description: Anxious Affect Description: Anxious Speech Pattern: Pressured Hallucinations: None Thought Content: positive for Circumstantial Judgement: Good Medications Medications Current Medications Acetaminophen (Acetaminophen 325 Mg Tablet) 650 mg PO Q6H PRN PRN Reason: Pain, Mild 1-3,fever,headache Albuterol/Ipratropium (Albuterol/Iprat 2.5/0.5mg 3 Ml Ampul.Neb) 3 ml INHALE Q4H PRN PRN Reason: Shortness of Breath/Wheezing Calcium Carbonate (Calcium Carbonate 750 Mg Tab.Chew) 750 mg PO Q4H PRN PRN Reason: Heartburn Enoxaparin Sodium (Enoxaparin Sodium 40 Mg/0.4 Ml Syringe) 40 mg SUBCUT Q24H [facility] Last Admin: 12/25/24 04:11 Dose: 40 mg Gabapentin (Gabapentin 600 Mg Tablet) 600 mg PO TID [facility] Metronidazole (Flagyl) 500 mg in 100 mls @ 100 mls/hr IV Q8H [facility] Last Infusion: 12/25/24 05:16 Dose: Infused Cefepime HCl (Maxipime) 2 gm in 50 mls @ 100 mls/hr IV Q8H [facility] Last Infusion: 12/25/24 06:57 Dose: Infused Vancomycin HCl 750 mg/ Sodium (Chloride) 265 mls @ 265 mls/hr IV Q8H [facility] Magnesium Hydroxide (Milk Of Magnesia 30 Ml Oral.Susp) 30 ml PO DAILY PRN PRN Reason: Constipation Melatonin (Melatonin 3 Mg Tablet) 6 mg PO BEDTIME PRN PRN Reason: Insomnia Ondansetron HCl (Ondansetron Hcl 4 Mg/2 Ml Vial) 4 mg IVPUSH Q8H PRN PRN Reason: Nausea and Vomiting Pantoprazole Sodium (Pantoprazole Sodium 40 Mg/10 Ml Vial) 40 mg IVPUSH DAILY@0630 [facility] Last Admin: 12/25/24 06:04 Dose: 40 mg Pharmacy Consult (Consult Rx Vancomycin Dosing) 1 each MISCELLANE DAILY PRN PRN Reason: Consult order Polyethylene Glycol (Polyethylene Glycol 3350 17 Gm Powd.Pack) 17 gm PO DAILY PRN PRN Reason: Constipation Senna (Sennosides 8.6 Mg Tablet) 17.2 mg PO BEDTIME [facility] Sodium Chloride (0.9 % Sodium Chloride Flush 3 Ml Syringe) 3 ml IVFLUSH QSHIFT [facility] Last Admin: 12/25/24 07:50 Dose: 3 ml Allergies Allergies Allergy/AdvReac Type Severity Reaction Status Date / Time coffee (Coffea arabica) Allergy Severe ANAPHYLAXIS Verified 12/25/24 00:51 [COFFEE] Penicillins [PENICILLINS] Allergy Intermediate RASH Verified 12/25/24 00:51 penicillin V Allergy Unknown Rash Verified 12/25/24 00:51 COFFEE FLAVOR Allergy Unknown Anaphylaxis Uncoded 12/25/24 00:51 Assessment & Plan Assessment & Plan (1) Opioid use disorder: Status: Acute Code(s): F11.90 - Opioid use, unspecified, uncomplicated Assessment and Plan: * methadone 40mg X1 * will add 10mg PRN dose * AM dose 60mg * PRN tizanidine for restless legs. Total time managing care of this patient today __45__ minutes. [facility] Past Medical History Medical History (Updated 12/25/24 @ 11:33 by Priyank Patel MD) Right rotator cuff tear Hepatitis C Cardiac arrest Overdose Opioid use disorder Hydronephrosis Hemoptysis Cavitary pneumonia IVDU (intravenous drug user) Polysubstance use disorder Kidney stones Surgical History Surgical History H/O hand surgery Social History Social History (Updated 12/25/24 @ 03:53 by JUDITH Raymond) Household Members: None Housing: Homeless Are you a primary director long term care to a significant other at home: No Do you presently have visiting nurse or other home services: No Alcohol intake: current Alcohol intake frequency: does not drink Alcohol type: hard liquor Patient Tobacco Use Status: Current everyday Tobacco user Tobacco use type: Cigarette Cigarette Packs Per Day: 1 Cigarettes Per Day: 20.0 Years Smoked: 30 Smoked in Last 30 Days: Yes Use of substances other than those prescribed or required for medical reasons: Yes Substance Use Type: Crack/Cocaine, Heroin and Marijuana Substance Use Frequency: Daily Last Used Substance: Just Prior to Admission Advance Directives: No Advance Directives Information Provided: No service: No
[2024-12-25] MEDS: vancomycin HCL 750 MG in 0.9 % Sodium Chloride 250 ML 265 MG IV ×2 (10:33→19:16)
[2024-12-25] MEDS: methADONE HCl 20 MG/2 ML ORAL.CONC 40 MG PO (10:37)
--- NOTE | 2024-12-25 11:30 | P.CONPL_ITS ---
History of Present Illness History of Present Illness Consult date: 12/25/24 Chief complaint: Pulmonary abscess, hemoptysis Narrative: 44-year-old gentleman with underlying polysubstance abuse with prior cardiac arrest secondary to overdose, hep C, right-sided hydronephrosis with nephrolithiasis, recent hospitalization for cavitary pneumonia when patient left against medical advice readmitted on 12/25/2024 secondary to heroin overdose, resolved with Narcan administration, also noted to have continuation of underlying known cavitary pneumonia with likely pulmonary abscess. Of note patient does have history of MRSA in his shoulder abscess. Review of Systems 2 Constitutional: Constitutional: Denies daytime sleepiness, Denies excessive sweating, Denies fatigue, Denies fever(s), Denies lethargy, Denies malaise, Denies night sweats, Denies snoring and Denies weight loss Eyes: Eyes: Denies blurry vision and Denies itchy eyes ENT: Denies nasal congestion, Denies post nasal drip, Denies sinus pain, Denies sinus pressure and Denies other ( Thrush) Cardiovascular: Cardiovascular: Denies chest pain, Denies pedal edema, Denies dyspnea, Denies orthopnea and Denies paroxysmal nocturnal dyspnea Respiratory: Respiratory: Reports cough, Reports hemoptysis, Reports excessive phlegm production, Denies dyspnea, Denies snoring and Denies wheezing Gastrointestinal: Gastrointestinal: Denies abdominal pain and Denies heartburn Musculoskeletal: Musculoskeletal: Denies myalgias, Denies arthralgias and Denies joint swelling Integumentary/Breasts: Skin/Breast: Denies rash Neurologic: Denies memory loss and Denies seizure-like activity Psychiatric: Psychiatric: Denies abnormal sleep pattern, Denies anxiety and Denies memory loss Endocrine: Endocrine: Denies excessive sweating, Denies fatigue and Denies heat intolerance Hematologic/Lymphatic: Hematologic/Lymphatic: Denies easy bruising Allergic/Immunologic: Allergic/Immunologic: Denies itchy eyes, Denies seasonal rhinorrhea and Denies wheezing PMFSH Past Medical History Medical History (Updated 12/25/24 @ 11:33 by Priyank Patel MD) Right rotator cuff tear Hepatitis C Cardiac arrest Overdose Opioid use disorder Hydronephrosis Hemoptysis Cavitary pneumonia IVDU (intravenous drug user) Polysubstance use disorder Kidney stones Surgical History Surgical History H/O hand surgery Social History Social History (Updated 12/25/24 @ 03:53 by JUDITH Raymond) Household Members: None Housing: Homeless Are you a primary care transitions manager to a significant other at home: No Do you presently have visiting nurse or other home services: No Alcohol intake: current Alcohol intake frequency: does not drink Alcohol type: hard liquor Patient Tobacco Use Status: Current everyday Tobacco user Tobacco use type: Cigarette Cigarette Packs Per Day: 1 Cigarettes Per Day: 20.0 Years Smoked: 30 Smoked in Last 30 Days: Yes Use of substances other than those prescribed or required for medical reasons: Yes Substance Use Type: Crack/Cocaine, Heroin and Marijuana Substance Use Frequency: Daily Last Used Substance: Just Prior to Admission Advance Directives: No Advance Directives Information Provided: No service: No Travel History Ebola Risk: Travel/Contact With Anyone From Affected Area/s: No Has Patient Experienced Ebola Symptoms: No Meds Allergies Allergy/AdvReac Type Severity Reaction Status Date / Time coffee (Coffea arabica) Allergy Severe ANAPHYLAXIS Verified 12/25/24 00:51 [COFFEE] Penicillins [PENICILLINS] Allergy Intermediate RASH Verified 12/25/24 00:51 penicillin V Allergy Unknown Rash Verified 12/25/24 00:51 COFFEE FLAVOR Allergy Unknown Anaphylaxis Uncoded 12/25/24 00:51 Active Medications: Current Medications Acetaminophen (Acetaminophen 325 Mg Tablet) 650 mg PO Q6H PRN PRN Reason: Pain, Mild 1-3,fever,headache Albuterol/Ipratropium (Albuterol/Iprat 2.5/0.5mg 3 Ml Ampul.Neb) 3 ml INHALE Q4H PRN PRN Reason: Shortness of Breath/Wheezing Calcium Carbonate (Calcium Carbonate 750 Mg Tab.Chew) 750 mg PO Q4H PRN PRN Reason: Heartburn Enoxaparin Sodium (Enoxaparin Sodium 40 Mg/0.4 Ml Syringe) 40 mg SUBCUT Q24H [facility] Last Admin: 12/25/24 04:11 Dose: 40 mg Gabapentin (Gabapentin 600 Mg Tablet) 600 mg PO TID [facility] Metronidazole (Flagyl) 500 mg in 100 mls @ 100 mls/hr IV Q8H [facility] Last Infusion: 12/25/24 05:16 Dose: Infused Cefepime HCl (Maxipime) 2 gm in 50 mls @ 100 mls/hr IV Q8H [facility] Last Infusion: 12/25/24 06:57 Dose: Infused Vancomycin HCl 750 mg/ Sodium (Chloride) 265 mls @ 265 mls/hr IV Q8H [facility] Last Admin: 12/25/24 10:33 Dose: 265 mls/hr Magnesium Hydroxide (Milk Of Magnesia 30 Ml Oral.Susp) 30 ml PO DAILY PRN PRN Reason: Constipation Melatonin (Melatonin 3 Mg Tablet) 6 mg PO BEDTIME PRN PRN Reason: Insomnia Ondansetron HCl (Ondansetron Hcl 4 Mg/2 Ml Vial) 4 mg IVPUSH Q8H PRN PRN Reason: Nausea and Vomiting Pantoprazole Sodium (Pantoprazole Sodium 40 Mg/10 Ml Vial) 40 mg IVPUSH DAILY@0630 [facility] Last Admin: 12/25/24 06:04 Dose: 40 mg Pharmacy Consult (Consult Rx Vancomycin Dosing) 1 each MISCELLANE DAILY PRN PRN Reason: Consult order Polyethylene Glycol (Polyethylene Glycol 3350 17 Gm Powd.Pack) 17 gm PO DAILY PRN PRN Reason: Constipation Senna (Sennosides 8.6 Mg Tablet) 17.2 mg PO BEDTIME [facility] Sodium Chloride (0.9 % Sodium Chloride Flush 3 Ml Syringe) 3 ml IVFLUSH QSHIFT [facility] Last Admin: 12/25/24 07:50 Dose: 3 ml Home Medications ?Medication ?Instructions ?Recorded ?Confirmed ?Last Taken ?Type gabapentin 600 mg tablet 600 mg PO TID 12/15/24 12/25/24 12/24/24 History 6600 mg Physical Exam 2 Vital Signs: Vital Signs: Last Vital Signs Temp 98.6 F 12/25/24 06:12 Pulse 82 12/25/24 10:42 Resp 16 12/25/24 10:42 BP 102/68 12/25/24 10:42 Pulse Ox 98 12/25/24 10:42 O2 Del Method Room Air 12/25/24 10:42 BMI result Body Mass Index 22.6 Const: General: no acute distress and alert Nutritional Appearance: not obese Orientation/consciousness: Other orientation findings ( oriented) HEENT: Head: Yes atraumatic Eyes: General: appearance normal, both eyes and all related structures S clerae: sclerae normal EOM: EOMs intact bilaterally Neck: Neck: Yes supple Lymphatic: no lymphadenopathy noted Resp: Effort & Inspection: normal respiratory effort and no use of accessory muscles Auscultation: clear to auscultation bilaterally Cardio: Rate: regular rate Rhythm: regular rhythm Heart sounds: no gallops, no murmurs and no rubs Skin: General skin exam: other ( warm) Extrem: General: No clubbing, No cyanosis and No edema Results Laboratory Findings 12/25/24 04:28 12/25/24 04:28 Abnormal lab findings: Abnormal Labs 12/25/24 12/25/24 12/25/24 02:07 04:28 05:12 WBC 22.8 H 18.2 H RBC 3.76 L 3.32 L Hgb 11.2 L 9.8 L Hct 33.8 L 29.7 L Plt Count 556 H D 497 H MPV 8.4 L 8.9 L Immature Gran % (Auto) 0.9 H 0.8 H Neut % (Auto) 81.5 H 79.9 H Lymph % (Auto) 9.3 L 11.6 L [place] # (Auto) 1.8 H 1.3 H Abs Immat Gran (auto) 0.21 H 0.15 H Absolute Neuts (auto) 18.6 H 14.5 H Chloride 109 H BUN 19 H Calcium 8.0 L D Total Protein 6.1 L Albumin 3.1 L Urine Opiates Screen POSITIVE H Urine Fentanyl Screen POSITIVE H Urine Cocaine Screen POSITIVE H U Marijuana (THC) Screen POSITIVE H Assessment and Plan (1) Pulmonary abscess: Status: Acute (2) Cavitary pneumonia: Status: Acute Plan Impression 44-year-old gentleman with underlying polysubstance abuse and known cavitary pneumonia/pulmonary abscess, previously MRSA positive. Recommendation: Would suggest 28-day course of doxycycline/Levaquin with repeat CT chest and pulmonary follow-up in 1 months. Procedures Date of Service Date of Service: 12/25/24
--- NOTE | 2024-12-25 13:08 | PC.NURSE ---
Pt reports Methadone isn't working and I feel like im coming out of my skin Shellie Melton notified, more meds to be ordered.
--- NOTE | 2024-12-25 13:42 | MHC.CM.PN ---
pt reports being homeless he will be followed by care team and addiction medicine dc plan tbd by same
[2024-12-25] MEDS: Gabapentin 600 MG TABLET PO ×2 (14:13→21:28)
[2024-12-25] MEDS: TiZANidine HCL 4 MG TABLET PO (14:13)
--- NOTE | 2024-12-25 17:46 | PM.UROCN ---
History of Present Illness Consult details Consult date: 12/25/24 Reason for consult: other (h/o renal stone and ureteral stent) Narrative: 44-year-old male with a history of recent hospital admission for sepsis secondary to suspect aspiration pneumonia, with a cavitary lesions on CT scan, who left against medical advice on December 17, nephrolithiasis,?polysubstance use disorder, IV drug abuse, currently homeless , who returns after witnessed overdose. The patient had a right ureteral stent placed for obstructing ureteral stone in September 2024. The patient had a scheduled shockwave lithotripsy and planned stent removal on 10/31/2024 for right kidney stone. The stone was not visualized on KUB at that time and the right ureteral stent was removed on 10/31/2024. The patient is not complaining of flank pain. Review of Systems Review of Systems: per admitting [facility] Past Medical History Medical History Right rotator cuff tear Hepatitis C Cardiac arrest Overdose Opioid use disorder Hydronephrosis Hemoptysis Cavitary pneumonia IVDU (intravenous drug user) Polysubstance use disorder Kidney stones Surgical History Surgical History H/O hand surgery Social History Social History Household Members: None Housing: Homeless Are you a primary transitional care manager to a significant other at home: No Do you presently have visiting nurse or other home services: No Alcohol intake: current Alcohol intake frequency: does not drink Alcohol type: hard liquor Patient Tobacco Use Status: Current everyday Tobacco user Tobacco use type: Cigarette Cigarette Packs Per Day: 1 Cigarettes Per Day: 20.0 Years Smoked: 30 Smoked in Last 30 Days: Yes Use of substances other than those prescribed or required for medical reasons: Yes Substance Use Type: Crack/Cocaine, Heroin and Marijuana Substance Use Frequency: Daily Last Used Substance: Just Prior to Admission Advance Directives: No Advance Directives Information Provided: No service: No Travel History Ebola Risk: Travel/Contact With Anyone From Affected Area/s: No Has Patient Experienced Ebola Symptoms: No Meds Allergies Allergy/AdvReac Type Severity Reaction Status Date / Time coffee (Coffea arabica) Allergy Severe ANAPHYLAXIS Verified 12/25/24 00:51 [COFFEE] Penicillins [PENICILLINS] Allergy Intermediate RASH Verified 12/25/24 00:51 penicillin V Allergy Unknown Rash Verified 12/25/24 00:51 COFFEE FLAVOR Allergy Unknown Anaphylaxis Uncoded 12/25/24 00:51 Active Medications: Current Medications Acetaminophen (Acetaminophen 325 Mg Tablet) 650 mg PO Q6H PRN PRN Reason: Pain, Mild 1-3,fever,headache Albuterol/Ipratropium (Albuterol/Iprat 2.5/0.5mg 3 Ml Ampul.Neb) 3 ml INHALE Q4H PRN PRN Reason: Shortness of Breath/Wheezing Calcium Carbonate (Calcium Carbonate 750 Mg Tab.Chew) 750 mg PO Q4H PRN PRN Reason: Heartburn Enoxaparin Sodium (Enoxaparin Sodium 40 Mg/0.4 Ml Syringe) 40 mg SUBCUT Q24H [facility] Last Admin: 12/25/24 04:11 Dose: 40 mg Gabapentin (Gabapentin 600 Mg Tablet) 600 mg PO TID [facility] Last Admin: 12/25/24 14:13 Dose: 600 mg Metronidazole (Flagyl) 500 mg in 100 mls @ 100 mls/hr IV Q8H [facility] Last Infusion: 12/25/24 12:49 Dose: Infused Cefepime HCl (Maxipime) 2 gm in 50 mls @ 100 mls/hr IV Q8H [facility] Last Infusion: 12/25/24 13:47 Dose: Infused Vancomycin HCl 750 mg/ Sodium (Chloride) 265 mls @ 265 mls/hr IV Q8H [facility] Last Infusion: 12/25/24 11:35 Dose: Infused Magnesium Hydroxide (Milk Of Magnesia 30 Ml Oral.Susp) 30 ml PO DAILY PRN PRN Reason: Constipation Melatonin (Melatonin 3 Mg Tablet) 6 mg PO BEDTIME PRN PRN Reason: Insomnia Methadone HCl (Methadone Hcl 20 Mg/2 Ml Oral.Conc) 10 mg PO DAILY PRN PRN Reason: Opiate Withdrawal Ondansetron HCl (Ondansetron Hcl 4 Mg/2 Ml Vial) 4 mg IVPUSH Q8H PRN PRN Reason: Nausea and Vomiting Pantoprazole Sodium (Pantoprazole Sodium 40 Mg/10 Ml Vial) 40 mg IVPUSH DAILY@0630 [facility] Last Admin: 12/25/24 06:04 Dose: 40 mg Pharmacy Consult (Consult Rx Vancomycin Dosing) 1 each MISCELLANE DAILY PRN PRN Reason: Consult order Polyethylene Glycol (Polyethylene Glycol 3350 17 Gm Powd.Pack) 17 gm PO DAILY PRN PRN Reason: Constipation Senna (Sennosides 8.6 Mg Tablet) 17.2 mg PO BEDTIME [facility] Sodium Chloride (0.9 % Sodium Chloride Flush 3 Ml Syringe) 3 ml IVFLUSH QSHIFT [facility] Last Admin: 12/25/24 14:14 Dose: 3 ml Tizanidine HCl (Tizanidine Hcl 4 Mg Tablet) 4 mg PO TID PRN PRN Reason: Restlessness Last Admin: 12/25/24 14:13 Dose: 4 mg Home Medications ?Medication ?Instructions ?Recorded ?Confirmed ?Last Taken ?Type gabapentin 600 mg tablet 600 mg PO TID 12/15/24 12/25/24 12/24/24 History 6600 mg Physical Exam Vital Signs: Vital Signs: Last Vital Signs Temp 98.2 F 12/25/24 17:10 Pulse 71 12/25/24 17:10 Resp 17 12/25/24 17:10 BP 105/63 12/25/24 17:10 Pulse Ox 98 12/25/24 17:10 O2 Del Method Room Air 12/25/24 17:10 BMI result Body Mass Index 22.6 Results Labs 12/25/24 04:28 12/25/24 04:28 Labs: Abnormal lab results 12/25/24 12/25/24 12/25/24 Range/Units 02:07 04:28 05:12 WBC 22.8 H 18.2 H (4.8-10.8) X10*3/uL RBC 3.76 L 3.32 L (4.60-5.80) X10*6/uL Hgb 11.2 L 9.8 L (14.0-18.0) g/dl Hct 33.8 L 29.7 L (42.0-52.0) % Plt Count 556 H D 497 H (160-400) X10*3/uL MPV 8.4 L 8.9 L (9.4-12.4) fL Immature Gran % (Auto) 0.9 H 0.8 H (0.0-0.4) % Neut % (Auto) 81.5 H 79.9 H (45-73) % Lymph % (Auto) 9.3 L 11.6 L (20-40) % [place] # (Auto) 1.8 H 1.3 H (0.1-1.2) X10*3/uL Abs Immat Gran (auto) 0.21 H 0.15 H (0.00-0.03) X10*3/uL Absolute Neuts (auto) 18.6 H 14.5 H (2.0-8.3) x10*3/uL Chloride 109 H (96-108) mmol/L BUN 19 H (9-16) mg/dL Calcium 8.0 L D (8.4-10.2) mg/dL Total Protein 6.1 L (6.5-8.0) g/dL Albumin 3.1 L (3.5-5.0) g/dL Urine Opiates Screen POSITIVE H (Not Detect) Urine Fentanyl Screen POSITIVE H (Not Detect) Urine Cocaine Screen POSITIVE H (Not Detect) U Marijuana (THC) Screen POSITIVE H (Not Detect) Short CBC 12/25/24 12/25/24 Range/Units 02:07 04:28 WBC 22.8 H 18.2 H (4.8-10.8) X10*3/uL Hgb 11.2 L 9.8 L (14.0-18.0) g/dl Hct 33.8 L 29.7 L (42.0-52.0) % Plt Count 556 H D 497 H (160-400) X10*3/uL BMP 12/25/24 12/25/24 02:07 04:28 Sodium 142 142 Potassium 3.9 3.6 Chloride 104 109 H Carbon Dioxide 27 23 BUN 19 H 16 Creatinine 1.04 0.77 Calcium 9.0 8.0 L D Liver Function 12/25/24 12/25/24 Range/Units 02:07 04:28 Total Bilirubin 0.2 0.1 (0.0-1.0) mg/dL AST 33 29 (5-37) U/L ALT 31 22 (0-40) U/L Alkaline Phosphatase 76 69 (39-117) U/L Albumin 3.8 3.1 L (3.5-5.0) g/dL Imaging Additional studies: Attending Dr: Norris Vu MD cc: Norris Vu MD; Rohini Brown MD~ Operative Note Operative Note Date of Service: 10/31/24 Narrative: Preop - stent with stone post op - above procedure - cysto stent removal right Indications - right stone with stent patient presented to hospital with positive tox screen ESWL not performed Plan to remove stent A well lubricated 16 Greek cystoscope was placed No abnormality noted of urethra during placement Indwelling stent seen within bladder emerging from right ureteric orifices The stent was grasped with a 3 prong grasper and removed without difficulty The patient tolerated the procedure well Assessment and Plan (1) Bilateral kidney stones: Status: Acute Plan No acute stone episode at this time. Right Ureteral stent removed on 10/31/2024. Procedures Date of Service Date of Service: 12/25/24
[2024-12-25] MEDS: methADONE HCl 20 MG/2 ML ORAL.CONC 10 MG PO (19:19)
--- NOTE | 2024-12-25 20:23 | MHC.EDTECH ---
This pct assumed care of Patient at 1845 ,1999 rounding done ,vitals taken ,Patient awake walking around ,Patient belongings list done ,[place] [facility] [place]ing for report to be given .
[2024-12-25] MEDS: levoFLOXacin/D5W 750 MG/150 ML PIGGYBACK 100 MG IV (21:28)
[2024-12-26] VITALS (8 sets, daily range): BP systolic 105–127; BP diastolic 56–74; PULSE 63–98; RESP 14–18; TEMP 36.4–36.8; O2SAT 92–98
[2024-12-26] MEDS: Doxycycline Hyclate 100 MG in 0.9 % Sodium Chloride 250 ML 166.67 MG IV ×2 (00:06→12:41)
[2024-12-26 02:42] LABS: Appearance Urine Clear; Color Urine Yellow; Glucose Urine UA Negative (Negative); Leukocyte Esterase Urine Negative (Negative); Nitrite Urine Negative (Negative); PH 5.5 (5.0-9.0); Urine Blood Negative (Negative); Urine Ketones Negative (Negative); Urine Protein Negative (Neg-Trace)
[2024-12-26] MEDS: Enoxaparin Sodium 40 MG/0.4 ML SYRINGE SUBCUT (04:07)
[2024-12-26 05:59] LABS: MANUAL DIFF FLAG NO
[2024-12-26 06:04] LABS: Basophils Absolute Auto 0.1 X10*3/uL (0.0-0.2); Basophils Percent Auto 0.7 % (0-2); Eosinophils Absolute Auto 0.2 X10*3/uL (0.0-0.4); Eosinophils Percent Auto 2.2 % (0-4); Hematocrit 31.8 % (42.0-52.0); Hemoglobin 10.4 g/dl (14.0-18.0); Imm Gran Abs Auto 0.08 X10*3/uL (0.00-0.03); Imm Gran Pct Auto 0.8 % (0.0-0.4); Lymphocytes Absolute Auto 3.2 X10*3/uL (1.2-4.9); Lymphocytes Percent Auto 31.3 % (20-40); Mean Corpuscular HGB Conc 32.7 g/dl (31.0-36.0); Mean Corpuscular Hemoglobin 29.9 pg (27.0-33.0); Mean Corpuscular Volume 91.4 fL (80.0-98.0); Monocytes Percent Auto 9.5 % (2-11); Neutrophils Absolute Auto 5.6 x10*3/uL (2.0-8.3); Neutrophils Percent Auto 55.5 % (45-73); Platelet Count 426 X10*3/uL (160-400); Red Blood Count 3.48 X10*6/uL (4.60-5.80); Red Cell Distribution Width 14.3 % (11.0-16.0); White Blood Count 10.2 X10*3/uL (4.8-10.8)
[2024-12-26] MEDS: Pantoprazole Sodium 40 MG/10 ML VIAL IVPUSH (06:06)
[2024-12-26 06:25] LABS: Creatinine Clr Calc Pharmacy 105.6; Estimated Glomerular Filt Rate > 60
[2024-12-26] MEDS: Gabapentin 600 MG TABLET PO ×3 (07:43→20:23)
[2024-12-26] MEDS: methADONE HCl 20 MG/2 ML ORAL.CONC 60 MG PO (07:43)
[2024-12-26] MEDS: 0.9 % Sodium Chloride Flush 3 ML SYRINGE IVFLUSH ×3 (07:44→20:23)
[2024-12-26] MEDS: metroNIDAZOLE/NS 500 MG/100 ML PIGGYBACK 100 MG IV ×3 (07:44→23:52)
[2024-12-26 08:11] LABS: C Reactive Protein 1.22 mg/dL (< or = 0.50)
[2024-12-26 08:27] LABS: Procalcitonin 0.14 ng/mL
--- NOTE | 2024-12-26 09:54 | P.PNIM_ITS ---
Subjective Subjective Date of Service: 12/26/24 Interval History: cough with some blood-tinged sputum; no fever; homeless Review of Systems Review of Systems: Yes all other systems are reviewed and are negative Physical Exam 2 Vital Signs: Vital Signs: Last Vital Signs Temp 98.2 F 12/26/24 08:00 Pulse 68 12/26/24 08:00 Resp 18 12/26/24 08:00 BP 120/56 L 12/26/24 08:00 Pulse Ox 98 12/26/24 08:00 O2 Del Method Room Air 12/26/24 08:00 BMI result Body Mass Index 22.5 Gen: in no acute distress HEENT: sclera anicteric, moist mucus membranes Neck: supple Lungs: clear to auscultation bilaterally Heart: regular rate and rhythm, no murmurs Abd: soft, non-tender, non-distended Ext: no edema Skin: warm/well-perfused Neuro: alert and oriented x3, no focal findings Psych: appropriate affect Objective Data Active Medications Acetaminophen (Acetaminophen 325 Mg Tablet) 650 mg PO Q6H PRN PRN Reason: Pain, Mild 1-3,fever,headache Albuterol/Ipratropium (Albuterol/Iprat 2.5/0.5mg 3 Ml Ampul.Neb) 3 ml INHALE Q4H PRN PRN Reason: Shortness of Breath/Wheezing Calcium Carbonate (Calcium Carbonate 750 Mg Tab.Chew) 750 mg PO Q4H PRN PRN Reason: Heartburn Enoxaparin Sodium (Enoxaparin Sodium 40 Mg/0.4 Ml Syringe) 40 mg SUBCUT Q24H [facility] [place] Last Admin: 12/26/24 04:07 Dose: 40 mg Documented By: FIFI Gabapentin (Gabapentin 600 Mg Tablet) 600 mg PO TID [facility] Last Admin: 12/26/24 07:43 Dose: 600 mg Documented By: REGINE Levofloxacin (Levaquin) 750 mg in 150 mls @ 100 mls/hr IV Q24H [facility] Last Infusion: 12/25/24 23:09 Dose: Infused Documented By: FIFI Metronidazole (Flagyl) 500 mg in 100 mls @ 100 mls/hr IV Q8H [facility] Last Infusion: 12/26/24 08:44 Dose: Infused Documented By: REGINE Doxycycline Hyclate 100 mg/ (Sodium Chloride) 250 mls @ 166.67 mls/hr IV Q12H [facility] [place] Magnesium Hydroxide (Milk Of Magnesia 30 Ml Oral.Susp) 30 ml PO DAILY PRN PRN Reason: Constipation Melatonin (Melatonin 3 Mg Tablet) 6 mg PO BEDTIME PRN PRN Reason: Insomnia Methadone HCl (Methadone Hcl 20 Mg/2 Ml Oral.Conc) 10 mg PO DAILY PRN PRN Reason: Opiate Withdrawal Last Admin: 12/25/24 19:19 Dose: 10 mg Documented By: AKASH Co-signed By: MYRON Methadone HCl (Methadone Hcl 20 Mg/2 Ml Oral.Conc) 60 mg PO DAILY@0800 [facility] [place] Last Admin: 12/26/24 07:43 Dose: 60 mg Documented By: REGINE Co-signed By: JOSH Ondansetron HCl (Ondansetron Hcl 4 Mg/2 Ml Vial) 4 mg IVPUSH Q8H PRN PRN Reason: Nausea and Vomiting Pantoprazole Sodium (Pantoprazole Sodium 40 Mg/10 Ml Vial) 40 mg IVPUSH DAILY@0630 [facility] Last Admin: 12/26/24 06:06 Dose: 40 mg Documented By: FIFI Polyethylene Glycol (Polyethylene Glycol 3350 17 Gm Powd.Pack) 17 gm PO DAILY PRN PRN Reason: Constipation Senna (Sennosides 8.6 Mg Tablet) 17.2 mg PO BEDTIME [facility] [place] Last Admin: 12/25/24 21:29 Dose: Not Given Documented By: FIFI Non-Admin Reason: Patient Refused Sodium Chloride (0.9 % Sodium Chloride Flush 3 Ml Syringe) 3 ml IVFLUSH QSHIFT [facility] [place] Last Admin: 12/26/24 07:44 Dose: 3 ml Documented By: REGINE Tizanidine HCl (Tizanidine Hcl 4 Mg Tablet) 4 mg PO TID PRN PRN Reason: Restlessness Last Admin: 12/25/24 14:13 Dose: 4 mg Documented By: PAMELA Labs 12/26/24 05:35 12/26/24 05:35 Labs: Laboratory Results - last 24 hr 12/26/24 12/26/24 12/26/24 02:30 05:35 05:35 MCV 91.4 MCH 29.9 MCHC 32.7 RDW 14.3 Plt Count 426 H MPV 9.0 L Immature Gran % (Auto) 0.8 H Neut % (Auto) 55.5 Lymph % (Auto) 31.3 [place] % (Auto) 9.5 Eos % (Auto) 2.2 Baso % (Auto) 0.7 Lymph # (Auto) 3.2 [place] # (Auto) 1.0 Eos # (Auto) 0.2 Baso # (Auto) 0.1 Abs Immat Gran (auto) 0.08 H Absolute Neuts (auto) 5.6 Absolute Nucleated RBC 0.000 Nucleated RBC % (auto) 0.0 Anion Gap Cancelled Estim Creat Clear Calc 105.6 Cancelled Estimated GFR > 60 Random Glucose Calcium C-Reactive Protein Procalcitonin Urine Color Yellow Urine Appearance Clear Urine pH 5.5 Ur Specific [place] 1.020 Urine Protein Negative Urine Glucose (UA) Negative Urine Ketones Negative Urine Blood Negative Urine Nitrite Negative Ur Leukocyte Esterase Negative 12/26/24 05:35 MCV MCH MCHC RDW Plt Count MPV Immature Gran % (Auto) Neut % (Auto) Lymph % (Auto) [place] % (Auto) Eos % (Auto) Baso % (Auto) Lymph # (Auto) [place] # (Auto) Eos # (Auto) Baso # (Auto) Abs Immat Gran (auto) Absolute Neuts (auto) Absolute Nucleated RBC Nucleated RBC % (auto) Anion Gap Estim Creat Clear Calc Estimated GFR Cancelled Random Glucose Cancelled Calcium Cancelled C-Reactive Protein 1.22 H Procalcitonin 0.14 Urine Color Urine Appearance Urine pH Ur Specific [place] Urine Protein Urine Glucose (UA) Urine Ketones Urine Blood Urine Nitrite Ur Leukocyte Esterase Microbiology Microbiology Results: Microbiology 12/25/24 02:07 Blood Culture - Preliminary Blood - Venous No growth after 24 hours. 12/25/24 02:07 Blood Culture - Preliminary Blood - Venous No growth after 24 hours. Assessment and Plan (1) Opioid use disorder: Status: Acute Plan d2 for 44yo M with opioid abuse with hx overdose + cardiac arrest, hydronephrosis R kidney due to nephrolithiasis, and recent hospitalization 12/15- 12/17 for cavitary PNA from which he signed out against medical advise, returned after overdosing requiring a dose of naloxone cavitary PNA - Suspected due to aspiration. Per Pulm levofloxacin + doxycycline x [address] chest as outpt. Added metronidazole but will consult ID. TB-IGRA negative. BCx pending. opioid abuse with overdose - Methadone, Addiction Medicine consulted. chronic HCV - Outpt treatment; HBV immune; HIV negative R hydronephrosis - stent removed 10/31/24 VTE ppx - enoxaparin dispo - homeless; CM consult for retirement placement Total time managing care of this patient today: 35 minutes. Quality Stroke Does the patient have a stroke diagnosis?: No Reason for No Anti-thrombotic by Day Two: N/A - Med Ordered VTE Prior VTE?: No VTE Risk Level:: Medical - moderate - high VTE Device Contraindication: N/A - Device Ordered VTE Drug Contraindication: N/A - Med Ordered
--- NOTE | 2024-12-26 11:30 | MHC.CLN ---
NUTRITION ROUTINE CONSULT DIET=REGULAR. ENSURE TID ADDED BY PROVIDER. SUPPLEMENT PROVIDES 1050 KCALS, 60 G PROTEIN. PATIENT IS HOMELESS AND HX IVDA. REVIEW OF WEIGHT HX SHOWS VARYING WEIGHTS WITH NO SIGNIFICANT WEIGHT LOSS. RD TO MONITOR WEEKLY.
--- NOTE | 2024-12-26 12:05 | P.PNADD_ITS ---
Subjective Subjective Date of Service: 12/26/24 Reason For Visit: Pulmonary abscess, hemoptysis Interim History: Patient seen in follow up for OUD and withdrawal management Methadone 60mg this AM Patient reports feeling overall better, and finds that back pain has improved too. He is requesting dose be decreased some as he feels like he is nodding off , and does not like that. Agreeable to 5mg decrease. He denies withdrawal sx, and is walking around the room comfortably. He inquires about referrals following discharge. He states that he wants to continue treatment, but does not know where to start. Discussed CSS level of care, and referral process. Patient expressed interest in this. Labs reviewed Hepatitis C VL pending HIV Ab negative Review of Systems Acute medical concerns: Yes Review of Systems Constitutional: Reports as per HPI and Reports no additional constitutional complaints Mental Status Exam Mental Status Exam Patient Appearance: Appropriate Level of Consciousness: Awake, Appropriate and Alert Patient Behavior: Appropriate and Talkative Affect Description: Appropriate Speech Pattern: Clear Hallucinations: None Thought Process: Intact and Goal Oriented Thought Content: positive for Intact and positive for Circumstantial Judgement: Good Diagnostics Vital Signs (24Hr): Vital Signs - 24 hr 12/25/24 14:11 12/25/24 17:10 12/25/24 20:22 Temperature 98.0 F 98.2 F 97.6 F Pulse Rate 70 71 69 Respiratory Rate 16 17 16 Blood Pressure 105/66 105/63 97/73 Pulse Oximetry 97 98 96 Oxygen Delivery Method Room Air Room Air Room Air 12/25/24 21:01 12/26/24 03:36 12/26/24 08:00 Temperature 98.3 F 97.8 F 98.2 F Pulse Rate 79 79 68 Respiratory Rate 18 16 18 Blood Pressure 112/75 105/62 120/56 L Pulse Oximetry 96 97 98 Oxygen Delivery Method Room Air Room Air Room Air 12/26/24 11:24 Temperature 97.5 F Pulse Rate 64 Respiratory Rate 18 Blood Pressure 113/68 Pulse Oximetry 92 Oxygen Delivery Method Room Air BMI result Body Mass Index 22.5 Labs 12/26/24 05:35 12/26/24 05:35 Labs: Laboratory Results - last 48 hr 12/25/24 12/25/24 12/25/24 02:07 04:28 05:12 WBC 22.8 H 18.2 H RBC 3.76 L 3.32 L Hgb 11.2 L 9.8 L Hct 33.8 L 29.7 L MCV 89.9 89.5 MCH 29.8 29.5 MCHC 33.1 33.0 RDW 13.9 14.1 Plt Count 556 H D 497 H MPV 8.4 L 8.9 L Immature Gran % (Auto) 0.9 H 0.8 H Neut % (Auto) 81.5 H 79.9 H Lymph % (Auto) 9.3 L 11.6 L Caroline % (Auto) 7.7 7.2 Eos % (Auto) 0.3 0.2 Baso % (Auto) 0.3 0.3 Lymph # (Auto) 2.1 2.1 Caroline # (Auto) 1.8 H 1.3 H Eos # (Auto) 0.1 0.0 Baso # (Auto) 0.1 0.1 Abs Immat Gran (auto) 0.21 H 0.15 H Absolute Neuts (auto) 18.6 H 14.5 H Absolute Nucleated RBC 0.000 0.000 Nucleated RBC % (auto) 0.0 0.0 Smear Tech's Comments VERIFIED Sodium 142 142 Potassium 3.9 3.6 Chloride 104 109 H Carbon Dioxide 27 23 Anion Gap 15 14 BUN 19 H 16 Creatinine 1.04 0.77 Estim Creat Clear Calc 79.7 107.6 Estimated GFR > 60 > 60 Random Glucose 74 80 Lactic Acid 1.7 Calcium 9.0 8.0 L D Magnesium 2.1 Total Bilirubin 0.2 0.1 AST 33 29 ALT 31 22 Alkaline Phosphatase 76 69 C-Reactive Protein Total Protein 7.4 6.1 L Albumin 3.8 3.1 L Lipase 68 Procalcitonin Urine Color Urine Appearance Urine pH Ur Specific [place] Urine Protein Urine Glucose (UA) Urine Ketones Urine Blood Urine Nitrite Ur Leukocyte Esterase Urine Opiates Screen POSITIVE H Ur Buprenorphine Scrn Not Detected Ur Oxycodone Screen Not Detected Urine Methadone Screen Not Detected Urine Fentanyl Screen POSITIVE H Ur Barbiturates Screen Not Detected Ur Phencyclidine Scrn Not Detected Ur Amphetamines Screen Not Detected U Benzodiazepines Scrn Not Detected Urine Cocaine Screen POSITIVE H U Marijuana (THC) Screen POSITIVE H HIV 1&2 Ab/P24 Ag 4thGn Nonreactive 12/26/24 12/26/24 12/26/24 02:30 05:35 05:35 WBC 10.2 RBC 3.48 L Hgb 10.4 L Hct 31.8 L MCV 91.4 MCH 29.9 MCHC 32.7 RDW 14.3 Plt Count 426 H MPV 9.0 L Immature Gran % (Auto) 0.8 H Neut % (Auto) 55.5 Lymph % (Auto) 31.3 Caroline % (Auto) 9.5 Eos % (Auto) 2.2 Baso % (Auto) 0.7 Lymph # (Auto) 3.2 Caroline # (Auto) 1.0 Eos # (Auto) 0.2 Baso # (Auto) 0.1 Abs Immat Gran (auto) 0.08 H Absolute Neuts (auto) 5.6 Absolute Nucleated RBC 0.000 Nucleated RBC % (auto) 0.0 Smear Tech's Comments Sodium Cancelled Potassium Cancelled Chloride Cancelled Carbon Dioxide Cancelled Anion Gap Cancelled BUN Cancelled Creatinine 0.78 Cancelled Estim Creat Clear Calc 105.6 Estimated GFR Random Glucose Lactic Acid Calcium Magnesium Total Bilirubin AST ALT Alkaline Phosphatase C-Reactive Protein Total Protein Albumin Lipase Procalcitonin Urine Color Yellow Urine Appearance Clear Urine pH 5.5 Ur Specific [place] 1.020 Urine Protein Negative Urine Glucose (UA) Negative Urine Ketones Negative Urine Blood Negative Urine Nitrite Negative Ur Leukocyte Esterase Negative Urine Opiates Screen Ur Buprenorphine Scrn Ur Oxycodone Screen Urine Methadone Screen Urine Fentanyl Screen Ur Barbiturates Screen Ur Phencyclidine Scrn Ur Amphetamines Screen U Benzodiazepines Scrn Urine Cocaine Screen U Marijuana (THC) Screen HIV 1&2 Ab/P24 Ag 4thGn 12/26/24 12/26/24 05:35 05:35 WBC RBC Hgb Hct MCV MCH MCHC RDW Plt Count MPV Immature Gran % (Auto) Neut % (Auto) Lymph % (Auto) Caroline % (Auto) Eos % (Auto) Baso % (Auto) Lymph # (Auto) [place] # (Auto) Eos # (Auto) Baso # (Auto) Abs Immat Gran (auto) Absolute Neuts (auto) Absolute Nucleated RBC Nucleated RBC % (auto) Smear Tech's Comments Sodium Potassium Chloride Carbon Dioxide Anion Gap BUN Creatinine Estim Creat Clear Calc Cancelled Estimated GFR > 60 Cancelled Random Glucose Cancelled Lactic Acid Calcium Cancelled Magnesium Total Bilirubin AST ALT Alkaline Phosphatase C-Reactive Protein 1.22 H Total Protein Albumin Lipase Procalcitonin 0.14 Urine Color Urine Appearance Urine pH Ur Specific [place] Urine Protein Urine Glucose (UA) Urine Ketones Urine Blood Urine Nitrite Ur Leukocyte Esterase Urine Opiates Screen Ur Buprenorphine Scrn Ur Oxycodone Screen Urine Methadone Screen Urine Fentanyl Screen Ur Barbiturates Screen Ur Phencyclidine Scrn Ur Amphetamines Screen U Benzodiazepines Scrn Urine Cocaine Screen U Marijuana (THC) Screen HIV 1&2 Ab/P24 Ag 4thGn Medications Medications Current Medications Acetaminophen (Acetaminophen 325 Mg Tablet) 650 mg PO Q6H PRN PRN Reason: Pain, Mild 1-3,fever,headache Albuterol/Ipratropium (Albuterol/Iprat 2.5/0.5mg 3 Ml Ampul.Neb) 3 ml INHALE Q4H PRN PRN Reason: Shortness of Breath/Wheezing Calcium Carbonate (Calcium Carbonate 750 Mg Tab.Chew) 750 mg PO Q4H PRN PRN Reason: Heartburn Enoxaparin Sodium (Enoxaparin Sodium 40 Mg/0.4 Ml Syringe) 40 mg SUBCUT Q24H [facility] Last Admin: 12/26/24 04:07 Dose: 40 mg Gabapentin (Gabapentin 600 Mg Tablet) 600 mg PO TID [facility] Last Admin: 12/26/24 07:43 Dose: 600 mg Levofloxacin (Levaquin) 750 mg in 150 mls @ 100 mls/hr IV Q24H [facility] Last Infusion: 12/25/24 23:09 Dose: Infused Metronidazole (Flagyl) 500 mg in 100 mls @ 100 mls/hr IV Q8H [facility] Last Infusion: 12/26/24 08:44 Dose: Infused Doxycycline Hyclate 100 mg/ (Sodium Chloride) 250 mls @ 166.67 mls/hr IV Q12H [facility] Magnesium Hydroxide (Milk Of Magnesia 30 Ml Oral.Susp) 30 ml PO DAILY PRN PRN Reason: Constipation Melatonin (Melatonin 3 Mg Tablet) 6 mg PO BEDTIME PRN PRN Reason: Insomnia Methadone HCl (Methadone Hcl 20 Mg/2 Ml Oral.Conc) 60 mg PO DAILY@0800 [facility] Last Admin: 12/26/24 07:43 Dose: 60 mg Ondansetron HCl (Ondansetron Hcl 4 Mg/2 Ml Vial) 4 mg IVPUSH Q8H PRN PRN Reason: Nausea and Vomiting Pantoprazole Sodium (Pantoprazole Sodium 40 Mg/10 Ml Vial) 40 mg IVPUSH DAILY@0630 [facility] Last Admin: 12/26/24 06:06 Dose: 40 mg Polyethylene Glycol (Polyethylene Glycol 3350 17 Gm Powd.Pack) 17 gm PO DAILY PRN PRN Reason: Constipation Senna (Sennosides 8.6 Mg Tablet) 17.2 mg PO BEDTIME [facility] Last Admin: 12/25/24 21:29 Dose: Not Given Sodium Chloride (0.9 % Sodium Chloride Flush 3 Ml Syringe) 3 ml IVFLUSH QSHIFT [facility] Last Admin: 12/26/24 07:44 Dose: 3 ml Tizanidine HCl (Tizanidine Hcl 4 Mg Tablet) 4 mg PO TID PRN PRN Reason: Restlessness Last Admin: 12/25/24 14:13 Dose: 4 mg Allergies Allergies Allergy/AdvReac Type Severity Reaction Status Date / Time coffee (Coffea arabica) Allergy Severe ANAPHYLAXIS Verified 12/25/24 00:51 [COFFEE] Penicillins [PENICILLINS] Allergy Intermediate RASH Verified 12/25/24 00:51 penicillin V Allergy Unknown Rash Verified 12/25/24 00:51 COFFEE FLAVOR Allergy Unknown Anaphylaxis Uncoded 12/25/24 00:51 Assessment & Plan Assessment & Plan (1) Opioid use disorder: Status: Acute Code(s): F11.90 - Opioid use, unspecified, uncomplicated Assessment and Plan: * methadone reduced to 55mg, per patient request * Requesting referral to [facility] as home OTP * Requesting information and referrals to [facility] following discharge Total time managing care of this patient today __35__ minutes.
[2024-12-26 19:42] LABS: HCV Log PCR 6.14 Log IU/mL (NOT DETECTED); HepC Viral Load 1370000 IU/mL (NOT DETECTED)
[2024-12-26] MEDS: levoFLOXacin/D5W 750 MG/150 ML PIGGYBACK 100 MG IV (20:22)
[2024-12-26] MEDS: Sennosides 8.6 MG TABLET 17.2 MG PO (20:23)
--- NOTE | 2024-12-26 23:11 | P.CNID_ITS ---
History of Present Illness Data of Consult Service Date: 12/26/24 Requesting physician: Shaniqua Schroeder Primary Care Provider: Rohini Brown MD HPI Reason for consult: overdose, aspiration He presents with shortness of breath, witnessed OD He has no fever or chills now. He left AMA ,has cavitary 3.8 cm lesion CHARLEEN and right lung infiltrate. He has 1 cm angelica lung He is homeless and no TB history. He has prior MRSA nares 12/15. Review of Systems 2 Review of Systems: Yes all other systems are reviewed and are negative PMFSH Past Medical History Medical History Right rotator cuff tear Hepatitis C Cardiac arrest Overdose Opioid use disorder Hydronephrosis Hemoptysis Cavitary pneumonia IVDU (intravenous drug user) Polysubstance use disorder Kidney stones Surgical History Surgical History H/O hand surgery Social History Social History Household Members: None Housing: Homeless Are you a primary physician primary care sports medicine to a significant other at home: No Do you presently have visiting nurse or other home services: No Alcohol intake: current Alcohol intake frequency: does not drink Alcohol type: hard liquor Patient Tobacco Use Status: Current everyday Tobacco user Tobacco use type: Cigarette Cigarette Packs Per Day: 0.5 Cigarettes Per Day: 10.0 Years Smoked: 30 Substance Use Type: Crack/Cocaine, Heroin and Marijuana service: No Travel History Ebola Risk: Travel/Contact With Anyone From Affected Area/s: No Has Patient Experienced Ebola Symptoms: No Meds Allergies Allergy/AdvReac Type Severity Reaction Status Date / Time coffee (Coffea arabica) Allergy Severe ANAPHYLAXIS Verified 12/25/24 00:51 [COFFEE] Penicillins [PENICILLINS] Allergy Intermediate RASH Verified 12/25/24 00:51 penicillin V Allergy Unknown Rash Verified 12/25/24 00:51 COFFEE FLAVOR Allergy Unknown Anaphylaxis Uncoded 12/25/24 00:51 Active Medications: Current Medications Acetaminophen (Acetaminophen 325 Mg Tablet) 650 mg PO Q6H PRN PRN Reason: Pain, Mild 1-3,fever,headache Albuterol/Ipratropium (Albuterol/Iprat 2.5/0.5mg 3 Ml Ampul.Neb) 3 ml INHALE Q4H PRN PRN Reason: Shortness of Breath/Wheezing Calcium Carbonate (Calcium Carbonate 750 Mg Tab.Chew) 750 mg PO Q4H PRN PRN Reason: Heartburn Enoxaparin Sodium (Enoxaparin Sodium 40 Mg/0.4 Ml Syringe) 40 mg SUBCUT Q24H [facility] Last Admin: 12/26/24 04:07 Dose: 40 mg Gabapentin (Gabapentin 600 Mg Tablet) 600 mg PO TID [facility] Last Admin: 12/26/24 20:23 Dose: 600 mg Levofloxacin (Levaquin) 750 mg in 150 mls @ 100 mls/hr IV Q24H [facility] Last Admin: 12/26/24 20:22 Dose: 100 mls/hr Metronidazole (Flagyl) 500 mg in 100 mls @ 100 mls/hr IV Q8H [facility] Last Infusion: 12/26/24 16:58 Dose: Infused Doxycycline Hyclate 100 mg/ (Sodium Chloride) 250 mls @ 166.67 mls/hr IV Q12H [facility] Last Infusion: 12/26/24 15:51 Dose: Infused Magnesium Hydroxide (Milk Of Magnesia 30 Ml Oral.Susp) 30 ml PO DAILY PRN PRN Reason: Constipation Melatonin (Melatonin 3 Mg Tablet) 6 mg PO BEDTIME PRN PRN Reason: Insomnia Methadone HCl (Methadone Hcl 20 Mg/2 Ml Oral.Conc) 55 mg PO DAILY@0800 [facility] Ondansetron HCl (Ondansetron Hcl 4 Mg/2 Ml Vial) 4 mg IVPUSH Q8H PRN PRN Reason: Nausea and Vomiting Pantoprazole Sodium (Pantoprazole Sodium 40 Mg/10 Ml Vial) 40 mg IVPUSH DAILY@0630 [facility] Last Admin: 12/26/24 06:06 Dose: 40 mg Polyethylene Glycol (Polyethylene Glycol 3350 17 Gm Powd.Pack) 17 gm PO DAILY PRN PRN Reason: Constipation Senna (Sennosides 8.6 Mg Tablet) 17.2 mg PO BEDTIME [facility] Last Admin: 12/26/24 20:23 Dose: 17.2 mg Sodium Chloride (0.9 % Sodium Chloride Flush 3 Ml Syringe) 3 ml IVFLUSH QSHIFT [facility] Last Admin: 12/26/24 20:23 Dose: 3 ml Tizanidine HCl (Tizanidine Hcl 4 Mg Tablet) 4 mg PO TID PRN PRN Reason: Restlessness Last Admin: 12/25/24 14:13 Dose: 4 mg Home Medications ?Medication ?Instructions ?Recorded ?Confirmed ?Last Taken ?Type gabapentin 600 mg tablet 600 mg PO TID 12/15/24 12/25/24 12/24/24 History 6600 mg Physical Exam 2 Vital Signs: Vital Signs: Last Vital Signs Temp 98 F 12/26/24 19:54 Pulse 98 12/26/24 19:54 Resp 14 12/26/24 19:54 BP 127/74 12/26/24 19:54 Pulse Ox 97 12/26/24 19:54 O2 Del Method Room Air 12/26/24 19:54 BMI result Body Mass Index 22.5 Const: General: cooperative HEENT: Head: Yes normal to inspection Face and sinus: Yes normal facial exam Mouth: Normal oral and palatal mucosa present Teeth and gingiva: d entition normal Eyes: General: appearance normal, both eyes and all related structures P upils: Equal, round and reactive pupils present Resp: Effort & Inspection: normal respiratory effort Cardio: Rate: regular rate Rhythm: regular rhythm GI: Palpation (GI): Soft to palpation and nontender : General: Yes no CVA tenderness Back/Spine/Pelvis: Back: no CVA tenderness Skin: General skin exam: no rashes or lesions noted Neuro: General: moves all extremities Cranial nerves: Yes Equal, round and reactive pupils present Extrem: General: Yes normal to inspection Psych: Appearance: grossly normal Results Labs 12/26/24 05:35 12/26/24 05:35 Labs: Short CBC 12/26/24 Range/Units 05:35 WBC 10.2 (4.8-10.8) X10*3/uL Hgb 10.4 L (14.0-18.0) g/dl Hct 31.8 L (42.0-52.0) % Plt Count 426 H (160-400) X10*3/uL BMP 12/26/24 12/26/24 05:35 05:35 Sodium Cancelled Potassium Cancelled Chloride Cancelled Carbon Dioxide Cancelled BUN Cancelled Creatinine 0.78 Cancelled Calcium Cancelled Urine 12/26/24 Range/Units 02:30 Urine Color Yellow Urine Appearance Clear Urine pH 5.5 (5.0-9.0) Ur Specific [place] 1.020 (1.005-1.025) Urine Protein Negative (Neg-Trace) mg/dL Urine Glucose (UA) Negative (Negative) mg/dL Microbiology Microbiology Results: Microbiology 12/25/24 02:07 Blood - Venous Blood Culture - Preliminary No growth after 24 hours. 12/25/24 02:07 Blood - Venous Blood Culture - Preliminary No growth after 24 hours. Assessment and Plan (1) Drug abuse, IV: Status: Acute (2) Cavitary pneumonia: Status: Acute (3) Hepatitis C: Status: Acute Plan He has cavitary pneumonia. This more likely due to aspiration than TB (no h/o TB and low prevalence). Malignancy and fungal infection possibility. There should be po Levaquin ,Flagyl and Doxycycline for 10 days. Check echo evaluate endocarditis as pneumonia with cavitary lesion r/o septic emboli even if looks atypical. D/C isolation if Tspot negative. Sputum cultures x 3 AFB. Treat Hepatitis C as outpatient. Pulmonary f/u ,probably bronchoscopy.
[2024-12-27] MEDS: Doxycycline Hyclate 100 MG in 0.9 % Sodium Chloride 250 ML 166.67 MG IV (00:56)
[2024-12-27 04:00] VITALS: BP 126/82; PULSE 85; RESP 18; TEMP 36.7; O2SAT 97
[2024-12-27] MEDS: Enoxaparin Sodium 40 MG/0.4 ML SYRINGE SUBCUT (05:33)
--- NOTE | 2024-12-27 07:00 | CA_ITS ---
Transthoracic Echocardiogram Patient (Last, First, Middle): Luis Garcia J Gender: Male Date of : 1980 Age: 44 Procedure Date: 12/27/2024 Procedure Type: Transthoracic Echocardiogram Location: S3E Height: 167.64 cm Weight: 63.05 kg BSA: 1.71 m2 Heart Rate: 72 bpm BP: 119 / 85 mmHg Air Brush Decorator: SB Referring MD: Shaniqua Schroeder MD Make Up Operator: Oleg Burrell MD Symptoms: evaluate for endocarditis Study Quality: Adequate ECG Rhythm: Sinus Conclusions: - Essentially normal study without obvious vegetations Findings Left Ventricle Normal left ventricular size, thickness, and systolic function. The visually estimated ejection fraction is between 65-70%. Spectral Doppler is indicative of a normal filling pattern. Right Ventricle Normal right ventricular cavity size and systolic function. Atria The left atrium is likely dilated. There is no evidence of interatrial shunt. The right atrium is normal in size. Aortic Valve Normal aortic valve structure and function. There is no aortic valve stenosis. There is no aortic valve regurgitation. Mitral Valve Normal mitral valve structure and function. There is trace mitral valve regurgitation. There is no mitral valve stenosis. Pulmonic Valve The pulmonic valve is likely normal. Tricuspid Valve Normal tricuspid valve structure. Tricuspid regurgitation envelope is inadequate for calculation of right ventricular systolic pressure. Normal right atrial pressure. Great Vessels All visible segments of the aorta are normal in size. The pulmonary artery was not well visualized. Venous The inferior vena cava is normal in size and collapses greater than 50% with inspiration. Pericardium/Pleural There is no evidence of pericardial effusion. Prior Study Comparison No prior study available for comparison. Recommendations, Care & Conclusions Consider a TWYLA if clinically appropriate. Measurements 2D Linear Measurements IVSd: 0.79 0.6-0.9/0.6-1.0 cm LVIDd: 5.44 3.9-5.3/4.2-5.9 cm LVIDd Index: 3.18 2.4-3.2/2.2-3.1 cm/m2 LVIDs: 3.75 2.0-3.6 cm LVPWd: 0.85 0.7-1.1 cm LA Diam: 3.70 2.7-3.8/3.0-4.0 cm LAIDs Index: 2.16 1.5-2.3 cm/m2 LV Mass: 201.19 67-162/88-224 g LV Mass Index: 117.66 43-95/49-115 g/m2 LVOT Diam: 2.40 3.0+(-)1.3 cm 2D Systolic Function EF 4C: 64.50 >55% EF 2C: 69.20 >55% EF BiP: 66.30 >55% Mitral Valve MV Pk E: 0.75 MV PK A: 0.45 MV Decel Time: 166.00 E/A: 1.70 E'Lateral: 6.96 E'Medial: 8.16 E/E' Med: 9.20 E/E' Lat: 10.80 PHT: 49.00 MVA PHT: 4.49 Decel [place]: 4.50 Aortic Valve AoV Pk Chepe: 1.12 AoV Pk Grad: 5.00 ASHLI: 4.40 LVOT LVOT Pk Chepe: 1.09 LVOT Mn [place]: 0.75 LVOT VTI: 0.21 LVOT Pk Grad: 5.00 LVOT Mn Grad: 3.00 LVOT Diam: 2.40 LVOT Area: 4.52 Diastolic Function MV Pk E: 0.75 MV Pk A: 0.45 E/A: 1.70 E'Medial: 8.16 E/E' Med: 9.20 E' Laterial: 6.96 E/E' Lat: 10.80 Right Ventricle TAPSE (mm): 27.60 TVS' Chepe: 14.40 Tricuspid Valve RA Press: 3.00 Great Vessels Aorta Sinus of Valsalva: 3.30 2.0-3.5 cm Ao Asc: 2.90 2.1-3.4 cm Pulmonary Veins Pulm Vein S/D 1.00 Pulmonary Valve PV Pk Chepe: 0.98 Peak PV Grad: 4.00 Updated in Other Vendor System with Status of Final Oleg Burrell MD electronically signed on 12/27/2024 12:44:03 PM with status of Final
[2024-12-27 07:03] LABS: Creatinine Clr Calc Pharmacy 105.6; Estimated Glomerular Filt Rate > 60
[2024-12-27 07:48] VITALS: BP 119/85; PULSE 86; RESP 18; TEMP 36.3; O2SAT 99
[2024-12-27 08:00] VITALS: PULSE 86
[2024-12-27] MEDS: Gabapentin 600 MG TABLET PO (08:41)
[2024-12-27] MEDS: methADONE HCl 20 MG/2 ML ORAL.CONC 55 MG PO (08:42)
[2024-12-27] MEDS: metroNIDAZOLE/NS 500 MG/100 ML PIGGYBACK 100 MG IV (08:42)
[2024-12-27] MEDS: 0.9 % Sodium Chloride Flush 3 ML SYRINGE IVFLUSH (08:42)
[2024-12-27 11:44] VITALS: BP 101/70; PULSE 71; RESP 17; TEMP 36.6; O2SAT 98
--- NOTE | 2024-12-27 13:21 | P.DS_ITS ---
DS: Providers Provider Date of Service: 12/27/24 Date of admission: 12/25/24 02:59 Date of discharge: 12/27/24 Primary care physician: Rohini Brown MD Consults: 12/25/24 03:35 Addiction Medicine Provider Routine Consulting Provider: Addiction Covering Reason for consultation: overdose IVDA 12/25/24 03:36 Consult to Pulmonology Routine Consulting Provider: [facility] Reason for consultation: cavitary lesion, PNA 12/25/24 03:57 Consult to Urology Routine Consulting Provider: [facility] Reason for consultation: follow up for stent placed due to hydro and stone Has provider been notified: No 12/25/24 04:00 Consult to Infectious Diseases Routine Consulting Provider: [facility] Reason for consultation: cavitary PNA DS: Diagnosis Discharge Diagnosis (1) Drug abuse, IV: Status: Acute (2) Cavitary pneumonia: Status: Acute (3) Hepatitis C: Status: Acute (4) Opioid abuse: Status: Acute DS: Summary Hospital Course Hospital Course: From the history and physical by the admitting hospitalist, Hoda Jin, 12/25/24: Patient is a 44-year-old male with past medical history IV drug abuse and overdose, cardiac arrest secondary to overdose, hydronephrosis right kidney, nephrolithiasis, right rotator cuff tear, and recent hospitalization with cavitary pneumonia. Patient left the hospital AMA 2 days prior. Patient stated he was dope sick at the time. It was indicated that patient was receiving methadone during that admission and was seen by addictions. Patient returned to the emergency department today after a witnessed overdose requiring 1 dose of Narcan. Patient did not require CPR. Patient continues to have hemoptysis. Patient currently sleepy but responds to verbal stimulation and will answer some questions with yes or no or I don't know . Patient states he is currently not suicidal. Patient currently has a leukocytosis of 22, is afebrile, and lactic acid is 1.7. Patient has a noted thrombocytosis of 556. Patient is started on Lovenox for DVT prophylaxis. Electrolytes stable. Hemodynamics also stable, and patient currently in sinus rhythm. Neurological status currently reassuring. Patient is not presenting encephalopathic at this time. Currently, patient has no plans to leave AMA. Patient is started on cefepime, Flagyl and vancomycin noting cavitary lesion with suspected aspiration pneumonia that persists. Patient was seen by Pulmonary last admission and bronchoscopy was recommended if patient does not improve. Patient was last tested for TB back in September of 2023. Will retest this admission as patient reports being homeless for some time. Patient has history of hepatitis-C with a high viral load. Patient could not recall if he received treatment. Will repeat HIV testing as well. Urine tox screen and UA are also pending. Patient's previous urine tox was positive for fentanyl, cocaine and marijuana. Patient denies history of endocarditis noting he is an IV drug user. No murmur noted on exam. Back in September of 2024 patient diagnosed with hydronephrosis of the right kidney and nephrolithiasis. Patient had a stent placed and is supposed to follow up with Urology. Patient has not made any follow-up appointments so far. Will consult Urology while patient is here. Renal function currently stable. Patient denies any flank pain. 44yo M with opioid abuse with hx overdose + cardiac arrest, hydronephrosis R kidney due to nephrolithiasis, and recent hospitalization 12/15-12/17 for cavitary PNA from which he signed out against medical advise, returned after overdosing requiring a dose of naloxone. He was admitted to the medical-surgical unit with consultation from Addiction Medicine and Pulmonology. Hospital course by problem: cavitary PNA - Suspected due to aspiration. Per Pulmonology levofloxacin + doxycycline x [address] chest as outpt. Added metronidazole x 10 days. T-spot had been negative in 2023 but repeat pending; however, the patient had a negative PPD within the last week at [facility] and TB was felt to be extremely unlikely. Repeat HIV serology negative. Blood cultures negative. Echocardiography without any vegetations on the valves. Pulmonology recommended repeat CT of the chest in 1 month and he can follow up at the [facility]. opioid abuse with overdose - Started on methadone. Will follow up at [facility] for ongoing MAT. Narcan prescribed. chronic HCV - Recommended outpt treatment at [facility]; HBV immune; HIV negative. R hydronephrosis - Stent was already removed 10/31/24. He was discharged home with instructions to follow up with Primary Care in 1 week. Time Attestation Discharge Coordination Time (in mins): 35 Quality: Safe Use of Opioids Does Pt have an Active Cancer Diagnosis on the Problem List?: No Quality: Stroke Does the patient have a stroke diagnosis?: No Physical Exam Vital Signs: Vital Signs: Last Vital Signs Temp 98 F 12/27/24 11:44 Pulse 71 12/27/24 11:44 Resp 17 12/27/24 11:44 BP 101/70 12/27/24 11:44 Pulse Ox 98 12/27/24 11:44 O2 Del Method Room Air 12/27/24 11:44 BMI result Body Mass Index 22.5 Gen: in no acute distress HEENT: sclera anicteric, moist mucus membranes Neck: supple Lungs: clear to auscultation bilaterally Heart: regular rate and rhythm, no murmurs Abd: soft, non-tender, non-distended Ext: no edema Skin: warm/well-perfused Neuro: alert and oriented x3, no focal findings Psych: appropriate affect DS: Data Data Completed and Pending Completed studies during hospitalization [Text1]: Laboratory Results WBC 10.2 X10*3/uL (4.8-10.8) 12/26/24 05:35 RBC 3.48 X10*6/uL (4.60-5.80) L 12/26/24 05:35 Hgb 10.4 g/dl (14.0-18.0) L 12/26/24 05:35 Hct 31.8 % (42.0-52.0) L 12/26/24 05:35 MCV 91.4 fL (80.0-98.0) 12/26/24 05:35 MCH 29.9 pg (27.0-33.0) 12/26/24 05:35 MCHC 32.7 g/dl (31.0-36.0) 12/26/24 05:35 RDW 14.3 % (11.0-16.0) 12/26/24 05:35 Plt Count 426 X10*3/uL (160-400) H 12/26/24 05:35 MPV 9.0 fL (9.4-12.4) L 12/26/24 05:35 Immature Gran % (Auto) 0.8 % (0.0-0.4) H 12/26/24 05:35 Neut % (Auto) 55.5 % (45-73) 12/26/24 05:35 Lymph % (Auto) 31.3 % (20-40) 12/26/24 05:35 [place] % (Auto) 9.5 % (2-11) 12/26/24 05:35 Eos % (Auto) 2.2 % (0-4) 12/26/24 05:35 Baso % (Auto) 0.7 % (0-2) 12/26/24 05:35 Lymph # (Auto) 3.2 X10*3/uL (1.2-4.9) 12/26/24 05:35 [place] # (Auto) 1.0 X10*3/uL (0.1-1.2) 12/26/24 05:35 Eos # (Auto) 0.2 X10*3/uL (0.0-0.4) 12/26/24 05:35 Baso # (Auto) 0.1 X10*3/uL (0.0-0.2) 12/26/24 05:35 Abs Immat Gran (auto) 0.08 X10*3/uL (0.00-0.03) H 12/26/24 05:35 Absolute Neuts (auto) 5.6 x10*3/uL (2.0-8.3) 12/26/24 05:35 Absolute Nucleated RBC 0.000 X10*3/uL (0.0-0.012) 12/26/24 05:35 Nucleated RBC % (auto) 0.0 /100WBC (0.0-0.2) 12/26/24 05:35 Smear Tech's Comments VERIFIED 12/25/24 02:07 Hold Purple Top SEE NOTE 12/27/24 06:02 Sodium Cancelled 12/26/24 05:35 Potassium Cancelled 12/26/24 05:35 Chloride Cancelled 12/26/24 05:35 Carbon Dioxide Cancelled 12/26/24 05:35 Anion Gap Cancelled 12/26/24 05:35 BUN Cancelled 12/26/24 05:35 Creatinine 0.78 mg/dL (0.5-1.4) 12/27/24 06:02 Estim Creat Clear Calc 105.6 12/27/24 06:02 Estimated GFR > 60 12/27/24 06:02 Random Glucose Cancelled 12/26/24 05:35 Lactic Acid 1.7 mmol/L (0.5-2.0) 12/25/24 02:07 Calcium Cancelled 12/26/24 05:35 Magnesium 2.1 mg/dL (1.6-2.6) 12/25/24 02:07 Total Bilirubin 0.1 mg/dL (0.0-1.0) 12/25/24 04:28 AST 29 U/L (5-37) 12/25/24 04:28 ALT 22 U/L (0-40) 12/25/24 04:28 Alkaline Phosphatase 69 U/L (39-117) 12/25/24 04:28 C-Reactive Protein 1.22 mg/dL (< or = 0.50) H 12/26/24 05:35 Total Protein 6.1 g/dL (6.5-8.0) L 12/25/24 04:28 Albumin 3.1 g/dL (3.5-5.0) L 12/25/24 04:28 Lipase 68 U/L (8-78) 12/25/24 02:07 Procalcitonin 0.14 ng/mL 12/26/24 05:35 Urine Color Yellow 12/26/24 02:30 Urine Appearance Clear 12/26/24 02:30 Urine pH 5.5 (5.0-9.0) 12/26/24 02:30 Ur Specific [place] 1.020 (1.005-1.025) 12/26/24 02:30 Urine Protein Negative mg/dL (Neg-Trace) 12/26/24 02:30 Urine Glucose (UA) Negative mg/dL (Negative) 12/26/24 02:30 Urine Ketones Negative mg/dL (Negative) 12/26/24 02:30 Urine Blood Negative (Negative) 12/26/24 02:30 Urine Nitrite Negative (Negative) 12/26/24 02:30 Ur Leukocyte Esterase Negative (Negative) 12/26/24 02:30 Urine Opiates Screen POSITIVE (Not Detect) H 12/25/24 05:12 Ur Buprenorphine Scrn Not Detected ng/mL (Not Detect) 12/25/24 05:12 Ur Oxycodone Screen Not Detected ng/mL (Not Detect) 12/25/24 05:12 Urine Methadone Screen Not Detected ng/mL (Not Detect) 12/25/24 05:12 Urine Fentanyl Screen POSITIVE (Not Detect) H 12/25/24 05:12 Ur Barbiturates Screen Not Detected (Not Detect) 12/25/24 05:12 Ur Phencyclidine Scrn Not Detected (Not Detect) 12/25/24 05:12 Ur Amphetamines Screen Not Detected (Not Detect) 12/25/24 05:12 U Benzodiazepines Scrn Not Detected (Not Detect) 12/25/24 05:12 Urine Cocaine Screen POSITIVE (Not Detect) H 12/25/24 05:12 U Marijuana (THC) Screen POSITIVE (Not Detect) H 12/25/24 05:12 Hep C Viral Load [id number] IU/mL (NOT DETECTED) H 12/25/24 04:28 Hep C Viral Load Log 6.14 Log IU/mL (NOT DETECTED) H 12/25/24 04:28 HIV 1&2 Ab/P24 Ag 4thGn Nonreactive (Nonreactive) 12/25/24 04:28 Labs on day of discharge: = Discharge Plan Discharge Anticipated Discharge Date/Time: 12/27/24 13:11 Patient Disposition: Home, Self-Care Discharge Diagnosis: cavitary pneumonia opioid abuse Referrals: Priyank Patel MD [Physician] - 1 Month Rohini Brown MD [Primary Care Provider] - 1 Week Discharge Medications: New methadone [Methadose] 10 mg/mL Concentrate 55 mg PO DAILY@0800 Qty: 1 0RF Rx Instructions: Partial Fill upon patient request. naloxone 4 mg/actuation spray,non-aerosol 1 spray intranasal Q2M PRN (Reason: opioid overdose) Qty: 2 0RF Rx Instructions: spray 1 dose into ONE nostril; alternate nostrils w each dose until help arrives metronidazole 500 mg tablet 500 mg PO TID Qty: 24 0RF levofloxacin 750 mg tablet 750 mg PO DAILY Qty: 26 0RF doxycycline monohydrate 100 mg tablet 100 mg PO BID Qty: 52 0RF Continued gabapentin 600 mg tablet 600 mg PO TID Discharge Orders: Discharge Order (Routine); Ordered 12/27/24 Ordered By: Shaniqua Schroeder Diet: Regular diet Activity on Discharge: As tolerated Stand Alone Forms: Work/School Release Print Language: Liberian Care Plan Goals: cure pneumonia avoid drug use Health Concerns: cavitary pneumonia opioid abuse Plan of Treatment: for pneumonia treatment: - doxycycline 100 mg twice daily for 26 days - levofloxacin 750 mg once daily for 26 days - metronidazole 500 mg 3x daily for 8 days [don't drink alcohol when taking this medication] follow up with Dr Patel, [facility], in [address] scan follow up with [facility] for methadone follow up with [facility] for treatment of hepatitis C infection Please follow up with your primary care doctor within 1 week. Return to the hospital if you experience recurrent or worsening symptoms. Assessment: See Discharge Summary.
--- NOTE | 2024-12-27 13:46 | MHC.CM.PN ---
PT TO DC HOME TODAY WITH NO SERVICES VIA PRIVATE TRANSPORT
--- NOTE | 2024-12-27 13:51 | P.PNADD_ITS ---
Subjective Subjective Date of Service: 12/27/24 Reason For Visit: Pulmonary abscess, hemoptysis Interim History: Patient seen in follow up Awake, alert talkative Packing up as he is discharging. Feels good at current methadone dose Reviewed referral information and presenting at [facility] with last dose letter Requesting referrals still be sent to [facility] on his behalf and he will follow up from the community Review of Systems Medical Review of Systems: unchanged Review of Systems Constitutional: Reports as per HPI and Reports no additional constitutional complaints Mental Status Exam Mental Status Exam Patient Appearance: Well Grooomed and Appropriate Level of Consciousness: Awake, Appropriate and Alert Patient Behavior: Appropriate, Talkative and Cooperative Affect Description: Appropriate Speech Pattern: Clear Hallucinations: None Thought Process: Intact Thought Content: positive for Intact and positive for Circumstantial Judgement: Good Diagnostics Vital Signs (24Hr): Vital Signs - 24 hr 12/26/24 15:24 12/26/24 19:54 12/26/24 23:26 Temperature 98.3 F 98 F 98.1 F Pulse Rate 63 98 76 Respiratory Rate 17 14 18 Blood Pressure 117/71 127/74 107/68 Pulse Oximetry 96 97 98 Oxygen Delivery Method Room Air Room Air Room Air 12/27/24 04:00 12/27/24 07:48 12/27/24 11:44 Temperature 98.0 F 97.3 F 98 F Pulse Rate 85 86 71 Respiratory Rate 18 18 17 Blood Pressure 126/82 119/85 101/70 Pulse Oximetry 97 99 98 Oxygen Delivery Method Room Air Room Air Room Air BMI result Body Mass Index 22.5 Labs 12/26/24 05:35 12/27/24 06:02 Labs: Laboratory Results - last 48 hr 12/25/24 12/26/24 12/26/24 04:28 02:30 05:35 WBC 10.2 RBC 3.48 L Hgb 10.4 L Hct 31.8 L MCV 91.4 MCH 29.9 MCHC 32.7 RDW 14.3 Plt Count 426 H MPV 9.0 L Immature Gran % (Auto) 0.8 H Neut % (Auto) 55.5 Lymph % (Auto) 31.3 [place] % (Auto) 9.5 Eos % (Auto) 2.2 Baso % (Auto) 0.7 Lymph # (Auto) 3.2 [place] # (Auto) 1.0 Eos # (Auto) 0.2 Baso # (Auto) 0.1 Abs Immat Gran (auto) 0.08 H Absolute Neuts (auto) 5.6 Absolute Nucleated RBC 0.000 Nucleated RBC % (auto) 0.0 Hold Purple Top Sodium Cancelled Potassium Cancelled Chloride Cancelled Carbon Dioxide Cancelled Anion Gap Cancelled BUN Cancelled Creatinine 0.78 Estim Creat Clear Calc Estimated GFR Random Glucose Calcium C-Reactive Protein Procalcitonin Urine Color Yellow Urine Appearance Clear Urine pH 5.5 Ur Specific [place] 1.020 Urine Protein Negative Urine Glucose (UA) Negative Urine Ketones Negative Urine Blood Negative Urine Nitrite Negative Ur Leukocyte Esterase Negative Hep C Viral Load [id number] H Hep C Viral Load Log 6.14 H 12/26/24 12/26/24 12/26/24 05:35 05:35 05:35 WBC RBC Hgb Hct MCV MCH MCHC RDW Plt Count MPV Immature Gran % (Auto) Neut % (Auto) Lymph % (Auto) [place] % (Auto) Eos % (Auto) Baso % (Auto) Lymph # (Auto) [place] # (Auto) Eos # (Auto) Baso # (Auto) Abs Immat Gran (auto) Absolute Neuts (auto) Absolute Nucleated RBC Nucleated RBC % (auto) Hold Purple Top Sodium Potassium Chloride Carbon Dioxide Anion Gap BUN Creatinine Cancelled Estim Creat Clear Calc 105.6 Cancelled Estimated GFR > 60 Cancelled Random Glucose Cancelled Calcium Cancelled C-Reactive Protein 1.22 H Procalcitonin 0.14 Urine Color Urine Appearance Urine pH Ur Specific [place] Urine Protein Urine Glucose (UA) Urine Ketones Urine Blood Urine Nitrite Ur Leukocyte Esterase Hep C Viral Load Hep C Viral Load Log 12/27/24 06:02 WBC RBC Hgb Hct MCV MCH MCHC RDW Plt Count MPV Immature Gran % (Auto) Neut % (Auto) Lymph % (Auto) [place] % (Auto) Eos % (Auto) Baso % (Auto) Lymph # (Auto) [place] # (Auto) Eos # (Auto) Baso # (Auto) Abs Immat Gran (auto) Absolute Neuts (auto) Absolute Nucleated RBC Nucleated RBC % (auto) Hold Purple Top SEE NOTE Sodium Potassium Chloride Carbon Dioxide Anion Gap BUN Creatinine 0.78 Estim Creat Clear Calc 105.6 Estimated GFR > 60 Random Glucose Calcium C-Reactive Protein Procalcitonin Urine Color Urine Appearance Urine pH Ur Specific [place] Urine Protein Urine Glucose (UA) Urine Ketones Urine Blood Urine Nitrite Ur Leukocyte Esterase Hep C Viral Load Hep C Viral Load Log Medications Medications Current Medications Acetaminophen (Acetaminophen 325 Mg Tablet) 650 mg PO Q6H PRN PRN Reason: Pain, Mild 1-3,fever,headache Albuterol/Ipratropium (Albuterol/Iprat 2.5/0.5mg 3 Ml Ampul.Neb) 3 ml INHALE Q4H PRN PRN Reason: Shortness of Breath/Wheezing Calcium Carbonate (Calcium Carbonate 750 Mg Tab.Chew) 750 mg PO Q4H PRN PRN Reason: Heartburn Enoxaparin Sodium (Enoxaparin Sodium 40 Mg/0.4 Ml Syringe) 40 mg SUBCUT Q24H [facility] Last Admin: 12/27/24 05:33 Dose: 40 mg Gabapentin (Gabapentin 600 Mg Tablet) 600 mg PO TID [facility] Last Admin: 12/27/24 08:41 Dose: 600 mg Levofloxacin (Levaquin) 750 mg in 150 mls @ 100 mls/hr IV Q24H [facility] Last Infusion: 12/27/24 00:04 Dose: Infused Metronidazole (Flagyl) 500 mg in 100 mls @ 100 mls/hr IV Q8H [facility] Last Infusion: 12/27/24 09:42 Dose: Infused Doxycycline Hyclate 100 mg/ (Sodium Chloride) 250 mls @ 166.67 mls/hr IV Q12H [facility] Last Infusion: 12/27/24 03:37 Dose: Infused Magnesium Hydroxide (Milk Of Magnesia 30 Ml Oral.Susp) 30 ml PO DAILY PRN PRN Reason: Constipation Melatonin (Melatonin 3 Mg Tablet) 6 mg PO BEDTIME PRN PRN Reason: Insomnia Methadone HCl (Methadone Hcl 20 Mg/2 Ml Oral.Conc) 55 mg PO DAILY@0800 [facility] Last Admin: 12/27/24 08:42 Dose: 55 mg Ondansetron HCl (Ondansetron Hcl 4 Mg/2 Ml Vial) 4 mg IVPUSH Q8H PRN PRN Reason: Nausea and Vomiting Pantoprazole Sodium (Pantoprazole Sodium 40 Mg/10 Ml Vial) 40 mg IVPUSH DAILY@0630 [facility] Last Admin: 12/27/24 05:36 Dose: Not Given Polyethylene Glycol (Polyethylene Glycol 3350 17 Gm Powd.Pack) 17 gm PO DAILY PRN PRN Reason: Constipation Senna (Sennosides 8.6 Mg Tablet) 17.2 mg PO BEDTIME [facility] Last Admin: 12/26/24 20:23 Dose: 17.2 mg Sodium Chloride (0.9 % Sodium Chloride Flush 3 Ml Syringe) 3 ml IVFLUSH QSHIFT [facility] Last Admin: 12/27/24 08:42 Dose: 3 ml Tizanidine HCl (Tizanidine Hcl 4 Mg Tablet) 4 mg PO TID PRN PRN Reason: Restlessness Last Admin: 12/25/24 14:13 Dose: 4 mg Allergies Allergies Allergy/AdvReac Type Severity Reaction Status Date / Time coffee (Coffea arabica) Allergy Severe ANAPHYLAXIS Verified 12/25/24 00:51 [COFFEE] Penicillins [PENICILLINS] Allergy Intermediate RASH Verified 12/25/24 00:51 penicillin V Allergy Unknown Rash Verified 12/25/24 00:51 COFFEE FLAVOR Allergy Unknown Anaphylaxis Uncoded 12/25/24 00:51 Assessment & Plan Assessment & Plan (1) Opioid use disorder: Status: Acute Code(s): F11.90 - Opioid use, unspecified, uncomplicated Assessment and Plan: * provide last dose letter at discharge * referral sent to [facility] * take home narcan Total time managing care of this patient today _25___ minutes.
--- NOTE | 2024-12-27 15:28 | MHC.CM.PN ---
PT DISCHARGED TO THE COMMUNITY TODAY VIA PRIVATE TRANSPORT
[2024-12-28 20:24] LABS: TS Negative Control Passed; TS Panel A 0; TS Panel B 0; TS Positive Control Passed; TSpotTB Negative (Negative)
[2024-12-30 05:29] LABS: Legionella Ag Urine Not Detected (Not Detected)
[2024-12-30 18:28] LABS: Strep Pneumo Ag urine Not Detected (Not Detected)
== END 2024-12-27 14:38 | disposition home or self-care (01) | DRG 812 ==
LOC: HO.ED 03:03 → HO.EDOVER 03:24 → HO.S3 19:12
PROVIDERS: Nurse Practitioner Family; Physician Assistant Medical; Admitting Provider Student in an Organized Health Care Education/Training Program; Emergency Provider Emergency Medicine; PCP Family Medicine; Visit Provider Family Medicine
DX: T40.2X1A Poisoning by other opioids, accidental (unintentional), initial encounter (principal); J69.0 Pneumonitis due to inhalation of food and vomit; J85.2 Abscess of lung without pneumonia; Z86.74 Personal history of sudden cardiac arrest; F11.13 Opioid abuse with withdrawal; B19.20 Unspecified viral hepatitis C without hepatic coma; F19.10 Other psychoactive substance abuse, uncomplicated; J98.4 Other disorders of lung; Z59.02 Unsheltered homelessness; R04.2 Hemoptysis; D75.838 Other thrombocytosis; Z86.14 Personal history of Methicillin resistant Staphylococcus aureus infection; Z87.442 Personal history of urinary calculi; Z91.199 Patient's noncompliance with other medical treatment and regimen due to unspecified reason; Z79.899 Other long term (current) drug therapy
CPT/HCPCS: 36415; 71046; 80048; 80053; 80307; 81003; 82565; 83605; 83690; 83735; 84145; 85025; 86140; 86481; 87040; 87389; 87449; 87522; 87899; 93306; 99285; J0692; J0696; J1271; J1650; J1836; J1956; J2470; J3360; J3370; J3371

== ENCOUNTER → 2024-12-25 01:29 | Outpatient (BNV) | payer MEDICAID, SELFPAY | PROVIDERS: Admitting Provider Student in an Organized Health Care Education/Training Program; Emergency Provider Emergency Medicine; Visit Provider Radiology Diagnostic Radiology | DX: J98.4 Other disorders of lung (principal) | CPT/HCPCS: 71046 ==

== ENCOUNTER 2024-12-25 02:59 | Outpatient (BNV) | payer MEDICAID, SELFPAY | END 2024-12-27 07:00 | PROVIDERS: Admitting Provider Student in an Organized Health Care Education/Training Program; Emergency Provider Emergency Medicine; PCP Family Medicine; Visit Provider Internal Medicine Cardiovascular Disease | DX: I33.9 Acute and subacute endocarditis, unspecified (principal) | CPT/HCPCS: 93306 ==

== ENCOUNTER → 2024-12-25 02:59 | Outpatient (BNV) | payer OTHER, SELFPAY | PROVIDERS: Admitting Provider Student in an Organized Health Care Education/Training Program; Emergency Provider Emergency Medicine; PCP Family Medicine; Visit Provider Nurse Practitioner Psychiatric/Mental Health | DX: F11.90 Opioid use, unspecified, uncomplicated (principal) | CPT/HCPCS: 99231; 99232; 99499 ==

== ENCOUNTER → 2024-12-25 02:59 | Outpatient (BNV) | payer MEDICAID, SELFPAY | PROVIDERS: Admitting Provider Student in an Organized Health Care Education/Training Program; Emergency Provider Emergency Medicine; PCP Family Medicine; Visit Provider Internal Medicine | DX: F19.10 Other psychoactive substance abuse, uncomplicated (principal); J18.9 Pneumonia, unspecified organism; J98.4 Other disorders of lung; B19.20 Unspecified viral hepatitis C without hepatic coma | CPT/HCPCS: 99222 ==

== ENCOUNTER → 2024-12-25 02:59 | Outpatient (BNV) | payer MEDICAID, SELFPAY | PROVIDERS: Admitting Provider Student in an Organized Health Care Education/Training Program; Emergency Provider Emergency Medicine; Visit Provider Nurse Practitioner Family | DX: F11.90 Opioid use, unspecified, uncomplicated (principal) | CPT/HCPCS: 99223; 99232; 99239 ==

== ENCOUNTER → 2024-12-25 02:59 | Outpatient (BNV) | payer MEDICAID, SELFPAY | PROVIDERS: Admitting Provider Student in an Organized Health Care Education/Training Program; Emergency Provider Emergency Medicine; PCP Family Medicine; Visit Provider Urology | DX: N20.0 Calculus of kidney (principal) | CPT/HCPCS: 99222 ==

== ENCOUNTER → 2024-12-25 02:59 | Outpatient (BNV) | payer MEDICAID, SELFPAY | PROVIDERS: Admitting Provider Student in an Organized Health Care Education/Training Program; Emergency Provider Emergency Medicine; PCP Family Medicine; Visit Provider Internal Medicine Pulmonary Disease | DX: J85.2 Abscess of lung without pneumonia (principal); J18.9 Pneumonia, unspecified organism; J98.4 Other disorders of lung | CPT/HCPCS: 99222 ==

== ENCOUNTER 2025-04-04 10:01 | Outpatient (REF) | payer MEDICAID, SELFPAY ==
--- NOTE | ~2025-04-04 | XR_ITS ---
EXAMINATION: XR PELVIS CLINICAL INFORMATION: hip and back pain, history of septic arthritis COMPARISON: Correlated to CT abdomen pelvis dated October 04, 2024 TECHNIQUE: AP view of the pelvis. FINDINGS: Sclerosis subchondral cyst formation along the articular surface of the left coxofemoral joint without seated asymmetric joint space narrowing. No acute cortical disruption or gross malalignment in either hip. Mild sclerosis along the articular surface of the right acetabulum. Bony pelvis is intact. No lytic or blastic lesions. Multilevel lower lumbar spine spondylosis. XR/XR pelvis 1-2V IMPRESSION: Moderate to severe osteoarthrosis/osteoarthritis, left hip. Mild osteoarthrosis/osteoarthritis, right hip. Electronically signed by: Lester Kulkarni MD 04/04/2025 12:08 PM EDT
--- NOTE | ~2025-04-04 | XR_ITS ---
EXAMINATION: XR CHEST 2 VIEWS HISTORY: PNA COMPARISON: Comparison is made with the prior examination dated 12/25/2024. FINDINGS: PA and lateral views of the chest are submitted. The lungs are mildly hyperinflated. The lungs are clear. The previously seen left upper lobe consolidation with central lucency is no longer identified. There is no pleural effusion, pneumothorax, or pulmonary vascular congestion. The heart is normal in size. The bones are intact. XR/XR chest 2V IMPRESSION: No acute cardiopulmonary abnormality. The previously seen left upper lobe consolidation has resolved. Electronically signed by: Jluis Driscoll MD 04/04/2025 12:07 PM EDT
--- NOTE | ~2025-04-04 | XR_ITS ---
EXAMINATION: XR HIP, LEFT CLINICAL INFORMATION: righ hip pain, left side worse COMPARISON: Correlated to CT dated October 04, 2024 TECHNIQUE: AP and oblique views of the left hip. FINDINGS: Subchondral cyst formation and sclerosis along the articular surface of the left coxofemoral joint. Asymmetric joint space narrowing. Small marginal osteophyte formation. No acute cortical disruption or gross malalignment. No lytic or blastic lesions. Mild degenerative changes in the symphysis pubis. XR/XR hip LT min 2V IMPRESSION: Moderate to severe osteoarthrosis/osteoarthritis, left hip. Electronically signed by: Lester Kulkarni MD 04/04/2025 12:11 PM EDT
--- OUTSIDE RECORDS SUMMARY | 2025-04-04 11:50 | XMS_ITS | Clinical Summary ---
Author Organization [employer] Address [address] [place] [address] Care Team Providers Care Photographic Hand Developer Name Role Phone Rohini Brown MD Primary Care Provider [phone] Allergies Active Allergy Reactions Criticality Noted Date Comments Penicillins Unknown 06/29/2016 Medications * This document contains information received from the source organization and may not represent a complete record from that organization. gabapentin (Neurontin) 600 MG tabletIndicati ons:Low back pain with radiation Take 1 tablet (600 mg) by mouth 3 times daily. 90 tablet 11 10/10/19 25 026 Active methadone (Dolophine) 5 MG/5ML solutionIndica tions:Chronic Pain,Opioid Dependence Take 110 mg by mouth Once per day. Active ibuprofen 600 MG tablet Take 1 tablet (600 mg) by mouth every 8 (eight) hours if needed for mild pain. 30 tablet 1 10/06/19 24 025 Discontinued(Me d list cleanup (will not trigger notification to Pharmacy)) acetaminophen (Tylenol Extra Strength) 500 MG tablet Take 2 tablets (1,000 mg) by mouth every 8 (eight) hours if needed for mild pain or moderate pain. 90 tablet 1 10/06/19 24 025 Discontinued(Me d list cleanup (will not trigger notification to Pharmacy)) lidocaine (Lidoderm) 5 % patch Apply to affected area once daily for 12 hours 30 patch 11 10/06/19 24 025 Discontinued(Me d list cleanup (will not trigger notification to Pharmacy)) tamsulosin (Flomax) 0.4 MG 24 hr capsule Take 1 capsule (0.4 mg) by mouth in the morning. 15 capsule 10/06/19 24 025 Discontinued(Me d list cleanup (will not trigger notification to Pharmacy)) Active Problems Problem Noted Date Diagnosed Date Cavitary pneumonia 03/29/2025 Assessment & Plan (03/29/2025 6:05 AM EDT): - multiple ED visit and hospitalizations in November and December 2024 - last CTA on 12/16/24 showed: No pulmonary embolism; Thick-walled cavity in the left upper lobe measuring 3.8 cm could be a cavitating pneumonia; A cavitating malignancy may also be considered; Short interval follow up is recommended; Left upper lobe ground-glass opacity and consolidation likely indicates pneumonia; Developing pneumonia in the right middle lobe. - last CXR on 12/25/24 showed: Left suprahilar cavitary consolidation again noted. - s/p 1 mo doxycycline treatment - evaluate with CXR and CT - evaluate with PFT - refer to pulmonary in near future if indicated - work on smoking cessation Pulmonary abscess 03/29/2025 Assessment & Plan (03/29/2025 6:05 AM EDT): - multiple ED visit and hospitalizations in November and December 2024 - last CTA on 12/16/24 showed: No pulmonary embolism; Thick-walled cavity in the left upper lobe measuring 3.8 cm could be a cavitating pneumonia; A cavitating malignancy may also be considered; Short interval follow up is recommended; Left upper lobe ground-glass opacity and consolidation likely indicates pneumonia; Developing pneumonia in the right middle lobe. - last CXR on 12/25/24 showed: Left suprahilar cavitary consolidation again noted. - s/p 1 mo doxycycline treatment - evaluate with CXR and CT - evaluate with PFT - refer to pulmonary in near future if indicated - work on smoking cessation Opioid dependence 03/29/2025 Assessment & Plan (03/29/2025 5:47 AM EDT): - stage of change: early remission, on methadone - Overdose risk: high. Decreased tolerance currently; mixed drug use; previous history of overdose; presumed lung disease (COPD / asthma) - Continue current recovery support - Continue current recovery effort - Reviewed harm reduction and overdose prevention Bilateral hip pain 03/29/2025 Assessment & Plan (03/29/2025 6:15 AM EDT): - left worse than right - likely due to lumbar stenosis - will refer to neurosurgery Dyspnea 11/21/2023 Assessment & Plan (03/29/2025 6:06 AM EDT): - Pt is smoking cigarettes for many years, cutting down recently. - Will evaluate with PFT - Lung cancer screening start at age 50 per current guideline Assessment & Plan (11/26/2023 6:41 PM EDT): - Pt is smoking cigarettes for many years, cutting down recently. - Will evaluate with PFT - Lung cancer screening start at age 50 per current guideline Alcohol dependence 11/21/2023 Assessment & Plan (03/29/2025 5:47 AM EDT): - Abstinent for 3 months Assessment & Plan (10/09/2024 9:06 AM EDT): - Discussed harm reduction. - Pt is not ready to be referred to AUD clinic. Assessment & Plan (11/26/2023 6:52 PM EDT): - Discussed harm reduction. - Pt is not ready to be referred to AUD clinic. Tobacco dependence 10/07/2023 Assessment & Plan (03/29/2025 5:49 AM EDT): - started smoking since 12 years old - currently reduced to 1/2-1/3 pack day - start lung cancer screening per guideline - continue working on smoking cessation effort - schedule PFT Assessment & Plan (10/09/2024 9:05 AM EDT): [...] low back pain 10/06/2023 Assessment & Plan (03/29/2025 6:14 AM EDT): - MRI on 10/23/24 showed: 1. Multifocal degenerative disc changes with findings of spinal stenosis, including lateral recess narrowing. 2. Multifocal foraminal narrowing, including moderate left at L2-L3 and moderate left at L3-L4. 3. Multifocal facet arthropathy. 4. Abnormal marrow signal is nonspecific. Modic type 1 endplate changes are favored by imaging. ESR and CRP will be informative - Continue gabapentin to 600 mg tid - Currently on methadone for opioid dependence. Suggested to request an increase in his dose. - Previously tried APAP, NSAIDs, lidocaine patch, and oxycodone. - Consider trying lidocaine patch again and diclofenac gel -Consider PT near his residence Assessment & Plan (10/09/2024 10:35 PM EDT): [...] appropriate care is provided. - Refer to LOCOMOTIVE CRANE OPERATOR Assessment & Plan (11/21/2023 11:49 AM EDT): [...] of premature CAD 10/06/2023 Assessment & Plan (03/29/2025 6:00 AM EDT): - ASCVD risk factors: family hx premature ASCVD; tobacco use - 10-year ASCVD risk is 5.5% - most recent CTA in December 2024 showed no atherosclerotic disease - work on lifestyle modifications Assessment & Plan (11/26/2023 6:51 PM EDT): [...] lifestyle modifications Hemoptysis 10/06/2023 Assessment & Plan (03/29/2025 6:06 AM EDT): - Patient is a chronic smoker since 12 year of age. - T-spot TB negative in December 2024 Assessment & Plan (10/07/2023 5:34 AM EDT): [...] strips Subclinical hyperthyroidism 08/17/2018 Assessment & Plan (03/29/2025 5:33 AM EDT): - 10/06/23 TSH 0.24, normal Free T4 - continue monitoring at this time Assessment & Plan (11/26/2023 6:33 PM EDT): - 10/06/23 TSH 0.24, normal Free T4 - continue monitoring at this time - check TSI / thyroid antibody at next visit Chronic active hepatitis C 07/06/2018 Assessment & Plan (03/29/2025 5:37 AM EDT): - 10/06/23 Hepatitis C viral load 4,720,000 units / ml - 12/25/24 Hepatitis C viral load 1,370,000 copies / ml - Pt had history or IV drug use, not current. - Most recent hepatic profile and platelet: 12/25/24 - FIB-4 index 0.49 based on lab on 12/25/24 (in ED for pneumonia) - US/elastography in December 2023 suggestive of compensated advanced chronic liver disease. - Will refer him to Hepatitis C treatment team again - Referred back to Care Management - Patient was advised to complete lab which was ordered in September 2024 Assessment & Plan (10/10/2024 4:37 AM EDT): - 10/06/23 Hepatitis C viral load [id number] units ml - Pt had history or [...] EDT): - 10/06/23 Hepatitis C viral load 7837415 units ml - Pt had history or IV drug use, not current. - 10/06/23 AST 37, ALT 37, Platelets 224. - FIB-4 index 1.17 - Will refer him to Hepatitis C treatment team. Will order ultrasound with elastography. Kidney stone 06/29/2016 Assessment & Plan (03/29/2025 5:44 AM EDT): - incidental finding on CT in July 2023 which was done in [place] - [place] on 10/21/23 bilateral kidney stone. Referred to urology - Seen in [facility] in Aug and September [address] showed: persistent moderate right hydronephrosis secondary to a 4 mm proximal ureteral calculus; multiple 1-2 mm nonobstructing calculi in the mid to lower pole regions of the left kidney. Without left hydroureter. Rx tamuslosin in Aug 2023. S/p nephroureteral stent placement on 10/04/24. Stent removal on 11/01/23. - Last ED visit for kidney stone in December 2024 (incidental finding rather than chief complaint) - Drink water with citrus juice, > 2 L /day Assessment & Plan (10/09/2024 10:31 PM EDT): - incidental finding on CT in July 2023 which was done in [place] - [place] on 10/21/23 bilateral kidney stone. Referred to urology - Seen in [facility] in Aug and September 2024 for kidney stone. Rx tamuslosin in Aug 2023. S/p nephroureteral stent placement on 10/04/24. Called [facility] office for an outpatient follow up. - Drink adequate amount of fluid. Assessment & Plan (11/21/2023 11:48 AM EDT): - incidental finding on CT in July 2023 which was done in [facility] [place] on 10/21/23 bilateral kidney stone. Referred to urology. - Drink adequate amount of fluid. Assessment & Plan (10/07/2023 5:34 AM EDT): - incidental finding on CT in July 2023 which was done in [place] - recheck [place] Onychomycosis 06/29/2016 Shoulder pain 06/29/2016 Sprain of rotator cuff capsule 06/29/2016 Encounters Date Type Department Care Team Description 04/02/[address] [address] Tesha Aguiar RN 03/29/2025 Orders Only [address] [address] Rohini Brown MD 03/28/2025 11:00 AM EDT Telemedicine [address] [address] Rohini Brown MD Chronic active hepatitis C (CMS/HCC) (Primary Dx); Bilateral hip pain; Chronic midline low back pain, unspecified whether sciatica present; Low back pain with radiation; Cavitary pneumonia; Abscess of upper lobe of left lung with pneumonia (CMS/HCC); Dyspnea, unspecified type; Tobacco dependence; Hemoptysis; Pneumonia of both lungs due to infectious organism, unspecified part of lung; Subclinical hyperthyroidism; Right hip pain; Kidney stone; Uncomplicated alcohol dependence (CMS/HCC); Uncomplicated opioid dependence (CMS/HCC); Family history of premature CAD; Routine screening for STI (sexually transmitted infection); Elevated blood pressure reading; Screening for lipid disorders; Screening for diabetes mellitus 03/28/[address] [address] Tesha Aguiar, SIMON 03/28/2025 Orders Only [address] [address] Tesha Aguiar, system administrator active hepatitis C (CMS/HCC) 03/28/2025 Travel 03/27/[address] [address] Rohini Brown MD chart prep 03/11/2025 Patient Outreach [address] [address] Rohini Brown MD Care Coordination ([facility] Lorraine Pinon telephone call outreach) 02/25/2025 Patient Outreach [address] [address] Rohini Brown MD Care Coordination ([facility] Lorraine Pinon telephone call outreach) 02/12/[address] [address] Rohini Brown MD Appointment Request 02/11/[address] [address] Rohini Brown MD 02/11/2025 Travel 02/11/2025 Patient Outreach [address] [address] Rohini Brown MD Care Coordination ([facility] Lorraine Pinon telephone call outreach) 02/08/[address] [address] Rohini Brown MD Chart Prep 02/08/[address] [address] Rohini Brown MD fyi 02/05/[address] [address] Rohini Brown MD Appointment Request 02/04/2025 Patient Outreach [address] [address] Rohini Brown MD Pre-visit Planning (Pre-visit planning - LVM ) 01/25/2025 Patient Outreach [address] [address] Rohini Brown MD Care Coordination 01/23/2025 Patient Outreach [address] [address] Rohini Brown MD Care Management (C3- Follow up call # 1/unable to leave ) 01/04/2025 Patient Outreach [address] [address] Rohini Brown MD Care Coordination 01/02/2025 Patient Outreach [address] [address] Rohini Brown MD Care Management (C3- F/U call # 1 (3rd attempt)) from Last 3 Months Family History Medical [...] 68 10/09/2024 11:47 AM EDT Temperature 36.1 C (96.9 F) 10/09/2024 11:47 AM EDT Respiratory Rate 20 10/09/2024 11:47 AM EDT [...] Care Team (Late st Contact Info) Description 05/06/2025 1:15 PM EDT Office Visit [facility] [address] [place], [place] [phone] Rohini Brown MD [address] [place], [place] [phone] Health Maintenance Due Date Last Done Comments CT Colonography 1978 Colonoscopy 1978 Colorectal Cancer Screening 1978 FIT DNA/Cologuard 1978 FIT 1978 FOBT 1978 Sigmoidoscopy 1978 Disability Screening 1978 Family Planning (PISQ) 1993 DTaP/Tdap/Td Vaccines (1 - Tdap) 1997 Hepatitis A Vaccines (1 of 2 - Risk 2-dose series) 1997 Pneumococcal Vaccine: Pediatrics (0 to 5 Years) and At-Risk Patients (6 to 49) Years (1 of 2 - PCV) 1997 COVID-19 Vaccine ( - 2023-2 5 season) 2025 Influenza Vaccine (#1) 2025 Alcohol/Substance Use Screening 10/09/2025 10/09/2024 SDOH Screening 10/11/2025 10/11/2024 Depression Screening 10/24/2025 10/24/2024, 10/24/2024 Tobacco Screening 03/29/2026 03/29/2025 Zoster Vaccines (1 of 2) 2028 Lipid [...] patient's age to complete this topic Meningococcal B Vaccine Aged Out No l onger eligible based on patient's age to complete [...] 10:48 AM EDT) Triglycerides 163(H) <150 mg/dL [facility] Comment:Desirable Triglyceri de: less than 150 mg/dLBorderline High Triglyceride 150-199 mg/dLHigh Triglyceride: 200-499 mg/dLVery High Triglyceride: greater than or equal to 5OO mg/dL Cholesterol 171 <200 mg/dL [facility] Comment:Desirable Cholestero l: less than 200 mg/dLBorderline High Cholesterol: 200-239 mg/dLHigh Cholesterol: greater than 239 mg/dL LDL Cholesterol Calculated 93 <100 mg/dL [facility] Comment:Desirable LDL: less than 100 mg/dLNear Optimal/Above Optimal LDL: 110- 129 mg/dLBorderline High LDL: 130-159 mg/dLHigh LDL: 160-189 mg/dLVery High LDL: greater than or equal to 190 mg/dL HDL Cholesterol 46 >40 mg/dL [facility] Comment:Desirable HDL: great er than 40 mg/dL Note: This HDL assay may give artificially low results in patients with liver disease. Blood 10/06/2023 10:4 8 AM EDT 10/06/2023 11:46 AM EDT us Rohini Brown MD LAB BLOOD ORDERABLES Final Resul t Performing Organization Address [facility]/ZIP Co de Phone Number [facility] [address] [place] [address] [phone] * HIV-1/2 Antigen and Antibodies, Fourth Generation, with Reflexes (10/06/2023 10:48 AM EDT) [facility] HIV AB/AG Nonreactive Nonreactive [facility] Comment:HIV-1 p24 Ag and/or HIV-1/HIV-2 Ab not detected.A test result that is nonreactive does not exclude thepossibility of exposure to or infection with HIV-1 and/orHIV-2. Nonreactive results in this assay for individualswith prior exposure to HIV-1 and/or HIV-2 may be due toantigen and antibody levels that are below the limit ofdetection of this assay.The [employer] HIV Ag/Ab Combo assay result andsupplemental assay results should be interpreted inconjunction with the patient's clinical presentation,history and other laboratory results. If the results areinconsistent with clinical evidence, additional testing issuggested to confirm the result. Blood Venous blood specimen / Unknown 10/06/2023 10:48 AM EDT 10/06/2023 11:46 AM EDT us Rohini Brown MD LAB BLOOD ORDERABLES Final Resul t Performing Organization Address City/[facility]/ZIP Co de Phone Number [facility] [address] [place] [address] [phone] from Last 3 Months or Most Recently Relevant to Health Maintenance Insurance [facility] C3 Care Teams Photographic Hand Developer Relationship Specialty Start Date End Date Rohini Brown MD [address] [place] [id number] PCP - General Family Medicine 11/02/23
--- OUTSIDE RECORDS SUMMARY | 2025-04-04 11:50 | XMS_ITS | Encounter Summary ---
Author Organization [employer] Address [address] 7[address] [place] [address] Care Team Providers Care Bean Picker Machine Operator Name Role Phone Rohini Brown MD Primary Care Provider [phone] Encounter Details Date Type Department Care Team ([facility] st Contact Info) Description 10/09/2024 Orders Only [facility] [address] [place], [place] [phone] Rohini Brown MD [address] [place], [place] [phone] Social History Tobacco Use Types Packs/Day Years [...] AM EDT documented as of this encounter Functional Status * Over the past 2 weeks, how often have you been bothered by any of the following problems? Question Answer Date of Assessment Author Patient Health Questionnaire -2 Score 4 10/09/2024 11:48 AM EDT Karla Fulton [place] * Little interest or pleasure in doing things Answer Date of Assessment Author Nearly every day 10/09/2024 11:48 AM SAMEERAT Karla Fulton [place] * Feeling down, depressed, or hopeless Answer Date of Assessment Author Several days 10/09/2024 11:48 AM Karla Lowery [place] * Trouble falling or staying asleep, or sleeping too much Answer Date of Assessment Author Not at all 10/09/2024 11:48 AM Karla Lowery [place] * Feeling tired or having little energy Answer Date of Assessment Author Nearly every day 10/09/2024 11:48 AM Karla Lowery [place] * Poor appetite or overeating Answer Date of Assessment Author Not at all 10/09/2024 11:48 AM Karla Lowery MA * Feeling bad about yourself - or that you are a failure or have let yourself or your family down Answer Date of Assessment Author Not at all 10/09/2024 11:48 AM Karla Lowery [place] * Trouble concentrating on things, such as reading the newspaper or watching television Answer Date of Assessment Author Several days 10/09/2024 11:48 AM Karla Lowery MA * Moving or speaking so slowly that other people could have noticed? Or the opposite - being so fidgety or restless that you have been moving around a lot more than usual. Answer Date of Assessment Author Not at all 10/09/2024 11:48 AM Karla Lowery MA * Thoughts that you would be better off or hurting yourself in some way Answer Date of Assessment Author Not at all 10/09/2024 11:48 AM Karla Lowery MA * Patient Health Questionnaire-9 Score Answer Date of Assessment Author 8 10/09/2024 11:48 AM Karla Lowery MA * How difficult have these problems made it for you to do your work, take care of things at home, or get along with other people? Answer Date of Assessment Author Somewhat difficult 10/09/2024 11:48 AM Karla Berg MA * Over the last 2 weeks, how often have you been bothered by any of the following problems? Question Answer Date of Assessment Author Feeling nervous, anxious, or on edge 3 10/09/2024 11:49 AM Karla Lowery MA Not being able to stop or co ntrol worrying 1 10/09/2024 11:49 AM Karla Lowery MA Worrying too much about diff erent things 1 10/09/2024 11:49 AM Karla Lowery MA Trouble relaxing 3 10/09/2024 11:49 AM Karla Lowery MA Being so restless that it is hard to sit still 3 10/09/2024 11:49 AM Karla Lowery MA Becoming easily annoyed or irritable 3 10/09/2024 11:49 AM Karla Lowery MA Feeling afraid as if somethi ng awful might happen 3 10/09/2024 11:49 AM Karla Lowery MA NIHARIKA-7 Total Score 17 10/09/2024 11:49 AM EDT Karla Fulton MA documented as of this encounter Plan of Treatment Upcoming Encounters Date Type Department Care Team (Late st Contact Info) Description 05/06/2025 1:15 PM EDT Office Visit [facility] [address] [place] [address] Rohini Brown MD [address] [place] [address] documented as of this encounter Visit Diagnoses Not on filedocumented in this encounter Additional Health Concerns Assessment Noted Time PHQ-9 Depression Total Score: 8 10/10/19 11:48 AM EDT documented as of this encounter Care Teams Bean Picker Machine Operator Relationship Specialty Start Date End Date Rohini Brown MD [address] [place] [phone] PCP - General Family Medicine 11/02/23 documented as of this encounter
--- OUTSIDE RECORDS SUMMARY | 2025-04-04 11:50 | XMS_ITS | Encounter Summary ---
Author Organization [employer] Address [address] [place] [address] Care Team Providers Care Dancing Master Name Role Phone Rohini Brown MD Primary Care Provider Reason for Visit * Reason Onset Date Comments Call Back Request 11/02/2023 Encounter Details Date Type Department Care Team ([facility] st Contact Info) Description 11/02/2023 Telephone [facility] [address] [place], [place] [phone] Rohini Brown MD [address] [place], [place] [phone] Call Back Request Social History Tobacco Use [...] Description 05/06/2025 1:15 PM EDT Office Visit [facility] [address] [place] [address] Rohini Brown MD [address] [place] [address] documented as of this encounter Visit Diagnoses Not on filedocumented in this encounter Additional Health Concerns Assessment Noted Time PHQ-9 Depression Total Score: 0 10/06/19 9:42 AM EDT documented as of this encounter Care Teams Dancing Master Relationship Specialty Start Date End Date Rohini Brown MD [address] [place] [phone] PCP - General Family Medicine 11/02/23 documented as of this encounter
--- OUTSIDE RECORDS SUMMARY | 2025-04-04 11:50 | XMS_ITS | Encounter Summary ---
Author Organization [employer] Address [address] [place] [address] Care Team Providers Care Armhole Baster Jumpbasting Name Role Phone Rohini Brown MD Primary Care Provider [phone] Encounter Details Date Type Department Care Team ([facility] st Contact Info) Description 04/02/2025 Telephone [facility] [address] [place], [place] [phone] Tesha Aguiar, SIMON [address] [place] [address] Social History Tobacco Use Types Packs/Day Years [...] with others, in a hotel, in a half-way, living outside on the street, on a [...] encounter Miscellaneous Notes * Telephone Encounter - Tesha Aguiar RN - 04/02/2025 9:42 AM EDT Please remind pt labs for hep c by are needed, its important to note the labs by because PCP has entered labs as well. Once these are done we can start the intake process for Hep C tx. Thank you documented in this encounter Plan of Treatment Upcoming Encounters Date Type Department Care Team (Late st Contact Info) Description 05/06/2025 1:15 PM EDT Office Visit [facility] [address] [place] [address] Rohini Brown MD [address] [place] [address] documented as of this encounter Visit Diagnoses Not on filedocumented in this encounter Additional Health Concerns Assessment Noted Time PHQ-9 Depression Total Score: 7 10/25/19 25 11:36 AM EDT documented as of this encounter Care Teams Armhole Baster Jumpbasting Relationship Specialty Start Date End Date Rohini Brown MD [address] [place] [phone] PCP - General Family Medicine 11/02/23 documented as of this encounter
--- OUTSIDE RECORDS SUMMARY | 2025-04-04 11:50 | XMS_ITS | Encounter Summary ---
Author Organization [employer] Address [address] [place] [address] Care Team Providers Care Commercial Photographer Name Role Phone Rohini Brown MD Primary Care Provider [phone] Encounter Details Date Type Department Care Team ([facility] st Contact Info) Description 03/29/2025 Orders Only [facility] [address] [place], [place] [phone] Rohini Brown MD [address] [place], [place] [phone] Social History Tobacco Use Types Packs/Day Years [...] Description 05/06/2025 1:15 PM EDT Office Visit [facility] [address] [place] [address] Rohini Brown MD [address] [place] [address] documented as of this encounter Visit Diagnoses Not on filedocumented in this encounter Additional Health Concerns Assessment Noted Time PHQ-9 Depression Total Score: 7 10/25/19 25 11:36 AM EDT documented as of this encounter Care Teams Commercial Photographer Relationship Specialty Start Date End Date Rohini Brown MD [address] [place] [address] PCP - General Family Medicine 11/02/23 documented as of this encounter
[2025-04-04 11:53] LABS: MANUAL DIFF FLAG NO
[2025-04-04 11:57] LABS: Hematocrit 36.0 % (42.0-52.0); Hemoglobin 11.5 g/dl (14.0-18.0); Imm Gran Abs Auto 0.02 X10*3/uL (0.00-0.03); Imm Gran Pct Auto 0.3 % (0.0-0.4); Lymphocytes Absolute Auto 2.6 X10*3/uL (1.2-4.9); Mean Corpuscular HGB Conc 31.9 g/dl (31.0-36.0); Mean Corpuscular Hemoglobin 29.6 pg (27.0-33.0); Mean Corpuscular Volume 92.8 fL (80.0-98.0); NRBC Abs Auto 0.000 X10*3/uL (0.0-0.012); NRBC Pct Auto 0.0 /100WBC (0.0-0.2); Platelet Count 289 X10*3/uL (160-400); Red Blood Count 3.88 X10*6/uL (4.60-5.80); White Blood Count 7.3 X10*3/uL (4.8-10.8)
[2025-04-04 12:21] LABS: INTERNATIONAL NORM RATIO 0.9 (0.9-1.1); Prothrombin Time 10.6 SEC (10.9-12.4)
[2025-04-04 12:26] LABS: Alanine Aminotransferase 189 U/L (0-40); Albumin Level 4.2 g/dL (3.5-5.0); Alkaline Phosphatase 137 U/L (39-117); Anion Gap 13 (12-20); Aspartate Amino Transferase 142 U/L (5-37); Blood Urea Nitrogen 11 mg/dL (9-16); Calcium 9.4 mg/dL (8.4-10.2); Carbon Dioxide 29 mmol/L (22-29); Chloride 105 mmol/L (96-108); Estimated Glomerular Filt Rate > 60; Potassium 4.5 mmol/L (3.3-5.1); Sodium 142 mmol/L (135-145); Total Protein 7.5 g/dL (6.5-8.0)
[2025-04-04 12:27] LABS: Cholesterol 153 mg/dL (<200); HDL Cholesterol 40 mg/dL (>40); Triglycerides 191 mg/dL (<150)
[2025-04-04 12:42] LABS: HBS Num1 130.81 mIU/mL (0-7.99); HBc Num1 0.09 S/CO (0.00-0.79); HBsAGNum1 0.44 S/CO (0.00-0.99); HIV Num 1 0.06 S/CO (0.00-0.99); Hepatitis B Surface Antigen Negative (Negative); ~HepC Num1 15.96 S/CO (0.00-0.79); ~Hepatitis B Surface Antibody REACTIVE (Nonreactive); ~Hepatitis C Antibody Reactive (Nonreactive)
[2025-04-04 12:46] LABS: Folate 13.4 ng/mL (> or = 4.0); Vitamin B12 688 pg/mL (200-900)
[2025-04-04 13:26] LABS: Reflex LDLD? No
[2025-04-05 09:52] LABS: ~Hepatitis A Antibody IgG 8.37 S/CO (0.00-0.99)
[2025-04-05 10:44] LABS: Anti Nuclear Antibody Screen NEGATIVE (NEGATIVE)
[2025-04-06 15:42] LABS: HCV Log PCR 6.53 Log IU/mL (NOT DETECTED)
[2025-04-15 19:18] LABS: FIB-ALT 139 U/L (9-46); FIB-Alpha-2-Macroglobulin 220 mg/dL (106-279); FIB-Apolipoprotein A1 171 mg/dL (94-176); FIB-GGT 232 U/L (3-95); FIB-Haptoglobin 39 mg/dL (43-212); FIB-Total Bilirubin 0.4 mg/dL (0.2-1.2); Liver Fibrosis Score 0.50; Liver Fibrosis Stage F2; Nec Inflam Act Grade A3; Nec Inflam Act Score 0.76
== END 2025-04-04 10:02 | disposition home or self-care (01) ==
LOC: HO.HHCL 10:01
PROVIDERS: PCP Family Medicine; Referring Provider Family Medicine; Visit Provider Family Medicine
DX: Z01.84 Encounter for antibody response examination (principal); Z13.1 Encounter for screening for diabetes mellitus; J85.1 Abscess of lung with pneumonia; M25.551 Pain in right hip; M25.552 Pain in left hip; M54.50 Low back pain, unspecified; R03.0 Elevated blood-pressure reading, without diagnosis of hypertension; Z13.220 Encounter for screening for lipoid disorders; Z11.3 Encounter for screening for infections with a predominantly sexual mode of transmission; B18.2 Chronic viral hepatitis C; Z11.4 Encounter for screening for human immunodeficiency virus [HIV]
CPT/HCPCS: 36415; 71046; 72170; 73502; 80053; 80061; 81596; 82248; 82607; 82746; 83036; 84443; 85025; 85610; 85652; 86038; 86140; 86200; 86431; 86704; 86706; 86708; 86803; 87340; 87389; 87522; 87902

== ENCOUNTER → 2025-04-04 11:31 | Outpatient (BNV) | payer MEDICAID, SELFPAY | PROVIDERS: PCP Family Medicine; Referring Provider Family Medicine; Visit Provider Radiology Diagnostic Radiology | DX: M25.552 Pain in left hip (principal); J18.9 Pneumonia, unspecified organism; M54.50 Low back pain, unspecified | CPT/HCPCS: 71046; 72170; 73502 ==

== ENCOUNTER 2025-06-27 10:50 | Outpatient (AMB) | payer MEDICAID, SELFPAY ==
--- NOTE | 2025-06-27 11:09 | MHC.OFFVIS ---
Vital Signs 06/27/25 11:14 Height 5 ft 6 in Weight 150 lb BMI 24.2 Handedness Right Intake Visit Reasons: New Pt - left hip pain Intake Note: Luis is a 44 year old male who presents today as a new patient for a evaluation of his left hip pain. Patient states ongoing pain for over a year. He states that his pain runs down through out his leg and it radiates up to his lower back. His pain is worse in the morning, walking and putting a shoe on. Patient hasn't tried taking any pain medication. Allergies coffee (Coffea arabica) (COFFEE) Allergy (Severe, Verified 06/27/25 11:13) ANAPHYLAXIS Penicillins (PENICILLINS) Allergy (Intermediate, Verified 06/27/25 11:13) RASH penicillin V Allergy (Unknown, Verified 06/27/25 11:13) Rash COFFEE FLAVOR Allergy (Unknown, Uncoded 12/25/24 00:51) Anaphylaxis HPI HPI New Pt - left hip pain: Details: The patient is a 44 year old male presenting with left hip pain. He reports the pain has been ongoing for the past year and has now worsened to the point where it is hard for him to walk. The pain is located in the left hip and radiates down the entire left lower extremity and to his lower back. It is exacerbated by walking long distances, bending, and squatting, and is worse in the morning. His symptoms prevent him from running, jumping, or working, and he has difficulty standing or sitting for prolonged periods. Previous trials of physical therapy, Tylenol, and ibuprofen have not provided any relief. The patient has a past medical history of polysubstance abuse and IV drug abuse, with a hospitalization on 12/27/24. He reports that he has not used illicit substances like heroin or cocaine since December and is currently on methadone. 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 [facility] Medical History Right rotator cuff tear Hepatitis C Cardiac arrest Overdose Opioid use disorder Hydronephrosis Hemoptysis Cavitary pneumonia IVDU (intravenous drug user) Polysubstance use disorder Kidney stones Surgical History H/O hand surgery Social History (Updated 06/27/25 @ 11:14 by Katya Hendrix) Household Members: None Housing: Homeless Are you a primary primary care nurse practitioner to a significant other at home: No Do you presently have visiting nurse or other home services: No Alcohol intake: current Alcohol intake frequency: does not drink Alcohol type: hard liquor Patient Tobacco Use Status: Current everyday Tobacco user Tobacco use type: Cigarette Cigarette Packs Per Day: 0.5 Cigarettes Per Day: 10.0 Years Smoked: 30 Substance Use Type: Crack/Cocaine, Heroin and Marijuana service: No Current occupational status: unemployed Review of Systems Narrative Review of Systems - Musculoskeletal: Reports severe left hip pain that radiates down the left leg and to the lower back. - Reports functional limitations including difficulty walking, bending, squatting, running, and jumping. - General: Reports feeling pain throughout his entire body. Const All systems reviewed & are unremarkable except as noted in HPI and below Physical Exam Exam Exam: Physical Exam - No formal physical examination was documented in the conversation. Vital Signs: BMI result Body Mass Index 24.2 Const General: cooperative, healthy appearing and no acute distress Resp Effort & Inspection: normal respiratory effort and able to speak in complete sentences Extrem Other: Left hip: Antalgic gait. Difficulty performing straight leg raise. Pain and difficulty with internal external rotation. NVI. Psych Appearance: grossly normal Mental Status: mental status grossly normal Attitude: cooperative Assessment & Plan Assessment & Plan (1) Osteoarthritis of left hip: Code(s): M16.12 - Unilateral primary osteoarthritis, left hip Category: Medical (2) Polysubstance use disorder: Code(s): F19.90 - Other psychoactive substance use, unspecified, uncomplicated Category: Medical (3) Opioid use disorder: Code(s): F11.90 - Opioid use, unspecified, uncomplicated Category: Medical Plan 1. End-Stage Arthritis Of The Left Hip The patient's x-rays confirm end-stage arthritis of the left hip, which is responsible for his severe, debilitating pain. Due to the severity, oral anti-inflammatories and physical therapy are considered unlikely to be effective, with a risk that physical therapy could induce an arthritic flare-up. The definitive treatment is a total hip replacement, but the patient's young age presents concerns about the longevity of the implant and the higher risks associated with potential future revision surgeries. The immediate plan is to schedule an intra-articular cortisone injection at the hospital, performed under imaging guidance, to provide temporary pain relief. A follow-up appointment will be scheduled in December with Dr. Vergara to discuss proceeding with a hip replacement, as this will coincide with the required one-year sobriety milestone. The patient was informed about the expected post-operative recovery time, which would be 6-8 weeks for a sedentary job and three months or more for physical labor. 2. History Of Intravenous (Iv) Drug Abuse The patient's history of polysubstance and IV drug abuse is a significant factor in his eligibility for surgery due to a high risk of infection. He is currently taking methadone and reports his last use of other illicit substances was in December. The plan requires the patient to maintain one year of sobriety from IV drug use before being considered a candidate for hip replacement surgery. His marijuana use is not considered a contraindication to surgery. Patient was informed and verbally consented to the use of an ambient scribe for clinic note documentation during this visit. Coding Level of Care Code New Pt Level 4 (09973) Add On Problem Visit Only Diagnoses Osteoarthritis of left hip M16.12 Polysubstance use disorder F19.90 Opioid use disorder F11.90
[2025-06-27 11:14] VITALS: BMI 24.2
== END 2025-06-27 11:36 | disposition home or self-care (01) ==
LOC: HO.HOS 10:50
PROVIDERS: PCP Family Medicine; Visit Provider Physician Assistant
DX: M16.12 Unilateral primary osteoarthritis, left hip (principal); F19.90 Other psychoactive substance use, unspecified, uncomplicated; F11.90 Opioid use, unspecified, uncomplicated
CPT/HCPCS: 99204

== ENCOUNTER → 2025-06-27 10:50 | Outpatient (BNVA) | payer MEDICAID, SELFPAY | PROVIDERS: PCP Family Medicine; Visit Provider Physician Assistant | DX: M16.12 Unilateral primary osteoarthritis, left hip (principal); F19.90 Other psychoactive substance use, unspecified, uncomplicated; F11.90 Opioid use, unspecified, uncomplicated | CPT/HCPCS: 99212 ==